=== PATIENT | female | born 1955 | race Caucasian/White ===

== ENCOUNTER 2019-08-20 15:39 | Inpatient (IN) | payer MEDICARE, MEDICAID ==
[~2019-08-20] VITALS: Ht 167.6 cm; Wt 74.8 kg
[2019-08-20 16:17] LABS: BASO % 1 % (0-3); EOS # 0.1 x10^3/uL (0.0-0.7); EOS % 3 % (0-3); HEMATOCRIT 36.6 % (36.0-47.0); HEMOGLOBIN 12.1 g/dL (12.0-15.5); LYMPH # 1.6 x10^3/uL (1.0-4.8); LYMPH % 37 % (24-48); MEAN CORPUSCULAR HEMOGLOBIN 30 pg (25-35); MEAN CORPUSCULAR HGB CONC 33 g/dL (31-37); MEAN CORPUSCULAR VOLUME 91 fL (79-100); MONO # 0.3 x10^3/uL (0.0-1.1); MONO % 7 % (0-9); NEUT # 2.3 x10^3uL (1.8-7.7); NEUT % 53 % (31-73); PLATELET COUNT 177 x10^3/uL (140-400); RED BLOOD COUNT 4.04 x10^6/uL (3.50-5.40); RED CELL DISTRIBUTION WIDTH 12.7 % (11.5-14.5); WHITE BLOOD COUNT 4.3 x10^3/uL (4.0-11.0)
[2019-08-20 16:30] LABS: CREATININE 0.9 mg/dL (0.6-1.0); GFR 63.4; POTASSIUM 3.8 mmol/L (3.5-5.1)
[2019-08-20 16:36] LABS: ALBUMIN 3.9 g/dL (3.4-5.0); ALBUMIN/GLOBULIN RATIO 1.4 (1.0-1.7); MAGNESIUM 1.6 mg/dL (1.8-2.4); TOTAL BILIRUBIN 0.2 mg/dL (0.2-1.0); TOTAL PROTEIN 6.7 g/dL (6.4-8.2)
[2019-08-20 16:56] LABS: BARBITURATES NEG (NEG); BENZODIAZEPINES NEG (NEG); CANNABINOIDS NEG (NEG); COCAINE NEG (NEG); METHADONE NEG (NEG); OPIATES NEG (NEG); PHENCYCLIDINE NEG (NEG)
[2019-08-20 16:58] LABS: AMPHETAMINE/METHAMPHETAMINE NEG (NEG)
[2019-08-20 17:03] LABS: BACTERIA,URINE 0 /HPF (0-FEW); BILIRUBIN,URINE NEG (NEG); CLARITY,URINE HAZY; COLOR,URINE STRAW; GLUCOSE,URINE NEG (NEG); NITRITE,URINE NEG (NEG); RBC,URINE RARE /HPF (0-2); SQUAMOUS EPITHELIAL CELL,UR OCC /LPF; UROBILINOGEN,URINE 0.2 mg/dL (0.2 mg/dL)
[2019-08-20] MEDS ORDERED: MAGNESIUM OXIDE 400 MG TABLET PO ONE (17:30)
--- NOTE | 2019-08-20 17:50 | PHYS DOC ---
Past History Past Medical History: Anxiety, Dementia, Depression, Schizophrenia Past Surgical History: No Surgical History Alcohol Use: None Drug Use: None Adult General Chief Complaint Chief Complaint: MEDICAL CLEARANCE [facility] HPI Patient is a [64-year-old female who is here for medical clearance for psychiatric care. History of hypertension COPD schizophrenia bipolar disorder who has had increasing agitation thinks it got made her etc. etc. some notes for details. No medical complaints at this time she does have chronic arthritis she was complaining about that to me. Review of Systems Review of Systems Constitutional: Denies fever or chills [] Eyes: Denies change in visual acuity, redness, or eye pain [] HENT: Denies nasal congestion or sore throat [] Respiratory: Denies cough or shortness of breath [] Cardiovascular: No additional information not addressed in HPI [] GI: Denies abdominal pain, nausea, vomiting, bloody stools or diarrhea [] : Denies dysuria or hematuria [] Musculoskeletal: Integument: Denies rash or skin lesions [] Neurologic: Denies headache, focal weakness or sensory changes [] Endocrine: Denies polyuria or polydipsia [] All other systems were reviewed and found to be within normal limits, except as documented in this note. Current Medications Current Medications Current Medications Medications (Trade) Dose Ordered Sig/Jade Start Time Stop Time Status Last Admin Dose Admin Magnesium Oxide (Magnesium Oxide) 400 mg 1X ONCE 08/20/19 17:30 08/20/19 17:31 DC 08/20/19 17:23 400 MG Allergies Allergies Allergies Coded Allergies Type Severity Reaction Last Updated Verified chocolate flavor Allergy Unknown 08/20/19 Yes codeine Allergy Unknown 08/20/19 Yes haloperidol Allergy Unknown 08/20/19 Yes Physical Exam Physical Exam Constitutional: Well developed, well nourished, no acute distress, non-toxic appearance. [] HENT: Normocephalic, atraumatic, bilateral external ears normal, oropharynx moist, no oral exudates, nose normal. [] Eyes: PERRLA, EOMI, conjunctiva normal, no discharge. [] Neck: Normal range of motion, no tenderness, supple, no stridor. [] Cardiovascular:Heart rate regular rhythm, no murmur [] Lungs & Thorax: Bilateral breath sounds clear to auscultation [] Abdomen: Bowel sounds normal, soft, no tenderness, no masses, no pulsatile masses. [] Skin: Warm, dry, no erythema, no rash. [] Back: No tenderness, no CVA tenderness. [] Extremities: No tenderness, no cyanosis, no clubbing, ROM intact, no edema. [] Neurologic: Alert , normal motor function, normal sensory function, no focal deficits noted. [] Psychologic: Patient is actually calm and cooperative in the emergency room does appear to be slightly paranoid[] Current Patient Data Vital Signs Vital Signs Date Time Temp Pulse Resp B/P (MAP) Pulse Ox O2 Delivery O2 Flow Rate FiO2 08/20/19 16:01 98.3 69 16 98 Room Air perature (Fahrenheit): * 98.3 degrees F (97.6-99.5) Patient Temperature * 98.3 degrees F (97.5-99.5) Temperature Source * Oral Blood Pressure Systolic * 160 mm Hg (100-140) H Blood Pressure Diastolic * 68 mm Hg (60-100) Blood Pressure Mean * 98 mm Hg Blood Pressure Location * Right Arm Blood Pressure Source * Automatic Cuff Pulse Rate * 69 beats per minute (60-90) Pulse Assessment Method * NIBP Respiratory Rate * 16 breaths per minute (12-24) Oxygen Delivery Method * Room Air Lab Results Laboratory Tests Test 08/20/19 15:54 08/20/19 16:30 White Blood Count 4.3 x10^3/uL (4.0-11.0) Red Blood Count 4.04 x10^6/uL (3.50-5.40) Hemoglobin 12.1 g/dL (12.0-15.5) Hematocrit 36.6 % (36.0-47.0) Mean Corpuscular Volume 91 fL (79-100) Mean Corpuscular Hemoglobin 30 pg (25-35) Mean Corpuscular Hemoglobin Concent 33 g/dL (31-37) Red Cell Distribution Width 12.7 % (11.5-14.5) Platelet Count 177 x10^3/uL (140-400) Neutrophils (%) (Auto) 53 % (31-73) Lymphocytes (%) (Auto) 37 % (24-48) Monocytes (%) (Auto) 7 % (0-9) Eosinophils (%) (Auto) 3 % (0-3) Basophils (%) (Auto) 1 % (0-3) Neutrophils # (Auto) 2.3 x10^3uL (1.8-7.7) Lymphocytes # (Auto) 1.6 x10^3/uL (1.0-4.8) Monocytes # (Auto) 0.3 x10^3/uL (0.0-1.1) Eosinophils # (Auto) 0.1 x10^3/uL (0.0-0.7) Basophils # (Auto) 0.0 x10^3/uL (0.0-0.2) Sodium Level 144 mmol/L (136-145) Potassium Level 3.8 mmol/L (3.5-5.1) Chloride Level 105 mmol/L (98-107) Carbon Dioxide Level 33 mmol/L (21-32) H Anion Gap 6 (6-14) Blood Urea Nitrogen 11 mg/dL (7-20) Creatinine 0.9 mg/dL (0.6-1.0) Estimated GFR (Cockcroft-Gault) 63.4 BUN/Creatinine Ratio 12 (6-20) Glucose Level 121 mg/dL (70-99) H Calcium Level 9.0 mg/dL (8.5-10.1) Magnesium Level 1.6 mg/dL (1.8-2.4) L Total Bilirubin 0.2 mg/dL (0.2-1.0) Aspartate Amino Transferase (AST) 15 U/L (15-37) Alanine Aminotransferase (ALT) 26 U/L (14-59) Alkaline Phosphatase 105 U/L (46-116) Total Protein 6.7 g/dL (6.4-8.2) Albumin 3.9 g/dL (3.4-5.0) Albumin/Globulin Ratio 1.4 (1.0-1.7) Ethyl Alcohol Level < 10 mg/dL (0-10) Urine Collection Type Unknown Urine Color Straw Urine Clarity Hazy Urine pH 6.0 Urine Specific [place] 1.010 Urine Protein Neg (NEG-TRACE) Urine Glucose (UA) Neg mg/dL (NEG) Urine Ketones (Stick) Neg mg/dL (NEG) Urine Blood Trace (NEG) Urine Nitrite Neg (NEG) Urine Bilirubin Neg (NEG) Urine Urobilinogen Dipstick 0.2 mg/dL (0.2 mg/dL) Urine Leukocyte Esterase Neg (NEG) Urine RBC Rare /HPF (0-2) Urine WBC 1-4 /HPF (0-4) Urine Squamous Epithelial Cells Occ /LPF Urine Bacteria 0 /HPF (0-FEW) Urine Opiates Screen Neg (NEG) Urine Methadone Screen Neg (NEG) Urine Barbiturates Neg (NEG) Urine Phencyclidine Screen Neg (NEG) Urine Amphetamine/Methamphetamine Neg (NEG) Urine Benzodiazepines Screen Neg (NEG) Urine Cocaine Screen Neg (NEG) Urine Cannabinoids Screen Neg (NEG) Urine Ethyl Alcohol Neg (NEG) EKG EKG []Normal sinus rhythm normal ST segments normal QT interval no STEMI Radiology/Procedures Radiology/Procedures [] Course & Med Decision Making Course & Med Decision Making Pertinent Labs and Imaging studies reviewed. (See chart for details) []64-year-old female presenting for medical clearance for psychiatric care. She is calm in the emergency room labs are looking pretty good I did give her a dose of oral magnesium in the emergency room and she is stable for admission to the psychiatric floor at this time. Dragon Disclaimer Dragon Disclaimer This electronic medical record was generated, in whole or in part, using a voice recognition dictation system. Departure Departure: Impression: Primary Impression: Schizophrenia Disposition: ADMITTED INPATIENT Admitting Physician: Other Condition: STABLE Referrals: ROBIN DE SANTIAGO DO (PCP) ANTONIO GAMBOA MD Aug 20, 2019 17:50
[2019-08-20] MEDS ORDERED: LORA10TA3 PO (18:08)
[2019-08-20] MEDS ORDERED: GUAI473L15 PO (18:08)
[2019-08-20] MEDS ORDERED: LISI40TA PO (18:08)
[2019-08-20] MEDS ORDERED: CYAN-25 PO (18:08)
[2019-08-20] MEDS ORDERED: SIMV20TA18 PO (18:08)
[2019-08-20] MEDS ORDERED: ROPI1TAB4 PO (18:08)
[2019-08-20] MEDS ORDERED: FERR325T14 PO (18:08)
[2019-08-20] MEDS ORDERED: PANT40TA5 PO (18:08)
[2019-08-20] MEDS ORDERED: NAPR500T8 PO (18:08)
[2019-08-20] MEDS ORDERED: LIDO1ADH44 TP (18:08)
[2019-08-20] MEDS ORDERED: FOLI0.8T2 PO (18:08)
[2019-08-20] MEDS ORDERED: BUPR150T11 PO (18:08)
[2019-08-20] MEDS ORDERED: POTA20TA4 PO (18:08)
[2019-08-20] MEDS ORDERED: DILT240T8 PO (18:08)
[2019-08-20] MEDS ORDERED: CHOL200027 PO (18:08)
--- NOTE | 2019-08-20 18:16 | EKG ---
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
[2019-08-20] MEDS ORDERED: MAG HYDROX/AL HYDROX/SIMETH 30 ML ORAL.SUSP PO PRN (18:30)
[2019-08-20 18:59] VITALS: BP 166/85
[2019-08-20] MEDS ORDERED: ARIP15TA36 PO (21:16)
[2019-08-20] MEDS ORDERED: GABA-586 PO (21:16)
[2019-08-20] MEDS ORDERED: BENZ1TAB5 PO (21:16)
[2019-08-20] MEDS ORDERED: GABA300C8 PO (21:16)
[2019-08-20] MEDS ORDERED: MAG-115 PO (21:16)
[2019-08-20] MEDS ORDERED: MENT1ADH39 TP (21:16)
[2019-08-20] MEDS ORDERED: NEOM1PAC TP (21:16)
[2019-08-20] MEDS ORDERED: GABA600T7 PO ×3 (21:16)
[2019-08-20] MEDS ORDERED: OLAN5TAB5 PO (21:16)
[2019-08-20] MEDS: PATCH REMOVAL. MC SCH (21:30)
[2019-08-20] MEDS ORDERED: guaiFENesin/CODEINE 100mg/10mg 5 ML LIQUID PO PRN (21:30)
[2019-08-20] MEDS ORDERED: ARIPiprazole 15 MG TABLET PO SCH (21:30)
--- NOTE | 2019-08-20 22:01 | PDOC ---
Exam Note: Keith Note: Please also refer to the separate dictated note~for this date of service dictated separately. Discussed the patient with Nursing staff reviewed the chart.~Reviewed interim history and current functioning. Reviewed vital signs,~Labs/ Radiology~and current medications noted below. Continue current treatment with the changes noted in the dictated addendum note Assessment: Vital Signs/I&O: Vital Signs Date Time Temp Pulse Resp B/P (MAP) Pulse Ox O2 Delivery O2 Flow Rate FiO2 08/20/19 18:59 97.1 94 18 166/85 (112) 96 08/20/19 16:01 Room Air Labs: Laboratory Tests Test 08/20/19 15:54 08/20/19 16:30 White Blood Count 4.3 x10^3/uL (4.0-11.0) Red Blood Count 4.04 x10^6/uL (3.50-5.40) Hemoglobin 12.1 g/dL (12.0-15.5) Hematocrit 36.6 % (36.0-47.0) Mean Corpuscular Volume 91 fL (79-100) Mean Corpuscular Hemoglobin 30 pg (25-35) Mean Corpuscular Hemoglobin Concent 33 g/dL (31-37) Red Cell Distribution Width 12.7 % (11.5-14.5) Platelet Count 177 x10^3/uL (140-400) Neutrophils (%) (Auto) 53 % (31-73) Lymphocytes (%) (Auto) 37 % (24-48) Monocytes (%) (Auto) 7 % (0-9) Eosinophils (%) (Auto) 3 % (0-3) Basophils (%) (Auto) 1 % (0-3) Neutrophils # (Auto) 2.3 x10^3uL (1.8-7.7) Lymphocytes # (Auto) 1.6 x10^3/uL (1.0-4.8) Monocytes # (Auto) 0.3 x10^3/uL (0.0-1.1) Eosinophils # (Auto) 0.1 x10^3/uL (0.0-0.7) Basophils # (Auto) 0.0 x10^3/uL (0.0-0.2) Sodium Level 144 mmol/L (136-145) Potassium Level 3.8 mmol/L (3.5-5.1) Chloride Level 105 mmol/L (98-107) Carbon Dioxide Level 33 mmol/L (21-32) H Anion Gap 6 (6-14) Blood Urea Nitrogen 11 mg/dL (7-20) Creatinine 0.9 mg/dL (0.6-1.0) Estimated GFR (Cockcroft-Gault) 63.4 BUN/Creatinine Ratio 12 (6-20) Glucose Level 121 mg/dL (70-99) H Calcium Level 9.0 mg/dL (8.5-10.1) Magnesium Level 1.6 mg/dL (1.8-2.4) L Total Bilirubin 0.2 mg/dL (0.2-1.0) Aspartate Amino Transferase (AST) 15 U/L (15-37) Alanine Aminotransferase (ALT) 26 U/L (14-59) Alkaline Phosphatase 105 U/L (46-116) Total Protein 6.7 g/dL (6.4-8.2) Albumin 3.9 g/dL (3.4-5.0) Albumin/Globulin Ratio 1.4 (1.0-1.7) Ethyl Alcohol Level < 10 mg/dL (0-10) Urine Collection Type Unknown Urine Color Straw Urine Clarity Hazy Urine pH 6.0 Urine Specific [place] 1.010 Urine Protein Neg (NEG-TRACE) Urine Glucose (UA) Neg mg/dL (NEG) Urine Ketones (Stick) Neg mg/dL (NEG) Urine Blood Trace (NEG) Urine Nitrite Neg (NEG) Urine Bilirubin Neg (NEG) Urine Urobilinogen Dipstick 0.2 mg/dL (0.2 mg/dL) Urine Leukocyte Esterase Neg (NEG) Urine RBC Rare /HPF (0-2) Urine WBC 1-4 /HPF (0-4) Urine Squamous Epithelial Cells Occ /LPF Urine Bacteria 0 /HPF (0-FEW) Urine Opiates Screen Neg (NEG) Urine Methadone Screen Neg (NEG) Urine Barbiturates Neg (NEG) Urine Phencyclidine Screen Neg (NEG) Urine Amphetamine/Methamphetamine Neg (NEG) Urine Benzodiazepines Screen Neg (NEG) Urine Cocaine Screen Neg (NEG) Urine Cannabinoids Screen Neg (NEG) Urine Ethyl Alcohol Neg (NEG) Current Medications: Meds: Current Medications Medications (Trade) Dose Ordered Sig/Jade Route PRN Reason Start Time Stop Time Status Last Admin Dose Admin Magnesium Oxide (Magnesium Oxide) 400 mg 1X ONCE PO 08/20/19 17:30 08/20/19 17:31 DC 08/20/19 17:23 I have reviewed the current psychotropics carefully including drug interactions. Risk benefit ratio favors no change other than as noted in my dictated progress note. Diagnosis: Problems: (1) Schizophrenia, schizo-affective type (2) Anxiety disorder (3) Bipolar affective disorder, mixed (4) Cannabis abuse (5) Bipolar affective, mixed, sev w/ psych (6) Impulse control disorder (7) Schizoaffective disorder, chronic condition with acute exacerbation JONA ANN MD Aug 20, 2019 22:01
[2019-08-20] MEDS: NAPROXEN 500 MG TABLET PO SCH (22:23)
[2019-08-20] MEDS: BENZTROPINE MESYLATE 1 MG TABLET PO SCH (22:23)
[2019-08-20] MEDS: GABAPENTIN 300 MG CAPSULE. PO SCH (22:24)
[2019-08-20] MEDS: rOPINIRole 1 MG TABLET. PO SCH (22:24)
[2019-08-20] MEDS: SIMVASTATIN 20 MG TABLET PO SCH (22:24)
[2019-08-21 06:23] VITALS: BP 147/89
[2019-08-21] MEDS: buPROPion SR 150 MG TABLET.SA PO SCH (10:54)
[2019-08-21] MEDS: GABAPENTIN 300 MG CAPSULE. PO SCH ×3 (10:54→19:58)
[2019-08-21] MEDS: FOLIC ACID 1 MG TABLET PO SCH (10:55)
[2019-08-21] MEDS: NAPROXEN 500 MG TABLET PO SCH ×2 (10:55→19:57)
[2019-08-21] MEDS: CETIRIZINE HCL 10 MG TABLET PO SCH (10:55)
[2019-08-21] MEDS: POTASSIUM CHLORIDE 20 MEQ TABLET.ER. PO SCH (10:56)
[2019-08-21] MEDS: BENZTROPINE MESYLATE 1 MG TABLET PO SCH ×3 (10:56→19:57)
[2019-08-21] MEDS: PANTOPRAZOLE 40 MG TABLET. PO SCH (10:56)
[2019-08-21] MEDS: CHOLECALCIFEROL (VITAMIN D3) 1,000 UNIT TABLET PO SCH (10:56)
[2019-08-21] MEDS: LISINOPRIL 20 MG TABLET PO SCH (10:56)
[2019-08-21] MEDS: NEOMY/BACITR/POLYMYXIN OINT PACKET. TP SCH (10:57)
[2019-08-21] MEDS: LIDOCAINE (700MG/PATCH) PATCH. TD SCH (10:57)
[2019-08-21 12:35] LABS: THYROID STIM HORMONE (TSH) 2.899 uIU/mL (0.358-3.740)
--- NOTE | 2019-08-21 13:17 | HP ---
ADMIT DATE: 08/20/2019 PSYCHIATRIC ADMISSION HISTORY/EVALUATION This late entry date of service 08/20/2019 covers elements not covered in my initial note. IDENTIFYING DATA: The patient is a 64-year-old female referred to us from [facility] in [place], [place] by her primary care physician, Dr. Hickman and psychiatrist, Dr. Mari on account of worsening agitation, being argumentative, delusional, believing God impregnated her. She was having suicidal ideation with a plan to put a belt around her neck and hang herself from the ceiling. She has a past history of cocaine, crack abuse, marijuana abuse, and a long history of schizoaffective disorder, bipolar type versus bipolar disorder, manic with psychotic features. She had failed outpatient psychiatric interventions were deemed potential danger to herself and admitted by her court-appointed guardian, Danica Keating after being evaluated in the ER. Multiple changes in her medications at the penitentiary had failed. CHIEF COMPLAINT: "Yes, I have been having worsening mood swings. Whatever medications they have tried have not helped." HISTORY OF PRESENT ILLNESS: The patient has a long history of schizoaffective disorder, bipolar type, with psychotic features. She had been stable for some time, but recently having increasing mood swings, agitation, periods of hypomania, and bruno alternating with being depressed. She has had sleep and appetite changes, marked paranoia and suicidal ideation as noted above, which she minimizes. Cognitively, she has been reasonably intact. PAST PSYCHIATRIC HISTORY: As above. MEDICAL HISTORY: Positive for hypertension, hyperlipidemia, asthma, COPD, urinary incontinence, restless leg syndrome, repeated falls, history of hypokalemia, acute kidney injury, history of thrombocytopenia, anemia, tremors, right shoulder and bilateral hand pain, carpal tunnel bilaterally, idiopathic progressive neuropathy. ACCU-CHEKS: None. DIET: Regular. Takes medications whole. Ambulates ad reg. UA on 08/20/2019 was unremarkable. CODE STATUS: Full code. ALLERGIES: CODEINE, HALDOL, PANADEINE, AND CHOCOLATE. FAMILY HISTORY: Noncontributory. CURRENT PSYCHOTROPICS: Wellbutrin XL 150 mg daily, Abilify 15 mg at bedtime with a plan to increase to 30 mg on 08/31/2019, Zyprexa p.r.n., Cogentin 1 mg t.i.d., Neurontin is being gradually increased. FAMILY HISTORY: Noncontributory. SOCIAL HISTORY: Positive for drug abuse, cocaine, crack and marijuana in the past, none recently. No physical, sexual or elder abuse history is noted. Not known to be a perpetrator. REACTION TO HOSPITALIZATION: The patient accepting of it. ASSETS: Supportive living at the above facility and court-appointed guardian. MENTAL STATUS EXAMINATION: The patient was seen individually in the evening of 08/20/2019. She is reasonably oriented. Speech coherent, somewhat rapid at times. Abstraction fair, computation impaired, language function intact, attention span short. Mood and affect remains labile, at times, depressed. No active suicidal or homicidal ideation. She does appear somewhat paranoid. LABORATORY DATA: Reviewed. IMPRESSION: Schizoaffective disorder, bipolar type, mixed with psychotic features; anxiety disorder, unspecified; bipolar disorder, mixed with psychotic features, past history of polysubstance abuse. Rest unchanged from above. PLAN: Admit to Geropsychiatry Unit at [facility]. I will see the patient daily individually from a psychiatric standpoint. Medical followup per Dr. Jones. We will continue the patient on her current psychotropics. Obtain past psychiatric records including her admission to the Psychiatry Unit at [facility] in 03/2019. Observe baseline, then make further changes in her psychotropics as clinically indicated. ESTIMATED LENGTH OF STAY: 10-12 days. DISPOSITION: Plan is back to penitentiary when stable. JONA ANN MD DR: GLENN/papo JOB#: [id number] / [id number]
[2019-08-21 16:03] VITALS: BP 153/85
[2019-08-21] MEDS: PATCH REMOVAL. MC SCH (19:56)
[2019-08-21] MEDS: SIMVASTATIN 20 MG TABLET PO SCH (19:57)
[2019-08-21] MEDS: risperiDONE 0.5 MG TABLET. PO SCH (19:57)
[2019-08-21] MEDS: rOPINIRole 1 MG TABLET. PO SCH (19:58)
[2019-08-21] MEDS: DIVALPROEX ER 500 MG TAB.ER.24H PO SCH (19:58)
--- NOTE | 2019-08-21 20:55 | PDOC ---
Exam Note: Keith Note: Please also refer to the separate dictated note~for this date of service dictated separately.~Patient seen individually. Discussed the patient with Nursing staff reviewed the chart.~Reviewed interim history and current functioning. Reviewed vital signs,~Labs/ Radiology~and current medications noted below. Continue current treatment with the changes noted in the dictated addendum note Assessment: Vital Signs/I&O: Vital Signs Date Time Temp Pulse Resp B/P (MAP) Pulse Ox O2 Delivery O2 Flow Rate FiO2 08/21/19 16:03 97.6 94 20 153/85 (107) 96 Room Air I & O 08/20/19 08/20/19 08/21/19 15:00 23:00 07:00 Intake Total 420 ml Balance 420 ml Current Medications: Meds: Current Medications Medications (Trade) Dose Ordered Sig/Jade Route PRN Reason Start Time Stop Time Status Last Admin Dose Admin Neomycin/ Polymyxin/ Bacitracin (Triple Antibiotic Ointment) 1 pkt DAILY TP 08/21/19 09:00 08/21/19 10:57 Pantoprazole Sodium (Protonix) 40 mg DAILY PO 08/21/19 09:00 08/21/19 10:56 Potassium Chloride (Klor-Con) 20 meq DAILY PO 08/21/19 09:00 08/21/19 10:56 Ropinirole HCl (Requip) 1 mg HS PO 08/20/19 21:00 08/21/19 19:58 Simvastatin (Zocor) 20 mg HS PO 08/20/19 21:00 08/21/19 19:57 Vitamin D (Vitamin D3) 2,000 unit DAILY PO 08/21/19 09:00 08/21/19 10:56 Diltiazem HCl (Cardizem 24hr Cd) 240 mg DAILY PO 08/21/19 09:00 08/21/19 10:55 Folic Acid (Folic Acid) 1 mg DAILY PO 08/21/19 09:00 08/21/19 10:55 Lidocaine (Lidoderm) 1 patch DAILY TD 08/21/19 09:00 08/21/19 10:57 Lisinopril (Prinivil) 40 mg DAILY PO 08/21/19 09:00 08/21/19 10:56 Cetirizine HCl (ZyrTEC) 10 mg DAILY PO 08/21/19 09:00 08/21/19 10:55 Naproxen (Naprosyn) 500 mg BID PO 08/20/19 21:30 08/21/19 19:57 Aripiprazole (Abilify) 15 mg HS PO 08/20/19 21:30 08/21/19 18:24 DC 08/20/19 22:23 Benztropine Mesylate (Cogentin) 1 mg TID PO 08/20/19 21:30 08/21/19 19:57 Bupropion HCl (Wellbutrin Sr) 150 mg DAILY PO 08/21/19 09:00 08/21/19 10:54 Gabapentin (Neurontin) 300 mg 0800,1300 PO 08/21/19 08:00 08/24/19 15:00 08/21/19 15:00 Gabapentin (Neurontin) 600 mg HS PO 08/20/19 21:30 08/24/19 21:01 08/21/19 19:58 Miscellaneous (Lidoderm Patch Removal) 1 ea QHS MC 08/20/19 21:30 08/21/19 19:56 Risperidone (RisperDAL) 0.5 mg HS PO 08/21/19 21:00 08/21/19 19:57 Divalproex Sodium (Depakote Er) 500 mg HS PO 08/21/19 21:00 08/21/19 19:58 I have reviewed the current psychotropics carefully including drug interactions. Risk benefit ratio favors no change other than as noted in my dictated progress note. Diagnosis: Problems: (1) Schizoaffective disorder, chronic condition with acute exacerbation (2) Impulse control disorder (3) Bipolar affective, mixed, sev w/ psych (4) Anxiety disorder JONA ANN MD Aug 21, 2019 20:55
[2019-08-21 23:07] LABS: HEMOGLOBIN A1C 5.1 % (4.8-5.6)
[2019-08-22 06:01] VITALS: BP 137/76
[2019-08-22] MEDS: buPROPion SR 150 MG TABLET.SA PO SCH (07:48)
[2019-08-22] MEDS: CHOLECALCIFEROL (VITAMIN D3) 1,000 UNIT TABLET PO SCH (07:48)
[2019-08-22] MEDS: FERROUS SULFATE 325 MG TABLET. PO SCH (07:48)
[2019-08-22] MEDS: PANTOPRAZOLE 40 MG TABLET. PO SCH (07:48)
[2019-08-22] MEDS: BENZTROPINE MESYLATE 1 MG TABLET PO SCH ×2 (07:48→13:24)
[2019-08-22] MEDS: POTASSIUM CHLORIDE 20 MEQ TABLET.ER. PO SCH (07:48)
[2019-08-22] MEDS: CETIRIZINE HCL 10 MG TABLET PO SCH (07:49)
[2019-08-22] MEDS: LISINOPRIL 20 MG TABLET PO SCH (07:49)
[2019-08-22] MEDS: NAPROXEN 500 MG TABLET PO SCH ×2 (07:49→19:37)
[2019-08-22] MEDS: GABAPENTIN 300 MG CAPSULE. PO SCH ×3 (07:49→19:38)
[2019-08-22] MEDS: CYANOCOBALAMIN (VITAMIN B-12) 1,000 MCG TABLET. PO SCH (07:50)
[2019-08-22] MEDS: LIDOCAINE (700MG/PATCH) PATCH. TD SCH (07:50)
[2019-08-22] MEDS: FOLIC ACID 1 MG TABLET PO SCH (07:50)
[2019-08-22] MEDS: NEOMY/BACITR/POLYMYXIN OINT PACKET. TP SCH (09:00)
--- NOTE | 2019-08-22 11:34 | TX PLAN ---
Interdisciplinary Tx Plan Admission Information Aug 20, 2019 at 18:05 Legal Status (on Admission): Voluntary, Court Appointed Guardian DPOA/Guardian Name: Danica Keating, Legal Guardian Contact or [phone] (After Hours) Other Contact Name: [facility] Other Contact Verified Code Status: Full Code Allergies: Coded Allergies: chocolate flavor (Verified Allergy, Unknown, 08/20/19) codeine (Verified Allergy, Unknown, 08/20/19) haloperidol (Verified Allergy, Unknown, 08/20/19) Estimated Length of Stay: 10 Diagnoses Primary Diagnosis: Schizoaffective Disorder Mixed Type with Psychotic Features, Depression Reasons for Admission: Delusions, Agitated, Suicidal ideation Problem in Patient's Words: Per pt., "My Guardian brittny I was manic." "I've been in the hospital before because I have had trouble with some people." Pt. reports, "It was easier to send me out." "We didn't get along." "I've been in the system for 30 years." "I know too much." Pt. reports she gets upset when people mess with her things. "I called the police because I couldn't find some of my clothes." Per and [place] [employer] Client Banking Services Clerk pt. told staff at an appointment "she was with Sebastian's baby." Pt. was "refusing her Invega injections." and [place] [employer] Services Clerk reports pt. needing her medications adjusted but there was "just too much going on with her" to begin changing without closly monitoring. She also stated pt. "focuses on what her medications are" and wants to direct her care, requesting she receive more "Wellbutrin". Problems Active Problems: Per pt. intake, pt. was agitated, argumentative, delusional believing God got her , SI with plan to put belt around her neck and hang from ceiling, and mood lability. Inactive Problems: Pt. is compliant with medications but hesitant on occasion. Pt Strengths/Limitations Ability for [place]: Poor Cognitive Functioning/Ability: Fair Communication Skills/Ability: Fair Financial Resources: Fair Insight/Judgement: Poor Intellectual Ability: Fair Physical Health: Fair Social Skills: Fair Stability in Family: Poor Verbal Skills: Fair Discharge Criteria Discharge Criteria: No need for close observ., Improved behavior, Improved mood/thought Preliminary Discharge Plan Preliminary DC Plan: Current Living Arrange. Special Precautions Special Precautions: Agitation/Assault, Suicide Risk Fall Risk: Low Initial D/C Plan Pt. will return to [facility] once stable. Identified Discharge Needs: Follow up with PCP and Psychiatrist Currently Utilized Resources Currently Utilized Resources/P: PCP Dr. Hickman Psychiatrist Dr. Mari Identified Problems/Hx/Goals Objectives/Short-Term Goals Short Term Goals: Dec. Hallucination/Delus, Medication Stabilization, Monitor Med Effects, No Suicidal/Geoff. ideation, Promote Coping Skill Short Term Goals in Patient's: Per pt. 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 Pt. stated, "I held a job for 2 1/2 years" and would "have a break down". Education: Pt. graduated from high school and "I tried college." "I failed it." "I was sick, mentally." Community Follow-up Follow up with PCP and Psychiatrist Community Provider/Family Inpu: Pt. 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 CM and [place] [employer] Services Clerk would like to be updated after treatment team. MINERVA CORREA Aug 22, 2019 11:34
[2019-08-22 16:17] VITALS: BP 143/89
[2019-08-22] MEDS ORDERED: traZODone 50 MG TABLET. PO PRN (16:45)
--- NOTE | 2019-08-22 17:39 | PN ---
DATE: 08/21/2019 PSYCHIATRIC PROGRESS NOTE This late entry 08/21/2019 covers elements not covered in my initial note. SUBJECTIVE: I met with the patient evening of 08/21/2019. Per CHELSEY Mo, the patient slept 6 hours previous night. She has been somewhat hyperverbal, hypomanic, grandiose, irritable, demanding and rude per nursing staff. She states she was fed rat poison and given an injection of rat poison and that is why she is having pain in her hands. She states she was given this at the long term where she came from. In the past, reportedly, she has taken an overdose of some detergents and had dialysis at one point. She remains alert, oriented x 4 other than being extremely psychotic. REVIEW OF SYSTEMS: Positive for vague somatic symptoms as above. No CV, , pulmonary, eye system symptoms on review. She is paranoid, psychotic. Reliability poor. MENTAL STATUS EXAM: Reasonably oriented. Speech is coherent, pressured. Abstraction fair, computation impaired, language function intact, attention span short. No active suicidal or homicidal ideation. LABORATORY DATA: Reviewed. IMPRESSION: Schizoaffective disorder, bipolar type, mixed with psychotic features; anxiety disorder, unspecified; impulse control disorder, unspecified. Rest unchanged. PLAN: Start Risperdal 0.5 mg p.o. at bedtime as an antipsychotic in place of the Abilify 15 mg a day. Maintain Wellbutrin-XL 150 mg a day. She is on Cogentin 1 mg t.i.d. I cannot quite explain the reason for this and we may gradually reduce this. Also start Depakote ER as a mood stabilizer 500 mg p.o. at bedtime. Check CBC, CMP, valproic acid level, ammonia level in 3 days. Adjust to reach therapeutic level. We are still awaiting past psychiatric records from her prior psychiatric hospitalizations. JONA ANN MD DR: GLENN/papo JOB#: [id number] / [id number]
[2019-08-22] MEDS: rOPINIRole 1 MG TABLET. PO SCH (19:37)
[2019-08-22] MEDS: traZODone 50 MG TABLET. PO SCH (19:38)
[2019-08-22] MEDS: SIMVASTATIN 20 MG TABLET PO SCH (19:38)
[2019-08-22] MEDS: risperiDONE 0.5 MG TABLET. PO SCH (19:38)
[2019-08-22] MEDS: PATCH REMOVAL. MC SCH (20:53)
[2019-08-22] MEDS: DIVALPROEX ER 500 MG TAB.ER.24H PO SCH (20:53)
--- NOTE | 2019-08-22 20:53 | PDOC ---
Exam Note: Keith Note: Please also refer to the separate dictated note~for this date of service dictated separately.~Patient seen individually. Discussed the patient with Nursing staff reviewed the chart.~Reviewed interim history and current functioning. Reviewed vital signs,~Labs/ Radiology~and current medications noted below. Continue current treatment with the changes noted in the dictated addendum note Assessment: Vital Signs/I&O: Vital Signs Date Time Temp Pulse Resp B/P (MAP) Pulse Ox O2 Delivery O2 Flow Rate FiO2 08/22/19 16:17 98.0 78 16 143/89 (107) 97 08/22/19 06:01 Room Air I & O 08/21/19 08/21/19 08/22/19 15:00 23:00 07:00 Intake Total 1440 ml 600 ml Output Total 1350 ml Balance 1440 ml 600 ml -1350 ml Current Medications: Meds: Current Medications Medications (Trade) Dose Ordered Sig/Jade Route PRN Reason Start Time Stop Time Status Last Admin Dose Admin Cyanocobalamin (Vitamin B-12) 1,000 mcg 3X/WEEK PO 08/22/19 09:00 08/22/19 07:50 Ferrous Sulfate (Feosol) 325 mg QODAY PO 08/22/19 09:00 08/22/19 07:48 Risperidone (RisperDAL) 0.5 mg HS PO 08/21/19 21:00 08/22/19 19:38 Divalproex Sodium (Depakote Er) 500 mg HS PO 08/21/19 21:00 08/21/19 19:58 Trazodone HCl (Desyrel) 50 mg QHS PO 08/22/19 21:00 08/22/19 19:38 I have reviewed the current psychotropics carefully including drug interactions. Risk benefit ratio favors no change other than as noted in my dictated progress note. Diagnosis: Problems: (1) Anxiety disorder (2) Bipolar affective disorder, mixed (3) Cannabis abuse (4) Bipolar affective, mixed, sev w/ psych (5) Impulse control disorder (6) Schizoaffective disorder, chronic condition with acute exacerbation JONA ANN MD Aug 22, 2019 20:53
--- NOTE | 2019-08-23 01:16 | CONS ---
DATE OF CONSULTATION: 08/22/2019 REASON FOR CONSULTATION: Medical management. HISTORY OF PRESENT ILLNESS: The patient is a 64-year-old female patient resident at [facility], who was admitted on account of being agitated, argumentative, delusional, believing God impregnated her, has suicidal ideation with a plan to put a belt around her neck and hang from the ceiling, all this in a background of schizoaffective disorder, mixed type with psychotic features and depression. The patient has multiple medical problems including bronchial asthma, COPD, hyperlipidemia, urinary incontinence, restless leg syndrome, acute kidney injury, thrombocytopenia, anemia, tremors, carpal tunnel, bilateral idiopathic progressive neuropathy. PAST SURGICAL HISTORY: Significant for depression, paranoid schizophrenia, bipolar as well as insomnia. ALLERGIES: She is ALLERGIC TO CODEINE, HALDOL, PANADEINE and CHOCOLATE. FAMILY HISTORY: Unremarkable. SOCIAL HISTORY: She is a resident at [facility]. She apparently has 2 grown children. She smokes up to 6 packs a day, according to her, mostly 2 packs a day and does not drink alcohol, has used crack before. PHYSICAL EXAMINATION: GENERAL: When I examined her this afternoon, she was sitting comfortably in the edge of the bed, in no apparent distress. No pallor, jaundice, cyanosis or thyromegaly. No jugular venous distention. No limb edema. VITAL SIGNS: Her heart rate was 78, blood pressure 143/89, temperature was 98, respiratory rate was 16, and oxygen saturation was 97%. HEAD, EYES, EARS, NOSE AND THROAT: Showed normocephalic, atraumatic. NECK: Supple. HEART: Showed normal first and second heart sounds. No gallop, rub or murmur. CHEST: Clear to auscultation. No crepitation or rhonchi. ABDOMEN: Distended, soft, nontender. NEUROLOGIC: She was awake, alert, responding appropriately. All cranial nerves intact. EXTREMITIES: She moves extremities without difficulty. She ambulates without assistance or assistive devices. MEDICATIONS: She is currently on following medications: She is on loratadine 10 mg once a day, ferrous sulfate 325 mg every other day, simvastatin 20 mg at bedtime. She is on diltiazem 240 mg extended release once a day, lisinopril 40 mg once a day, naproxen 500 mg twice a day. She is on gabapentin 600 mg 3 times a day, Wellbutrin 150 mg once a day, aripiprazole for Abilify 15 mg at bedtime, olanzapine 2.5 mg every 6 hours, benztropine mesylate 1 mg 3 times a day, Requip 1 mg at bedtime, potassium chloride 20 mEq once a day, guaifenesin and codeine 10 mL every 4 hours, Mylanta 30 mL p.o. daily p.r.n. for indigestion, Protonix 40 mg once a day, triple antibiotic ointment applied topically, Lidoderm patch for Aspercreme applied topically, menthol Icy Hot 3 times a day, cyanocobalamin 1000 mcg 3 times a week, folic acid 1 mg daily and cholecalciferol vitamin D3 2000 units p.o. daily. LABORATORY DATA: Showed white cell count 4300, hemoglobin 12, hematocrit 36, MCV 91, and platelet count 277,000 with normal manual differential. Her chemistry showed a serum sodium of 144, potassium 3.8, chloride 105, bicarbonate 33, anion gap of 6, BUN 11, creatinine 0.9, estimated GFR was 63 mL per minute. Her glucose was 121, calcium was 9, magnesium was 1.6. Total bilirubin, AST, ALT, alkaline phosphatase were normal. Total protein was 6.7, albumin was 3.9. Her hemoglobin A1c was 5.1%. Serum iron 130. TIBC was 364. Iron saturation was 36. Her serum triglycerides were 256, total cholesterol 106, LDL cholesterol 25, VLDL was 51, HDL was 30 and the ratio was 3. TSH was normal at 2.89 as well as total T4 and total T3. Her vitamin B12 was normal at 151 pg/mL; however, 25-hydroxy vitamin D was low at 23. Her urinalysis was essentially unremarkable. Toxic screen was essentially negative and treponema pallidum antibody is nonreactive. IMPRESSION: In summary, this is a 64-year-old female patient, a resident at [facility], who was admitted on account of being agitated, argumentative, delusional, believing God impregnated her, with suicidal ideation with a plan to put a belt around her neck and hang from the ceiling, all this in a background of schizoaffective disorder, mixed type, with psychotic features. Medically, she has multiple medical problems including hypertension, hyperlipidemia and severe peripheral neuropathy. She also has COPD, anemia and thrombocytopenia. All in all, the patient seems to be stable. Her lab work showed her 25-hydroxy vitamin D is low, so will start her on that. Otherwise, we will continue all other medications. Thank you, Dr. Paula, for allowing me to participate in the care of. Dictation Ends Here. NAZ LOPEZ MD DR: DANIELE/papo JOB#: [id number] / [id number]
[2019-08-23 06:01] VITALS: BP 148/77
[2019-08-23] MEDS: LIDOCAINE (700MG/PATCH) PATCH. TD SCH (08:28)
[2019-08-23] MEDS: CHOLECALCIFEROL (VITAMIN D3) 1,000 UNIT TABLET PO SCH (08:29)
[2019-08-23] MEDS: PANTOPRAZOLE 40 MG TABLET. PO SCH (08:29)
[2019-08-23] MEDS: buPROPion SR 150 MG TABLET.SA PO SCH (08:29)
[2019-08-23] MEDS: NAPROXEN 500 MG TABLET PO SCH ×2 (08:29→20:27)
[2019-08-23] MEDS: LISINOPRIL 20 MG TABLET PO SCH (08:33)
[2019-08-23] MEDS: POTASSIUM CHLORIDE 20 MEQ TABLET.ER. PO SCH (08:33)
[2019-08-23] MEDS: FOLIC ACID 1 MG TABLET PO SCH (08:33)
[2019-08-23] MEDS: CETIRIZINE HCL 10 MG TABLET PO SCH (08:33)
[2019-08-23] MEDS: GABAPENTIN 300 MG CAPSULE. PO SCH ×3 (08:34→20:26)
[2019-08-23] MEDS: NEOMY/BACITR/POLYMYXIN OINT PACKET. TP SCH (08:34)
[2019-08-23] MEDS: BENZTROPINE MESYLATE 1 MG TABLET PO SCH ×3 (08:34→20:26)
[2019-08-23] MEDS: CHOLECALCIFEROL (VITAMIN D3) 50,000 UNIT CAPSULE PO SCH (08:36)
[2019-08-23] MEDS: ACETAMINOPHEN 325 MG TABLET PO PRN (08:52)
[2019-08-23 10:50] VITALS: BP 127/84
[2019-08-23 15:23] VITALS: BP 136/81
[2019-08-23] MEDS: SIMVASTATIN 20 MG TABLET PO SCH (20:26)
[2019-08-23] MEDS: risperiDONE 0.5 MG TABLET. PO SCH (20:27)
[2019-08-23] MEDS: DIVALPROEX ER 500 MG TAB.ER.24H PO SCH (20:27)
[2019-08-23] MEDS: rOPINIRole 1 MG TABLET. PO SCH (20:27)
[2019-08-23] MEDS: traZODone 50 MG TABLET. PO SCH (20:27)
--- NOTE | 2019-08-23 20:50 | PDOC ---
Exam Note: Keith Note: Please also refer to the separate dictated note~for this date of service dictated separately.~Patient seen individually. Discussed the patient with Nursing staff reviewed the chart.~Reviewed interim history and current functioning. Reviewed vital signs,~Labs/ Radiology~and current medications noted below. Continue current treatment with the changes noted in the dictated addendum note Assessment: Vital Signs/I&O: Vital Signs Date Time Temp Pulse Resp B/P (MAP) Pulse Ox O2 Delivery O2 Flow Rate FiO2 08/23/19 15:23 98.1 76 16 136/81 (99) 97 08/23/19 06:01 Room Air I & O 08/22/19 08/22/19 08/23/19 15:00 23:00 07:00 Intake Total 960 ml 840 ml Balance 960 ml 840 ml Current Medications: Meds: Current Medications Medications (Trade) Dose Ordered Sig/Jade Route PRN Reason Start Time Stop Time Status Last Admin Dose Admin Trazodone HCl (Desyrel) 50 mg QHS PO 08/22/19 21:00 08/23/19 20:27 Benztropine Mesylate (Cogentin) 1 mg BID PO 08/23/19 08:00 08/24/19 22:00 08/23/19 20:26 Vitamin D (Vitamin D3) 50,000 unit WEEKLY PO 08/23/19 09:00 08/23/19 08:36 I have reviewed the current psychotropics carefully including drug interactions. Risk benefit ratio favors no change other than as noted in my dictated progress note. Diagnosis: Problems: (1) Schizophrenia, schizo-affective type (2) Anxiety disorder (3) Bipolar affective disorder, mixed (4) Cannabis abuse (5) Bipolar affective, mixed, sev w/ psych (6) Impulse control disorder (7) Schizoaffective disorder, chronic condition with acute exacerbation JONA ANN MD Aug 23, 2019 20:50
[2019-08-23] MEDS: PATCH REMOVAL. MC SCH (21:00)
[2019-08-24 05:42] VITALS: BP 119/70
[2019-08-24 08:14] VITALS: BP 131/84
[2019-08-24] MEDS: LIDOCAINE (700MG/PATCH) PATCH. TD SCH (08:15)
[2019-08-24] MEDS: CHOLECALCIFEROL (VITAMIN D3) 1,000 UNIT TABLET PO SCH (08:15)
[2019-08-24] MEDS: buPROPion SR 150 MG TABLET.SA PO SCH (08:16)
[2019-08-24] MEDS: NAPROXEN 500 MG TABLET PO SCH ×2 (08:16→19:54)
[2019-08-24] MEDS: LISINOPRIL 20 MG TABLET PO SCH (08:16)
[2019-08-24] MEDS: FERROUS SULFATE 325 MG TABLET. PO SCH (08:17)
[2019-08-24] MEDS: NEOMY/BACITR/POLYMYXIN OINT PACKET. TP SCH (08:17)
[2019-08-24] MEDS: POTASSIUM CHLORIDE 20 MEQ TABLET.ER. PO SCH (08:17)
[2019-08-24] MEDS: GABAPENTIN 300 MG CAPSULE. PO SCH ×3 (08:17→19:54)
[2019-08-24] MEDS: BENZTROPINE MESYLATE 1 MG TABLET PO SCH ×2 (08:17→19:54)
[2019-08-24] MEDS: CETIRIZINE HCL 10 MG TABLET PO SCH (08:17)
[2019-08-24] MEDS: PANTOPRAZOLE 40 MG TABLET. PO SCH (08:17)
[2019-08-24] MEDS: FOLIC ACID 1 MG TABLET PO SCH (08:17)
[2019-08-24 10:19] LABS: BASO % 1 % (0-3); EOS # 0.1 x10^3/uL (0.0-0.7); EOS % 2 % (0-3); HEMATOCRIT 38.2 % (36.0-47.0); HEMOGLOBIN 12.9 g/dL (12.0-15.5); LYMPH % 27 % (24-48); MEAN CORPUSCULAR HEMOGLOBIN 30 pg (25-35); MEAN CORPUSCULAR HGB CONC 34 g/dL (31-37); MEAN CORPUSCULAR VOLUME 90 fL (79-100); MONO # 0.3 x10^3/uL (0.0-1.1); MONO % 8 % (0-9); NEUT # 2.4 x10^3uL (1.8-7.7); NEUT % 63 % (31-73); PLATELET COUNT 198 x10^3/uL (140-400); RED BLOOD COUNT 4.23 x10^6/uL (3.50-5.40); RED CELL DISTRIBUTION WIDTH 12.4 % (11.5-14.5); WHITE BLOOD COUNT 3.8 x10^3/uL (4.0-11.0)
[2019-08-24 10:29] LABS: ALBUMIN 3.9 g/dL (3.4-5.0); ALBUMIN/GLOBULIN RATIO 1.2 (1.0-1.7); ALK PHOS 102 U/L (46-116); ALT (SGPT) 23 U/L (14-59); ANION GAP 6 (6-14); AST (SGOT) 14 U/L (15-37); BLOOD UREA NITROGEN 14 mg/dL (7-20); BUN/CREATININE RATIO 16 (6-20); CALCIUM 8.8 mg/dL (8.5-10.1); CARBON DIOXIDE 31 mmol/L (21-32); CHLORIDE 104 mmol/L (98-107); CREATININE 0.9 mg/dL (0.6-1.0); GFR 63.4; GLUCOSE 122 mg/dL (70-99); POTASSIUM 4.5 mmol/L (3.5-5.1); SODIUM 141 mmol/L (136-145); TOTAL BILIRUBIN 0.3 mg/dL (0.2-1.0); TOTAL PROTEIN 7.1 g/dL (6.4-8.2); VAL ACID 18 mcg/mL (50-100)
[2019-08-24 15:26] VITALS: BP 151/85
[2019-08-24] MEDS: rOPINIRole 1 MG TABLET. PO SCH (19:54)
[2019-08-24] MEDS: DIVALPROEX ER 500 MG TAB.ER.24H PO SCH (19:54)
[2019-08-24] MEDS: traZODone 50 MG TABLET. PO SCH (19:54)
[2019-08-24] MEDS: risperiDONE 0.5 MG TABLET. PO SCH (19:55)
[2019-08-24] MEDS: SIMVASTATIN 20 MG TABLET PO SCH (19:55)
--- NOTE | 2019-08-24 20:52 | PDOC ---
Exam Note: Keith Note: Please also refer to the separate dictated note~for this date of service dictated separately.~Patient seen individually. Discussed the patient with Nursing staff reviewed the chart.~Reviewed interim history and current functioning. Reviewed vital signs,~Labs/ Radiology~and current medications noted below. Continue current treatment with the changes noted in the dictated addendum note Assessment: Vital Signs/I&O: Vital Signs Date Time Temp Pulse Resp B/P (MAP) Pulse Ox O2 Delivery O2 Flow Rate FiO2 08/24/19 15:26 98.2 96 20 151/85 (107) 96 08/23/19 06:01 Room Air I & O 08/23/19 08/23/19 08/24/19 15:00 23:00 07:00 Intake Total 600 ml 360 ml Balance 600 ml 360 ml Labs: Laboratory Tests Test 08/24/19 10:07 White Blood Count 3.8 x10^3/uL (4.0-11.0) L Red Blood Count 4.23 x10^6/uL (3.50-5.40) Hemoglobin 12.9 g/dL (12.0-15.5) Hematocrit 38.2 % (36.0-47.0) Mean Corpuscular Volume 90 fL (79-100) Mean Corpuscular Hemoglobin 30 pg (25-35) Mean Corpuscular Hemoglobin Concent 34 g/dL (31-37) Red Cell Distribution Width 12.4 % (11.5-14.5) Platelet Count 198 x10^3/uL (140-400) Neutrophils (%) (Auto) 63 % (31-73) Lymphocytes (%) (Auto) 27 % (24-48) Monocytes (%) (Auto) 8 % (0-9) Eosinophils (%) (Auto) 2 % (0-3) Basophils (%) (Auto) 1 % (0-3) Neutrophils # (Auto) 2.4 x10^3uL (1.8-7.7) Lymphocytes # (Auto) 1.0 x10^3/uL (1.0-4.8) Monocytes # (Auto) 0.3 x10^3/uL (0.0-1.1) Eosinophils # (Auto) 0.1 x10^3/uL (0.0-0.7) Basophils # (Auto) 0.0 x10^3/uL (0.0-0.2) Sodium Level 141 mmol/L (136-145) Potassium Level 4.5 mmol/L (3.5-5.1) Chloride Level 104 mmol/L (98-107) Carbon Dioxide Level 31 mmol/L (21-32) Anion Gap 6 (6-14) Blood Urea Nitrogen 14 mg/dL (7-20) Creatinine 0.9 mg/dL (0.6-1.0) Estimated GFR (Cockcroft-Gault) 63.4 BUN/Creatinine Ratio 16 (6-20) Glucose Level 122 mg/dL (70-99) H Calcium Level 8.8 mg/dL (8.5-10.1) Total Bilirubin 0.3 mg/dL (0.2-1.0) Aspartate Amino Transferase (AST) 14 U/L (15-37) L Alanine Aminotransferase (ALT) 23 U/L (14-59) Alkaline Phosphatase 102 U/L (46-116) Ammonia 18 mcmol/L (11-34) Total Protein 7.1 g/dL (6.4-8.2) Albumin 3.9 g/dL (3.4-5.0) Albumin/Globulin Ratio 1.2 (1.0-1.7) Valproic Acid Level 18 mcg/mL (50-100) L Valproic Acid Last Dose Date 08/23/2019 Valproic Acid Last Dose Time 2100 Current Medications: I have reviewed the current psychotropics carefully including drug interactions. Risk benefit ratio favors no change other than as noted in my dictated progress note. Diagnosis: Problems: (1) Schizophrenia, schizo-affective type (2) Anxiety disorder (3) Bipolar affective disorder, mixed (4) Bipolar affective, mixed, sev w/ psych (5) Impulse control disorder (6) Schizoaffective disorder, chronic condition with acute exacerbation JONA ANN MD Aug 24, 2019 20:52
[2019-08-24] MEDS: PATCH REMOVAL. MC SCH (21:00)
--- NOTE | 2019-08-24 23:21 | PN ---
DATE: 08/22/2019 PSYCHIATRIC PROGRESS NOTE This late entry, 08/22/2019, covers elements not covered in my initial note. SUBJECTIVE: I met with the patient evening of 08/22/2019. Per CHELSEY Carter, the patient slept 5-1/4 hours previous night. She was quite labile in her mood in the morning, paranoid regarding medications, did better in the evening. REVIEW OF SYSTEMS: Ambulates ad reg. No CV, , pulmonary, eye system symptoms on review. She has vague somatic symptoms. MENTAL STATUS EXAM: Reasonably oriented. Speech coherent, rapid at times. Abstraction fair, computation impaired, language function intact, attention span short. Mood and affect remains somewhat grandiose, labile, paranoid. LABORATORY DATA: Reviewed. IMPRESSION: Schizoaffective disorder, bipolar type, mixed with psychotic features. Rest unchanged. PLAN: The patient is on Cogentin 1 mg 3 times a day. There are no symptoms of extrapyramidal side effects and we will reduce it to 1 mg b.i.d. for 2 days, then 1 mg once a day for 2 days and stop it. Maintain Risperdal 0.5 mg at bedtime, Depakote ER 500 mg at bedtime. Follow labs level. She refused Depakote previous night. I had a lengthy discussion with her in the evening of 08/22/2019 and she agreed to take it, but we will see how she does with this. MAN Shine ANN MD DR: GLENN/papo JOB#: [id number] / [id number]
--- NOTE | 2019-08-24 23:22 | PN ---
DATE: 08/23/2019 PSYCHIATRIC PROGRESS NOTE This late entry 08/23/2019 covers elements not covered in my initial note. SUBJECTIVE: I met with the patient evening of 08/23/2019. The patient slept 6-1/2 hours previous night. She remains somewhat hypomanic, paranoid, believes someone is trying to poison her. REVIEW OF SYSTEMS: No CV, , pulmonary, eye system symptoms on review. MENTAL STATUS EXAM: Reasonably oriented. Speech coherent, somewhat pressured. Abstraction fair, computation impaired, language function intact, attention span short. Mood and affect labile. LABORATORY DATA: Reviewed. IMPRESSION: Bipolar disorder, mixed with psychotic features versus schizoaffective disorder, bipolar type, mixed with psychotic features. Rest unchanged. PLAN: Continue current psychotropics. Encourage compliance. Rest unchanged. MAN Shine ANN MD DR: GLENN/papo JOB#: [id number] / [id number]
[2019-08-25 05:58] VITALS: BP 137/62
[2019-08-25] MEDS: LIDOCAINE (700MG/PATCH) PATCH. TD SCH (08:35)
[2019-08-25] MEDS: buPROPion SR 150 MG TABLET.SA PO SCH (08:35)
[2019-08-25] MEDS: NEOMY/BACITR/POLYMYXIN OINT PACKET. TP SCH (08:35)
[2019-08-25] MEDS: NAPROXEN 500 MG TABLET PO SCH ×2 (08:35→20:13)
[2019-08-25] MEDS: BENZTROPINE MESYLATE 1 MG TABLET PO SCH ×2 (08:36→09:00)
[2019-08-25] MEDS: LISINOPRIL 20 MG TABLET PO SCH (08:36)
[2019-08-25] MEDS: PANTOPRAZOLE 40 MG TABLET. PO SCH (08:37)
[2019-08-25] MEDS: CHOLECALCIFEROL (VITAMIN D3) 1,000 UNIT TABLET PO SCH (08:37)
[2019-08-25] MEDS: CYANOCOBALAMIN (VITAMIN B-12) 1,000 MCG TABLET. PO SCH (08:37)
[2019-08-25] MEDS: FOLIC ACID 1 MG TABLET PO SCH (08:37)
[2019-08-25] MEDS: POTASSIUM CHLORIDE 20 MEQ TABLET.ER. PO SCH (08:37)
[2019-08-25] MEDS: GABAPENTIN 300 MG CAPSULE. PO SCH ×3 (08:37→20:14)
[2019-08-25] MEDS: CETIRIZINE HCL 10 MG TABLET PO SCH (08:37)
[2019-08-25 15:55] VITALS: BP 123/83
[2019-08-25] MEDS: SIMVASTATIN 20 MG TABLET PO SCH (20:12)
[2019-08-25] MEDS: traZODone 50 MG TABLET. PO SCH (20:13)
[2019-08-25] MEDS: risperiDONE 0.5 MG TABLET. PO SCH (20:14)
[2019-08-25] MEDS: DIVALPROEX ER 250 MG TAB.ER.24H. PO SCH (20:14)
[2019-08-25] MEDS: rOPINIRole 1 MG TABLET. PO SCH (20:14)
[2019-08-25] MEDS: PATCH REMOVAL. MC SCH (20:15)
--- NOTE | 2019-08-25 20:51 | PDOC ---
Exam Note: Keith Note: Please also refer to the separate dictated note~for this date of service dictated separately.~Patient seen individually. Discussed the patient with Nursing staff reviewed the chart.~Reviewed interim history and current functioning. Reviewed vital signs,~Labs/ Radiology~and current medications noted below. Continue current treatment with the changes noted in the dictated addendum note Assessment: Vital Signs/I&O: Vital Signs Date Time Temp Pulse Resp B/P (MAP) Pulse Ox O2 Delivery O2 Flow Rate FiO2 08/25/19 15:55 98.9 98 20 123/83 (96) 95 08/23/19 06:01 Room Air I & O 08/24/19 08/24/19 08/25/19 14:59 22:59 06:59 Intake Total 1205 ml 480 ml 240 ml Balance 1205 ml 480 ml 240 ml Current Medications: Meds: Current Medications Medications (Trade) Dose Ordered Sig/Jade Route PRN Reason Start Time Stop Time Status Last Admin Dose Admin Gabapentin (Neurontin) 300 mg DAILY08 PO 08/25/19 08:00 09/01/19 08:01 08/25/19 08:37 Gabapentin (Neurontin) 600 mg BID@1300,2100 PO 08/25/19 13:00 09/01/19 22:00 08/25/19 20:14 Benztropine Mesylate (Cogentin) 1 mg DAILY PO 08/25/19 08:00 08/27/19 21:00 08/25/19 09:00 Divalproex Sodium (Depakote Er) 750 mg QHS PO 08/25/19 21:00 08/25/19 20:14 I have reviewed the current psychotropics carefully including drug interactions. Risk benefit ratio favors no change other than as noted in my dictated progress note. Diagnosis: Problems: (1) Schizophrenia, schizo-affective type (2) Anxiety disorder (3) Bipolar affective disorder, mixed (4) Bipolar affective, mixed, sev w/ psych (5) Impulse control disorder (6) Schizoaffective disorder, chronic condition with acute exacerbation JONA ANN MD Aug 25, 2019 20:50
--- NOTE | 2019-08-25 23:40 | PN ---
DATE: 08/24/2019 PSYCHIATRIC PROGRESS NOTE This late entry 08/24/2019 covers elements not covered in my initial note. SUBJECTIVE: I met with the patient evening of 08/24/2019. Per CHELSEY Ortiz, the patient slept 5-1/4 hours previous night. The patient remains hyperverbal, manic, quite paranoid at times, often refusing medications, later taking them. Valproic acid level subtherapeutic at 18 on 500 mg a day of Depakote. REVIEW OF SYSTEMS: No CV, , pulmonary, eye system symptoms on review. She has vague somatic symptoms. MENTAL STATUS EXAM: Reasonably oriented. Speech coherent, rapid at times. Abstraction fair, computation impaired, language function intact, attention span short. Mood and affect remain somewhat grandiose, labile. LABORATORY DATA: Reviewed. IMPRESSION: Bipolar disorder, mixed with psychotic features; schizoaffective disorder, bipolar type, mixed with psychotic features. Rest unchanged. PLAN: Increase Depakote ER from 500 at bedtime to 750 mg at bedtime. Check CBC, CMP, valproic acid level in 3 days. Rest unchanged for now including Wellbutrin, Neurontin, Risperdal 0.5 mg at bedtime, trazodone for insomnia. Cogentin is 1 mg b.i.d. JONA ANN MD DR: GLENN/papo JOB#: [id number] / [id number]
[2019-08-26 06:07] VITALS: BP 124/76
[2019-08-26] MEDS: ACETAMINOPHEN 325 MG TABLET PO PRN (07:04)
[2019-08-26] MEDS: NAPROXEN 500 MG TABLET PO SCH ×2 (08:51→19:34)
[2019-08-26] MEDS: FOLIC ACID 1 MG TABLET PO SCH (08:51)
[2019-08-26] MEDS: FERROUS SULFATE 325 MG TABLET. PO SCH (08:51)
[2019-08-26] MEDS: PANTOPRAZOLE 40 MG TABLET. PO SCH (08:51)
[2019-08-26] MEDS: GABAPENTIN 300 MG CAPSULE. PO SCH ×3 (08:51→19:34)
[2019-08-26] MEDS: POTASSIUM CHLORIDE 20 MEQ TABLET.ER. PO SCH (08:51)
[2019-08-26] MEDS: CHOLECALCIFEROL (VITAMIN D3) 1,000 UNIT TABLET PO SCH (08:52)
[2019-08-26] MEDS: LISINOPRIL 20 MG TABLET PO SCH (08:52)
[2019-08-26] MEDS: CETIRIZINE HCL 10 MG TABLET PO SCH (08:52)
[2019-08-26] MEDS: buPROPion SR 150 MG TABLET.SA PO SCH (08:52)
[2019-08-26] MEDS: LIDOCAINE (700MG/PATCH) PATCH. TD SCH (08:53)
[2019-08-26] MEDS: BENZTROPINE MESYLATE 1 MG TABLET PO SCH (08:53)
[2019-08-26] MEDS: NEOMY/BACITR/POLYMYXIN OINT PACKET. TP SCH (08:53)
[2019-08-26 16:14] VITALS: BP 119/75
--- NOTE | 2019-08-26 19:10 | PN ---
DATE: 08/25/2019 PSYCHIATRIC PROGRESS NOTE This late entry 08/25/2019 covers the elements not covered in my initial note. SUBJECTIVE: I met with the patient in the evening of 08/25/2019. Per CHELSEY Matute, the patient slept 7-1/2 hours previous night. She has been less labile, less grandiose, less psychotic, still anxious. REVIEW OF SYSTEMS: No CV, , pulmonary, eye, ENT system symptoms on review. She has vague somatic symptoms. MENTAL STATUS EXAM: Reasonably oriented. Speech is coherent, somewhat pressured, less than before. Abstraction fair, computation impaired, language function intact, attention span short. Mood and affect remains somewhat grandiose, labile at times, but improved, less psychotic. LABORATORY DATA: Reviewed. IMPRESSION: Schizoaffective disorder, bipolar type, mixed with psychotic features, in partial remission. PLAN: Continue Depakote ER 750 mg at bedtime. Check CBC, CMP, valproic acid level on 08/28/2019. Maintain Wellbutrin, Zyprexa p.r.n., Cogentin 1 mg b.i.d., Risperdal 0.5 mg at bedtime, trazodone 50 mg at bedtime, may repeat x 1. Rest unchanged for now. JONA ANN MD DR: GLENN/papo JOB#: [id number] / [id number]
[2019-08-26] MEDS: DIVALPROEX ER 250 MG TAB.ER.24H. PO SCH (19:33)
[2019-08-26] MEDS: SIMVASTATIN 20 MG TABLET PO SCH (19:33)
[2019-08-26] MEDS: traZODone 50 MG TABLET. PO SCH (19:33)
[2019-08-26] MEDS: risperiDONE 0.5 MG TABLET. PO SCH (19:33)
[2019-08-26] MEDS: rOPINIRole 1 MG TABLET. PO SCH (19:33)
[2019-08-26] MEDS: PATCH REMOVAL. MC SCH (19:34)
--- NOTE | 2019-08-26 20:57 | PDOC ---
Exam Note: Keith Note: Please also refer to the separate dictated note~for this date of service dictated separately.~Patient seen individually. Discussed the patient with Nursing staff reviewed the chart.~Reviewed interim history and current functioning. Reviewed vital signs,~Labs/ Radiology~and current medications noted below. Continue current treatment with the changes noted in the dictated addendum note Assessment: Vital Signs/I&O: Vital Signs Date Time Temp Pulse Resp B/P (MAP) Pulse Ox O2 Delivery O2 Flow Rate FiO2 08/26/19 16:14 97.8 83 16 119/75 (90) 94 Room Air I & O 08/25/19 08/25/19 08/26/19 15:00 23:00 07:00 Intake Total 1320 ml 840 ml Balance 1320 ml 840 ml Current Medications: Meds: Current Medications Medications (Trade) Dose Ordered Sig/Jade Route PRN Reason Start Time Stop Time Status Last Admin Dose Admin Divalproex Sodium (Depakote Er) 750 mg QHS PO 08/25/19 21:00 08/26/19 19:33 I have reviewed the current psychotropics carefully including drug interactions. Risk benefit ratio favors no change other than as noted in my dictated progress note. Diagnosis: Problems: (1) Schizophrenia, schizo-affective type (2) Anxiety disorder (3) Bipolar affective disorder, mixed (4) Cannabis abuse (5) Bipolar affective, mixed, sev w/ psych (6) Impulse control disorder (7) Schizoaffective disorder, chronic condition with acute exacerbation JONA ANN MD Aug 26, 2019 20:57
[2019-08-27 05:06] VITALS: BP 133/74
[2019-08-27] MEDS: FOLIC ACID 1 MG TABLET PO SCH (08:22)
[2019-08-27] MEDS: PANTOPRAZOLE 40 MG TABLET. PO SCH (08:22)
[2019-08-27] MEDS: POTASSIUM CHLORIDE 20 MEQ TABLET.ER. PO SCH (08:22)
[2019-08-27] MEDS: NEOMY/BACITR/POLYMYXIN OINT PACKET. TP SCH (08:22)
[2019-08-27] MEDS: LIDOCAINE (700MG/PATCH) PATCH. TD SCH (08:22)
[2019-08-27] MEDS: CHOLECALCIFEROL (VITAMIN D3) 1,000 UNIT TABLET PO SCH (08:23)
[2019-08-27] MEDS: LISINOPRIL 20 MG TABLET PO SCH (08:23)
[2019-08-27] MEDS: NAPROXEN 500 MG TABLET PO SCH ×2 (08:23→20:24)
[2019-08-27] MEDS: GABAPENTIN 300 MG CAPSULE. PO SCH ×3 (08:24→20:25)
[2019-08-27] MEDS: CETIRIZINE HCL 10 MG TABLET PO SCH (08:24)
[2019-08-27] MEDS: buPROPion SR 150 MG TABLET.SA PO SCH (08:24)
[2019-08-27] MEDS: CYANOCOBALAMIN (VITAMIN B-12) 1,000 MCG TABLET. PO SCH (08:24)
[2019-08-27] MEDS: BENZTROPINE MESYLATE 0.5 MG TABLET PO SCH (08:28)
[2019-08-27] MEDS: ACETAMINOPHEN 325 MG TABLET PO PRN (12:21)
[2019-08-27] MEDS: POLYVINYL ALCOHOL 1.4% OPHTH SOLUTION 15ML BOTTLE. OU PRN ×2 (15:28→20:39)
[2019-08-27 15:55] VITALS: BP 129/81
[2019-08-27] MEDS: traZODone 50 MG TABLET. PO SCH (20:24)
[2019-08-27] MEDS: rOPINIRole 1 MG TABLET. PO SCH (20:24)
[2019-08-27] MEDS: DIVALPROEX ER 250 MG TAB.ER.24H. PO SCH (20:25)
[2019-08-27] MEDS: PATCH REMOVAL. MC SCH (20:25)
[2019-08-27] MEDS: risperiDONE 0.5 MG TABLET. PO SCH (20:25)
[2019-08-27] MEDS: SIMVASTATIN 20 MG TABLET PO SCH (20:25)
[2019-08-27] MEDS: MAGNESIUM HYDROXIDE 2,400 MG/30 ML ORAL.SUSP. PO PRN (20:39)
--- NOTE | 2019-08-27 20:51 | PDOC ---
Exam Note: Keith Note: Please also refer to the separate dictated note~for this date of service dictated separately.~Patient seen individually. Discussed the patient with Nursing staff reviewed the chart.~Reviewed interim history and current functioning. Reviewed vital signs,~Labs/ Radiology~and current medications noted below. Continue current treatment with the changes noted in the dictated addendum note Assessment: Vital Signs/I&O: Vital Signs Date Time Temp Pulse Resp B/P (MAP) Pulse Ox O2 Delivery O2 Flow Rate FiO2 08/27/19 15:55 98.9 88 20 129/81 (97) 94 08/27/19 05:06 Room Air I & O 08/26/19 08/26/19 08/27/19 14:59 22:59 06:59 Intake Total 1080 ml 840 ml Balance 1080 ml 840 ml Current Medications: Meds: Current Medications Medications (Trade) Dose Ordered Sig/Jade Route PRN Reason Start Time Stop Time Status Last Admin Dose Admin Benztropine Mesylate (Cogentin) 0.5 mg DAILY PO 08/27/19 09:00 08/27/19 08:28 I have reviewed the current psychotropics carefully including drug interactions. Risk benefit ratio favors no change other than as noted in my dictated progress note. Diagnosis: Problems: (1) Schizophrenia, schizo-affective type (2) Anxiety disorder (3) Bipolar affective disorder, mixed (4) Cannabis abuse (5) Bipolar affective, mixed, sev w/ psych (6) Impulse control disorder (7) Schizoaffective disorder, chronic condition with acute exacerbation JONA ANN MD Aug 27, 2019 20:51
--- NOTE | 2019-08-27 23:10 | PN ---
DATE: 08/26/2019 PSYCHIATRIC PROGRESS NOTE This late entry 08/26/2019 covers elements not covered in my initial note. SUBJECTIVE: I met with the patient evening of 08/26/2019. Per CHELSEY Cárdenas, the patient slept 6-1/2 hours previous night. She has done better, still believes she was injected [facility] poison [facility] the [facility] living which caused neuropathy. She is currently on Cogentin 1 mg daily. We will reduce to 0.5 mg daily. She is very thankful that Serena, social service staff caught her denture blue. I met with her in her room at length in the evening. REVIEW OF SYSTEMS: Positive for her loose dentures. No CV, , pulmonary, eye, ENT system symptoms on review. MENTAL STATUS EXAM: Reasonably oriented. Speech coherent, rapid at times, still somewhat obsessive, grandiose at times, many questions about her medications, addressed at length. Abstraction fair, computation impaired, language function intact, attention span short. Mood and affect remains grandiose. LABORATORY DATA: Reviewed. IMPRESSION: Schizoaffective disorder, bipolar type, mixed with psychotic features. Rest unchanged. PLAN: Continue current psychotropics. Depakote has been increased. Check labs level on the . Maintain Risperdal at current dosage. Cogentin is being reduced and we will monitor the tremors. MAN Shine ANN MD DR: GLENN/papo JOB#: [id number] / [id number]
[2019-08-28 06:32] VITALS: BP 115/75
[2019-08-28 07:07] LABS: HEMATOCRIT 39.5 % (36.0-47.0); HEMOGLOBIN 12.9 g/dL (12.0-15.5); RED BLOOD COUNT 4.31 x10^6/uL (3.50-5.40); RED CELL DISTRIBUTION WIDTH 12.9 % (11.5-14.5); WHITE BLOOD COUNT 4.2 x10^3/uL (4.0-11.0)
[2019-08-28 07:14] LABS: ALBUMIN 3.8 g/dL (3.4-5.0); ALBUMIN/GLOBULIN RATIO 1.2 (1.0-1.7); ALK PHOS 93 U/L (46-116); ALT (SGPT) 29 U/L (14-59); ANION GAP 9 (6-14); AST (SGOT) 19 U/L (15-37); BLOOD UREA NITROGEN 16 mg/dL (7-20); BUN/CREATININE RATIO 20 (6-20); CARBON DIOXIDE 32 mmol/L (21-32); CHLORIDE 99 mmol/L (98-107); CREATININE 0.8 mg/dL (0.6-1.0); GFR 72.7; GLUCOSE 95 mg/dL (70-99); POTASSIUM 4.6 mmol/L (3.5-5.1); SODIUM 140 mmol/L (136-145); TOTAL BILIRUBIN 0.3 mg/dL (0.2-1.0)
[2019-08-28 07:15] LABS: VAL ACID 38 mcg/mL (50-100)
[2019-08-28 08:34] VITALS: BP 123/72
[2019-08-28] MEDS: NEOMY/BACITR/POLYMYXIN OINT PACKET. TP SCH (08:37)
[2019-08-28] MEDS: LIDOCAINE (700MG/PATCH) PATCH. TD SCH (08:38)
[2019-08-28] MEDS: FOLIC ACID 1 MG TABLET PO SCH (08:38)
[2019-08-28] MEDS: LISINOPRIL 20 MG TABLET PO SCH (08:38)
[2019-08-28] MEDS: buPROPion SR 150 MG TABLET.SA PO SCH (08:38)
[2019-08-28] MEDS: BENZTROPINE MESYLATE 0.5 MG TABLET PO SCH (08:38)
[2019-08-28] MEDS: FERROUS SULFATE 325 MG TABLET. PO SCH (08:38)
[2019-08-28] MEDS: POTASSIUM CHLORIDE 20 MEQ TABLET.ER. PO SCH (08:39)
[2019-08-28] MEDS: NAPROXEN 500 MG TABLET PO SCH ×2 (08:39→19:54)
[2019-08-28] MEDS: PANTOPRAZOLE 40 MG TABLET. PO SCH (08:39)
[2019-08-28] MEDS: CETIRIZINE HCL 10 MG TABLET PO SCH (08:39)
[2019-08-28] MEDS: GABAPENTIN 300 MG CAPSULE. PO SCH ×3 (08:39→19:53)
[2019-08-28] MEDS: CHOLECALCIFEROL (VITAMIN D3) 1,000 UNIT TABLET PO SCH (08:43)
[2019-08-28] MEDS: PHENYLEPH/MINERAL OIL/PETROLAT RECTAL OINTMENT TUBE. RC PRN (10:00)
[2019-08-28] MEDS: POLYVINYL ALCOHOL 1.4% OPHTH SOLUTION 15ML BOTTLE. OU PRN (15:12)
[2019-08-28 16:13] VITALS: BP 134/85
[2019-08-28] MEDS: POLYVINYL ALCOHOL 1.4% OPHTH SOLUTION 15ML BOTTLE. OU SCH (19:52)
[2019-08-28] MEDS: PATCH REMOVAL. MC SCH (19:53)
[2019-08-28] MEDS: DIVALPROEX ER 500 MG TAB.ER.24H PO SCH (19:53)
[2019-08-28] MEDS: rOPINIRole 1 MG TABLET. PO SCH (19:54)
[2019-08-28] MEDS: risperiDONE 0.5 MG TABLET. PO SCH (19:54)
[2019-08-28] MEDS: SIMVASTATIN 20 MG TABLET PO SCH (19:54)
[2019-08-28] MEDS: traZODone 50 MG TABLET. PO SCH (19:54)
--- NOTE | 2019-08-28 21:01 | PDOC ---
Exam Note: Keith Note: Please also refer to the separate dictated note~for this date of service dictated separately.~Patient seen individually. Discussed the patient with Nursing staff reviewed the chart.~Reviewed interim history and current functioning. Reviewed vital signs,~Labs/ Radiology~and current medications noted below. Continue current treatment with the changes noted in the dictated addendum note Assessment: Vital Signs/I&O: Vital Signs Date Time Temp Pulse Resp B/P (MAP) Pulse Ox O2 Delivery O2 Flow Rate FiO2 08/28/19 16:13 98.5 79 18 134/85 (101) 96 08/28/19 06:32 Room Air I & O 08/27/19 08/27/19 08/28/19 15:00 23:00 07:00 Intake Total 1140 ml 900 ml Balance 1140 ml 900 ml Labs: Laboratory Tests Test 08/28/19 06:19 White Blood Count 4.2 x10^3/uL (4.0-11.0) Red Blood Count 4.31 x10^6/uL (3.50-5.40) Hemoglobin 12.9 g/dL (12.0-15.5) Hematocrit 39.5 % (36.0-47.0) Mean Corpuscular Volume 92 fL (79-100) Mean Corpuscular Hemoglobin 30 pg (25-35) Mean Corpuscular Hemoglobin Concent 33 g/dL (31-37) Red Cell Distribution Width 12.9 % (11.5-14.5) Platelet Count 201 x10^3/uL (140-400) Sodium Level 140 mmol/L (136-145) Potassium Level 4.6 mmol/L (3.5-5.1) Chloride Level 99 mmol/L (98-107) Carbon Dioxide Level 32 mmol/L (21-32) Anion Gap 9 (6-14) Blood Urea Nitrogen 16 mg/dL (7-20) Creatinine 0.8 mg/dL (0.6-1.0) Estimated GFR (Cockcroft-Gault) 72.7 BUN/Creatinine Ratio 20 (6-20) Glucose Level 95 mg/dL (70-99) Calcium Level 9.0 mg/dL (8.5-10.1) Total Bilirubin 0.3 mg/dL (0.2-1.0) Aspartate Amino Transferase (AST) 19 U/L (15-37) Alanine Aminotransferase (ALT) 29 U/L (14-59) Alkaline Phosphatase 93 U/L (46-116) Total Protein 7.0 g/dL (6.4-8.2) Albumin 3.8 g/dL (3.4-5.0) Albumin/Globulin Ratio 1.2 (1.0-1.7) Valproic Acid Level 38 mcg/mL (50-100) L Valproic Acid Last Dose Date 08/27/19 Valproic Acid Last Dose Time 2100 Current Medications: Meds: Current Medications Medications (Trade) Dose Ordered Sig/Jade Route PRN Reason Start Time Stop Time Status Last Admin Dose Admin Divalproex Sodium (Depakote Er) 1,000 mg QHS PO 08/28/19 21:00 08/28/19 19:53 Artificial Tears (Artificial Tears) 4 drop Q4HRS OU 08/28/19 20:00 09/04/19 19:59 08/28/19 19:52 I have reviewed the current psychotropics carefully including drug interactions. Risk benefit ratio favors no change other than as noted in my dictated progress note. Diagnosis: Problems: (1) Schizophrenia, schizo-affective type (2) Anxiety disorder (3) Bipolar affective disorder, mixed (4) Cannabis abuse (5) Bipolar affective, mixed, sev w/ psych (6) Impulse control disorder (7) Schizoaffective disorder, chronic condition with acute exacerbation JONA ANN MD Aug 28, 2019 21:01
--- NOTE | 2019-08-28 22:25 | PN ---
DATE: 08/27/2019 PSYCHIATRIC PROGRESS NOTE This late entry 08/27/2019 covers elements not covered in my initial note. SUBJECTIVE: I met with the patient evening of 08/27/2019. The patient slept 7-1/4 hours previous night. Per nursing report, she has been calm, less manic, more cooperative, tearful at times and does get better. Labs are to be checked morning of 08/28/2019 and we will adjust the Depakote thereafter. REVIEW OF SYSTEMS: No CV, , pulmonary, eye system symptoms on review. MENTAL STATUS EXAM: Reasonably oriented. Speech coherent, little pressured, less so than before. Abstraction fair, computation impaired, language function intact, attention span short. Mood and affect less grandiose and labile. LABORATORY DATA: Reviewed. IMPRESSION: Schizoaffective disorder, bipolar type, mixed with psychotic features, in partial remission, versus bipolar disorder, mixed with psychotic features, in partial remission. Rest unchanged. PLAN: No change from initial note. Continue psychotropics. Adjust the Depakote to a therapeutic level. Maintain Neurontin, Wellbutrin, Cogentin, Risperdal and trazodone. MAN Shine ANN MD DR: GLENN/papo JOB#: [id number] / [id number]
[2019-08-29] MEDS: POLYVINYL ALCOHOL 1.4% OPHTH SOLUTION 15ML BOTTLE. OU SCH ×3 (02:06→08:00)
[2019-08-29 06:17] VITALS: BP 162/99
[2019-08-29] MEDS: NAPROXEN 500 MG TABLET PO SCH ×2 (08:20→19:44)
[2019-08-29] MEDS: POTASSIUM CHLORIDE 20 MEQ TABLET.ER. PO SCH (08:20)
[2019-08-29] MEDS: LIDOCAINE (700MG/PATCH) PATCH. TD SCH (08:20)
[2019-08-29] MEDS: CYANOCOBALAMIN (VITAMIN B-12) 1,000 MCG TABLET. PO SCH (08:22)
[2019-08-29] MEDS: PANTOPRAZOLE 40 MG TABLET. PO SCH (08:22)
[2019-08-29] MEDS: NEOMY/BACITR/POLYMYXIN OINT PACKET. TP SCH (08:22)
[2019-08-29] MEDS: buPROPion SR 150 MG TABLET.SA PO SCH (08:22)
[2019-08-29] MEDS: CHOLECALCIFEROL (VITAMIN D3) 1,000 UNIT TABLET PO SCH (08:22)
[2019-08-29] MEDS: FOLIC ACID 1 MG TABLET PO SCH (08:22)
[2019-08-29] MEDS: BENZTROPINE MESYLATE 0.5 MG TABLET PO SCH (08:22)
[2019-08-29] MEDS: GABAPENTIN 300 MG CAPSULE. PO SCH ×3 (08:22→19:44)
[2019-08-29] MEDS: CETIRIZINE HCL 10 MG TABLET PO SCH (08:22)
[2019-08-29] MEDS: LISINOPRIL 20 MG TABLET PO SCH (08:22)
[2019-08-29] MEDS ORDERED: NEOMY/BACITR/POLYMYXIN OINT PACKET. TP PRN (09:30)
[2019-08-29 15:56] VITALS: BP 140/84
[2019-08-29] MEDS: traZODone 50 MG TABLET. PO SCH (19:44)
[2019-08-29] MEDS: SIMVASTATIN 20 MG TABLET PO SCH (19:44)
[2019-08-29] MEDS: rOPINIRole 1 MG TABLET. PO SCH (19:44)
[2019-08-29] MEDS: risperiDONE 0.5 MG TABLET. PO SCH (19:44)
[2019-08-29] MEDS: PATCH REMOVAL. MC SCH (19:51)
[2019-08-29] MEDS: KETOTIFEN FUMARATE 0.025% OPHT SOLUTION BOTTLE. OU SCH (20:06)
[2019-08-29] MEDS: DIVALPROEX ER 500 MG TAB.ER.24H PO SCH (20:07)
--- NOTE | 2019-08-29 21:01 | PDOC ---
Exam Note: Keith Note: Please also refer to the separate dictated note~for this date of service dictated separately.~Patient seen individually. Discussed the patient with Nursing staff reviewed the chart.~Reviewed interim history and current functioning. Reviewed vital signs,~Labs/ Radiology~and current medications noted below. Continue current treatment with the changes noted in the dictated addendum note Assessment: Vital Signs/I&O: Vital Signs Date Time Temp Pulse Resp B/P (MAP) Pulse Ox O2 Delivery O2 Flow Rate FiO2 08/29/19 15:56 98.0 79 18 140/84 (102) 97 08/28/19 06:32 Room Air I & O 08/28/19 08/28/19 08/29/19 15:00 23:00 07:00 Intake Total 840 ml 600 ml 240 ml Balance 840 ml 600 ml 240 ml Current Medications: Meds: Current Medications Medications (Trade) Dose Ordered Sig/Jade Route PRN Reason Start Time Stop Time Status Last Admin Dose Admin Ketotifen Fumarate (Zaditor) 1 drop BID OU 08/29/19 21:00 09/08/19 20:59 08/29/19 20:06 I have reviewed the current psychotropics carefully including drug interactions. Risk benefit ratio favors no change other than as noted in my dictated progress note. Diagnosis: Problems: (1) Anxiety disorder (2) Bipolar affective disorder, mixed (3) Cannabis abuse (4) Bipolar affective, mixed, sev w/ psych (5) Impulse control disorder (6) Schizoaffective disorder, chronic condition with acute exacerbation JONA ANN MD Aug 29, 2019 21:01
[2019-08-29] MEDS: MAGNESIUM HYDROXIDE 2,400 MG/30 ML ORAL.SUSP. PO PRN (21:55)
[2019-08-30 05:38] VITALS: BP 138/76
[2019-08-30] MEDS: KETOTIFEN FUMARATE 0.025% OPHT SOLUTION BOTTLE. OU SCH ×2 (08:09→19:54)
[2019-08-30] MEDS: LIDOCAINE (700MG/PATCH) PATCH. TD SCH (08:09)
[2019-08-30] MEDS: BENZTROPINE MESYLATE 0.5 MG TABLET PO SCH (08:09)
[2019-08-30] MEDS: PANTOPRAZOLE 40 MG TABLET. PO SCH (08:10)
[2019-08-30] MEDS: FOLIC ACID 1 MG TABLET PO SCH (08:10)
[2019-08-30] MEDS: CETIRIZINE HCL 10 MG TABLET PO SCH (08:10)
[2019-08-30] MEDS: CHOLECALCIFEROL (VITAMIN D3) 1,000 UNIT TABLET PO SCH (08:10)
[2019-08-30] MEDS: POTASSIUM CHLORIDE 20 MEQ TABLET.ER. PO SCH (08:10)
[2019-08-30] MEDS: NAPROXEN 500 MG TABLET PO SCH ×2 (08:10→19:51)
[2019-08-30] MEDS: buPROPion SR 150 MG TABLET.SA PO SCH (08:10)
[2019-08-30] MEDS: GABAPENTIN 300 MG CAPSULE. PO SCH ×3 (08:10→19:50)
[2019-08-30] MEDS: LISINOPRIL 20 MG TABLET PO SCH (08:11)
[2019-08-30] MEDS: FERROUS SULFATE 325 MG TABLET. PO SCH (08:11)
[2019-08-30] MEDS: CHOLECALCIFEROL (VITAMIN D3) 50,000 UNIT CAPSULE PO SCH (08:11)
[2019-08-30 16:01] VITALS: BP 156/83
[2019-08-30] MEDS: rOPINIRole 1 MG TABLET. PO SCH (19:50)
[2019-08-30] MEDS: SIMVASTATIN 20 MG TABLET PO SCH (19:50)
[2019-08-30] MEDS: traZODone 50 MG TABLET. PO SCH (19:50)
[2019-08-30] MEDS: DIVALPROEX ER 500 MG TAB.ER.24H PO SCH (19:51)
[2019-08-30] MEDS: risperiDONE 0.5 MG TABLET. PO SCH (19:51)
[2019-08-30] MEDS: PATCH REMOVAL. MC SCH (19:53)
--- NOTE | 2019-08-30 22:32 | PDOC ---
Exam Note: Keith Note: Please also refer to the separate dictated note~for this date of service dictated separately.~Patient seen individually. Discussed the patient with Nursing staff reviewed the chart.~Reviewed interim history and current functioning. Reviewed vital signs,~Labs/ Radiology~and current medications noted below. Continue current treatment with the changes noted in the dictated addendum note Assessment: Vital Signs/I&O: Vital Signs Date Time Temp Pulse Resp B/P (MAP) Pulse Ox O2 Delivery O2 Flow Rate FiO2 08/30/19 16:01 97.9 89 18 156/83 (107) 97 08/28/19 06:32 Room Air I & O 08/29/19 08/29/19 08/30/19 15:00 23:00 07:00 Intake Total 1320 ml 960 ml Balance 1320 ml 960 ml Current Medications: I have reviewed the current psychotropics carefully including drug interactions. Risk benefit ratio favors no change other than as noted in my dictated progress note. Diagnosis: Problems: (1) Schizophrenia, schizo-affective type (2) Schizophrenia (3) Anxiety disorder (4) Bipolar affective disorder, mixed (5) Cannabis abuse (6) Bipolar affective, mixed, sev w/ psych (7) Impulse control disorder (8) Schizoaffective disorder, chronic condition with acute exacerbation JONA ANN MD Aug 30, 2019 22:32
[2019-08-31 05:51] VITALS: BP 145/73
[2019-08-31] MEDS: buPROPion SR 150 MG TABLET.SA PO SCH (08:13)
[2019-08-31] MEDS: KETOTIFEN FUMARATE 0.025% OPHT SOLUTION BOTTLE. OU SCH ×2 (08:13→19:44)
[2019-08-31] MEDS: LIDOCAINE (700MG/PATCH) PATCH. TD SCH (08:13)
[2019-08-31] MEDS: GABAPENTIN 300 MG CAPSULE. PO SCH ×3 (08:13→19:44)
[2019-08-31] MEDS: CHOLECALCIFEROL (VITAMIN D3) 1,000 UNIT TABLET PO SCH (08:14)
[2019-08-31] MEDS: POTASSIUM CHLORIDE 20 MEQ TABLET.ER. PO SCH (08:14)
[2019-08-31] MEDS: CETIRIZINE HCL 10 MG TABLET PO SCH (08:15)
[2019-08-31] MEDS: FOLIC ACID 1 MG TABLET PO SCH (08:15)
[2019-08-31] MEDS: NAPROXEN 500 MG TABLET PO SCH ×2 (08:15→19:43)
[2019-08-31] MEDS: PANTOPRAZOLE 40 MG TABLET. PO SCH (08:15)
[2019-08-31] MEDS: LISINOPRIL 20 MG TABLET PO SCH (08:15)
[2019-08-31] MEDS: BENZTROPINE MESYLATE 0.5 MG TABLET PO SCH (08:15)
--- NOTE | 2019-08-31 12:38 | PN ---
DATE: 08/28/2019 PSYCHIATRIC PROGRESS NOTE This late entry 08/28/2019 covers the elements not covered in my initial note. SUBJECTIVE: I met with the patient evening of 08/28/2019 and staffed at a treatment team meeting with the entire team in the morning and the patient's guardian Lizette attended the conference. We had a discussion about her diagnosis, progress, current psychotropics, intermittent resistance to medications. She also seems to have boundary issues. Appetite 75%. Sleeping average 5-1/2 hours. REVIEW OF SYSTEMS: No CV, , pulmonary, eye, ENT system symptoms on review. MENTAL STATUS EXAMINATION: The patient is reasonably oriented. Speech coherent, a little pressured at times. Abstraction fair, computation impaired, language function intact. She remains somewhat hyperverbal, but no clear psychotic symptoms, suicidal or homicidal ideation. LABORATORY DATA: Reviewed. Valproic acid level 38, subtherapeutic on Depakote ER 750 mg p.o. at bedtime. IMPRESSION: Schizoaffective disorder, bipolar type, mixed with psychotic features; bipolar disorder, mixed with psychotic features; anxiety disorder, unspecified. PLAN: Increase Depakote ER to 1000 mg p.o. at bedtime. Check CBC, CMP, valproic acid level in 3 days. She does complain of dry eyes and we will increase her artificial tears to schedule 4 times a day for the next 7 days and then back to p.r.n. Rest unchanged for now. JONA ANN MD DR: GLENN/papo JOB#: [id number] / [id number]
[2019-08-31 16:09] VITALS: BP 157/89
[2019-08-31] MEDS: rOPINIRole 1 MG TABLET. PO SCH (19:42)
[2019-08-31] MEDS: risperiDONE 0.5 MG TABLET. PO SCH (19:43)
[2019-08-31] MEDS: traZODone 50 MG TABLET. PO SCH (19:43)
[2019-08-31] MEDS: SIMVASTATIN 20 MG TABLET PO SCH (19:43)
[2019-08-31] MEDS: DIVALPROEX ER 500 MG TAB.ER.24H PO SCH (19:44)
[2019-08-31] MEDS: PATCH REMOVAL. MC SCH (19:46)
--- NOTE | 2019-08-31 20:50 | PDOC ---
Exam Note: Keith Note: Please also refer to the separate dictated note~for this date of service dictated separately.~Patient seen individually. Discussed the patient with Nursing staff reviewed the chart.~Reviewed interim history and current functioning. Reviewed vital signs,~Labs/ Radiology~and current medications noted below. Continue current treatment with the changes noted in the dictated addendum note Assessment: Vital Signs/I&O: Vital Signs Date Time Temp Pulse Resp B/P (MAP) Pulse Ox O2 Delivery O2 Flow Rate FiO2 08/31/19 16:09 98.0 77 18 157/89 (111) 98 08/28/19 06:32 Room Air I & O 08/30/19 08/30/19 08/31/19 15:00 23:00 07:00 Intake Total 1140 ml 720 ml Balance 1140 ml 720 ml Current Medications: I have reviewed the current psychotropics carefully including drug interactions. Risk benefit ratio favors no change other than as noted in my dictated progress note. Diagnosis: Problems: (1) Anxiety disorder (2) Bipolar affective disorder, mixed (3) Bipolar affective, mixed, sev w/ psych (4) Impulse control disorder (5) Schizoaffective disorder, chronic condition with acute exacerbation JONA ANN MD Aug 31, 2019 20:50
--- NOTE | 2019-09-01 00:12 | PN ---
DATE: 08/29/2019 PSYCHIATRIC PROGRESS NOTE This late entry 08/29/2019 covers elements not covered in my initial note. SUBJECTIVE: I met with the patient evening of 08/29/2019. Per CHELSEY Galaviz, the patient slept 7-1/4 hours previous night. She has been less hyperverbal and manic, still has some pressure of speech as I met with her. She complains of dry eyes. REVIEW OF SYSTEMS: No CV, , pulmonary, ENT system symptoms on review. MENTAL STATUS EXAM: Reasonably oriented. Speech coherent, rapid at times. I spent an extensive amount of time answering her various somatic complaints and discharge plans, explaining about her medications, diagnosis, all of which she minimizes. Abstraction fair, computation impaired, language function intact, attention span short. Mood and affect improved, but still labile at times, grandiose, but better than before. No suicidal or homicidal ideation. LABORATORY DATA: Reviewed. IMPRESSION: Bipolar disorder, mixed with psychotic features; schizoaffective disorder, bipolar type, mixed with psychotic features. Rest unchanged. PLAN: Continue psychotropics from initial note. Depakote is being adjusted to reach therapeutic level. MAN Shine ANN MD DR: GLENN/papo JOB#: [id number] / [id number]
[2019-09-01 06:03] VITALS: BP 124/70
[2019-09-01 07:00] LABS: BASO % 1 % (0-3); EOS # 0.1 x10^3/uL (0.0-0.7); EOS % 3 % (0-3); HEMOGLOBIN 12.7 g/dL (12.0-15.5); LYMPH # 1.1 x10^3/uL (1.0-4.8); LYMPH % 33 % (24-48); MEAN CORPUSCULAR HEMOGLOBIN 30 pg (25-35); MEAN CORPUSCULAR HGB CONC 33 g/dL (31-37); MEAN CORPUSCULAR VOLUME 92 fL (79-100); MONO # 0.4 x10^3/uL (0.0-1.1); MONO % 11 % (0-9); NEUT # 1.7 x10^3uL (1.8-7.7); NEUT % 53 % (31-73); PLATELET COUNT 202 x10^3/uL (140-400); RED BLOOD COUNT 4.25 x10^6/uL (3.50-5.40); RED CELL DISTRIBUTION WIDTH 12.5 % (11.5-14.5); WHITE BLOOD COUNT 3.2 x10^3/uL (4.0-11.0)
[2019-09-01 07:15] LABS: ALBUMIN 3.8 g/dL (3.4-5.0); ALBUMIN/GLOBULIN RATIO 1.3 (1.0-1.7); ALK PHOS 88 U/L (46-116); ALT (SGPT) 28 U/L (14-59); ANION GAP 4 (6-14); AST (SGOT) 14 U/L (15-37); BLOOD UREA NITROGEN 12 mg/dL (7-20); BUN/CREATININE RATIO 17 (6-20); CALCIUM 8.7 mg/dL (8.5-10.1); CARBON DIOXIDE 34 mmol/L (21-32); CHLORIDE 103 mmol/L (98-107); CREATININE 0.7 mg/dL (0.6-1.0); GFR 84.8; GLUCOSE 88 mg/dL (70-99); POTASSIUM 4.4 mmol/L (3.5-5.1); SODIUM 141 mmol/L (136-145); TOTAL BILIRUBIN 0.3 mg/dL (0.2-1.0); TOTAL PROTEIN 6.8 g/dL (6.4-8.2)
[2019-09-01 07:19] LABS: VAL ACID 21 mcg/mL (50-100)
[2019-09-01] MEDS: buPROPion SR 150 MG TABLET.SA PO SCH (08:36)
[2019-09-01] MEDS: CHOLECALCIFEROL (VITAMIN D3) 1,000 UNIT TABLET PO SCH (08:36)
[2019-09-01] MEDS: PANTOPRAZOLE 40 MG TABLET. PO SCH (08:36)
[2019-09-01] MEDS: FOLIC ACID 1 MG TABLET PO SCH (08:36)
[2019-09-01] MEDS: KETOTIFEN FUMARATE 0.025% OPHT SOLUTION BOTTLE. OU SCH ×2 (08:36→20:42)
[2019-09-01] MEDS: BENZTROPINE MESYLATE 0.5 MG TABLET PO SCH (08:36)
[2019-09-01] MEDS: FERROUS SULFATE 325 MG TABLET. PO SCH (08:36)
[2019-09-01] MEDS: POTASSIUM CHLORIDE 20 MEQ TABLET.ER. PO SCH (08:37)
[2019-09-01] MEDS: NAPROXEN 500 MG TABLET PO SCH ×2 (08:37→20:42)
[2019-09-01] MEDS: CETIRIZINE HCL 10 MG TABLET PO SCH (08:37)
[2019-09-01] MEDS: LISINOPRIL 20 MG TABLET PO SCH (08:37)
[2019-09-01] MEDS: LIDOCAINE (700MG/PATCH) PATCH. TD SCH (08:38)
[2019-09-01] MEDS: CYANOCOBALAMIN (VITAMIN B-12) 1,000 MCG TABLET. PO SCH (08:38)
[2019-09-01] MEDS: GABAPENTIN 300 MG CAPSULE. PO SCH ×3 (09:58→20:43)
[2019-09-01 15:15] VITALS: BP 135/83
[2019-09-01] MEDS: PATCH REMOVAL. MC SCH (20:37)
[2019-09-01] MEDS: rOPINIRole 1 MG TABLET. PO SCH (20:42)
[2019-09-01] MEDS: SIMVASTATIN 20 MG TABLET PO SCH (20:42)
[2019-09-01] MEDS: traZODone 50 MG TABLET. PO SCH (20:42)
[2019-09-01] MEDS: VALPROATE ACID 250 MG/5 ML ORAL SOLUTION PO SCH (20:42)
[2019-09-01] MEDS: risperiDONE 0.5 MG TABLET. PO SCH (20:42)
--- NOTE | 2019-09-01 21:35 | PDOC ---
Exam Note: Keith Note: Please also refer to the separate dictated note~for this date of service dictated separately.~Patient seen individually. Discussed the patient with Nursing staff reviewed the chart.~Reviewed interim history and current functioning. Reviewed vital signs,~Labs/ Radiology~and current medications noted below. Continue current treatment with the changes noted in the dictated addendum note Assessment: Vital Signs/I&O: Vital Signs Date Time Temp Pulse Resp B/P (MAP) Pulse Ox O2 Delivery O2 Flow Rate FiO2 09/01/19 15:15 98.9 82 18 135/83 (100) 94 08/28/19 06:32 Room Air I & O 08/31/19 08/31/19 09/01/19 15:00 23:00 07:00 Intake Total 600 ml 1080 ml Balance 600 ml 1080 ml Labs: Laboratory Tests Test 09/01/19 06:34 White Blood Count 3.2 x10^3/uL (4.0-11.0) L Red Blood Count 4.25 x10^6/uL (3.50-5.40) Hemoglobin 12.7 g/dL (12.0-15.5) Hematocrit 39.0 % (36.0-47.0) Mean Corpuscular Volume 92 fL (79-100) Mean Corpuscular Hemoglobin 30 pg (25-35) Mean Corpuscular Hemoglobin Concent 33 g/dL (31-37) Red Cell Distribution Width 12.5 % (11.5-14.5) Platelet Count 202 x10^3/uL (140-400) Neutrophils (%) (Auto) 53 % (31-73) Lymphocytes (%) (Auto) 33 % (24-48) Monocytes (%) (Auto) 11 % (0-9) H Eosinophils (%) (Auto) 3 % (0-3) Basophils (%) (Auto) 1 % (0-3) Neutrophils # (Auto) 1.7 x10^3uL (1.8-7.7) L Lymphocytes # (Auto) 1.1 x10^3/uL (1.0-4.8) Monocytes # (Auto) 0.4 x10^3/uL (0.0-1.1) Eosinophils # (Auto) 0.1 x10^3/uL (0.0-0.7) Basophils # (Auto) 0.0 x10^3/uL (0.0-0.2) Sodium Level 141 mmol/L (136-145) Potassium Level 4.4 mmol/L (3.5-5.1) Chloride Level 103 mmol/L (98-107) Carbon Dioxide Level 34 mmol/L (21-32) H Anion Gap 4 (6-14) L Blood Urea Nitrogen 12 mg/dL (7-20) Creatinine 0.7 mg/dL (0.6-1.0) Estimated GFR (Cockcroft-Gault) 84.8 BUN/Creatinine Ratio 17 (6-20) Glucose Level 88 mg/dL (70-99) Calcium Level 8.7 mg/dL (8.5-10.1) Total Bilirubin 0.3 mg/dL (0.2-1.0) Aspartate Amino Transferase (AST) 14 U/L (15-37) L Alanine Aminotransferase (ALT) 28 U/L (14-59) Alkaline Phosphatase 88 U/L (46-116) Total Protein 6.8 g/dL (6.4-8.2) Albumin 3.8 g/dL (3.4-5.0) Albumin/Globulin Ratio 1.3 (1.0-1.7) Valproic Acid Level 21 mcg/mL (50-100) L Valproic Acid Last Dose Date 08/31/19 Valproic Acid Last Dose Time 2100 Current Medications: Meds: Current Medications Medications (Trade) Dose Ordered Sig/Jade Route PRN Reason Start Time Stop Time Status Last Admin Dose Admin Valproic Acid (Depakene) 500 mg BID PO 09/01/19 21:00 09/01/19 20:42 I have reviewed the current psychotropics carefully including drug interactions. Risk benefit ratio favors no change other than as noted in my dictated progress note. Diagnosis: Problems: (1) Schizophrenia, schizo-affective type (2) Schizophrenia (3) Anxiety disorder (4) Bipolar affective disorder, mixed (5) Cannabis abuse (6) Bipolar affective, mixed, sev w/ psych (7) Impulse control disorder (8) Schizoaffective disorder, chronic condition with acute exacerbation JONA ANN MD Sep 01, 2019 21:35
--- NOTE | 2019-09-02 01:38 | PN ---
DATE: 08/31/2019 PSYCHIATRIC PROGRESS NOTE This late entry 08/31/2019 covers elements not covered in my initial note. SUBJECTIVE: I met with the patient evening of 08/31/2019. Per CHELSEY Galeas, the patient slept 7-1/4 hours. She had a good day, somewhat attention seeking, fixated that she is gaining weight, where in fact her weight is unchanged from admission. She has a history of bowel resection, chronic constipation, received milk of mag and then had some diarrhea. She was wanting diet pills and I have discussed these are really avoided with her psychiatric diagnosis. REVIEW OF SYSTEMS: No CV, , pulmonary, eye system symptoms on review. MENTAL STATUS EXAM: Reasonably oriented. Speech is coherent, little pressured at times. Abstraction fair, computation impaired, language function intact, attention span short. Mood and affect less grandiose. LABORATORY DATA: Reviewed. IMPRESSION: Unchanged from initial note. PLAN: No change from initial note. JONA ANN MD DR: GLENN/papo JOB#: [id number] / [id number]
--- NOTE | 2019-09-02 01:41 | PN ---
DATE: 08/30/2019 This late entry, 08/30, covers elements not covered in my initial note. SUBJECTIVE: I met with the patient evening of 08/30. The patient slept 6 hours previous night. She has been compliant with her medications per nursing report, has some disagreements with her roommate and I addressed this with her. She remains a little hyperverbal, but less so than before. REVIEW OF SYSTEMS: No CV, , pulmonary, eye system symptoms on review. MENTAL STATUS EXAM: Oriented to herself and situation. Speech is coherent, little pressured at times. Abstraction fair, computation impaired, language function intact, attention span short. Mood and affect remain somewhat labile, less so than before. She met with me 3 different times and she followed me around the unit, fixated on her discharge plans. We discussed getting the valproic acid level therapeutic, adjusting her psychotropics and then planning discharge. LABORATORY DATA: Reviewed. IMPRESSION: Schizoaffective disorder, bipolar type, mixed with psychotic features, in partial remission. Rest unchanged. PLAN: No change from initial note. Check a valproic acid level in morning of 09/01, then adjust further as clinically indicated. MAN Shine ANN MD DR: GLENN/papo JOB#: [id number] / [id number]
[2019-09-02 05:35] VITALS: BP 132/71
[2019-09-02] MEDS: KETOTIFEN FUMARATE 0.025% OPHT SOLUTION BOTTLE. OU SCH ×2 (08:08→20:44)
[2019-09-02] MEDS: LISINOPRIL 20 MG TABLET PO SCH (08:09)
[2019-09-02] MEDS: BENZTROPINE MESYLATE 0.5 MG TABLET PO SCH (08:09)
[2019-09-02] MEDS: GABAPENTIN 300 MG CAPSULE. PO SCH ×3 (08:09→20:50)
[2019-09-02] MEDS: CHOLECALCIFEROL (VITAMIN D3) 1,000 UNIT TABLET PO SCH (08:09)
[2019-09-02] MEDS: CETIRIZINE HCL 10 MG TABLET PO SCH (08:09)
[2019-09-02] MEDS: POTASSIUM CHLORIDE 20 MEQ TABLET.ER. PO SCH (08:10)
[2019-09-02] MEDS: PANTOPRAZOLE 40 MG TABLET. PO SCH (08:10)
[2019-09-02] MEDS: NAPROXEN 500 MG TABLET PO SCH ×2 (08:10→20:45)
[2019-09-02] MEDS: buPROPion SR 150 MG TABLET.SA PO SCH (08:11)
[2019-09-02] MEDS: VALPROATE ACID 250 MG/5 ML ORAL SOLUTION PO SCH ×2 (08:11→20:45)
[2019-09-02] MEDS: FOLIC ACID 1 MG TABLET PO SCH (08:11)
[2019-09-02] MEDS: LIDOCAINE (700MG/PATCH) PATCH. TD SCH (08:13)
[2019-09-02 15:56] VITALS: BP 145/89
[2019-09-02] MEDS: traZODone 50 MG TABLET. PO SCH (20:45)
[2019-09-02] MEDS: rOPINIRole 1 MG TABLET. PO SCH (20:45)
[2019-09-02] MEDS: SIMVASTATIN 20 MG TABLET PO SCH (20:45)
[2019-09-02] MEDS: risperiDONE 0.5 MG TABLET. PO SCH (20:46)
[2019-09-02] MEDS: PATCH REMOVAL. MC SCH (21:00)
--- NOTE | 2019-09-02 21:50 | PDOC ---
Exam Note: Keith Note: Please also refer to the separate dictated note~for this date of service dictated separately.~Patient seen individually. Discussed the patient with Nursing staff reviewed the chart.~Reviewed interim history and current functioning. Reviewed vital signs,~Labs/ Radiology~and current medications noted below. Continue current treatment with the changes noted in the dictated addendum note Assessment: Vital Signs/I&O: Vital Signs Date Time Temp Pulse Resp B/P (MAP) Pulse Ox O2 Delivery O2 Flow Rate FiO2 09/02/19 15:56 98.2 81 18 145/89 (107) 97 08/28/19 06:32 Room Air I & O 09/01/19 09/01/19 09/02/19 15:00 23:00 07:00 Intake Total 600 ml 600 ml Balance 600 ml 600 ml Current Medications: Meds: Current Medications Medications (Trade) Dose Ordered Sig/Jade Route PRN Reason Start Time Stop Time Status Last Admin Dose Admin Gabapentin (Neurontin) 600 mg TID@0800,1300,2100 PO 09/02/19 08:00 09/02/19 20:50 I have reviewed the current psychotropics carefully including drug interactions. Risk benefit ratio favors no change other than as noted in my dictated progress note. Diagnosis: Problems: (1) Schizophrenia, schizo-affective type (2) Anxiety disorder (3) Bipolar affective disorder, mixed (4) Cannabis abuse (5) Bipolar affective, mixed, sev w/ psych (6) Impulse control disorder (7) Schizoaffective disorder, chronic condition with acute exacerbation JONA ANN MD Sep 02, 2019 21:50
--- NOTE | 2019-09-03 02:35 | PN ---
DATE: 09/01/2019 This late entry 09/01/2019 covers elements not covered in my initial note. SUBJECTIVE: I met with the patient evening of 09/01/2019. Per CHELSEY Palomo, the patient slept 6-1/2 hours previous night. Valproic acid level is 21, which is a drop from the previous level despite increase in the dosage of Depakote. We will make sure she is not cheeking her medications. She has also had weight loss surgery in the past and this could be impacting the absorption. We will have a pharmacy consult to clarify any ways around this. We will also repeat CBC, CMP, valproic acid level on Sunday09/03/2019. She has been less hyperverbal. REVIEW OF SYSTEMS: Positive for foul smelling feces, which she is quite embarrassed about, but attributes this to her weight loss surgery and dumping syndrome problems. No CV, , eye system symptoms on review. MENTAL STATUS EXAM: Reasonably oriented. Speech is coherent, little pressured, less so than before. Abstraction fair, computation impaired, language function intact, and attention span short. Mood and affect remain somewhat grandiose at times labile, but improved. LABORATORY DATA: Reviewed. IMPRESSION: Bipolar disorder, mixed with psychotic features, in partial remission; anxiety disorder, unspecified. PLAN: Continue psychotropics from initial note, Wellbutrin, and Neurontin. She remains on Cogentin, Risperdal, and Depakote ER 1000 mg at bedtime. Repeat labs and pharmacy consult as noted above. Adjust further as clinically indicated. JONA ANN MD DR: GLENN/papo JOB#: [id number] / [id number]
[2019-09-03 06:34] VITALS: BP 129/68
[2019-09-03 07:48] LABS: BASO % 1 % (0-3); EOS # 0.1 x10^3/uL (0.0-0.7); EOS % 3 % (0-3); HEMATOCRIT 38.3 % (36.0-47.0); HEMOGLOBIN 12.4 g/dL (12.0-15.5); LYMPH % 28 % (24-48); MEAN CORPUSCULAR HEMOGLOBIN 30 pg (25-35); MEAN CORPUSCULAR HGB CONC 32 g/dL (31-37); MEAN CORPUSCULAR VOLUME 91 fL (79-100); MONO # 0.4 x10^3/uL (0.0-1.1); MONO % 12 % (0-9); NEUT # 1.9 x10^3uL (1.8-7.7); NEUT % 56 % (31-73); PLATELET COUNT 194 x10^3/uL (140-400); RED CELL DISTRIBUTION WIDTH 12.3 % (11.5-14.5); WHITE BLOOD COUNT 3.4 x10^3/uL (4.0-11.0)
[2019-09-03 08:04] LABS: ALBUMIN 3.5 g/dL (3.4-5.0); ALBUMIN/GLOBULIN RATIO 1.2 (1.0-1.7); ALK PHOS 81 U/L (46-116); ALT (SGPT) 23 U/L (14-59); ANION GAP 6 (6-14); AST (SGOT) 14 U/L (15-37); BLOOD UREA NITROGEN 11 mg/dL (7-20); BUN/CREATININE RATIO 16 (6-20); CALCIUM 8.6 mg/dL (8.5-10.1); CARBON DIOXIDE 33 mmol/L (21-32); CHLORIDE 101 mmol/L (98-107); CREATININE 0.7 mg/dL (0.6-1.0); GFR 84.8; GLUCOSE 89 mg/dL (70-99); POTASSIUM 4.3 mmol/L (3.5-5.1); SODIUM 140 mmol/L (136-145); TOTAL BILIRUBIN 0.2 mg/dL (0.2-1.0); TOTAL PROTEIN 6.5 g/dL (6.4-8.2); VAL ACID 26 mcg/mL (50-100)
[2019-09-03] MEDS: POTASSIUM CHLORIDE 20 MEQ TABLET.ER. PO SCH (08:13)
[2019-09-03] MEDS: KETOTIFEN FUMARATE 0.025% OPHT SOLUTION BOTTLE. OU SCH ×2 (08:13→19:51)
[2019-09-03] MEDS: GABAPENTIN 300 MG CAPSULE. PO SCH ×3 (08:13→19:49)
[2019-09-03] MEDS: buPROPion SR 150 MG TABLET.SA PO SCH (08:14)
[2019-09-03] MEDS: CETIRIZINE HCL 10 MG TABLET PO SCH (08:14)
[2019-09-03] MEDS: CYANOCOBALAMIN (VITAMIN B-12) 1,000 MCG TABLET. PO SCH (08:14)
[2019-09-03] MEDS: VALPROATE ACID 250 MG/5 ML ORAL SOLUTION PO SCH ×2 (08:14→19:51)
[2019-09-03] MEDS: NAPROXEN 500 MG TABLET PO SCH ×2 (08:15→19:50)
[2019-09-03] MEDS: CHOLECALCIFEROL (VITAMIN D3) 1,000 UNIT TABLET PO SCH (08:15)
[2019-09-03] MEDS: LISINOPRIL 20 MG TABLET PO SCH (08:15)
[2019-09-03] MEDS: FOLIC ACID 1 MG TABLET PO SCH (08:16)
[2019-09-03] MEDS: PANTOPRAZOLE 40 MG TABLET. PO SCH (08:16)
[2019-09-03] MEDS: BENZTROPINE MESYLATE 0.5 MG TABLET PO SCH (08:16)
[2019-09-03] MEDS: FERROUS SULFATE 325 MG TABLET. PO SCH (08:16)
[2019-09-03] MEDS: LIDOCAINE (700MG/PATCH) PATCH. TD SCH (08:16)
[2019-09-03 15:33] VITALS: BP 105/67
[2019-09-03] MEDS: risperiDONE 0.5 MG TABLET. PO SCH (19:49)
[2019-09-03] MEDS: rOPINIRole 1 MG TABLET. PO SCH (19:50)
[2019-09-03] MEDS: SIMVASTATIN 20 MG TABLET PO SCH (19:51)
[2019-09-03] MEDS: traZODone 50 MG TABLET. PO SCH (19:51)
[2019-09-03] MEDS: PATCH REMOVAL. MC SCH (21:00)
--- NOTE | 2019-09-03 21:50 | PDOC ---
Exam Note: Keith Note: Please also refer to the separate dictated note~for this date of service dictated separately.~Patient seen individually. Discussed the patient with Nursing staff reviewed the chart.~Reviewed interim history and current functioning. Reviewed vital signs,~Labs/ Radiology~and current medications noted below. Continue current treatment with the changes noted in the dictated addendum note Assessment: Vital Signs/I&O: Vital Signs Date Time Temp Pulse Resp B/P (MAP) Pulse Ox O2 Delivery O2 Flow Rate FiO2 09/03/19 15:33 98.1 83 20 105/67 (80) 96 I & O 09/02/19 09/02/19 09/03/19 15:00 23:00 07:00 Intake Total 720 ml 600 ml Balance 720 ml 600 ml Labs: Laboratory Tests Test 09/03/19 07:27 White Blood Count 3.4 x10^3/uL (4.0-11.0) L Red Blood Count 4.20 x10^6/uL (3.50-5.40) Hemoglobin 12.4 g/dL (12.0-15.5) Hematocrit 38.3 % (36.0-47.0) Mean Corpuscular Volume 91 fL (79-100) Mean Corpuscular Hemoglobin 30 pg (25-35) Mean Corpuscular Hemoglobin Concent 32 g/dL (31-37) Red Cell Distribution Width 12.3 % (11.5-14.5) Platelet Count 194 x10^3/uL (140-400) Neutrophils (%) (Auto) 56 % (31-73) Lymphocytes (%) (Auto) 28 % (24-48) Monocytes (%) (Auto) 12 % (0-9) H Eosinophils (%) (Auto) 3 % (0-3) Basophils (%) (Auto) 1 % (0-3) Neutrophils # (Auto) 1.9 x10^3uL (1.8-7.7) Lymphocytes # (Auto) 1.0 x10^3/uL (1.0-4.8) Monocytes # (Auto) 0.4 x10^3/uL (0.0-1.1) Eosinophils # (Auto) 0.1 x10^3/uL (0.0-0.7) Basophils # (Auto) 0.0 x10^3/uL (0.0-0.2) Sodium Level 140 mmol/L (136-145) Potassium Level 4.3 mmol/L (3.5-5.1) Chloride Level 101 mmol/L (98-107) Carbon Dioxide Level 33 mmol/L (21-32) H Anion Gap 6 (6-14) Blood Urea Nitrogen 11 mg/dL (7-20) Creatinine 0.7 mg/dL (0.6-1.0) Estimated GFR (Cockcroft-Gault) 84.8 BUN/Creatinine Ratio 16 (6-20) Glucose Level 89 mg/dL (70-99) Calcium Level 8.6 mg/dL (8.5-10.1) Total Bilirubin 0.2 mg/dL (0.2-1.0) Aspartate Amino Transferase (AST) 14 U/L (15-37) L Alanine Aminotransferase (ALT) 23 U/L (14-59) Alkaline Phosphatase 81 U/L (46-116) Total Protein 6.5 g/dL (6.4-8.2) Albumin 3.5 g/dL (3.4-5.0) Albumin/Globulin Ratio 1.2 (1.0-1.7) Valproic Acid Level 26 mcg/mL (50-100) L Valproic Acid Last Dose Date 09/02/19 Valproic Acid Last Dose Time 2100 Current Medications: Meds: Current Medications Medications (Trade) Dose Ordered Sig/Jade Route PRN Reason Start Time Stop Time Status Last Admin Dose Admin Valproic Acid (Depakene) 750 mg QHS PO 09/03/19 21:00 09/03/19 19:51 I have reviewed the current psychotropics carefully including drug interactions. Risk benefit ratio favors no change other than as noted in my dictated progress note. Diagnosis: Problems: (1) Anxiety disorder (2) Bipolar affective disorder, mixed (3) Cannabis abuse (4) Bipolar affective, mixed, sev w/ psych (5) Impulse control disorder (6) Schizoaffective disorder, chronic condition with acute exacerbation JONA ANN MD Sep 03, 2019 21:50
--- NOTE | 2019-09-04 04:25 | PN ---
DATE: 09/02/2019 PSYCHIATRIC PROGRESS NOTE This late entry 09/02/2019 covers elements not covered in my initial note. SUBJECTIVE: I met with the patient in the evening. The patient slept 7-1/4 hours previous night per CHELSEY Buchanan. She has been doing better, still gets a little pressure of speech. Her Depakote was changed to liquid per pharmacy consult given her bariatric surgery in the past. She is obsessed about her right leg being red. We will defer to Dr. Jones. Labs to be checked morning of 09/03/2019. REVIEW OF SYSTEMS: Other than above, no CV, , pulmonary, eye system symptoms on review. MENTAL STATUS EXAM: Reasonably oriented. Speech coherent, a little pressured. Abstraction fair, computation impaired, language function intact, attention span short. Mood and affect still somewhat hypomanic. No suicidal ideation. LABORATORY DATA: Reviewed. IMPRESSION: Schizoaffective disorder, bipolar type, mixed with psychotic features; bipolar disorder, mixed with psychotic features, in partial remission. Rest unchanged. Past history of polysubstance abuse. PLAN: Continue psychotropics from initial note. Check valproic acid level, adjust liquid Depakene to therapeutic level. Rest unchanged, had a lengthy discussion with her about all of this. JONA ANN MD DR: GLENN/papo JOB#: [id number] / [id number]
[2019-09-04 05:52] VITALS: BP 118/67
[2019-09-04] MEDS: LIDOCAINE (700MG/PATCH) PATCH. TD SCH (08:03)
[2019-09-04] MEDS: GABAPENTIN 300 MG CAPSULE. PO SCH ×3 (08:04→20:47)
[2019-09-04] MEDS: buPROPion SR 150 MG TABLET.SA PO SCH (08:04)
[2019-09-04] MEDS: CHOLECALCIFEROL (VITAMIN D3) 1,000 UNIT TABLET PO SCH (08:04)
[2019-09-04] MEDS: NAPROXEN 500 MG TABLET PO SCH ×2 (08:04→20:47)
[2019-09-04] MEDS: BENZTROPINE MESYLATE 0.5 MG TABLET PO SCH (08:04)
[2019-09-04] MEDS: KETOTIFEN FUMARATE 0.025% OPHT SOLUTION BOTTLE. OU SCH ×2 (08:04→20:47)
[2019-09-04] MEDS: CETIRIZINE HCL 10 MG TABLET PO SCH (08:05)
[2019-09-04] MEDS: POTASSIUM CHLORIDE 20 MEQ TABLET.ER. PO SCH (08:05)
[2019-09-04] MEDS: FOLIC ACID 1 MG TABLET PO SCH (08:05)
[2019-09-04] MEDS: PANTOPRAZOLE 40 MG TABLET. PO SCH (08:05)
[2019-09-04] MEDS: VALPROATE ACID 250 MG/5 ML ORAL SOLUTION PO SCH ×2 (08:11→20:48)
[2019-09-04 15:51] VITALS: BP 137/87
[2019-09-04] MEDS: LISINOPRIL 20 MG TABLET PO SCH (17:11)
[2019-09-04] MEDS: CROMOLYN 4% OPHTH SOLUTION 10ML BOTTLE. OU SCH (20:46)
[2019-09-04] MEDS: SIMVASTATIN 20 MG TABLET PO SCH (20:46)
[2019-09-04] MEDS: traZODone 50 MG TABLET. PO SCH (20:48)
[2019-09-04] MEDS: risperiDONE 0.5 MG TABLET. PO SCH (20:48)
[2019-09-04] MEDS: rOPINIRole 1 MG TABLET. PO SCH (20:48)
[2019-09-04] MEDS: PATCH REMOVAL. MC SCH (20:49)
--- NOTE | 2019-09-04 21:21 | PDOC ---
Exam Note: Keith Note: Please also refer to the separate dictated note~for this date of service dictated separately.~Patient seen individually. Discussed the patient with Nursing staff reviewed the chart.~Reviewed interim history and current functioning. Reviewed vital signs,~Labs/ Radiology~and current medications noted below. Continue current treatment with the changes noted in the dictated addendum note Assessment: Vital Signs/I&O: Vital Signs Date Time Temp Pulse Resp B/P (MAP) Pulse Ox O2 Delivery O2 Flow Rate FiO2 09/04/19 17:11 89 137/87 09/04/19 15:51 97.3 20 96 Room Air I & O 09/03/19 09/03/19 09/04/19 15:00 23:00 07:00 Intake Total 1320 ml 480 ml Balance 1320 ml 480 ml Current Medications: Meds: Current Medications Medications (Trade) Dose Ordered Sig/Jade Route PRN Reason Start Time Stop Time Status Last Admin Dose Admin Valproic Acid (Depakene) 500 mg DAILY PO 09/04/19 09:00 09/04/19 08:11 Cromolyn Sodium (Opticrom) 1 drop QID OU 09/04/19 21:00 09/04/19 20:46 I have reviewed the current psychotropics carefully including drug interactions. Risk benefit ratio favors no change other than as noted in my dictated progress note. Diagnosis: Problems: (1) Schizophrenia, schizo-affective type (2) Anxiety disorder (3) Bipolar affective disorder, mixed (4) Cannabis abuse (5) Bipolar affective, mixed, sev w/ psych (6) Impulse control disorder (7) Schizoaffective disorder, chronic condition with acute exacerbation JONA ANN MD Sep 04, 2019 21:21
[2019-09-05 06:20] VITALS: BP 131/82
[2019-09-05] MEDS: GABAPENTIN 300 MG CAPSULE. PO SCH ×3 (08:00→20:01)
[2019-09-05] MEDS: KETOTIFEN FUMARATE 0.025% OPHT SOLUTION BOTTLE. OU SCH (08:19)
[2019-09-05] MEDS: CROMOLYN 4% OPHTH SOLUTION 10ML BOTTLE. OU SCH ×2 (08:19→12:51)
[2019-09-05] MEDS: LIDOCAINE (700MG/PATCH) PATCH. TD SCH (08:19)
[2019-09-05] MEDS: BENZTROPINE MESYLATE 0.5 MG TABLET PO SCH (08:20)
[2019-09-05] MEDS: buPROPion SR 150 MG TABLET.SA PO SCH (08:20)
[2019-09-05] MEDS: CETIRIZINE HCL 10 MG TABLET PO SCH (08:20)
[2019-09-05] MEDS: NAPROXEN 500 MG TABLET PO SCH ×2 (08:20→20:01)
[2019-09-05] MEDS: FOLIC ACID 1 MG TABLET PO SCH (08:20)
[2019-09-05] MEDS: LISINOPRIL 20 MG TABLET PO SCH (08:20)
[2019-09-05] MEDS: CYANOCOBALAMIN (VITAMIN B-12) 1,000 MCG TABLET. PO SCH (08:20)
[2019-09-05] MEDS: PANTOPRAZOLE 40 MG TABLET. PO SCH (08:21)
[2019-09-05] MEDS: FERROUS SULFATE 325 MG TABLET. PO SCH (08:21)
[2019-09-05] MEDS: CHOLECALCIFEROL (VITAMIN D3) 1,000 UNIT TABLET PO SCH (08:21)
[2019-09-05] MEDS: VALPROATE ACID 250 MG/5 ML ORAL SOLUTION PO SCH ×2 (08:22→19:59)
[2019-09-05] MEDS: POTASSIUM CHLORIDE 20 MEQ TABLET.ER. PO SCH (08:22)
[2019-09-05] MEDS ORDERED: CETIRIZINE HCL 10 MG TABLET PO SCH (09:00)
[2019-09-05] MEDS ORDERED: POLYVINYL ALCOHOL 1.4% OPHTH SOLUTION 15ML BOTTLE. OU PRN (09:00)
--- NOTE | 2019-09-05 10:14 | PN ---
DATE: 09/03/2019 PSYCHIATRIC PROGRESS NOTE This late entry 09/03/2019 covers elements not covered in my initial note. SUBJECTIVE: Per CHELSEY Pimentel, the patient slept 6-3/4 hours previous night. She has been pleasant, fixated on that she might gain weight on the Depakote. Valproic acid level is 26, on Depakene liquid 500 mg twice a day and we will increase to 500 a.m. and 750 at bedtime. Check CBC, CMP, valproic acid level in 3 days. REVIEW OF SYSTEMS: No CV, , pulmonary, eye, ENT system symptoms on review. MENTAL STATUS EXAM: Reasonably oriented. Speech is coherent, at times pressured. Abstraction fair, computation impaired, language function intact, attention span short. Mood and affect remain somewhat grandiose, labile, but improved. LABORATORY DATA: Reviewed. IMPRESSION: Unchanged from initial note. PLAN: No change from initial note other than what is noted above. JONA ANN MD DR: GLENN/papo JOB#: [id number] / [id number]
[2019-09-05 15:36] VITALS: BP 132/86
[2019-09-05] MEDS: POLYVINYL ALCOHOL 1.4% OPHTH SOLUTION 15ML BOTTLE. OU SCH ×3 (17:00→20:01)
[2019-09-05] MEDS ORDERED: traZODone 100 MG TABLET. PO PRN (17:30)
[2019-09-05] MEDS: rOPINIRole 1 MG TABLET. PO SCH (20:00)
[2019-09-05] MEDS: SIMVASTATIN 20 MG TABLET PO SCH (20:00)
[2019-09-05] MEDS: PATCH REMOVAL. MC SCH (20:01)
[2019-09-05] MEDS: risperiDONE 0.5 MG TABLET. PO SCH (20:01)
--- NOTE | 2019-09-05 21:26 | PDOC ---
Exam Note: Keith Note: Please also refer to the separate dictated note~for this date of service dictated separately.~Patient seen individually. Discussed the patient with Nursing staff reviewed the chart.~Reviewed interim history and current functioning. Reviewed vital signs,~Labs/ Radiology~and current medications noted below. Continue current treatment with the changes noted in the dictated addendum note Assessment: Vital Signs/I&O: Vital Signs Date Time Temp Pulse Resp B/P (MAP) Pulse Ox O2 Delivery O2 Flow Rate FiO2 09/05/19 15:36 97.9 84 18 132/86 (101) 97 09/04/19 15:51 Room Air I & O 09/04/19 09/04/19 09/05/19 15:00 23:00 07:00 Intake Total 1320 ml 240 ml Balance 1320 ml 240 ml Current Medications: Meds: Current Medications Medications (Trade) Dose Ordered Sig/Jade Route PRN Reason Start Time Stop Time Status Last Admin Dose Admin Cetirizine HCl (ZyrTEC) 10 mg DAILY PO 09/05/19 09:00 09/05/19 08:51 DC 09/05/19 08:23 Artificial Tears (Artificial Tears) 2 drop Q3HRS OU 09/05/19 17:00 09/05/19 20:01 I have reviewed the current psychotropics carefully including drug interactions. Risk benefit ratio favors no change other than as noted in my dictated progress note. Diagnosis: Problems: (1) Schizophrenia, schizo-affective type (2) Anxiety disorder (3) Bipolar affective disorder, mixed (4) Cannabis abuse (5) Bipolar affective, mixed, sev w/ psych (6) Impulse control disorder (7) Schizoaffective disorder, chronic condition with acute exacerbation JONA ANN MD Sep 05, 2019 21:26
[2019-09-05] MEDS: traZODone 100 MG TABLET. PO SCH (22:14)
[2019-09-05] MEDS: BACITRACIN/POLYMYXIN B OPHTH OINTMENT 3.5GM TUBE. OU SCH (22:14)
[2019-09-06] MEDS: POLYVINYL ALCOHOL 1.4% OPHTH SOLUTION 15ML BOTTLE. OU SCH ×8 (03:00→20:24)
--- NOTE | 2019-09-06 03:44 | PN ---
DATE: 09/04/2019 PSYCHIATRIC PROGRESS NOTE This late entry 09/04/2019 covers elements not covered in my initial note. SUBJECTIVE: I met with the patient in the evening and staffed at a treatment team meeting with the entire team in the morning. We tried to contact the deputy public clinical trials systems administrator, Jesi for this treatment team meeting, but she was unavailable. The patient is sleeping 7-1/4 hours average. Appetite 100%. Has been calm, cooperative, compliant with meds and assessment. Valproic acid level is still subtherapeutic and we are adjusting this with liquid Depakene. REVIEW OF SYSTEMS: No CV, , pulmonary, eye, ENT system symptoms on review. MENTAL STATUS EXAM: Oriented reasonably. Speech coherent, abstraction fair, computation impaired, language function intact, attention span short. Mood and affect, overall less grandiose and labile. LABORATORY DATA: Reviewed. IMPRESSION: Unchanged from initial note. PLAN: No change from initial note. Check a valproic acid level. Adjust further as clinically indicated. Rest unchanged. MAN Shine ANN MD DR: GLENN/papo JOB#: [id number] / [id number]
[2019-09-06 05:16] VITALS: BP 121/67
[2019-09-06] MEDS: GABAPENTIN 300 MG CAPSULE. PO SCH ×3 (08:41→20:22)
[2019-09-06] MEDS: PANTOPRAZOLE 40 MG TABLET. PO SCH (08:41)
[2019-09-06] MEDS: CHOLECALCIFEROL (VITAMIN D3) 1,000 UNIT TABLET PO SCH (08:41)
[2019-09-06] MEDS: BENZTROPINE MESYLATE 0.5 MG TABLET PO SCH (08:41)
[2019-09-06] MEDS: CHOLECALCIFEROL (VITAMIN D3) 50,000 UNIT CAPSULE PO SCH (08:42)
[2019-09-06] MEDS: FOLIC ACID 1 MG TABLET PO SCH (08:42)
[2019-09-06] MEDS: VALPROATE ACID 250 MG/5 ML ORAL SOLUTION PO SCH ×2 (08:42→20:23)
[2019-09-06] MEDS: CETIRIZINE HCL 10 MG TABLET PO SCH (08:42)
[2019-09-06] MEDS: buPROPion SR 150 MG TABLET.SA PO SCH (08:43)
[2019-09-06] MEDS: NAPROXEN 500 MG TABLET PO SCH ×2 (08:43→20:21)
[2019-09-06] MEDS: LISINOPRIL 20 MG TABLET PO SCH (08:43)
[2019-09-06] MEDS: POTASSIUM CHLORIDE 20 MEQ TABLET.ER. PO SCH (08:43)
[2019-09-06] MEDS: LIDOCAINE (700MG/PATCH) PATCH. TD SCH (08:44)
[2019-09-06 15:02] VITALS: BP 131/84
[2019-09-06] MEDS: ACETAMINOPHEN 325 MG TABLET PO PRN (16:41)
[2019-09-06] MEDS: rOPINIRole 1 MG TABLET. PO SCH (20:21)
[2019-09-06] MEDS: BACITRACIN/POLYMYXIN B OPHTH OINTMENT 3.5GM TUBE. OU SCH (20:21)
[2019-09-06] MEDS: SIMVASTATIN 20 MG TABLET PO SCH (20:22)
[2019-09-06] MEDS: risperiDONE 0.5 MG TABLET. PO SCH (20:22)
[2019-09-06] MEDS: traZODone 100 MG TABLET. PO SCH (20:22)
[2019-09-06] MEDS: PATCH REMOVAL. MC SCH (20:24)
--- NOTE | 2019-09-07 00:05 | PN ---
DATE: 09/06/2019 SUBJECTIVE: The patient was seen today, met with the staff, chart reviewed and also covering for Dr. Paula. The patient admits to feeling anxious and depressed, but not having any major mood swings. The patient states she was diagnosed with bipolar disorder about 30 years ago and apparently had multiple hospitalizations in the past and also different placements including assisted living. The patient has been compliant with the treatment, not presented with any major behavior problems. The patient currently denies of having any delusional thinking, also not expressing any suicidal thoughts. OBSERVATION: VITAL SIGNS: Temperature 97.6, blood pressure 121/62, pulse 82, respirations 20, the patient's O2 sat 95%, slept about 5 hours last night. GENERAL: The patient continues to exhibit increased psychomotor activity, increased anxiety and restlessness at times and also circumstantial thinking, but no flight of ideas. MEDICATIONS: Reviewed. Currently on trazodone 100 mg at night and also p.r.n. at night, valproic acid 500 mg daily and 750 mg at night, gabapentin 600 mg t.i.d., benztropine 0.5 mg daily, Risperdal 0.5 mg at night, bupropion 150 mg daily and olanzapine 2.5 mg q. 6 hours p.r.n. LABORATORY DATA: The patient's lab reviewed. ASSESSMENT: Schizoaffective disorder, bipolar type with psychotic features; generalized anxiety disorder and past history of substance abuse, mostly crack cocaine. PLAN: Continue with the current treatment plan. LENGTH OF STAY: 5-7 days. CODY SCRUGGS MD DR: MIKE/papo JOB#: [id number] / [id number]
[2019-09-07] MEDS: POLYVINYL ALCOHOL 1.4% OPHTH SOLUTION 15ML BOTTLE. OU SCH ×8 (03:00→19:50)
[2019-09-07 05:06] VITALS: BP 149/78
[2019-09-07] MEDS: GABAPENTIN 300 MG CAPSULE. PO SCH ×3 (08:17→19:52)
[2019-09-07] MEDS: BENZTROPINE MESYLATE 0.5 MG TABLET PO SCH (08:17)
[2019-09-07] MEDS: buPROPion SR 150 MG TABLET.SA PO SCH (08:17)
[2019-09-07] MEDS: FOLIC ACID 1 MG TABLET PO SCH (08:18)
[2019-09-07] MEDS: POTASSIUM CHLORIDE 20 MEQ TABLET.ER. PO SCH (08:18)
[2019-09-07] MEDS: VALPROATE ACID 250 MG/5 ML ORAL SOLUTION PO SCH ×2 (08:18→19:50)
[2019-09-07] MEDS: CHOLECALCIFEROL (VITAMIN D3) 1,000 UNIT TABLET PO SCH (08:19)
[2019-09-07] MEDS: PANTOPRAZOLE 40 MG TABLET. PO SCH (08:19)
[2019-09-07] MEDS: FERROUS SULFATE 325 MG TABLET. PO SCH (08:19)
[2019-09-07] MEDS: NAPROXEN 500 MG TABLET PO SCH ×2 (08:19→19:51)
[2019-09-07] MEDS: LISINOPRIL 20 MG TABLET PO SCH (08:20)
[2019-09-07] MEDS: CETIRIZINE HCL 10 MG TABLET PO SCH (08:20)
[2019-09-07] MEDS: LIDOCAINE (700MG/PATCH) PATCH. TD SCH (08:20)
[2019-09-07 09:54] LABS: BASO % 1 % (0-3); EOS # 0.1 x10^3/uL (0.0-0.7); EOS % 2 % (0-3); HEMATOCRIT 40.4 % (36.0-47.0); HEMOGLOBIN 13.1 g/dL (12.0-15.5); LYMPH % 27 % (24-48); MEAN CORPUSCULAR HEMOGLOBIN 30 pg (25-35); MEAN CORPUSCULAR HGB CONC 32 g/dL (31-37); MEAN CORPUSCULAR VOLUME 91 fL (79-100); MONO # 0.4 x10^3/uL (0.0-1.1); MONO % 10 % (0-9); NEUT # 2.3 x10^3uL (1.8-7.7); NEUT % 61 % (31-73); PLATELET COUNT 200 x10^3/uL (140-400); RED BLOOD COUNT 4.42 x10^6/uL (3.50-5.40); RED CELL DISTRIBUTION WIDTH 12.5 % (11.5-14.5); WHITE BLOOD COUNT 3.8 x10^3/uL (4.0-11.0)
[2019-09-07 10:11] LABS: ALBUMIN 3.9 g/dL (3.4-5.0); ALBUMIN/GLOBULIN RATIO 1.2 (1.0-1.7); ALK PHOS 89 U/L (46-116); ALT (SGPT) 23 U/L (14-59); ANION GAP 6 (6-14); AST (SGOT) 15 U/L (15-37); BLOOD UREA NITROGEN 13 mg/dL (7-20); BUN/CREATININE RATIO 16 (6-20); CALCIUM 9.2 mg/dL (8.5-10.1); CARBON DIOXIDE 35 mmol/L (21-32); CHLORIDE 100 mmol/L (98-107); CREATININE 0.8 mg/dL (0.6-1.0); GFR 72.7; GLUCOSE 109 mg/dL (70-99); POTASSIUM 3.9 mmol/L (3.5-5.1); SODIUM 141 mmol/L (136-145); TOTAL BILIRUBIN 0.3 mg/dL (0.2-1.0); TOTAL PROTEIN 7.2 g/dL (6.4-8.2)
[2019-09-07 10:12] LABS: VAL ACID 61 mcg/mL (50-100)
--- NOTE | 2019-09-07 12:49 | PN ---
DATE: 09/07/2019 SUBJECTIVE: The patient was seen today, met with the staff, chart reviewed. The patient currently staying in bed, complaining of feeling tired and feels stiff. The patient also concerned about her medications. The patient states she was given maximum dose of medications in the past including Abilify, Depakote, apparently did not respond well and started having side effects. OBSERVATION: VITAL SIGNS: Temperature 98.3, blood pressure 149/78, pulse 68, respirations 18, O2 sat 93%. Slept about 5 hours last night. MEDICATIONS: The patient's current medications include trazodone 100 mg at night and also p.r.n., valproic acid 500 mg daily and 750 mg at night, gabapentin 600 mg t.i.d. p.o., benztropine 0.5 mg daily, Risperdal 0.5 mg at night, bupropion 150 mg daily. The patient is also on olanzapine 2.5 mg q. 6 hours p.r.n. ASSESSMENT: 1. Schizoaffective disorder, bipolar type, with psychotic features. 2. Generalized anxiety disorder. 3. History of substance abuse in the past. PLAN: To continue with the treatment. LENGTH OF STAY: 5-7 days. CODY SCRUGGS MD DR: MIKE/papo JOB#: [id number] / [id number]
[2019-09-07 15:19] VITALS: BP 146/76
[2019-09-07] MEDS: PHENYLEPH/MINERAL OIL/PETROLAT RECTAL OINTMENT TUBE. RC PRN (16:05)
[2019-09-07] MEDS: BACITRACIN/POLYMYXIN B OPHTH OINTMENT 3.5GM TUBE. OU SCH (19:50)
[2019-09-07] MEDS: risperiDONE 0.5 MG TABLET. PO SCH (19:51)
[2019-09-07] MEDS: traZODone 100 MG TABLET. PO SCH (19:51)
[2019-09-07] MEDS: rOPINIRole 1 MG TABLET. PO SCH (19:51)
[2019-09-07] MEDS: SIMVASTATIN 20 MG TABLET PO SCH (19:51)
[2019-09-07] MEDS: PATCH REMOVAL. MC SCH (21:00)
[2019-09-08] MEDS: POLYVINYL ALCOHOL 1.4% OPHTH SOLUTION 15ML BOTTLE. OU SCH ×8 (03:00→20:29)
[2019-09-08 06:40] VITALS: BP 142/75
[2019-09-08] MEDS: GABAPENTIN 300 MG CAPSULE. PO SCH ×3 (09:13→20:28)
[2019-09-08] MEDS: BENZTROPINE MESYLATE 0.5 MG TABLET PO SCH (09:14)
[2019-09-08] MEDS: VALPROATE ACID 250 MG/5 ML ORAL SOLUTION PO SCH ×2 (09:14→20:27)
[2019-09-08] MEDS: POTASSIUM CHLORIDE 20 MEQ TABLET.ER. PO SCH (09:14)
[2019-09-08] MEDS: FOLIC ACID 1 MG TABLET PO SCH (09:14)
[2019-09-08] MEDS: PANTOPRAZOLE 40 MG TABLET. PO SCH (09:15)
[2019-09-08] MEDS: CETIRIZINE HCL 10 MG TABLET PO SCH (09:15)
[2019-09-08] MEDS: LISINOPRIL 20 MG TABLET PO SCH (09:15)
[2019-09-08] MEDS: buPROPion SR 150 MG TABLET.SA PO SCH (09:15)
[2019-09-08] MEDS: CHOLECALCIFEROL (VITAMIN D3) 1,000 UNIT TABLET PO SCH (09:15)
[2019-09-08] MEDS: NAPROXEN 500 MG TABLET PO SCH ×2 (09:15→20:27)
[2019-09-08] MEDS: LIDOCAINE (700MG/PATCH) PATCH. TD SCH (09:16)
[2019-09-08] MEDS: PHENYLEPH/MINERAL OIL/PETROLAT RECTAL OINTMENT TUBE. RC PRN (09:16)
[2019-09-08] MEDS: CYANOCOBALAMIN (VITAMIN B-12) 1,000 MCG TABLET. PO SCH (09:22)
--- NOTE | 2019-09-08 10:13 | CONS ---
DATE OF CONSULTATION: 09/08/2019 REQUESTING PHYSICIAN: Dr. Jones. TIME: 912 CHIEF COMPLAINTS: Red eyes. HISTORY OF PRESENT ILLNESS: This 64-year-old white female is admitted to [facility]. She states she has had bilateral red eyes for approximately 2 weeks. She denies pain, itching, burning, discharge, crusting, irritation or change in vision. She states the vision in her right eye has been less than her left eye for a significant period of time. It has been over 2 years since she had a last eye exam. She has no cold symptoms or other symptoms suggestive of a viral illness. She has not been around anybody that has had red eye. She states that she has had a number of medication changes, but she is unsure of what changes those have been. Past ocular history is significant for eye trauma to the right eye a number of years ago. PAST MEDICAL HISTORY: The patient has schizophrenia, schizoaffective type; anxiety disorder; bipolar affective disorder; asthma; restless leg syndrome; hypertension; hyperlipidemia; urinary incontinence; history of thrombocytopenia; anemia; tremors; idiopathic progressive neuropathy. ALLERGIES: Include CODEINE, HALDOL, PANADEINE and CHOCOLATE. FAMILY HISTORY: Noncontributory with no evidence of ocular family history. SOCIAL HISTORY: The patient does have a history of drug abuse and she has a court appointed guardian. REVIEW OF SYSTEMS: Noncontributory. MEDICATIONS: Include artificial tears every 3 hours and neomycin, polymyxin, bacitracin ointment at bedtime. The remainder of her medications as listed in the MRAD. PHYSICAL EXAMINATION: This is a well-developed, well-nourished female. She is in no acute distress. She is alert and is oriented x 3. The ocular exam is done at bedside. Visual acuity with reading glasses at near in the right eye is 20/50 and 20/30 in the left eye. Intraocular pressures are 14 in the right, 13 in the left. The eyes are straight. Motility is normal. Pupils are equal, round and reactive to light. There is no afferent pupillary defect. She has some lower lid dermatochalasis/festoons with mild erythema of the lower lids bilateral. There are no preauricular nodes. No ocular discharge is noted. Slit lamp examination reveals irregularity of the lid margins with inspissation. Normal tear film. 1-2+ conjunctival injection. No follicles or papillae are noted. The cornea is clear. There is no fluorescein staining. The iris is normal. Anterior chamber is deep and quiet. 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 Cannot completely exclude a mild viral conjunctivitis, although with the length of time before the symptoms, one would expect this not to be the case and there are no other findings consistent other than conjunctival erythema. RECOMMENDATIONS: To discontinue the nighttime neomycin, polymyxin, bacitracin ointment. Begin Pred Forte 1% drops 1 drop 4 times a day for the next 10 days, then discontinue. Decrease artificial tears to 3 times a day. Do not instill artificial tears and pred Forte at same time, separate by at least 2-3 minutes. Thank you very much for consulting me on this patient. Please let me know if I can be of further assistance. JULIAN GALVEZ DO DR: GRECIA/papo JOB#: [id number] / [id number]
[2019-09-08] MEDS: prednisoLONE ACETATE 1% OPHTH SUSPENSION 5ML BOTTLE. OU SCH ×3 (12:17→20:29)
[2019-09-08 15:24] VITALS: BP 135/79
[2019-09-08] MEDS: traZODone 100 MG TABLET. PO SCH (20:27)
[2019-09-08] MEDS: rOPINIRole 1 MG TABLET. PO SCH (20:28)
[2019-09-08] MEDS: risperiDONE 0.5 MG TABLET. PO SCH (20:28)
[2019-09-08] MEDS: SIMVASTATIN 20 MG TABLET PO SCH (20:28)
[2019-09-08] MEDS: PATCH REMOVAL. MC SCH (20:29)
--- NOTE | 2019-09-08 21:20 | PDOC ---
Exam Note: Keith Note: Please also refer to the separate dictated note~for this date of service dictated separately.~Patient seen individually. Discussed the patient with Nursing staff reviewed the chart.~Reviewed interim history and current functioning. Reviewed vital signs,~Labs/ Radiology~and current medications noted below. Continue current treatment with the changes noted in the dictated addendum note Assessment: Vital Signs/I&O: Vital Signs Date Time Temp Pulse Resp B/P (MAP) Pulse Ox O2 Delivery O2 Flow Rate FiO2 09/08/19 15:24 97.8 88 18 135/79 (97) 93 09/06/19 05:16 Room Air I & O 09/07/19 09/07/19 09/08/19 15:00 23:00 07:00 Intake Total 960 ml 720 ml Balance 960 ml 720 ml Current Medications: Meds: Current Medications Medications (Trade) Dose Ordered Sig/Jade Route PRN Reason Start Time Stop Time Status Last Admin Dose Admin Artificial Tears (Artificial Tears) 1 drop QID OU 09/08/19 09:30 09/08/19 20:29 Prednisolone Acetate (Pred Forte) 1 drop QID OU 09/08/19 13:00 09/18/19 12:59 09/08/19 20:29 I have reviewed the current psychotropics carefully including drug interactions. Risk benefit ratio favors no change other than as noted in my dictated progress note. Diagnosis: Problems: (1) Anxiety disorder (2) Bipolar affective disorder, mixed (3) Cannabis abuse (4) Bipolar affective, mixed, sev w/ psych (5) Impulse control disorder (6) Schizoaffective disorder, chronic condition with acute exacerbation JONA ANN MD Sep 08, 2019 21:20
[2019-09-09 04:57] VITALS: BP 125/63
[2019-09-09] MEDS: prednisoLONE ACETATE 1% OPHTH SUSPENSION 5ML BOTTLE. OU SCH ×4 (08:13→20:24)
[2019-09-09] MEDS: POLYVINYL ALCOHOL 1.4% OPHTH SOLUTION 15ML BOTTLE. OU SCH ×4 (08:13→20:27)
[2019-09-09] MEDS: NAPROXEN 500 MG TABLET PO SCH ×2 (08:14→20:25)
[2019-09-09] MEDS: PANTOPRAZOLE 40 MG TABLET. PO SCH (08:14)
[2019-09-09] MEDS: GABAPENTIN 300 MG CAPSULE. PO SCH ×3 (08:14→20:24)
[2019-09-09] MEDS: buPROPion SR 150 MG TABLET.SA PO SCH (08:14)
[2019-09-09] MEDS: CHOLECALCIFEROL (VITAMIN D3) 1,000 UNIT TABLET PO SCH (08:14)
[2019-09-09] MEDS: CETIRIZINE HCL 10 MG TABLET PO SCH (08:15)
[2019-09-09] MEDS: BENZTROPINE MESYLATE 0.5 MG TABLET PO SCH (08:15)
[2019-09-09] MEDS: FERROUS SULFATE 325 MG TABLET. PO SCH (08:15)
[2019-09-09] MEDS: FOLIC ACID 1 MG TABLET PO SCH (08:15)
[2019-09-09] MEDS: VALPROATE ACID 250 MG/5 ML ORAL SOLUTION PO SCH ×2 (08:16→20:25)
[2019-09-09] MEDS: LIDOCAINE (700MG/PATCH) PATCH. TD SCH (08:16)
[2019-09-09] MEDS: POTASSIUM CHLORIDE 20 MEQ TABLET.ER. PO SCH (08:16)
--- NOTE | 2019-09-09 08:20 | PN ---
DATE: 09/05/2019 PSYCHIATRIC PROGRESS NOTE This late entry 09/05/2019 covers elements not covered in my initial note. SUBJECTIVE: I met with the patient evening of 09/05/2019. Per CHELSEY Galaviz, the patient slept 3 hours previous night. She has been somewhat somatic. Gait is unsteady at times, fixated that she has red eyes. ____ Brooks has been requested for Ophthalmology consult and patient started on artificial tears and Bacitracin ointment. REVIEW OF SYSTEMS: Other than above, no CV, or pulmonary system symptoms on review. MENTAL STATUS EXAM: Reasonably oriented. Speech is coherent, at times a little pressured. Abstraction fair, computation impaired, language function intact, attention span short. Mood and affect remain somewhat anxious, labile, but showing improvement, less grandiose. LABORATORY DATA: Reviewed. IMPRESSION: Unchanged from initial note. PLAN: No change from initial note. Depakene liquid is being adjusted to reach therapeutic level. Rest unchanged for now. JONA ANN MD DR: GLENN/papo JOB#: [id number] / [id number]
[2019-09-09 15:40] VITALS: BP 160/92
[2019-09-09] MEDS: LISINOPRIL 20 MG TABLET PO SCH (16:16)
[2019-09-09] MEDS: traZODone 100 MG TABLET. PO SCH (20:24)
[2019-09-09] MEDS: rOPINIRole 1 MG TABLET. PO SCH (20:24)
[2019-09-09] MEDS: risperiDONE 0.5 MG TABLET. PO SCH (20:25)
[2019-09-09] MEDS: SIMVASTATIN 20 MG TABLET PO SCH (20:26)
[2019-09-09] MEDS: PATCH REMOVAL. MC SCH (20:27)
--- NOTE | 2019-09-09 21:58 | PDOC ---
Exam Note: Keith Note: Please also refer to the separate dictated note~for this date of service dictated separately.~Patient seen individually. Discussed the patient with Nursing staff reviewed the chart.~Reviewed interim history and current functioning. Reviewed vital signs,~Labs/ Radiology~and current medications noted below. Continue current treatment with the changes noted in the dictated addendum note Assessment: Vital Signs/I&O: Vital Signs Date Time Temp Pulse Resp B/P (MAP) Pulse Ox O2 Delivery O2 Flow Rate FiO2 09/09/19 16:16 87 160/92 09/09/19 15:40 98.0 20 96 09/06/19 05:16 Room Air I & O 09/08/19 09/08/19 09/09/19 15:00 23:00 07:00 Intake Total 960 ml 360 ml Balance 960 ml 360 ml Current Medications: I have reviewed the current psychotropics carefully including drug interactions. Risk benefit ratio favors no change other than as noted in my dictated progress note. Diagnosis: Problems: (1) Anxiety disorder (2) Bipolar affective disorder, mixed (3) Cannabis abuse (4) Bipolar affective, mixed, sev w/ psych (5) Impulse control disorder (6) Schizoaffective disorder, chronic condition with acute exacerbation JONA ANN MD Sep 09, 2019 21:58
--- NOTE | 2019-09-09 22:31 | PN ---
DATE: 09/08/2019 This late entry 09/08/2019 covers elements not covered in my initial note. SUBJECTIVE: I met with the patient in the evening. The patient slept 7 hours previous night. Per nursing report, she has complained of being tired. She is overmedicated and I addressed this with her at length. Valproic acid level therapeutic at 61. She complains of being tired. No CV, , pulmonary, eye system symptoms on review. Reviewed information with Dr. Resendiz, who covered for me for the past couple of days. MENTAL STATUS EXAM: Oriented reasonably. Speech is coherent, less pressured. Abstraction fair, computation impaired, language function intact, attention span short. Mood and affect remain somewhat anxious, labile, but improved. LABORATORY DATA: Reviewed. IMPRESSION: Schizoaffective disorder, bipolar type, mixed with psychotic features, in partial remission; anxiety disorder, unspecified. Rest unchanged. PLAN: Continue psychotropics from initial note, Wellbutrin 150 mg a day, gabapentin 600 mg t.i.d., Cogentin 0.5 mg daily, Risperdal 0.5 mg daily, Depakene 500 mg a.m. and 750 at bedtime of the liquid level therapeutic, trazodone 100 mg at bedtime, may repeat x 1 for insomnia. MAN Shine ANN MD DR: GLENN/papo JOB#: [id number] / [id number]
[2019-09-10 06:39] VITALS: BP 118/50
[2019-09-10] MEDS: LIDOCAINE (700MG/PATCH) PATCH. TD SCH (08:19)
[2019-09-10] MEDS: VALPROATE ACID 250 MG/5 ML ORAL SOLUTION PO SCH ×2 (08:20→20:41)
[2019-09-10] MEDS: CHOLECALCIFEROL (VITAMIN D3) 1,000 UNIT TABLET PO SCH (08:20)
[2019-09-10] MEDS: buPROPion SR 150 MG TABLET.SA PO SCH (08:20)
[2019-09-10] MEDS: LISINOPRIL 20 MG TABLET PO SCH (08:21)
[2019-09-10] MEDS: FOLIC ACID 1 MG TABLET PO SCH (08:21)
[2019-09-10] MEDS: CETIRIZINE HCL 10 MG TABLET PO SCH (08:21)
[2019-09-10] MEDS: PANTOPRAZOLE 40 MG TABLET. PO SCH (08:21)
[2019-09-10] MEDS: prednisoLONE ACETATE 1% OPHTH SUSPENSION 5ML BOTTLE. OU SCH ×4 (08:22→20:42)
[2019-09-10] MEDS: POTASSIUM CHLORIDE 20 MEQ TABLET.ER. PO SCH (08:22)
[2019-09-10] MEDS: POLYVINYL ALCOHOL 1.4% OPHTH SOLUTION 15ML BOTTLE. OU SCH ×4 (08:22→20:51)
[2019-09-10] MEDS: NAPROXEN 500 MG TABLET PO SCH ×2 (08:22→20:42)
[2019-09-10] MEDS: CYANOCOBALAMIN (VITAMIN B-12) 1,000 MCG TABLET. PO SCH (08:26)
[2019-09-10] MEDS: GABAPENTIN 300 MG CAPSULE. PO SCH ×3 (08:26→20:43)
[2019-09-10] MEDS: PHENYLEPH/MINERAL OIL/PETROLAT RECTAL OINTMENT TUBE. RC PRN ×2 (09:41→22:01)
[2019-09-10] MEDS: ACETAMINOPHEN 325 MG TABLET PO PRN (12:42)
[2019-09-10 15:30] VITALS: BP 132/85
[2019-09-10] MEDS: rOPINIRole 1 MG TABLET. PO SCH (20:42)
[2019-09-10] MEDS: SIMVASTATIN 20 MG TABLET PO SCH (20:42)
[2019-09-10] MEDS: traZODone 100 MG TABLET. PO SCH (20:42)
[2019-09-10] MEDS: risperiDONE 0.5 MG TABLET. PO SCH (20:42)
[2019-09-10] MEDS: PATCH REMOVAL. MC SCH (20:51)
--- NOTE | 2019-09-10 20:52 | PN ---
DATE: 09/09/2019 PSYCHIATRIC PROGRESS NOTE This late entry, 09/09, covers elements not covered in my initial note. SUBJECTIVE: I met with the patient evening of 09/09. Per CHELSEY Cárdenas, the patient slept 5-1/2 hours previous night. She was complaining that the medication changes are causing an unsteady gait and voicing fleeting suicidal ideation, no plans, intent or attempt. We postponed the discharge until she stabilizes. I had initially suggested stopping Cogentin and Wellbutrin to reduce the number of psychotropic she uses as she was complaining of this, but later when I met with her, she is insistent on continuing the Wellbutrin because it helps to abstain from nicotine. Valproic acid level therapeutic at 61. REVIEW OF SYSTEMS: Positive for some tiredness. No CV, , pulmonary, eye system symptoms on review. MENTAL STATUS EXAM: Reasonably oriented. Speech is coherent, abstraction fair, computation impaired, language function intact. Mood and affect somewhat withdrawn, but improved. LABORATORY DATA: Reviewed. IMPRESSION: Unchanged from initial note. Schizoaffective disorder, bipolar type, mixed with psychotic features, in partial remission. Rest unchanged. PLAN: No change from initial note other than the Cogentin is being stopped. Maintain Wellbutrin, gabapentin, Risperdal, which was adjusted including the Depakote and trazodone at night for sleep. MAN Shine ANN MD DR: GLENN/papo JOB#: [id number] / [id number]
--- NOTE | 2019-09-10 21:30 | PDOC ---
Exam Note: Keith Note: Please also refer to the separate dictated note~for this date of service dictated separately.~Patient seen individually. Discussed the patient with Nursing staff reviewed the chart.~Reviewed interim history and current functioning. Reviewed vital signs,~Labs/ Radiology~and current medications noted below. Continue current treatment with the changes noted in the dictated addendum note Assessment: Vital Signs/I&O: Vital Signs Date Time Temp Pulse Resp B/P (MAP) Pulse Ox O2 Delivery O2 Flow Rate FiO2 09/10/19 15:30 97.4 82 16 132/85 (101) 96 09/06/19 05:16 Room Air I & O 09/09/19 09/09/19 09/10/19 15:00 23:00 07:00 Intake Total 1080 ml 660 ml 480 ml Balance 1080 ml 660 ml 480 ml Current Medications: I have reviewed the current psychotropics carefully including drug interactions. Risk benefit ratio favors no change other than as noted in my dictated progress note. Diagnosis: Problems: (1) Anxiety disorder (2) Bipolar affective disorder, mixed (3) Cannabis abuse (4) Bipolar affective, mixed, sev w/ psych (5) Impulse control disorder (6) Schizoaffective disorder, chronic condition with acute exacerbation JONA ANN MD Sep 10, 2019 21:29
[2019-09-11] MEDS: ACETAMINOPHEN 325 MG TABLET PO PRN (02:59)
[2019-09-11 05:32] VITALS: BP 152/88
[2019-09-11] MEDS: LIDOCAINE (700MG/PATCH) PATCH. TD SCH (09:24)
[2019-09-11] MEDS: POLYVINYL ALCOHOL 1.4% OPHTH SOLUTION 15ML BOTTLE. OU SCH ×4 (09:25→20:14)
[2019-09-11] MEDS: prednisoLONE ACETATE 1% OPHTH SUSPENSION 5ML BOTTLE. OU SCH ×4 (09:25→20:14)
[2019-09-11] MEDS: buPROPion SR 150 MG TABLET.SA PO SCH (09:26)
[2019-09-11] MEDS: NAPROXEN 500 MG TABLET PO SCH ×2 (09:26→20:13)
[2019-09-11] MEDS: CHOLECALCIFEROL (VITAMIN D3) 1,000 UNIT TABLET PO SCH (09:27)
[2019-09-11] MEDS: BENZTROPINE MESYLATE 0.5 MG TABLET PO SCH (09:27)
[2019-09-11] MEDS: PANTOPRAZOLE 40 MG TABLET. PO SCH (09:27)
[2019-09-11] MEDS: CETIRIZINE HCL 10 MG TABLET PO SCH (09:27)
[2019-09-11] MEDS: GABAPENTIN 300 MG CAPSULE. PO SCH ×3 (09:27→20:12)
[2019-09-11] MEDS: LISINOPRIL 20 MG TABLET PO SCH (09:27)
[2019-09-11] MEDS: VALPROATE ACID 250 MG/5 ML ORAL SOLUTION PO SCH ×2 (09:28→20:12)
[2019-09-11] MEDS: FOLIC ACID 1 MG TABLET PO SCH (09:28)
[2019-09-11] MEDS: POTASSIUM CHLORIDE 20 MEQ TABLET.ER. PO SCH (09:28)
[2019-09-11] MEDS: FERROUS SULFATE 325 MG TABLET. PO SCH (09:30)
[2019-09-11 16:01] VITALS: BP 129/81
[2019-09-11] MEDS: risperiDONE 0.5 MG TABLET. PO SCH (20:12)
[2019-09-11] MEDS: SIMVASTATIN 20 MG TABLET PO SCH (20:12)
[2019-09-11] MEDS: rOPINIRole 1 MG TABLET. PO SCH (20:12)
[2019-09-11] MEDS: traZODone 100 MG TABLET. PO SCH (20:13)
[2019-09-11] MEDS: PATCH REMOVAL. MC SCH (21:00)
--- NOTE | 2019-09-11 21:24 | PDOC ---
Exam Note: Keith Note: Please also refer to the separate dictated note~for this date of service dictated separately.~Patient seen individually. Discussed the patient with Nursing staff reviewed the chart.~Reviewed interim history and current functioning. Reviewed vital signs,~Labs/ Radiology~and current medications noted below. Continue current treatment with the changes noted in the dictated addendum note Assessment: Vital Signs/I&O: Vital Signs Date Time Temp Pulse Resp B/P (MAP) Pulse Ox O2 Delivery O2 Flow Rate FiO2 09/11/19 16:01 97.8 84 18 129/81 (97) 96 09/11/19 05:32 Room Air I & O 09/10/19 09/10/19 09/11/19 15:00 23:00 07:00 Intake Total 1320 ml 720 ml Balance 1320 ml 720 ml Current Medications: Meds: Current Medications Medications (Trade) Dose Ordered Sig/Jade Route PRN Reason Start Time Stop Time Status Last Admin Dose Admin Benztropine Mesylate (Cogentin) 0.5 mg DAILY PO 09/11/19 09:00 09/11/19 09:27 I have reviewed the current psychotropics carefully including drug interactions. Risk benefit ratio favors no change other than as noted in my dictated progress note. Diagnosis: Problems: (1) Anxiety disorder (2) Bipolar affective disorder, mixed (3) Cannabis abuse (4) Bipolar affective, mixed, sev w/ psych (5) Impulse control disorder (6) Schizoaffective disorder, chronic condition with acute exacerbation JONA ANN MD Sep 11, 2019 21:24
[2019-09-12 05:18] VITALS: BP 138/83
[2019-09-12] MEDS: PANTOPRAZOLE 40 MG TABLET. PO SCH (08:13)
[2019-09-12] MEDS: VALPROATE ACID 250 MG/5 ML ORAL SOLUTION PO SCH ×2 (08:14→19:50)
[2019-09-12] MEDS: buPROPion SR 150 MG TABLET.SA PO SCH (08:15)
[2019-09-12] MEDS: NAPROXEN 500 MG TABLET PO SCH ×2 (08:15→19:51)
[2019-09-12] MEDS: CYANOCOBALAMIN (VITAMIN B-12) 1,000 MCG TABLET. PO SCH (08:15)
[2019-09-12] MEDS: FOLIC ACID 1 MG TABLET PO SCH (08:15)
[2019-09-12] MEDS: BENZTROPINE MESYLATE 0.5 MG TABLET PO SCH (08:15)
[2019-09-12] MEDS: CHOLECALCIFEROL (VITAMIN D3) 1,000 UNIT TABLET PO SCH (08:15)
[2019-09-12] MEDS: POTASSIUM CHLORIDE 20 MEQ TABLET.ER. PO SCH (08:16)
[2019-09-12] MEDS: LIDOCAINE (700MG/PATCH) PATCH. TD SCH (08:16)
[2019-09-12] MEDS: GABAPENTIN 300 MG CAPSULE. PO SCH ×3 (08:16→19:50)
[2019-09-12] MEDS: CETIRIZINE HCL 10 MG TABLET PO SCH (08:16)
[2019-09-12] MEDS: LISINOPRIL 20 MG TABLET PO SCH (08:16)
[2019-09-12] MEDS: POLYVINYL ALCOHOL 1.4% OPHTH SOLUTION 15ML BOTTLE. OU SCH ×4 (08:17→19:51)
[2019-09-12] MEDS: prednisoLONE ACETATE 1% OPHTH SUSPENSION 5ML BOTTLE. OU SCH ×4 (08:17→19:51)
--- NOTE | 2019-09-12 08:38 | PN ---
DATE: 09/10/2019 PSYCHIATRIC PROGRESS NOTE This late entry 09/10/2019 covers the elements not covered in my initial note. SUBJECTIVE: I met with the patient in the evening. Per CHELSEY Mo, the patient slept 6 hours previous night. She remains fixated on her Depakote and Risperdal, not wanting any mood stabilizers or antipsychotics. I had a lengthy discussion with her about this and she seemed to be a little more accepting at the end of it. She wants the Cogentin restarted and we will go ahead and do this 0.5 mg a day since she complains of emergent tremor since this was stopped. We have since restarted the Wellbutrin because of her request ___ with smoking cessation and cravings for her. REVIEW OF SYSTEMS: She has vague somatic symptoms including irritability in her eyes. No CV, , GI, or pulmonary system symptoms on review. MENTAL STATUS EXAM: Reasonably oriented. Speech is coherent, less pressured. Abstraction fair, computation impaired, language function intact, attention span short. Mood and affect remain somewhat labile, but improved. LABORATORY DATA: Reviewed. IMPRESSION: Schizoaffective disorder, bipolar type, mixed with psychotic features, in partial remission; anxiety disorder, unspecified. Rest unchanged. PLAN: Maintain Wellbutrin, restart Cogentin. Continue gabapentin, Risperdal 0.5 mg at bedtime, Depakene liquid 500 mg a.m., 750 at bedtime, level therapeutic at 61, trazodone 100 mg at bedtime, december repeat x 1. Rest unchanged for now. JONA ANN MD DR: GLENN/papo JOB#: [id number] / [id number]
--- NOTE | 2019-09-12 09:09 | PN ---
DATE: 09/11/2019 PSYCHIATRIC PROGRESS NOTE This late entry 09/11/2019 covers the elements not covered in my initial note. SUBJECTIVE: I met with the patient in the evening of 09/11/2019 and staffed at a treatment team meeting with the entire team in the morning and Jesi, the patient's guardian attended this conference. We had a lengthy discussion about the patient's diagnosis, stabilization on Risperdal and Depakote, which are the very medications she wants to be discontinued. I have had multiple lengthy discussions with her and staff will reiterate the importance of her psychotropics for psychiatric stabilization. Once she returns to the [facility], she should be maintained on her current dosage of psychotropics for at least 6 weeks. Hopefully, by then, she will see the benefit as mood stabilization takes hold and her psychotic symptoms seemed to stabilize and hopefully, she will maintain her psychotropics thereafter. If not, a gradual taper could be attempted at that stage by the primary care physician. Discussed all this with Jesi. Her appetite 100%, slept 7-1/4 hours. REVIEW OF SYSTEMS: No CV, , pulmonary, eye system symptoms on review as I met with her in the evening. MENTAL STATUS EXAM: Reasonably oriented. Speech is less pressured. Abstraction fair, computation impaired, language function intact, and attention span short. Mood and affect is improved. LABORATORY DATA: Reviewed. IMPRESSION: Schizoaffective disorder, bipolar type, mixed with psychotic features, in partial remission; anxiety disorder, unspecified. PLAN: Continue psychotropics from initial note, Wellbutrin together with Risperdal. Depakote level is therapeutic at 61. She remains on Cogentin, gabapentin, and trazodone for now. MAN Shine ANN MD DR: GLENN/papo JOB#: [id number] / [id number]
[2019-09-12 15:35] VITALS: BP 138/87
[2019-09-12] MEDS: PHENYLEPH/MINERAL OIL/PETROLAT RECTAL OINTMENT TUBE. RC PRN (18:29)
[2019-09-12] MEDS: SIMVASTATIN 20 MG TABLET PO SCH (19:51)
[2019-09-12] MEDS: rOPINIRole 1 MG TABLET. PO SCH (19:51)
[2019-09-12] MEDS: traZODone 100 MG TABLET. PO SCH (19:51)
[2019-09-12] MEDS: risperiDONE 0.5 MG TABLET. PO SCH (19:51)
[2019-09-12] MEDS: PATCH REMOVAL. MC SCH (21:00)
--- NOTE | 2019-09-12 21:27 | PDOC ---
Exam Note: Keith Note: Please also refer to the separate dictated note~for this date of service dictated separately.~Patient seen individually. Discussed the patient with Nursing staff reviewed the chart.~Reviewed interim history and current functioning. Reviewed vital signs,~Labs/ Radiology~and current medications noted below. Continue current treatment with the changes noted in the dictated addendum note Assessment: Vital Signs/I&O: Vital Signs Date Time Temp Pulse Resp B/P (MAP) Pulse Ox O2 Delivery O2 Flow Rate FiO2 09/12/19 15:35 97.2 94 16 138/87 (104) 94 09/11/19 05:32 Room Air I & O 09/11/19 09/11/19 09/12/19 15:00 23:00 07:00 Intake Total 600 ml 840 ml Balance 600 ml 840 ml Current Medications: I have reviewed the current psychotropics carefully including drug interactions. Risk benefit ratio favors no change other than as noted in my dictated progress note. Diagnosis: Problems: (1) Schizophrenia, schizo-affective type (2) Anxiety disorder (3) Bipolar affective disorder, mixed (4) Cannabis abuse (5) Bipolar affective, mixed, sev w/ psych (6) Impulse control disorder (7) Schizoaffective disorder, chronic condition with acute exacerbation JONA ANN MD Sep 12, 2019 21:27
[2019-09-13 05:34] VITALS: BP 141/70
[2019-09-13] MEDS: buPROPion SR 150 MG TABLET.SA PO SCH (08:25)
[2019-09-13] MEDS: GABAPENTIN 300 MG CAPSULE. PO SCH ×3 (08:25→20:41)
[2019-09-13] MEDS: POTASSIUM CHLORIDE 20 MEQ TABLET.ER. PO SCH (08:26)
[2019-09-13] MEDS: CHOLECALCIFEROL (VITAMIN D3) 50,000 UNIT CAPSULE PO SCH (08:26)
[2019-09-13] MEDS: CHOLECALCIFEROL (VITAMIN D3) 1,000 UNIT TABLET PO SCH (08:26)
[2019-09-13] MEDS: PANTOPRAZOLE 40 MG TABLET. PO SCH (08:26)
[2019-09-13] MEDS: FERROUS SULFATE 325 MG TABLET. PO SCH (08:26)
[2019-09-13] MEDS: BENZTROPINE MESYLATE 0.5 MG TABLET PO SCH (08:27)
[2019-09-13] MEDS: LISINOPRIL 20 MG TABLET PO SCH (08:27)
[2019-09-13] MEDS: NAPROXEN 500 MG TABLET PO SCH ×2 (08:27→20:41)
[2019-09-13] MEDS: CETIRIZINE HCL 10 MG TABLET PO SCH (08:27)
[2019-09-13] MEDS: FOLIC ACID 1 MG TABLET PO SCH (08:27)
[2019-09-13] MEDS: LIDOCAINE (700MG/PATCH) PATCH. TD SCH (08:28)
[2019-09-13] MEDS: prednisoLONE ACETATE 1% OPHTH SUSPENSION 5ML BOTTLE. OU SCH ×4 (08:28→20:42)
[2019-09-13] MEDS: VALPROATE ACID 250 MG/5 ML ORAL SOLUTION PO SCH ×2 (08:28→20:42)
[2019-09-13] MEDS: POLYVINYL ALCOHOL 1.4% OPHTH SOLUTION 15ML BOTTLE. OU SCH ×4 (08:28→20:42)
[2019-09-13 11:45] LABS: BASO % 1 % (0-3); EOS % 1 % (0-3); HEMATOCRIT 39.7 % (36.0-47.0); HEMOGLOBIN 12.8 g/dL (12.0-15.5); LYMPH # 1.1 x10^3/uL (1.0-4.8); LYMPH % 23 % (24-48); MEAN CORPUSCULAR HEMOGLOBIN 30 pg (25-35); MEAN CORPUSCULAR HGB CONC 32 g/dL (31-37); MEAN CORPUSCULAR VOLUME 91 fL (79-100); MONO # 0.5 x10^3/uL (0.0-1.1); MONO % 11 % (0-9); NEUT # 3.1 x10^3uL (1.8-7.7); NEUT % 65 % (31-73); PLATELET COUNT 176 x10^3/uL (140-400); RED BLOOD COUNT 4.35 x10^6/uL (3.50-5.40); RED CELL DISTRIBUTION WIDTH 12.8 % (11.5-14.5); WHITE BLOOD COUNT 4.7 x10^3/uL (4.0-11.0)
[2019-09-13 12:04] LABS: ALBUMIN 3.8 g/dL (3.4-5.0); ALBUMIN/GLOBULIN RATIO 1.4 (1.0-1.7); CALCIUM 8.8 mg/dL (8.5-10.1); CREATININE 0.8 mg/dL (0.6-1.0); GFR 72.7; POTASSIUM 4.6 mmol/L (3.5-5.1); TOTAL BILIRUBIN 0.3 mg/dL (0.2-1.0); TOTAL PROTEIN 6.6 g/dL (6.4-8.2)
[2019-09-13] MEDS: ACETAMINOPHEN 325 MG TABLET PO PRN (12:41)
[2019-09-13 15:41] VITALS: BP 132/82
[2019-09-13] MEDS: risperiDONE 0.5 MG TABLET. PO SCH (20:41)
[2019-09-13] MEDS: traZODone 100 MG TABLET. PO SCH (20:41)
[2019-09-13] MEDS: rOPINIRole 1 MG TABLET. PO SCH (20:41)
[2019-09-13] MEDS: SIMVASTATIN 20 MG TABLET PO SCH (20:41)
[2019-09-13] MEDS: PATCH REMOVAL. MC SCH (21:00)
[2019-09-14 06:00] VITALS: BP 142/79
[2019-09-14] MEDS: CETIRIZINE HCL 10 MG TABLET PO SCH (08:33)
[2019-09-14] MEDS: POTASSIUM CHLORIDE 20 MEQ TABLET.ER. PO SCH (08:33)
[2019-09-14] MEDS: GABAPENTIN 300 MG CAPSULE. PO SCH ×3 (08:34→20:29)
[2019-09-14] MEDS: VALPROATE ACID 250 MG/5 ML ORAL SOLUTION PO SCH ×2 (08:34→20:27)
[2019-09-14] MEDS: LISINOPRIL 20 MG TABLET PO SCH (08:34)
[2019-09-14] MEDS: CHOLECALCIFEROL (VITAMIN D3) 1,000 UNIT TABLET PO SCH (08:35)
[2019-09-14] MEDS: BENZTROPINE MESYLATE 0.5 MG TABLET PO SCH (08:35)
[2019-09-14] MEDS: buPROPion SR 150 MG TABLET.SA PO SCH (08:35)
[2019-09-14] MEDS: PANTOPRAZOLE 40 MG TABLET. PO SCH (08:35)
[2019-09-14] MEDS: FOLIC ACID 1 MG TABLET PO SCH (08:35)
[2019-09-14] MEDS: NAPROXEN 500 MG TABLET PO SCH ×2 (08:35→20:29)
[2019-09-14] MEDS: prednisoLONE ACETATE 1% OPHTH SUSPENSION 5ML BOTTLE. OU SCH ×4 (08:35→20:28)
[2019-09-14] MEDS: POLYVINYL ALCOHOL 1.4% OPHTH SOLUTION 15ML BOTTLE. OU SCH ×4 (08:35→20:27)
[2019-09-14] MEDS: LIDOCAINE (700MG/PATCH) PATCH. TD SCH (08:36)
[2019-09-14 16:02] VITALS: BP 131/81
[2019-09-14] MEDS: traZODone 100 MG TABLET. PO SCH (20:28)
[2019-09-14] MEDS: rOPINIRole 1 MG TABLET. PO SCH (20:28)
[2019-09-14] MEDS: risperiDONE 0.5 MG TABLET. PO SCH (20:29)
[2019-09-14] MEDS: SIMVASTATIN 20 MG TABLET PO SCH (20:29)
[2019-09-14] MEDS: PATCH REMOVAL. MC SCH (21:00)
--- NOTE | 2019-09-14 21:40 | PDOC ---
Exam Note: Keith Note: This is a late entry for DOS 09/13/2019. VS - Last 72 Hours, by Label Date Time Temp Pulse Resp B/P (MAP) Pulse Ox O2 Delivery O2 Flow Rate FiO2 09/14/19 16:02 97.9 80 16 131/81 (98) 97 09/14/19 08:34 67 142/79 09/14/19 08:34 67 142/79 09/14/19 06:00 97.6 67 20 142/79 (100) 94 Room Air 09/13/19 15:41 98.4 88 18 132/82 (99) 97 09/13/19 08:27 71 141/70 09/13/19 08:27 71 141/70 09/13/19 05:34 97.2 71 18 141/70 (93) 96 09/12/19 15:35 97.2 94 16 138/87 (104) 94 09/12/19 08:16 74 138/83 09/12/19 08:14 74 138/83 09/12/19 05:18 97.0 74 16 138/83 (101) 97 Please also refer to the separate dictated note~for this date of service dictated separately.~Patient seen individually. Discussed the patient with Nursing staff reviewed the chart.~Reviewed interim history and current functioning. Reviewed vital signs,~Labs/ Radiology~and current medications noted below. Continue current treatment with the changes noted in the dictated addendum note Assessment: Vital Signs/I&O: Vital Signs Date Time Temp Pulse Resp B/P (MAP) Pulse Ox O2 Delivery O2 Flow Rate FiO2 09/14/19 16:02 97.9 80 16 131/81 (98) 97 09/14/19 06:00 Room Air I & O 09/13/19 09/13/19 09/14/19 15:00 23:00 07:00 Intake Total 1200 ml 720 ml Balance 1200 ml 720 ml Current Medications: I have reviewed the current psychotropics carefully including drug interactions. Risk benefit ratio favors no change other than as noted in my dictated progress note. Diagnosis: Problems: (1) Anxiety disorder (2) Bipolar affective disorder, mixed (3) Cannabis abuse (4) Bipolar affective, mixed, sev w/ psych (5) Impulse control disorder (6) Schizoaffective disorder, chronic condition with acute exacerbation JONA ANN MD Sep 14, 2019 21:40
--- NOTE | 2019-09-14 21:55 | PDOC ---
Exam Note: Keith Note: Please also refer to the separate dictated note~for this date of service dictated separately.~Patient seen individually. Discussed the patient with Nursing staff reviewed the chart.~Reviewed interim history and current functioning. Reviewed vital signs,~Labs/ Radiology~and current medications noted below. Continue current treatment with the changes noted in the dictated addendum note Assessment: Vital Signs/I&O: Vital Signs Date Time Temp Pulse Resp B/P (MAP) Pulse Ox O2 Delivery O2 Flow Rate FiO2 09/14/19 16:02 97.9 80 16 131/81 (98) 97 09/14/19 06:00 Room Air I & O 09/13/19 09/13/19 09/14/19 15:00 23:00 07:00 Intake Total 1200 ml 720 ml Balance 1200 ml 720 ml Current Medications: I have reviewed the current psychotropics carefully including drug interactions. Risk benefit ratio favors no change other than as noted in my dictated progress note. Diagnosis: Problems: (1) Anxiety disorder (2) Bipolar affective disorder, mixed (3) Cannabis abuse (4) Bipolar affective, mixed, sev w/ psych (5) Impulse control disorder (6) Schizoaffective disorder, chronic condition with acute exacerbation JONA ANN MD Sep 14, 2019 21:55
--- NOTE | 2019-09-14 23:30 | PN ---
DATE: 09/14/2019 PSYCHIATRIC PROGRESS NOTE This late entry 09/12/2019 covers elements not covered in my initial note. SUBJECTIVE: I met with the patient evening of 09/12/2019. Per CHELSEY Carter, the patient slept 6 hours previous night. She has been much more compliant, appropriate, accepting of her psychotropics and does not complain of sedation on the Risperdal and Depakote. REVIEW OF SYSTEMS: No CV, , pulmonary, eye, ENT system symptoms on review. Reliability fair. I met with her in her room. MENTAL STATUS EXAM: Reasonably oriented. Speech is coherent, less pressured. Abstraction fair, computation impaired, language function intact, attention span short. Mood and affect less grandiose. LABORATORY DATA: Reviewed. IMPRESSION: Unchanged from initial note. PLAN: No change from initial note. MAN Shine ANN MD DR: GLENN/papo JOB#: [id number] / [id number]
--- NOTE | 2019-09-14 23:41 | PN ---
DATE: 09/13/2019 PSYCHIATRIC PROGRESS NOTE This late entry 09/13/2019 covers elements not covered in my initial note. SUBJECTIVE: I met with the patient in the evening in her room. The patient slept 7-1/4 hours previous night. Valproic acid level therapeutic at 61. Overall, the patient is doing much better, less mood lability, accepting of her psychotropics. Denies sedation. REVIEW OF SYSTEMS: No CV, , pulmonary, eye, ENT system symptoms on review. MENTAL STATUS EXAM: Reasonably oriented. Speech is coherent, less pressured. Abstraction fair, computation impaired, language function intact, attention span short. Mood and affect less labile, less grandiose, less paranoid. LABORATORY DATA: Reviewed. IMPRESSION: Unchanged from initial note. PLAN: No change from initial note. MAN Shine ANN MD DR: GLENN/papo JOB#: [id number] / [id number]
[2019-09-15] MEDS ORDERED: ACET325T21 PO (05:18)
[2019-09-15] MEDS ORDERED: CHOL500021 PO (05:19)
[2019-09-15] MEDS ORDERED: MAGN24003 PO (05:22)
[2019-09-15] MEDS ORDERED: PHEN28OI RC (05:24)
[2019-09-15] MEDS ORDERED: POLY15DR27 EACHEYE (05:28)
[2019-09-15] MEDS ORDERED: PRED5DRO20 OU (05:31)
[2019-09-15] MEDS ORDERED: RISP0.5T3 PO (05:32)
[2019-09-15] MEDS ORDERED: TRAZ-125 PO (05:33)
[2019-09-15] MEDS ORDERED: TRAZ-120 PO (05:34)
[2019-09-15] MEDS ORDERED: VALP500S PO ×2 (05:35→05:36)
[2019-09-15] MEDS ORDERED: BENZ0.5T32 PO (05:39)
[2019-09-15 06:32] VITALS: BP 159/85
[2019-09-15] MEDS: GABAPENTIN 300 MG CAPSULE. PO SCH ×2 (08:09→13:12)
[2019-09-15] MEDS: POLYVINYL ALCOHOL 1.4% OPHTH SOLUTION 15ML BOTTLE. OU SCH ×3 (08:09→16:29)
[2019-09-15] MEDS: prednisoLONE ACETATE 1% OPHTH SUSPENSION 5ML BOTTLE. OU SCH ×3 (08:10→16:29)
[2019-09-15] MEDS: BENZTROPINE MESYLATE 0.5 MG TABLET PO SCH (08:10)
[2019-09-15] MEDS: VALPROATE ACID 250 MG/5 ML ORAL SOLUTION PO SCH (08:10)
[2019-09-15] MEDS: FERROUS SULFATE 325 MG TABLET. PO SCH (08:11)
[2019-09-15] MEDS: FOLIC ACID 1 MG TABLET PO SCH (08:11)
[2019-09-15] MEDS: POTASSIUM CHLORIDE 20 MEQ TABLET.ER. PO SCH (08:11)
[2019-09-15] MEDS: NAPROXEN 500 MG TABLET PO SCH (08:11)
[2019-09-15] MEDS: LISINOPRIL 20 MG TABLET PO SCH (08:11)
[2019-09-15] MEDS: PANTOPRAZOLE 40 MG TABLET. PO SCH (08:12)
[2019-09-15] MEDS: CHOLECALCIFEROL (VITAMIN D3) 1,000 UNIT TABLET PO SCH (08:12)
[2019-09-15] MEDS: CETIRIZINE HCL 10 MG TABLET PO SCH (08:12)
[2019-09-15] MEDS: LIDOCAINE (700MG/PATCH) PATCH. TD SCH (08:12)
[2019-09-15] MEDS: buPROPion SR 150 MG TABLET.SA PO SCH (08:12)
[2019-09-15] MEDS: CYANOCOBALAMIN (VITAMIN B-12) 1,000 MCG TABLET. PO SCH (08:14)
[2019-09-15] MEDS ORDERED: NICO1PAT27 TD (13:34)
[2019-09-15 16:07] VITALS: BP 149/91
--- NOTE | 2019-09-15 20:16 | DS ---
DATE OF DISCHARGE: 09/15/2019 PSYCHIATRIC PROGRESS NOTE. This note covers the elements not covered in my initial note of 09/15/2019. REASON FOR ADMISSION: Please refer to the admission history for details. Briefly, the patient is a 64-year-old female referred to us from [facility] by her primary care physician on account of an acute exacerbation of her schizoaffective disorder, bipolar type, mixed with psychotic features. She was increasingly agitated, argumentative, delusional, believes that God had impregnated her. She had suicidal ideation with a plan to put a belt around her neck and hang from the ceiling. She had failed outpatient psychiatric interventions resulting in this referral. SIGNIFICANT FINDINGS AND CLINICAL COURSE: Following admission, the patient was seen daily individually by myself from a psychiatric standpoint, medical followup with Dr. Jones. The patient was extremely labile in her mood, hyperverbal, distracted, paranoid, suspicious on admission. Adjustments were made in her psychotropics and she seemed to respond to a combination of Wellbutrin 150 mg daily; Zyprexa p.r.n.; gabapentin 600 mg t.i.d.; Risperdal 0.5 mg at bedtime; Depakene 500 mg a.m., 750 mg at bedtime with a Valproic acid level therapeutic at 61; trazodone 100 mg at bedtime, may repeat x 1; Cogentin 0.5 mg daily for tremors. We had lengthy discussions with the patient's guardian. The patient is very stable on her current psychotropics and for a minimum, she should be maintained on these for the next 2 months and then if she insists on tapering her medications, this could be attempted very gradually, but I would strongly recommend not doing anything different for about 60 days while monitoring her labs and levels on her current psychotropics. REVIEW OF SYSTEMS: Prior to discharge on 09/15/2019, no CV, , pulmonary, eye, ENT system symptoms on review. MENTAL STATUS EXAM: Oriented reasonably. Speech coherent, less pressured. Abstraction fair, computation impaired, language function intact. Mood and affect showing improvement. No suicidal ideation at discharge. CONDITION AT DISCHARGE: Improved. FINAL DIAGNOSES: Schizoaffective disorder, bipolar type, mixed with psychotic features, in partial remission; anxiety disorder, unspecified; impulse control disorder, unspecified. Rest unchanged from admission. DISCHARGE MEDICATIONS: Please refer to the [facility]AD. DISCHARGE INSTRUCTIONS: Outpatient psychiatric and medical followup at the [facility]. Time for discharge day management greater than 30 minutes. JONA ANN MD DR: GLENN/papo JOB#: [id number] / [id number]
--- NOTE | 2019-09-15 21:19 | PDOC ---
Exam Note: Keith Note: Please also refer to the separate dictated note~for this date of service dictated separately.~Patient seen individually. Discussed the patient with Nursing staff reviewed the chart.~Reviewed interim history and current functioning. Reviewed vital signs,~Labs/ Radiology~and current medications noted below. Continue current treatment with the changes noted in the dictated addendum note Assessment: Vital Signs/I&O: Vital Signs Date Time Temp Pulse Resp B/P (MAP) Pulse Ox O2 Delivery O2 Flow Rate FiO2 09/15/19 16:07 97.8 82 18 149/91 (110) 98 09/14/19 06:00 Room Air I & O 09/14/19 09/14/19 09/15/19 15:00 23:00 07:00 Intake Total 840 ml 720 ml Balance 840 ml 720 ml Current Medications: I have reviewed the current psychotropics carefully including drug interactions. Risk benefit ratio favors no change other than as noted in my dictated progress note. Diagnosis: Problems: (1) Schizophrenia, schizo-affective type (2) Anxiety disorder (3) Bipolar affective disorder, mixed (4) Cannabis abuse (5) Bipolar affective, mixed, sev w/ psych (6) Impulse control disorder (7) Schizoaffective disorder, chronic condition with acute exacerbation JONA ANN MD Sep 15, 2019 21:19
--- NOTE | 2019-09-16 00:35 | PN ---
DATE: 09/14/2019 PSYCHIATRIC PROGRESS NOTE This late entry 09/14/2019 covers elements not covered in my initial note. SUBJECTIVE: I met with the patient evening of 09/14/2019. Per CHELSEY Matute, the patient slept 7-3/4 hours previous night. She is less manic and less hyperverbal, less paranoid, more accepting of her medications, which is an improvement. REVIEW OF SYSTEMS: No CV, , pulmonary, eye system symptoms on review. MENTAL STATUS EXAM: Oriented to herself. Insight showing improvement. Abstraction fair, computation impaired, language function intact. Mood and affect is improved, less paranoid. No suicidal ideation. LABORATORY DATA: Reviewed. IMPRESSION: Unchanged from initial note. PLAN: No change from initial note with transition to residential 09/15/2019. MAN Shine ANN MD DR: GLENN/papo JOB#: [id number] / [id number]
--- NOTE | 2019-09-17 22:25 | DS ---
DATE OF DISCHARGE: 09/15/2019 ADDENDUM This is a late entry for date of service of her discharge. The patient was discharged on two routine atypical antipsychotics, Risperdal and aripiprazole. She was stabilized on this combination since on the aripiprazole by itself, she continued to be psychotic and responded positively to the change of adding the Risperdal. I would recommend that this combination be continued for approximately 60 days when she is at the nursing facility. Thereafter, if she has been stable, a gradual dose reduction of the Risperdal could be attempted by 0.25 mg a day every 10 days till it is discontinued. The final decision for this would have to be made by her treating physician at that time. JONA ANN MD DR: GLENN/papo JOB#: [id number] / [id number]
== END 2019-09-15 16:59 | DRG 885 ==
LOC: ER 15:39 → GEROPSY 18:05
PROVIDERS: ADMIT Psychiatry & Neurology Psychiatry; ATTEND Psychiatry & Neurology Psychiatry
DX: F25.0 Schizoaffective disorder, bipolar type (principal); F41.1 Generalized anxiety disorder; F03.90 Unspecified dementia, unspecified severity, without behavioral disturbance, psychotic disturbance, mood disturbance, and anxiety; I10 Essential (primary) hypertension; J44.9 Chronic obstructive pulmonary disease, unspecified; E78.5 Hyperlipidemia, unspecified; G25.81 Restless legs syndrome; F12.10 Cannabis abuse, uncomplicated; F17.200 Nicotine dependence, unspecified, uncomplicated; G60.3 Idiopathic progressive neuropathy; D69.6 Thrombocytopenia, unspecified; F63.9 Impulse disorder, unspecified; Z88.5 Allergy status to narcotic agent; Z88.8 Allergy status to other drugs, medicaments and biological substances; Z91.018 Allergy to other foods; Z02.9 Encounter for administrative examinations, unspecified; Z79.899 Other long term (current) drug therapy; Z90.49 Acquired absence of other specified parts of digestive tract
CPT/HCPCS: 36415; 80053; 80061; 80164; 80307; 81001; 82140; 82306; 82607; 83036; 83540; 83550; 83735; 84436; 84443; 84480; 85025; 85027; 86592; 93005; 99406; G0480; 99285-25

== ENCOUNTER 2020-05-24 14:03 | Inpatient (IN) | payer MEDICARE, MEDICAID ==
[~2020-05-24] VITALS: Ht 162.6 cm; Wt 78.0 kg
[~2020-05-24 14:03] MED LIST: ACET325T21 PO; ARIP15TA36 PO; BENZ0.5T32 PO; BENZ1TAB5 PO; BUPR150T11 PO; CHOL200027 PO; CHOL500021 PO; CYAN-25 PO; DILT240T8 PO; FERR325T14 PO; FOLI0.8T2 PO; GABA-586 PO; GABA300C8 PO; GABA600T7 PO; GUAI473L15 PO; LIDO1ADH44 TP; LISI40TA PO; LORA10TA3 PO; MAG-115 PO; MAGN24003 PO; MENT1ADH39 TP; NAPR500T8 PO; NEOM1PAC TP; NICO1PAT27 TD; OLAN5TAB99 PO; PANT40TA6 PO; PHEN28OI8 RC; POLY15DR27 EACHEYE; POTA20TA4 PO; PRED5DRO20 OU; RISP0.5T3 PO; ROPI1TAB4 PO; SIMV20TA18 PO; TRAZ-120 PO; TRAZ-125 PO; VALP500S PO
[2020-05-24 16:25] VITALS: BP 147/83
[2020-05-24] MEDS ORDERED: RULOX PO (17:18)
[2020-05-24] MEDS ORDERED: VALP250S3 PO (17:18)
[2020-05-24] MEDS ORDERED: PHEN26CR2 RC (17:18)
[2020-05-24] MEDS ORDERED: GUAI-295 PO (17:18)
[2020-05-24] MEDS ORDERED: OLAN10TA3 IM (17:18)
[2020-05-24] MEDS ORDERED: POLY2500 PO (17:18)
[2020-05-24] MEDS ORDERED: ACET-2066 PO (17:18)
[2020-05-24] MEDS ORDERED: [UNRECOGNIZED DRUG - OTHER] TOP (17:18)
[2020-05-24] MEDS ORDERED: BIOT25006 PO (17:18)
[2020-05-24] MEDS ORDERED: LOPE2CAP PO (17:18)
[2020-05-24] MEDS ORDERED: OLAN5TAB9 PO (17:18)
[2020-05-24] MEDS ORDERED: DIVA500T2 PO (17:20)
[2020-05-24] MEDS ORDERED: OLANZapine 5 MG TABLET PO PRN (17:45)
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
--- NOTE | 2020-05-24 17:55 | NUR ---
NURSING NOTE CONSULT CONSULT DR ANN FAXED. CHELSEY ROB.
--- NOTE | 2020-05-24 18:09 | HP ---
ADMIT DATE: 05/24/2020 ATTENDING PHYSICIAN: Dr. Morales. HISTORY OF PRESENT ILLNESS: This is a 65-year-old female scheduled to go to the [facility]. She is admitted to the medical floor for COVID-19 screening. The patient is fairly alert, but has underlying schizoaffective disorder. Much of the history is obtained from the chart. She has longstanding cannabis abuse, anxiety disorder, smoking history, bipolar affective disorder, impulse control and paranoia. CURRENT MEDICINES: As follows: She was taking Abilify, Cogentin, Biotin, bupropion, cholecalciferol, codeine cough syrup, cyanocobalamin, diltiazem 240 ER daily, Depakote, ferrous sulfate, folic acid, Neurontin, loperamide, loratadine, magnesium, naproxen, olanzapine, Protonix., Preparation-H, MiraLax, polyvinyl potassium, prednisolone eyedrops, risperidone, Requip, Zocor, trazodone, valproic acid, ____. ALLERGIES: SHE HAS ALLERGIES TO CHOCOLATE, CODEINE, AND HALDOL. THE EXACT REACTION IS UNCLEAR. SOCIAL HISTORY: She is a smoker for the last 25 years. She denies any significant alcohol use. There is a history of cannabis use. FAMILY HISTORY: Unobtainable. The patient does not know. 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 She has restless leg syndrome. She has had smoking-related COPD. All other systems reviewed and determined to be negative. PHYSICAL EXAMINATION: GENERAL: When I saw her, this is a pleasant, middle-aged female. INITIAL VITAL SIGNS: Showed that she was afebrile. Her blood pressure is on the database. HEENT: Head is without trauma. Pupils are reactive. Sclerae are nonicteric. Oropharynx is clear. NECK: Supple, no bruits identified. LUNGS: Otherwise clear. CARDIOVASCULAR: Showed regular heart tones. No gallops. ABDOMEN: Obese, protuberant. No organomegaly. Bowel sounds are hypoactive. EXTREMITIES: Showed no cyanosis or edema. NEUROLOGIC: Focally intact. Speech is fluent. LABORATORY STUDIES: CBC, chemistry panel, and a COVID-19 swab has been ordered and is pending at this time. ASSESSMENT: 1. A 65-year-old female with schizoaffective disorder. 2. Behavior issues at the local alf. 3. Progressive idiopathic neuropathy. 4. Labile hypertension. 5. Associated paranoia. 6. Bipolar disorder. PLAN: 1. Home meds reviewed and some continued. 2. Await results of lab tests. 3. COVID-19 coronavirus swabs. When that is reported negative, she can go upstairs to the behavioral unit. DOROTHY MORALES MD DR: MIGUELINA/papo JOB#: [id number] / [id number] ecc Chart, The
[2020-05-24] MEDS ORDERED: OMEG1CAP50 PO (18:29)
[2020-05-24 19:30] VITALS: BP 141/77
[2020-05-24 19:47] LABS: BASO % 1 % (0-3); EOS # 0.1 x10^3/uL (0.0-0.7); EOS % 2 % (0-3); HEMATOCRIT 37.7 % (36.0-47.0); HEMOGLOBIN 12.4 g/dL (12.0-15.5); LYMPH % 27 % (24-48); MEAN CORPUSCULAR HEMOGLOBIN 32 pg (25-35); MEAN CORPUSCULAR HGB CONC 33 g/dL (31-37); MEAN CORPUSCULAR VOLUME 95 fL (79-100); MONO # 0.3 x10^3/uL (0.0-1.1); MONO % 7 % (0-9); NEUT # 2.4 x10^3uL (1.8-7.7); NEUT % 63 % (31-73); PLATELET COUNT 143 x10^3/uL (140-400); RED BLOOD COUNT 3.95 x10^6/uL (3.50-5.40); RED CELL DISTRIBUTION WIDTH 12.4 % (11.5-14.5); WHITE BLOOD COUNT 3.8 x10^3/uL (4.0-11.0)
[2020-05-24 20:00] LABS: ALBUMIN 3.5 g/dL (3.4-5.0); ALBUMIN/GLOBULIN RATIO 1.3 (1.0-1.7); ALK PHOS 77 U/L (46-116); ALT (SGPT) 25 U/L (14-59); ANION GAP 6 (6-14); AST (SGOT) 16 U/L (15-37); BLOOD UREA NITROGEN 19 mg/dL (7-20); BUN/CREATININE RATIO 16 (6-20); CALCIUM 9.3 mg/dL (8.5-10.1); CARBON DIOXIDE 33 mmol/L (21-32); CHLORIDE 102 mmol/L (98-107); CREATININE 1.2 mg/dL (0.6-1.0); GFR 45.4; GLUCOSE 139 mg/dL (70-99); MAGNESIUM 1.8 mg/dL (1.8-2.4); POTASSIUM 3.6 mmol/L (3.5-5.1); SODIUM 141 mmol/L (136-145); TOTAL BILIRUBIN 0.3 mg/dL (0.2-1.0); TOTAL PROTEIN 6.1 g/dL (6.4-8.2); VAL ACID 50 mcg/mL (50-100)
[2020-05-24] MEDS: ARIPiprazole 10 MG TABLET PO SCH (21:00)
[2020-05-24] MEDS ORDERED: VALPROIC ACID 250 MG CAPSULE. PO SCH (21:00)
[2020-05-24] MEDS: VALPROATE ACID 250 MG/5 ML ORAL SOLUTION PO SCH (21:00)
[2020-05-24] MEDS: risperiDONE 1 MG TABLET. PO SCH (21:00)
[2020-05-24] MEDS ORDERED: DIVALPROEX SODIUM 250 MG TABLET.DR. PO SCH (21:00)
--- NOTE | 2020-05-24 22:13 | PDOC ---
Exam Note: Keith Note: Please also refer to the separate dictated note~for this date of service dictated separately.~Patient seen individually. Discussed the patient with Nursing staff reviewed the chart.~Reviewed interim history and current functioning. Reviewed vital signs,~Labs/ Radiology~and current medications noted below. Continue current treatment with the changes noted in the dictated addendum note Assessment: Vital Signs/I&O: Vital Signs Date Time Temp Pulse Resp B/P (MAP) Pulse Ox O2 Delivery O2 Flow Rate FiO2 05/24/20 20:45 Room Air 05/24/20 19:30 98.6 81 20 141/77 (98) 93 Labs: Laboratory Tests Test 05/24/20 19:08 White Blood Count 3.8 x10^3/uL (4.0-11.0) L Red Blood Count 3.95 x10^6/uL (3.50-5.40) Hemoglobin 12.4 g/dL (12.0-15.5) Hematocrit 37.7 % (36.0-47.0) Mean Corpuscular Volume 95 fL (79-100) Mean Corpuscular Hemoglobin 32 pg (25-35) Mean Corpuscular Hemoglobin Concent 33 g/dL (31-37) Red Cell Distribution Width 12.4 % (11.5-14.5) Platelet Count 143 x10^3/uL (140-400) Neutrophils (%) (Auto) 63 % (31-73) Lymphocytes (%) (Auto) 27 % (24-48) Monocytes (%) (Auto) 7 % (0-9) Eosinophils (%) (Auto) 2 % (0-3) Basophils (%) (Auto) 1 % (0-3) Neutrophils # (Auto) 2.4 x10^3uL (1.8-7.7) Lymphocytes # (Auto) 1.0 x10^3/uL (1.0-4.8) Monocytes # (Auto) 0.3 x10^3/uL (0.0-1.1) Eosinophils # (Auto) 0.1 x10^3/uL (0.0-0.7) Basophils # (Auto) 0.0 x10^3/uL (0.0-0.2) Sodium Level 141 mmol/L (136-145) Potassium Level 3.6 mmol/L (3.5-5.1) Chloride Level 102 mmol/L (98-107) Carbon Dioxide Level 33 mmol/L (21-32) H Anion Gap 6 (6-14) Blood Urea Nitrogen 19 mg/dL (7-20) Creatinine 1.2 mg/dL (0.6-1.0) H Estimated GFR (Cockcroft-Gault) 45.4 BUN/Creatinine Ratio 16 (6-20) Glucose Level 139 mg/dL (70-99) H Calcium Level 9.3 mg/dL (8.5-10.1) Magnesium Level 1.8 mg/dL (1.8-2.4) Total Bilirubin 0.3 mg/dL (0.2-1.0) Aspartate Amino Transferase (AST) 16 U/L (15-37) Alanine Aminotransferase (ALT) 25 U/L (14-59) Alkaline Phosphatase 77 U/L (46-116) Total Protein 6.1 g/dL (6.4-8.2) L Albumin 3.5 g/dL (3.4-5.0) Albumin/Globulin Ratio 1.3 (1.0-1.7) Valproic Acid Level 50 mcg/mL (50-100) Valproic Acid Last Dose Date 05-24-20 Valproic Acid Last Dose Time 0800 Current Medications: I have reviewed the current psychotropics carefully including drug interactions. Risk benefit ratio favors no change other than as noted in my dictated progress note. Diagnosis: Problems: (1) Schizoaffective disorder, chronic condition with acute exacerbation (2) Impulse control disorder (3) Anxiety disorder (4) Bipolar affective, mixed, sev w/ psych JONA ANN MD May 24, 2020 22:13
--- NOTE | 2020-05-24 22:49 | NUR ---
At [facility] pass, PT refused medications. PT screaming that she was not going to take the medications. PT stated that she was here because the last facility, "gave me 2 shots and made me sleep". Medications refusal noted. PT currently pacing in room.
[2020-05-25 07:39] VITALS: BP 160/80
[2020-05-25] MEDS: risperiDONE 1 MG TABLET. PO SCH ×2 (08:44→19:58)
[2020-05-25] MEDS: PANTOPRAZOLE 40 MG TABLET. PO SCH (08:44)
[2020-05-25] MEDS: LISINOPRIL 20 MG TABLET PO SCH (08:44)
[2020-05-25] MEDS: VALPROATE ACID 250 MG/5 ML ORAL SOLUTION PO SCH ×2 (08:45→19:58)
[2020-05-25] MEDS: POLYETHYLENE GLYCOL 3350 17 GM PACKET. PO SCH (08:55)
[2020-05-25 13:36] LABS: THYROID STIM HORMONE (TSH) 1.187 uIU/mL (0.358-3.740)
[2020-05-25] MEDS: GABAPENTIN 300 MG CAPSULE. PO SCH ×2 (13:37→19:58)
[2020-05-25] MEDS ORDERED: NAPROXEN 500 MG TABLET PO ONE (13:45)
--- NOTE | 2020-05-25 18:38 | NUR ---
NURSING NOTE: TAKING OVER CARE. PT REQUESTED TO SPEAK WITH HER DAUGHTER LEANDRO AT [phone]. THIS RN SPOKE WITH KACEY RIGGS THE LEGAL GAURDIAN WHO GAVE PERMISSION FOR HER TO SPEAK WITH THE DAUGHTER IF THE GIVEN PHONE NUMBER WAS CORRECT. THIS RN CALLED THE NUMBER PROVIDED AND GAVE AN UPDATE TO THE DAUGHTER. CHELSEY SANDOVAL
--- NOTE | 2020-05-25 19:21 | PN ---
DATE: 05/25/2020 ATTENDING PHYSICIAN: Dr. Morales. SUBJECTIVE: The patient is tearful and she wants to go home. OBJECTIVE FINDINGS: VITAL SIGNS: Blood pressure is 160/80. She was afebrile, oxygen saturation 96% on room air. CBC showed a hemoglobin of 12.4 grams, white count 3800. Electrolytes are within normal range. Creatinine 1.2 mg/dL, nonfasting blood sugar of 139. GENERAL: On exam, she is tearful. LUNGS: Clear. Her heart rate is regular. ABDOMEN: Soft. EXTREMITIES: Show trace edema. NEUROLOGIC FINDINGS: Focally intact. No focal deficits. ASSESSMENT: 1. A 65-year-old female with schizoaffective disorder. 2. Behavior issues with paranoia. 3. Progressive idiopathic neuropathy. 4. Labile hypertension. 5. Bipolar disorder. PLAN: 1. Medications reviewed. 2. Await results of COVID-19 swab. 3. Home meds continued. 4. Discharged to the Behavioral Unit when COVID swab is negative. DOROTHY MORALES MD DR: MIGUELINA/papo JOB#: [id number] / [id number]
[2020-05-25] MEDS ORDERED: diphenhydrAMINE HCL 25 MG CAPSULE PO PRN (19:30)
[2020-05-25] MEDS ORDERED: diphenhydrAMINE HCL 25 MG CAPSULE PO ONE (19:30)
[2020-05-25] MEDS: prednisoLONE ACETATE 1% OPHTH SUSPENSION 5ML BOTTLE. OU PRN (19:57)
[2020-05-25] MEDS: ARIPiprazole 10 MG TABLET PO SCH (19:58)
[2020-05-25 19:59] VITALS: BP 164/92
--- NOTE | 2020-05-25 21:54 | PDOC ---
Exam Note: Keith Note: Please also refer to the separate dictated note~for this date of service dictated separately.~Patient seen individually. Discussed the patient with Nursing staff reviewed the chart.~Reviewed interim history and current functioning. Reviewed vital signs,~Labs/ Radiology~and current medications noted below. Continue current treatment with the changes noted in the dictated addendum note Assessment: Vital Signs/I&O: Vital Signs Date Time Temp Pulse Resp B/P (MAP) Pulse Ox O2 Delivery O2 Flow Rate FiO2 05/25/20 20:06 Room Air 05/25/20 19:59 98.4 74 20 164/92 (116) 93 I & O 05/24/20 05/24/20 05/25/20 15:00 23:00 07:00 Intake Total 810 ml 750 ml Balance 810 ml 750 ml Current Medications: Meds: Current Medications Medications (Trade) Dose Ordered Sig/Jade Route PRN Reason Start Time Stop Time Status Last Admin Dose Admin Pantoprazole Sodium (Protonix) 40 mg DAILY PO 05/25/20 09:00 05/25/20 08:44 Diltiazem HCl (Cardizem 24hr Cd) 240 mg DAILY PO 05/25/20 09:00 05/25/20 08:44 Lisinopril (Prinivil) 40 mg DAILY PO 05/25/20 09:00 05/25/20 08:44 Gabapentin (Neurontin) 600 mg BID PO 05/25/20 13:45 05/25/20 19:58 Naproxen (Naprosyn) 500 mg 1X ONCE PO 05/25/20 13:45 05/25/20 13:46 DC 05/25/20 13:37 I have reviewed the current psychotropics carefully including drug interactions. Risk benefit ratio favors no change other than as noted in my dictated progress note. Diagnosis: Problems: (1) Bipolar affective, mixed, sev w/ psych (2) Impulse control disorder (3) Schizoaffective disorder, chronic condition with acute exacerbation (4) Anxiety disorder JONA ANN MD May 25, 2020 21:54
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
[2020-05-26 05:03] VITALS: BP 148/78
[2020-05-26] MEDS: GABAPENTIN 300 MG CAPSULE. PO SCH (08:06)
[2020-05-26] MEDS: PANTOPRAZOLE 40 MG TABLET. PO SCH (08:06)
[2020-05-26] MEDS: LISINOPRIL 20 MG TABLET PO SCH (08:07)
[2020-05-26] MEDS: prednisoLONE ACETATE 1% OPHTH SUSPENSION 5ML BOTTLE. OU PRN (08:07)
[2020-05-26] MEDS: POLYETHYLENE GLYCOL 3350 17 GM PACKET. PO SCH (08:07)
[2020-05-26] MEDS: risperiDONE 1 MG TABLET. PO SCH (08:07)
[2020-05-26] MEDS: VALPROATE ACID 250 MG/5 ML ORAL SOLUTION PO SCH (08:14)
[2020-05-26 09:55] VITALS: BP 141/84
[2020-05-26] MEDS ORDERED: ACETAMINOPHEN 325 MG TABLET PO PRN (14:30)
--- NOTE | 2020-05-26 16:29 | NUR ---
NURSING NOTE DISCHARGE PT DISCHARGED TO [facility], REPORT CALLED TO EDIS. PT GIVEN WRITTEN AND VERBAL DISCHARGE INSTRUCTIONS. NO COMPLICATIONS. CHELSEY ROB.
[2020-05-26] MEDS ORDERED: PRED5DRO20 OU (18:40)
[2020-05-26] MEDS ORDERED: DIPH25CA58 PO (18:40)
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
[2020-05-27 03:10] LABS: THYROXINE 6.3 ug/dL (4.5-12.0)
[2020-05-27 04:11] LABS: HEMOGLOBIN A1C 5.2 % (4.8-5.6)
--- NOTE | 2020-05-27 08:15 | PDOC ---
Exam Note: Keith Note: This note is a late entry for 05/25/2020 covers elements not covered in my initial note. Subjective: The patient was seen face to face in the evening of 05/25/2020 with nursing staff. Discussed with nursing staff, reviewed the chart. The patient remains anxious, restless, quite labile. Review of Systems: Ambulation impaired with walker. No CV, , pulmonary, eye system symptoms on review. Mental Status Exam: Reasonably oriented. Speech is coherent, rapid. She is very hyperverbal, delusional, paranoid, talked at great length to me about circumstances prompting her admission, oblivious of her psychotic symptoms and I addressed this at length with her. Abstraction is fair. Computation is impaired. Language function intact. Attention span is short. Mood and affect remains labile. Laboratory Data: Reviewed. Impression: Anxiety disorder unspecified. Plan: No change from initial note. We will transition her to [facility] once she is COVID negative. In the meantime continue current psychotropics. She is on 3 atypical antipsychotics Abilify, Risperdal, Zyprexa and we will simplify the regimen to avoid using 2 atypicals in combination. Rest will be determined once she transitions to [facility]. Assessment: Vital Signs/I&O: Vital Signs Date Time Temp Pulse Resp B/P (MAP) Pulse Ox O2 Delivery O2 Flow Rate FiO2 05/26/20 09:55 98.2 85 141/84 (103) 93 Room Air 05/26/20 05:03 20 I & O 05/26/20 05/26/20 05/27/20 15:00 23:00 07:00 Intake Total 840 ml Balance 840 ml Current Medications: Meds: Current Medications Medications (Trade) Dose Ordered Sig/Jade Route PRN Reason Start Time Stop Time Status Last Admin Dose Admin Acetaminophen (Tylenol) 650 mg PRN Q6HRS PRN PO MILD PAIN, FEVER, TIM 05/26/20 14:30 05/26/20 16:30 DC 05/26/20 14:27 I have reviewed the current psychotropics carefully including drug interactions. Risk benefit ratio favors no change other than as noted in my dictated progress note. Diagnosis: Problems: (1) Schizophrenia, schizo-affective type (2) Anxiety disorder (3) Bipolar affective, mixed, sev w/ psych (4) Impulse control disorder JONA ANN MD May 27, 2020 08:15
== END 2020-05-26 16:30 | DRG 74 ==
LOC: 1 SOUTH 16:42
PROVIDERS: ADMIT Hospitalist; ATTEND Internal Medicine
DX: G60.3 Idiopathic progressive neuropathy (principal); F31.60 Bipolar disorder, current episode mixed, unspecified; E78.5 Hyperlipidemia, unspecified; F17.200 Nicotine dependence, unspecified, uncomplicated; F25.0 Schizoaffective disorder, bipolar type; F41.9 Anxiety disorder, unspecified; I12.9 Hypertensive chronic kidney disease with stage 1 through stage 4 chronic kidney disease, or unspecified chronic kidney disease; J44.9 Chronic obstructive pulmonary disease, unspecified; N18.9 Chronic kidney disease, unspecified; Z20.828 Contact with and (suspected) exposure to other viral communicable diseases; Z88.5 Allergy status to narcotic agent; Z88.8 Allergy status to other drugs, medicaments and biological substances; F63.9 Impulse disorder, unspecified
CPT/HCPCS: 36415; 80053; 80061; 80164; 82306; 82607; 83036; 83540; 83550; 83735; 84436; 84443; 84480; 85025; 86592; U0003

== ENCOUNTER 2020-05-26 15:45 | Inpatient (IN) | payer MEDICARE, MEDICAID ==
[~2020-05-26] VITALS: Ht 162.6 cm; Wt 78.0 kg
[~2020-05-26 15:45] MED LIST changes: +ACET-2066 PO; +BIOT25006 PO; +DIVA500T2 PO; +GUAI-295 PO; +LOPE2CAP PO; +OLAN10TA3 IM; +OLAN5TAB9 PO; +OMEG1CAP50 PO; +PHEN26CR2 RC; +POLY2500 PO; -RISP0.5T3 PO; +RISP0.5T62 PO; +RULOX PO; +VALP250S3 PO; +[UNRECOGNIZED DRUG - OTHER] TOP
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
[2020-05-26 17:06] VITALS: BP 170/113
[2020-05-26] MEDS ORDERED: MAGNESIUM HYDROXIDE 2,400 MG/30 ML ORAL.SUSP. PO PRN (18:00)
[2020-05-26] MEDS ORDERED: MAG HYDROX/AL HYDROX/SIMETH 30 ML ORAL.SUSP PO PRN (18:00)
[2020-05-26] MEDS ORDERED: ACETAMINOPHEN 325 MG TABLET PO PRN (18:30)
[2020-05-26] MEDS ORDERED: NICOTINE POLACRILEX GUM 2 MG GUM. BC PRN (18:30)
[2020-05-26] MEDS ORDERED: DIPH25CA58 PO (18:40)
[2020-05-26] MEDS ORDERED: PRED5DRO20 OU (18:40)
[2020-05-26] MEDS ORDERED: diphenhydrAMINE HCL 25 MG CAPSULE PO PRN (18:45)
[2020-05-26] MEDS ORDERED: prednisoLONE ACETATE 1% OPHTH SUSPENSION 5ML BOTTLE. OU PRN ×2 (19:00→19:45)
[2020-05-26 20:24] LABS: BILIRUBIN,URINE NEG (NEG); CLARITY,URINE CLEAR; COLOR,URINE COLORLESS; GLUCOSE,URINE NEG (NEG)
[2020-05-26 20:25] LABS: BACTERIA,URINE FEW /HPF (0-FEW); NITRITE,URINE NEG (NEG); RBC,URINE RARE /HPF (0-2); SQUAMOUS EPITHELIAL CELL,UR MOD /LPF; UROBILINOGEN,URINE 0.2 mg/dL (0.2 mg/dL)
[2020-05-26] MEDS: ARIPiprazole 10 MG TABLET PO SCH (20:52)
[2020-05-26] MEDS: GABAPENTIN 300 MG CAPSULE. PO SCH (20:52)
[2020-05-26] MEDS: risperiDONE 0.5 MG TABLET. PO SCH (20:52)
[2020-05-26] MEDS: traZODone 100 MG TABLET. PO PRN (20:52)
[2020-05-26] MEDS: VALPROATE ACID 250 MG/5 ML ORAL SOLUTION PO SCH (20:53)
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
--- NOTE | 2020-05-26 22:09 | PDOC ---
Exam Note: Keith Note: Please also refer to the separate dictated note~for this date of service dictated separately.~Patient seen individually. Discussed the patient with Nursing staff reviewed the chart.~Reviewed interim history and current functioning. Reviewed vital signs,~Labs/ Radiology~and current medications noted below. Continue current treatment with the changes noted in the dictated addendum note Assessment: Vital Signs/I&O: Vital Signs Date Time Temp Pulse Resp B/P (MAP) Pulse Ox O2 Delivery O2 Flow Rate FiO2 05/26/20 17:06 98.1 93 18 170/113 (132) 95 Room Air Labs: Laboratory Tests Test 05/26/20 19:45 Urine Collection Type Unknown Urine Color Colorless Urine Clarity Clear Urine pH 8.5 Urine Specific [place] 1.020 Urine Protein Neg (NEG-TRACE) Urine Glucose (UA) Neg mg/dL (NEG) Urine Ketones (Stick) Neg mg/dL (NEG) Urine Blood Trace (NEG) Urine Nitrite Neg (NEG) Urine Bilirubin Neg (NEG) Urine Urobilinogen Dipstick 0.2 mg/dL (0.2 mg/dL) Urine Leukocyte Esterase Small (NEG) Urine RBC Rare /HPF (0-2) Urine WBC 1-4 /HPF (0-4) Urine Squamous Epithelial Cells Mod /LPF Urine Bacteria Few /HPF (0-FEW) Current Medications: Meds: Current Medications Medications (Trade) Dose Ordered Sig/Jade Route PRN Reason Start Time Stop Time Status Last Admin Dose Admin Aripiprazole (Abilify) 20 mg QHS PO 05/26/20 21:00 05/26/20 20:52 Risperidone (RisperDAL) 1 mg BID PO 05/26/20 21:00 05/26/20 20:52 Valproic Acid (Depakene) 1,000 mg BID PO 05/26/20 21:00 05/26/20 20:53 Gabapentin (Neurontin) 600 mg BID PO 05/26/20 21:00 05/26/20 20:52 Trazodone HCl (Desyrel) 100 mg PRN QHS PRN PO INSOMNIA, MAY REPEAT X1 05/26/20 20:30 05/26/20 20:52 I have reviewed the current psychotropics carefully including drug interactions. Risk benefit ratio favors no change other than as noted in my dictated progress note. Diagnosis: Problems: (1) Bipolar affective, mixed, sev w/ psych (2) Impulse control disorder (3) Anxiety disorder (4) Schizophrenia, schizo-affective type JONA ANN MD May 26, 2020 22:09
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
[2020-05-27] MEDS: ACETAMINOPHEN 325 MG TABLET PO PRN ×2 (04:54→19:58)
--- NOTE | 2020-05-27 05:01 | NUR ---
Patient has been provided with Practical Counseling for tobacco cessation. It included a face to face interaction and the following was discussed: Recognizing danger situations, Developing coping skills,Basic cessation information. Will follow for discharge needs and discharge planning.
[2020-05-27 05:26] VITALS: BP 156/92
--- NOTE | 2020-05-27 07:51 | PDOC ---
Exam Note: Keith Note: This note is a late entry for 05/25/2020 covers elements not covered in my initial note. Subjective: The patient was seen face to face in the evening of 05/25/2020 with nursing staff. Discussed with nursing staff, reviewed the chart. The patient remains anxious, restless, quite labile. Review of Systems: Ambulation impaired with walker. No CV, , pulmonary, eye system symptoms on review. Mental Status Exam: Reasonably oriented. Speech is coherent, rapid. She is very hyperverbal, delusional, paranoid, talked at great length to me about circumstances prompting her admission, oblivious of her psychotic symptoms and I addressed this at length with her. Abstraction is fair. Computation is impaired. Language function intact. Attention span is short. Mood and affect remains labile. Laboratory Data: Reviewed. Impression: Anxiety disorder unspecified. Plan: No change from initial note. We will transition her to [facility] once she is COVID negative. In the meantime continue current psychotropics. She is on 3 atypical antipsychotics Abilify, Risperdal, Zyprexa and we will simplify the regimen to avoid using 2 atypicals in combination. Rest will be determined once she transitions to [facility]. Assessment: Vital Signs/I&O: Vital Signs Date Time Temp Pulse Resp B/P (MAP) Pulse Ox O2 Delivery O2 Flow Rate FiO2 05/27/20 05:26 97.8 88 18 156/92 (113) 95 Room Air I & O 05/26/20 05/26/20 05/27/20 14:59 22:59 06:59 Intake Total 325 ml 240 ml Balance 325 ml 240 ml Labs: Laboratory Tests Test 05/26/20 19:45 Urine Collection Type Unknown Urine Color Colorless Urine Clarity Clear Urine pH 8.5 Urine Specific [place] 1.020 Urine Protein Neg (NEG-TRACE) Urine Glucose (UA) Neg mg/dL (NEG) Urine Ketones (Stick) Neg mg/dL (NEG) Urine Blood Trace (NEG) Urine Nitrite Neg (NEG) Urine Bilirubin Neg (NEG) Urine Urobilinogen Dipstick 0.2 mg/dL (0.2 mg/dL) Urine Leukocyte Esterase Small (NEG) Urine RBC Rare /HPF (0-2) Urine WBC 1-4 /HPF (0-4) Urine Squamous Epithelial Cells Mod /LPF Urine Bacteria Few /HPF (0-FEW) Current Medications: Meds: Current Medications Medications (Trade) Dose Ordered Sig/Jade Route PRN Reason Start Time Stop Time Status Last Admin Dose Admin Acetaminophen (Tylenol) 650 mg PRN Q6HRS PRN PO MILD PAIN / TEMP > 100.3'F 05/26/20 18:00 05/27/20 04:54 Aripiprazole (Abilify) 20 mg QHS PO 05/26/20 21:00 05/26/20 20:52 Risperidone (RisperDAL) 1 mg BID PO 05/26/20 21:00 05/26/20 20:52 Valproic Acid (Depakene) 1,000 mg BID PO 05/26/20 21:00 05/26/20 20:53 Gabapentin (Neurontin) 600 mg BID PO 05/26/20 21:00 05/26/20 20:52 Trazodone HCl (Desyrel) 100 mg PRN QHS PRN PO INSOMNIA, MAY REPEAT X1 05/26/20 20:30 05/26/20 20:52 I have reviewed the current psychotropics carefully including drug interactions. Risk benefit ratio favors no change other than as noted in my dictated progress note. Diagnosis: Problems: (1) Anxiety disorder (2) Bipolar affective disorder, mixed (3) Bipolar affective, mixed, sev w/ psych (4) Impulse control disorder (5) Schizophrenia, schizo-affective type JONA ANN MD May 27, 2020 07:51
--- NOTE | 2020-05-27 08:13 | PDOC ---
Exam Note: Keith Note: Kindly ignore the note of 05/25/2020 as it is consultation and wrongly entered. Please also refer to the separate dictated note~for this date of service dictated separately.~Patient seen individually. Discussed the patient with Nursing staff reviewed the chart.~Reviewed interim history and current functioning. Reviewed vital signs,~Labs/ Radiology~and current medications noted below. Continue current treatment with the changes noted in the dictated addendum note Assessment: Vital Signs/I&O: Vital Signs Date Time Temp Pulse Resp B/P (MAP) Pulse Ox O2 Delivery O2 Flow Rate FiO2 05/27/20 05:26 97.8 88 18 156/92 (113) 95 Room Air I & O 05/26/20 05/26/20 05/27/20 15:00 23:00 07:00 Intake Total 325 ml 240 ml Balance 325 ml 240 ml Labs: Laboratory Tests Test 05/26/20 19:45 Urine Collection Type Unknown Urine Color Colorless Urine Clarity Clear Urine pH 8.5 Urine Specific [place] 1.020 Urine Protein Neg (NEG-TRACE) Urine Glucose (UA) Neg mg/dL (NEG) Urine Ketones (Stick) Neg mg/dL (NEG) Urine Blood Trace (NEG) Urine Nitrite Neg (NEG) Urine Bilirubin Neg (NEG) Urine Urobilinogen Dipstick 0.2 mg/dL (0.2 mg/dL) Urine Leukocyte Esterase Small (NEG) Urine RBC Rare /HPF (0-2) Urine WBC 1-4 /HPF (0-4) Urine Squamous Epithelial Cells Mod /LPF Urine Bacteria Few /HPF (0-FEW) Current Medications: Meds: Current Medications Medications (Trade) Dose Ordered Sig/Jade Route PRN Reason Start Time Stop Time Status Last Admin Dose Admin Acetaminophen (Tylenol) 650 mg PRN Q6HRS PRN PO MILD PAIN / TEMP > 100.3'F 05/26/20 18:00 05/27/20 04:54 Aripiprazole (Abilify) 20 mg QHS PO 05/26/20 21:00 05/26/20 20:52 Risperidone (RisperDAL) 1 mg BID PO 05/26/20 21:00 05/26/20 20:52 Valproic Acid (Depakene) 1,000 mg BID PO 05/26/20 21:00 05/26/20 20:53 Gabapentin (Neurontin) 600 mg BID PO 05/26/20 21:00 05/26/20 20:52 Trazodone HCl (Desyrel) 100 mg PRN QHS PRN PO INSOMNIA, MAY REPEAT X1 05/26/20 20:30 05/26/20 20:52 I have reviewed the current psychotropics carefully including drug interactions. Risk benefit ratio favors no change other than as noted in my dictated progress note. Diagnosis: Problems: (1) Schizophrenia, schizo-affective type (2) Bipolar affective disorder, mixed (3) Impulse control disorder (4) Schizoaffective disorder, chronic condition with acute exacerbation (5) Anxiety disorder JONA ANN MD May 27, 2020 08:13
[2020-05-27] MEDS: GABAPENTIN 300 MG CAPSULE. PO SCH ×2 (08:35→19:57)
[2020-05-27] MEDS: PANTOPRAZOLE 40 MG TABLET. PO SCH (08:35)
[2020-05-27] MEDS: VALPROATE ACID 250 MG/5 ML ORAL SOLUTION PO SCH ×2 (08:36→19:57)
[2020-05-27] MEDS: LISINOPRIL 20 MG TABLET PO SCH (08:36)
[2020-05-27] MEDS: risperiDONE 0.5 MG TABLET. PO SCH ×2 (08:36→19:57)
[2020-05-27] MEDS: POLYETHYLENE GLYCOL 3350 17 GM PACKET. PO SCH (08:36)
--- NOTE | 2020-05-27 08:40 | NUR ---
Patient was admitted to Dr Paula 05/26/20 at 1630 TO [facility], admitting DX schizoaffective d/o, bipolar type mixed with psychotic features; anxiety d/o, unspecified; impulse control d/o, unspecified. Admit order was entered on arrival to unit but is not visible under orders tab. Registration at [facility] was not able to remedy the problem. Help desk called regarding entering a new admit order for the date of 05/26/20 as it would only let this nurse enter an admit order with todays date. ticket #[id number]. Pending call back with resolution. Chely Castillo RN Addendum: 05/27/20 at 0922 by CHELY CASTILLO RN Received return call from "Debra" at the help desk. She advised nurse to enter the admit order with todays date and then annotate in the notes section that patient had actually admitted on 05/26 at 1630. Admit order entered per her instructions.
--- NOTE | 2020-05-27 08:56 | NUR ---
Patient is in her room crying hysterically. She stated that she feels like something bad has happened to her son and is having visual hallucinations. Patient has just taken her AM medications which included risperdal. Addendum: 05/27/20 at 0919 by EDIS CASTILLO RN Nurse talked with patient in patient room, provided 1:1 attention and feedback as well as validation of her feelings. Patient stated that her son is 40, lives in the [place], [place] area and that they have been estranged for 5 years. She stated he was "angry with her because she would not stop smoking cigarettes and he stopped speaking to her". Patient stated that her son was a very colicky baby and so she had to hold him a lot and that he lived with his father and step-mother at some point after that. She stated she also has a daughter that doesn't speak to her very often. Her daughters phone number is in her medical chart, [facility] attempted to call her for the patient yesterday but daughter did not wish to talk to her mother at that time. Patient expressed concern that something bad could happen to her son and she might not be told of it. Patient has a legal guardian and limited contact with family.
--- NOTE | 2020-05-27 11:44 | NUR ---
Patient eating breakfast in chair. Alert with no complaints at this time. She is still concerned about her son and if he is okay. We talked about how he was okay and she stated her DTR will not tell her anything regarding him and she is worried. Patient has no complaints of pain and no further concerns at this time. She was fine upon me leaving the room but was found crying about 10 minutes later about her son and was consoled and calmed down and then taken to shower.
--- NOTE | 2020-05-27 13:23 | NUR ---
WEEKLY ACTIVITY THERAPY NOTE Date of Admission: 05/26 Date of AT Assessment: TBD Precipitating behaviors that initiated intake and admission: It was reported that patient was having visual hallucinations in which she was seeing her son on railroad tracks and then under a thompson that was burning. She was having "manic" behaviors, threatening to elope and throwing her belongings over a fence for God to pick up worker. She also had verbal aggression towards the staff of HC facility. She has also been pacing and tried to use a cane to break a window to get out of the building. Goal aimed: TBD Initial Goal: TBD Weekly progress towards goal: NA Group participation level: NA Weekly highlights: arrived on unit Behaviors observed: new admit Plan: meet/ assess Pt. Beneficial adaptations:
--- NOTE | 2020-05-27 13:51 | NUR ---
RADHA attempted to contact Danica from the [employer] [facility] [employer] office. Danica was out so RADHA spoke to the [facility] [place] Mari re: pt care. Mari reports that pt should be returning back to [place] once stable. RADHA gave Mari an update on how pt is doing today and will continue to update them a couple times a week. RADHA clarified the phone numbers for the office as the primary number is ; the after hour number for the office that can be used for emergencies . RADHA will clarify that on pt charge for nursing staff.
[2020-05-27 16:01] VITALS: BP 149/92
--- NOTE | 2020-05-27 18:54 | NUR ---
Patient tells ashley Garcia that her elbow hurt and when she showed her the elbow it was noticed that there was a large bruised area and some swelling. Picture was taken to document. When patient was asked if she fell she didn't remember. She states that "she does not remember coming to the hospital so maybe something happened at her facility prior to coming here." We will continue to monitor the area and pain she states she is having in the mean time she will avoid putting pressure on the area and let us know if there are any changes.
[2020-05-27] MEDS: ARIPiprazole 10 MG TABLET PO SCH (19:58)
[2020-05-27] MEDS: traZODone 100 MG TABLET. PO PRN (19:58)
--- NOTE | 2020-05-27 22:00 | PDOC ---
Exam Note: Keith Note: Please also refer to the separate dictated note~for this date of service dictated separately.~Patient seen individually. Discussed the patient with Nursing staff reviewed the chart.~Reviewed interim history and current functioning. Reviewed vital signs,~Labs/ Radiology~and current medications noted below. Continue current treatment with the changes noted in the dictated addendum note Assessment: Vital Signs/I&O: Vital Signs Date Time Temp Pulse Resp B/P (MAP) Pulse Ox O2 Delivery O2 Flow Rate FiO2 05/27/20 16:01 97.5 100 18 149/92 (111) 94 Room Air I & O 05/26/20 05/26/20 05/27/20 15:00 23:00 07:00 Intake Total 325 ml 240 ml Balance 325 ml 240 ml Current Medications: Meds: Current Medications Medications (Trade) Dose Ordered Sig/Jade Route PRN Reason Start Time Stop Time Status Last Admin Dose Admin Pantoprazole Sodium (Protonix) 40 mg DAILYAC PO 05/27/20 07:30 05/27/20 08:35 Diltiazem HCl (Cardizem 24hr Cd) 240 mg DAILY PO 05/27/20 09:00 05/27/20 08:35 Lisinopril (Prinivil) 40 mg DAILY PO 05/27/20 09:00 05/27/20 08:36 Polyethylene Glycol (miraLAX) 17 gm DAILY PO 05/27/20 09:00 05/27/20 08:36 I have reviewed the current psychotropics carefully including drug interactions. Risk benefit ratio favors no change other than as noted in my dictated progress note. Diagnosis: Problems: (1) Schizophrenia, schizo-affective type (2) Bipolar affective, mixed, sev w/ psych (3) Impulse control disorder (4) Anxiety disorder JONA ANN MD May 27, 2020 22:00
--- NOTE | 2020-05-28 02:06 | NUR ---
Last evening at [facility] pt was standing in her doorway and told this nurse that she had some concerns about some of her meds causing her problems. Meds by name and use discussed with pt and she took them all. After wards she thought some of her med dose schedules were changed from her facility she came from, will check with doctor in am. She also said at her facility she had been trying to break out a window "not to escape but to help someone outside". PRN tylenol was given for L arm and hand pain. Since going to bed she has been sleeping
--- NOTE | 2020-05-28 02:30 | CONS ---
DATE OF CONSULTATION: 05/27/2020 REASON FOR CONSULTATION: Medical management. HISTORY OF PRESENT ILLNESS: The patient is a 65-year-old female patient, she apparently referred from [facility] on account of acute exacerbation of her schizoaffective disorder, bipolar type, mixed with psychotic features. She has been extremely paranoid, psychotic, delusional, agitated, banging her cane on the windows at the nursing facility, dangerous and disruptive behaviors resulting in this referral. Medically, the patient is known to have hypertension, bronchial asthma, COPD, hyperlipidemia and diabetic neuropathy and recurrent falls. PAST MEDICAL HISTORY: Significant for multiple psychiatric hospitalizations and outpatient psychiatric treatment for schizoaffective disorder, bipolar type. ALLERGIES: She is allergic to CLONIDINE, CHOCOLATE FLAVOR, CODEINE AND HALOPERIDOL. MEDICATIONS: She is currently on olanzapine 2.5 mg every 2 hours, polyethylene glycol 17 grams daily, lisinopril 40 mg once a day, diltiazem 240 mg daily, Protonix 40 mg daily, gabapentin 600 mg twice a day, valproic acid 1000 mg twice a day, risperidone 1 mg twice a day, aripiprazole 20 mg at bedtime, trazodone 100 mg at bedtime, prednisolone acetate 1 drop to both eyes 4 times a day, diphenhydramine 25 mg every 4 hours as needed, Nicotine polacrilex, Nicorette gum 2 mg every hour. She is on milk of magnesia 30 mL p.o. daily p.r.n. for constipation, Mylanta 15 mL after meals and as needed and acetaminophen 650 mg every 6 hours. FAMILY HISTORY: Noncontributory. SOCIAL HISTORY: She is a resident at [facility]. She apparently does not smoke, drink alcohol or use any recreational drugs. PHYSICAL EXAMINATION: GENERAL: On examining her, she looked well and was clearly in no apparent respiratory distress. No pallor, jaundice, cyanosis or thyromegaly. No jugular venous distention. No limb edema. VITAL SIGNS: Her heart rate was 100, blood pressure was 149/92, temperature 97.5, respiratory rate was 18 and oxygen saturation was 94%. HEAD, EYES, EARS, NOSE AND THROAT: Normocephalic, atraumatic. NECK: Supple. CARDIAC: Normal first and second heart sounds. No gallop or murmur. CHEST: Clear to auscultation. No crepitation or rhonchi. ABDOMEN: Slightly distended, soft, nontender. NEUROLOGIC: She is awake, alert, extremely paranoid, however, all her cranial nerves are intact. EXTREMITIES: She moves extremities without difficulty. She ambulates without assistance or assistive devices. LABORATORY DATA: Her lab work showed her white cell count was 3800, hemoglobin 12, hematocrit 37, MCV 95, and platelet count of 143,000 with normal manual differential. Her chemistry showed a serum sodium 141, potassium 3.6, chloride 102, bicarbonate 33, anion gap of 6, BUN 19, creatinine 1.2, estimated GFR was 45 mL per minute. Her glucose 139, calcium was 9.3, magnesium was 1.8. Total bilirubin, AST, ALT, alkaline phosphatase were normal. Her total protein 6.1, albumin was 3.5. Her toxicology screen showed valproic acid was 50 mcg per mL, which is well within therapeutic range. Her Treponema pallidum antibodies were negative and COVID-19 by PCR was negative. IMPRESSION: In summary, this is a 65-year-old female patient who was [facility] on account of exacerbation of her schizophrenic disorder, bipolar type, mixed with psychotic features. She apparently has been extremely paranoid, psychotic, delusional, agitated, banging her cane on the windows of the nursing facility, dangerous and disruptive behavior, resulting in the admission to [facility]. Medically, she seems to be overall stable. Her vital signs are within acceptable range and although she has episodes of mild hypertension. Her lab work are all within acceptable range. Her chemistry also was generally unremarkable. Her vitamin B12, 25-hyroxy vitamin D, TSH and total T4 and free T4 as well as hemoglobin A1c are all normal. His serum iron, TIBC and iron saturation are all within normal range. PLAN: My plan is to basically continue with all her current medication. I will obviously follow closely all her other lab works which are still pending and make any necessary recommendation. Thank you, Dr. Paula, for allowing me to participate in the care of this patient. NAZ LOPEZ MD DR: DANIELE/papo JOB#: [id number] / [id number]
[2020-05-28] MEDS: ACETAMINOPHEN 325 MG TABLET PO PRN (06:11)
[2020-05-28 06:30] VITALS: BP 162/94
[2020-05-28] MEDS: PANTOPRAZOLE 40 MG TABLET. PO SCH (08:42)
[2020-05-28] MEDS: GABAPENTIN 300 MG CAPSULE. PO SCH ×2 (08:42→21:05)
[2020-05-28] MEDS: risperiDONE 0.5 MG TABLET. PO SCH ×2 (08:42→21:05)
[2020-05-28] MEDS: LISINOPRIL 20 MG TABLET PO SCH (08:42)
[2020-05-28] MEDS: POLYETHYLENE GLYCOL 3350 17 GM PACKET. PO SCH (08:43)
[2020-05-28] MEDS: VALPROATE ACID 250 MG/5 ML ORAL SOLUTION PO SCH ×2 (08:43→21:04)
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
--- NOTE | 2020-05-28 10:00 | NUR ---
Patient is calm and complaint. Patient states that she understands that she was seeing things such as her son or a mouse, that are not actually there. Patient has no further needs at this time.
[2020-05-28 15:42] VITALS: BP 130/94
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
[2020-05-28] MEDS ORDERED: NAPROXEN 500 MG TABLET PO ONE (21:00)
[2020-05-28] MEDS: traZODone 100 MG TABLET. PO PRN (21:05)
[2020-05-28] MEDS: ARIPiprazole 10 MG TABLET PO SCH (21:06)
--- NOTE | 2020-05-28 22:09 | PDOC ---
Exam Note: Keith Note: Please also refer to the separate dictated note~for this date of service dictated separately.~Patient seen individually. Discussed the patient with Nursing staff reviewed the chart.~Reviewed interim history and current functioning. Reviewed vital signs,~Labs/ Radiology~and current medications noted below. Continue current treatment with the changes noted in the dictated addendum note Assessment: Vital Signs/I&O: Vital Signs Date Time Temp Pulse Resp B/P (MAP) Pulse Ox O2 Delivery O2 Flow Rate FiO2 05/28/20 15:42 98.3 95 18 130/94 (106) 95 Room Air I & O 05/27/20 05/27/20 05/28/20 14:59 22:59 06:59 Intake Total 480 ml 480 ml Balance 480 ml 480 ml Current Medications: Meds: Current Medications Medications (Trade) Dose Ordered Sig/Jade Route PRN Reason Start Time Stop Time Status Last Admin Dose Admin Aripiprazole (Abilify) 10 mg QHS PO 05/28/20 21:00 05/31/20 22:00 05/28/20 21:06 Naproxen (Naprosyn) 500 mg BID ONCE PO 05/28/20 21:00 05/28/20 21:01 DC 05/28/20 21:05 Gabapentin (Neurontin) 600 mg TID PO 05/28/20 21:00 05/28/20 21:05 I have reviewed the current psychotropics carefully including drug interactions. Risk benefit ratio favors no change other than as noted in my dictated progress note. Diagnosis: Problems: (1) Paranoia (psychosis) (2) Anxiety disorder (3) Cannabis abuse (4) Bipolar affective, mixed, sev w/ psych (5) Impulse control disorder (6) Schizoaffective disorder, chronic condition with acute exacerbation JONA ANN MD May 28, 2020 22:08
--- NOTE | 2020-05-29 01:32 | NUR ---
Pt has denies hallucinations today. She took meds whole. No behaviors tonight.
[2020-05-29 06:00] VITALS: BP 144/74
--- NOTE | 2020-05-29 07:36 | PDOC ---
Exam Note: Keith Note: This note is a late entry for 05/27/2020 covers elements not covered in my initial note. Subjective: The patient was seen face to face in the morning of 05/27/2020 for treatment team meeting with Serena Brown and Glenna (professor of social work), Janny, Activity Therapy and Misael BARBOSA. Discussed with nursing staff, reviewed the chart. She slept 6-1/2 hours previous night. She does have a legal guardian. She has been anxious, tearful, crying at times, talking about her estranged son. Nursing report was with Chely BARBOSA. The patient is obsessed that her son is in ill health and nursing staff have reassured her that her daughter would have informed her if such was the case. The patient is reluctantly accepting of this. The patient is quite insistent. She is worse on Depakote. We may consider stopping this but we have increased her Neurontin back to 600 mg t.i.d. which is what she was taking prior to admission. She is on a combination of R isperdal and Abilify. We might stop the Abilify in due course. Review of Systems: No CV, , pulmonary, eye system symptoms on review. Mental Status Exam: Reasonably oriented. Speech is coherent. Abstraction is fair. Computation is impaired. Language function intact. Attention span is short. Mood and affect remains labile. Laboratory Data: Reviewed. Impression: Schizoaffective disorder bipolar type mixed with psychotic features. Anxiety disorder unspecified. Plan: No change from initial note. We might consider restarting Wellbutrin for her mood symptoms. Assessment: Vital Signs/I&O: Vital Signs Date Time Temp Pulse Resp B/P (MAP) Pulse Ox O2 Delivery O2 Flow Rate FiO2 05/29/20 06:00 98.3 66 16 144/74 (97) 93 Room Air I & O 05/28/20 05/28/20 05/29/20 15:00 23:00 07:00 Intake Total 950 ml 240 ml Output Total 1 ml Balance 949 ml 240 ml Current Medications: Meds: Current Medications Medications (Trade) Dose Ordered Sig/Jade Route PRN Reason Start Time Stop Time Status Last Admin Dose Admin Aripiprazole (Abilify) 10 mg QHS PO 05/28/20 21:00 05/31/20 22:00 05/28/20 21:06 Naproxen (Naprosyn) 500 mg BID ONCE PO 05/28/20 21:00 05/28/20 21:01 DC 05/28/20 21:05 Gabapentin (Neurontin) 600 mg TID PO 05/28/20 21:00 05/28/20 21:05 I have reviewed the current psychotropics carefully including drug interactions. Risk benefit ratio favors no change other than as noted in my dictated progress note. Diagnosis: Problems: (1) Anxiety disorder (2) Bipolar affective, mixed, sev w/ psych (3) Impulse control disorder (4) Schizoaffective disorder, chronic condition with acute exacerbation JONA ANN MD May 29, 2020 07:36
--- NOTE | 2020-05-29 07:48 | PDOC ---
Exam Note: Keith Note: This note is a late entry for 05/28/2020 covers elements not covered in my initial note. Subjective: The patient was seen face to face in the evening of 05/28/2020 with Pearl BARBOSA. Discussed with nursing staff, reviewed the chart. The patient slept 7-3/4 hours previous night. Overall the patient had a better mood. She is complaining of worsening neuropathy since Neurontin was reduced from 600 mg t.i.d. down to b.i.d. and we will increase it back to t.i.d. and restart Wellbutrin XL 150 mg a day due to her mood symptoms. She feels that she has done worse on Depakote and we may consider stopping this and she feels in the past she did well on Prolixin for about 20 years and we may consider restarting this. For now we are going to go ahead and reduce the Abilify down from 20 mg h.s. down to 10 mg a day for 3 days and stop it. This is being done to avoid using two atypical antipsychotics in combination since she is already on Risperdal 1 mg b.i.d. Review of Systems: Ambulation impaired with walker. No CV, , pulmonary, eye system symptoms on review. Mental Status Exam: Reasonably oriented. The patient is quite hyperverbal. Speech is coherent, rapid at times. Abstraction is fair. Computation is impaired. Language function intact. Attention span is short. Mood and affect still somewhat grandiose, labile. No suicidal or homicidal ideation. Laboratory Data: Reviewed. Impression: Anxiety disorder unspecified. Plan: No change from initial note. Start Wellbutrin XL 150 mg a day, taper and stop the Abilify. Consider stopping the Depakote and consider changing Risperdal to Prolixin. We will adjust further as clinically indicated. Assessment: Vital Signs/I&O: Vital Signs Date Time Temp Pulse Resp B/P (MAP) Pulse Ox O2 Delivery O2 Flow Rate FiO2 05/29/20 06:00 98.3 66 16 144/74 (97) 93 Room Air I & O 05/28/20 05/28/20 05/29/20 15:00 23:00 07:00 Intake Total 950 ml 240 ml Output Total 1 ml Balance 949 ml 240 ml Current Medications: Meds: Current Medications Medications (Trade) Dose Ordered Sig/Jade Route PRN Reason Start Time Stop Time Status Last Admin Dose Admin Aripiprazole (Abilify) 10 mg QHS PO 05/28/20 21:00 05/31/20 22:00 05/28/20 21:06 Naproxen (Naprosyn) 500 mg BID ONCE PO 05/28/20 21:00 05/28/20 21:01 DC 05/28/20 21:05 Gabapentin (Neurontin) 600 mg TID PO 05/28/20 21:00 05/28/20 21:05 I have reviewed the current psychotropics carefully including drug interactions. Risk benefit ratio favors no change other than as noted in my dictated progress note. Diagnosis: Problems: (1) Schizophrenia, schizo-affective type (2) Anxiety disorder (3) Bipolar affective disorder, mixed (4) Bipolar affective, mixed, sev w/ psych (5) Impulse control disorder (6) Schizoaffective disorder, chronic condition with acute exacerbation JONA ANN MD May 29, 2020 07:48
[2020-05-29] MEDS: risperiDONE 0.5 MG TABLET. PO SCH ×2 (08:38→21:32)
[2020-05-29] MEDS: GABAPENTIN 300 MG CAPSULE. PO SCH ×3 (08:38→21:32)
[2020-05-29] MEDS: LISINOPRIL 20 MG TABLET PO SCH (08:38)
[2020-05-29] MEDS: NAPROXEN 500 MG TABLET PO SCH ×2 (08:38→17:26)
[2020-05-29] MEDS: PANTOPRAZOLE 40 MG TABLET. PO SCH (08:38)
[2020-05-29] MEDS: buPROPion XL 150 MG TAB.ER.24H PO SCH (08:38)
[2020-05-29] MEDS: POLYETHYLENE GLYCOL 3350 17 GM PACKET. PO SCH (08:39)
[2020-05-29] MEDS: VALPROATE ACID 250 MG/5 ML ORAL SOLUTION PO SCH ×2 (08:39→21:32)
--- NOTE | 2020-05-29 08:59 | NUR ---
Patient is calm and complaint with medications and assessment. Patient denies hallucinations today.
[2020-05-29 15:54] VITALS: BP 151/83
[2020-05-29] MEDS: ARIPiprazole 10 MG TABLET PO SCH (21:32)
[2020-05-29] MEDS: CEFDINIR 300 MG CAPSULE PO SCH (21:34)
[2020-05-29] MEDS: rOPINIRole 1 MG TABLET. PO SCH (21:34)
[2020-05-29] MEDS: LACTOBACILLUS RHAMNOSUS GG 1 CAPSULE. PO SCH (21:35)
--- NOTE | 2020-05-29 21:47 | PDOC ---
Exam Note: Keith Note: Please also refer to the separate dictated note~for this date of service dictated separately.~Patient seen individually. Discussed the patient with Nursing staff reviewed the chart.~Reviewed interim history and current functioning. Reviewed vital signs,~Labs/ Radiology~and current medications noted below. Continue current treatment with the changes noted in the dictated addendum note Assessment: Vital Signs/I&O: Vital Signs Date Time Temp Pulse Resp B/P (MAP) Pulse Ox O2 Delivery O2 Flow Rate FiO2 05/29/20 15:54 98.0 83 151/83 (105) 98 Room Air 05/29/20 06:00 16 I & O 05/28/20 05/28/20 05/29/20 15:00 23:00 07:00 Intake Total 950 ml 240 ml Output Total 1 ml Balance 949 ml 240 ml Current Medications: Meds: Current Medications Medications (Trade) Dose Ordered Sig/Jade Route PRN Reason Start Time Stop Time Status Last Admin Dose Admin Bupropion HCl (Wellbutrin Xl) 150 mg DAILY PO 05/29/20 09:00 05/29/20 08:38 Naproxen (Naprosyn) 500 mg BIDWMEALS PO 05/29/20 08:00 05/29/20 17:26 Ropinirole HCl (Requip) 1 mg QHS PO 05/29/20 21:00 05/29/20 21:34 Cefdinir (Omnicef) 300 mg BID PO 05/29/20 21:00 06/05/20 21:00 05/29/20 21:34 Lactobacillus Rhamnosus (Culturelle) 1 cap BID PO 05/29/20 21:00 05/29/20 21:35 I have reviewed the current psychotropics carefully including drug interactions. Risk benefit ratio favors no change other than as noted in my dictated progress note. Diagnosis: Problems: (1) Impulse control disorder (2) Schizoaffective disorder, chronic condition with acute exacerbation (3) Bipolar affective, mixed, sev w/ psych (4) Anxiety disorder JONA ANN MD May 29, 2020 21:47
--- NOTE | 2020-05-30 01:51 | NUR ---
Nursing Note The patient was located in her room sitting at her bedside when approached for her medication and assessment. The patient requested education about her medications which this nurse provided. The patient was pleasant and interactive with this nurse and had a conversation about how technology is becoming a larger and larger part of daily life. The patient is currently sleeping in her room.
[2020-05-30 06:21] VITALS: BP 151/78
[2020-05-30] MEDS: buPROPion XL 150 MG TAB.ER.24H PO SCH (08:56)
[2020-05-30] MEDS: risperiDONE 0.5 MG TABLET. PO SCH ×2 (08:56→21:06)
[2020-05-30] MEDS: GABAPENTIN 300 MG CAPSULE. PO SCH ×3 (08:56→21:04)
[2020-05-30] MEDS: LACTOBACILLUS RHAMNOSUS GG 1 CAPSULE. PO SCH ×2 (08:56→21:05)
[2020-05-30] MEDS: CEFDINIR 300 MG CAPSULE PO SCH ×2 (08:56→21:05)
[2020-05-30] MEDS: POLYETHYLENE GLYCOL 3350 17 GM PACKET. PO SCH (08:57)
[2020-05-30] MEDS: PANTOPRAZOLE 40 MG TABLET. PO SCH (08:57)
[2020-05-30] MEDS: NAPROXEN 500 MG TABLET PO SCH ×2 (08:57→17:54)
[2020-05-30] MEDS: LISINOPRIL 20 MG TABLET PO SCH (08:57)
[2020-05-30] MEDS: VALPROATE ACID 250 MG/5 ML ORAL SOLUTION PO SCH ×2 (08:58→21:06)
--- NOTE | 2020-05-30 09:55 | NUR ---
Patient is calm and complaint with medications and assessment.
[2020-05-30 15:59] VITALS: BP 158/99
[2020-05-30] MEDS: ARIPiprazole 10 MG TABLET PO SCH (21:05)
[2020-05-30] MEDS: rOPINIRole 1 MG TABLET. PO SCH (21:06)
--- NOTE | 2020-05-30 22:12 | PDOC ---
Exam Note: Keith Note: Please also refer to the separate dictated note~for this date of service dictated separately.~Patient seen individually. Discussed the patient with Nursing staff reviewed the chart.~Reviewed interim history and current functioning. Reviewed vital signs,~Labs/ Radiology~and current medications noted below. Continue current treatment with the changes noted in the dictated addendum note Assessment: Vital Signs/I&O: Vital Signs Date Time Temp Pulse Resp B/P (MAP) Pulse Ox O2 Delivery O2 Flow Rate FiO2 05/30/20 15:59 97.6 92 18 158/99 (118) 93 05/29/20 15:54 Room Air I & O 05/29/20 05/29/20 05/30/20 15:00 23:00 07:00 Intake Total 720 ml 1460 ml Balance 720 ml 1460 ml Current Medications: I have reviewed the current psychotropics carefully including drug interactions. Risk benefit ratio favors no change other than as noted in my dictated progress note. Diagnosis: Problems: (1) Bipolar affective disorder, mixed (2) Bipolar affective, mixed, sev w/ psych (3) Impulse control disorder (4) Anxiety disorder (5) Schizoaffective disorder, chronic condition with acute exacerbation JONA ANN MD May 30, 2020 22:12
--- NOTE | 2020-05-30 23:59 | NUR ---
Patient is in the day room on assumption of care, watching a movie with her peers at an appropriate distance. She is in pleasant spirits for the most part. Attention seeking and anxious. Came to the both nurses stations numerous times with concerns that she wanted to talk about, then talked in circles and was difficult to redirect. No agitation. She has not voiced any delusions or hallucinations so far this shift. Denies any pain or discomfort. She appears to be sleeping comfortably at present time. Will continue to monitor.
[2020-05-31 06:00] VITALS: BP 165/80
--- NOTE | 2020-05-31 06:47 | PDOC ---
Exam Note: Keith Note: This note is a late entry for 05/29/2020 covers elements not covered in my initial note. Subjective: The patient was seen face to face in the evening of 05/29/2020 with Anoop BARBOSA. Discussed with nursing staff, reviewed the chart. The patient slept 7 hours previous night. Overall the patient remains somewhat anxious, restless. He is very fixated on wanting to get off the Depakote since she feels it causes hair loss. I addressed this with her. Review of Systems: Ambulation impaired with walker. No CV, , pulmonary, eye system symptoms on review. Mental Status Exam: Reasonably oriented. Speech is somewhat hyperverbal. Abstraction is fair. Computation is impaired. Language function intact. Attention span is short. Mood and affect remains somewhat grandiose, labile. No suicidal or homicidal ideation. Laboratory Data: Reviewed. Impression: Schizoaffective disorder bipolar type, mixed with psychotic features with acute exacerbation. Anxiety disorder unspecified. Plan: No change from initial note. I had a very lengthy discussion with the patient about her psychotropics and the changes we are making. We will taper and stop the Abilify. Once this is done we will reduce the Depakote 1000 mg b.i.d. down to 500 mg b.i.d. for 3 days and then stop it. We make consider changing Risperdal to Prolixin that she has done well on in the past. Maintain rest of the psychotropics including Wellbutrin XL 150 mg a day, Zyprexa p.r.n., Risperdal 1 mg b.i.d., and trazodone 100 mg h.s. p.r.n. May repeat x1. Assessment: Vital Signs/I&O: Vital Signs Date Time Temp Pulse Resp B/P (MAP) Pulse Ox O2 Delivery O2 Flow Rate FiO2 05/31/20 06:00 98.1 77 20 165/80 (108) 95 Room Air I & O 05/30/20 05/30/20 05/31/20 14:59 22:59 06:59 Intake Total 840 ml 440 ml Balance 840 ml 440 ml Current Medications: I have reviewed the current psychotropics carefully including drug interactions. Risk benefit ratio favors no change other than as noted in my dictated progress note. Diagnosis: Problems: (1) Schizophrenia, schizo-affective type (2) Anxiety disorder (3) Bipolar affective disorder, mixed (4) Bipolar affective, mixed, sev w/ psych (5) Impulse control disorder (6) Schizoaffective disorder, chronic condition with acute exacerbation JONA ANN MD May 31, 2020 06:47
[2020-05-31] MEDS: POLYETHYLENE GLYCOL 3350 17 GM PACKET. PO SCH (08:15)
[2020-05-31] MEDS: PANTOPRAZOLE 40 MG TABLET. PO SCH (08:16)
[2020-05-31] MEDS: CEFDINIR 300 MG CAPSULE PO SCH ×2 (08:16→20:31)
[2020-05-31] MEDS: risperiDONE 0.5 MG TABLET. PO SCH ×2 (08:16→20:32)
[2020-05-31] MEDS: buPROPion XL 150 MG TAB.ER.24H PO SCH (08:16)
[2020-05-31] MEDS: LACTOBACILLUS RHAMNOSUS GG 1 CAPSULE. PO SCH ×2 (08:16→20:32)
[2020-05-31] MEDS: NAPROXEN 500 MG TABLET PO SCH ×2 (08:16→16:33)
[2020-05-31] MEDS: GABAPENTIN 300 MG CAPSULE. PO SCH ×3 (08:17→20:28)
[2020-05-31] MEDS: LISINOPRIL 20 MG TABLET PO SCH (08:17)
[2020-05-31] MEDS: VALPROATE ACID 250 MG/5 ML ORAL SOLUTION PO SCH ×2 (09:00→20:31)
[2020-05-31 10:21] LABS: BASO % 1 % (0-3); EOS # 0.1 x10^3/uL (0.0-0.7); EOS % 2 % (0-3); HEMATOCRIT 39.6 % (36.0-47.0); HEMOGLOBIN 13.2 g/dL (12.0-15.5); LYMPH # 1.1 x10^3/uL (1.0-4.8); LYMPH % 39 % (24-48); MEAN CORPUSCULAR HEMOGLOBIN 32 pg (25-35); MEAN CORPUSCULAR HGB CONC 33 g/dL (31-37); MEAN CORPUSCULAR VOLUME 94 fL (79-100); MONO # 0.3 x10^3/uL (0.0-1.1); MONO % 11 % (0-9); NEUT # 1.3 x10^3uL (1.8-7.7); NEUT % 47 % (31-73); PLATELET COUNT 151 x10^3/uL (140-400); WHITE BLOOD COUNT 2.9 x10^3/uL (4.0-11.0)
[2020-05-31 10:37] LABS: ALBUMIN 3.8 g/dL (3.4-5.0); ALBUMIN/GLOBULIN RATIO 1.4 (1.0-1.7); CALCIUM 9.5 mg/dL (8.5-10.1); CREATININE 0.9 mg/dL (0.6-1.0); GFR 63.2; POTASSIUM 3.7 mmol/L (3.5-5.1); TOTAL BILIRUBIN 0.3 mg/dL (0.2-1.0); TOTAL PROTEIN 6.6 g/dL (6.4-8.2)
--- NOTE | 2020-05-31 13:12 | NUR ---
PATIENT IS CALM AND COOPERATIVE UPON ASSESSMENT AND MEDS ADMINISTRATION THIS AM. PATIENT HAS MULTIPLE C/O PAIN LOCATED IN HER SHOULDERS, ELBOWS, LEGS. PATIENT WAS EDUCATED ABOUT AM MEDICATIONS THAT INCLUDE PAIN MEDS . PATIENT HAVING NUMEROUS QUESTING ABOUT HER BM AND COLOR OF IT, ABOUT IRON SUPPLEMENTS AND VITAMINS. PATIENT STATED SHE HEAR VOICES TODAY TELLING HER THAT HER SON IS OVERDOSE AND SHE IS VERY CONCERN ABOUT IT. PATIENT VERBALIZED THAT SHE IS AWARE THAT THE VOICE IS NOT REAL BUT STILL WORRIES ABOUT HER SON. PATIENT WAS REORIENTED , ENCOURAGED TO PARTICIPATE IN A GROUP THERAPY. PATIENT REFUSED TO GO JOIN THE GROUP BECAUSE SHE NEED TO USE A BATHROOM.
--- NOTE | 2020-05-31 13:36 | NUR ---
RADHA attempted to contact pt leticia Haley or Diana from the [employer] office. The messaging system reports that they are working remotely from home and will check messages intermittently through the day. RADHA will also email pt guardian informing her that pt wanted to speak with her re: things that are very important. Once RADHA is able to get a returned call, RADHA can get pt on one of the patient lines and allow the phone call.
--- NOTE | 2020-05-31 15:30 | NUR ---
RADHA briefly met with pt who wanted to see about calling her facility. RADHA will plan to meet with pt tomorrow to do so. RADHA has attempted to contact Diana, the back up deputy for pt in the event the Public Utility [employer] is out. RADHA left a message and emailed her as no one is currently in the office, as they are working remotely.
[2020-05-31 16:09] VITALS: BP 164/89
[2020-05-31] MEDS: ARIPiprazole 10 MG TABLET PO SCH (20:28)
[2020-05-31] MEDS: rOPINIRole 1 MG TABLET. PO SCH (20:28)
[2020-05-31] MEDS: BENZTROPINE MESYLATE 0.5 MG TABLET PO SCH (21:14)
--- NOTE | 2020-05-31 22:13 | PDOC ---
Exam Note: Keith Note: Please also refer to the separate dictated note~for this date of service dictated separately.~Patient seen individually. Discussed the patient with Nursing staff reviewed the chart.~Reviewed interim history and current functioning. Reviewed vital signs,~Labs/ Radiology~and current medications noted below. Continue current treatment with the changes noted in the dictated addendum note Assessment: Vital Signs/I&O: Vital Signs Date Time Temp Pulse Resp B/P (MAP) Pulse Ox O2 Delivery O2 Flow Rate FiO2 05/31/20 16:09 98.1 87 18 164/89 (114) 96 05/31/20 06:00 Room Air I & O 05/30/20 05/30/20 05/31/20 15:00 23:00 07:00 Intake Total 840 ml 440 ml Balance 840 ml 440 ml Labs: Laboratory Tests Test 05/31/20 06:00 05/31/20 10:05 Coronavirus (PCR) Not detected (Not Detected) White Blood Count 2.9 x10^3/uL (4.0-11.0) L Red Blood Count 4.20 x10^6/uL (3.50-5.40) Hemoglobin 13.2 g/dL (12.0-15.5) Hematocrit 39.6 % (36.0-47.0) Mean Corpuscular Volume 94 fL (79-100) Mean Corpuscular Hemoglobin 32 pg (25-35) Mean Corpuscular Hemoglobin Concent 33 g/dL (31-37) Red Cell Distribution Width 12.0 % (11.5-14.5) Platelet Count 151 x10^3/uL (140-400) Neutrophils (%) (Auto) 47 % (31-73) Lymphocytes (%) (Auto) 39 % (24-48) Monocytes (%) (Auto) 11 % (0-9) H Eosinophils (%) (Auto) 2 % (0-3) Basophils (%) (Auto) 1 % (0-3) Neutrophils # (Auto) 1.3 x10^3uL (1.8-7.7) L Lymphocytes # (Auto) 1.1 x10^3/uL (1.0-4.8) Monocytes # (Auto) 0.3 x10^3/uL (0.0-1.1) Eosinophils # (Auto) 0.1 x10^3/uL (0.0-0.7) Basophils # (Auto) 0.0 x10^3/uL (0.0-0.2) Sodium Level 141 mmol/L (136-145) Potassium Level 3.7 mmol/L (3.5-5.1) Chloride Level 102 mmol/L (98-107) Carbon Dioxide Level 31 mmol/L (21-32) Anion Gap 8 (6-14) Blood Urea Nitrogen 11 mg/dL (7-20) Creatinine 0.9 mg/dL (0.6-1.0) Estimated GFR (Cockcroft-Gault) 63.2 BUN/Creatinine Ratio 12 (6-20) Glucose Level 103 mg/dL (70-99) H Calcium Level 9.5 mg/dL (8.5-10.1) Total Bilirubin 0.3 mg/dL (0.2-1.0) Aspartate Amino Transferase (AST) 19 U/L (15-37) Alanine Aminotransferase (ALT) 21 U/L (14-59) Alkaline Phosphatase 85 U/L (46-116) Total Protein 6.6 g/dL (6.4-8.2) Albumin 3.8 g/dL (3.4-5.0) Albumin/Globulin Ratio 1.4 (1.0-1.7) Current Medications: Meds: Current Medications Medications (Trade) Dose Ordered Sig/Jade Route PRN Reason Start Time Stop Time Status Last Admin Dose Admin Benztropine Mesylate (Cogentin) 0.5 mg HS PO 05/31/20 21:00 05/31/20 21:14 I have reviewed the current psychotropics carefully including drug interactions. Risk benefit ratio favors no change other than as noted in my dictated progress note. Diagnosis: Problems: (1) Paranoia (psychosis) (2) Anxiety disorder (3) Bipolar affective, mixed, sev w/ psych (4) Impulse control disorder (5) Schizoaffective disorder, chronic condition with acute exacerbation JONA ANN MD May 31, 2020 22:13
--- NOTE | 2020-05-31 23:08 | NUR ---
Nursing Note Pt complains of having multiple loose stools since getting antibiotics. Stool sample obtained and sent to the lab. Pt asking lots of questions regarding her medication. Talks at length about her meds being changed etc. Pt now back on her correct home meds from her report. Stated she is concerned about her smoking addiction and how wellbutrin has helped tremendously. She stated that she felt like her guardian is driving the dr to order meds to make her sleep, which she argues she doesn't need. I did some education with her about how its a fine line between manic and sedated, being a trial and error process in some cases. Pt happy with this explanation now ready for HS.
[2020-06-01] MEDS: ACETAMINOPHEN 325 MG TABLET PO PRN ×2 (06:03→19:34)
[2020-06-01 06:12] VITALS: BP 165/81
--- NOTE | 2020-06-01 06:55 | PDOC ---
Exam Note: Keith Note: This note is a late entry for 05/30/2020 covers elements not covered in my initial note. Subjective: The patient was seen face to face in the evening of 05/30/2020 with Anoop BARBOSA. Discussed with nursing staff, reviewed the chart. The patient slept 4-3/4 hours previous night. Per nursing report the patient has been extremely attention seeking, does complain of random somatic symptoms, redirects when she is kept busy. She complained about hair falling out, wanting to stop the Depakote immediately. We had repeated lengthy discussion about how we were tapering stopping the Abilify and then the Depakote will be tapered and stopped. Review of Systems: Ambulation impaired with walker. No CV, , pulmonary, eye system symptoms on review. Mental Status Exam: Reasonably oriented. The patient had repeated obsessive questions about her Depakote and other psychotropics which I have addressed with her several times. We will continue to educate her. Speech is somewhat hyperverbal. Abstraction is fair. Computation is impaired. Language function intact. Attention span is short. Mood and affect remains somewhat grandiose, labile. No suicidal or homicidal ideation. Laboratory Data: Reviewed. Impression: Schizoaffective disorder bipolar type, mixed with psychotic features with acute exacerbation. Anxiety disorder unspecified. Plan: No change from initial note. Assessment: Vital Signs/I&O: Vital Signs Date Time Temp Pulse Resp B/P (MAP) Pulse Ox O2 Delivery O2 Flow Rate FiO2 06/01/20 06:12 98.4 80 18 165/81 (109) 96 05/31/20 06:00 Room Air I & O 05/31/20 05/31/20 06/01/20 15:00 23:00 07:00 Intake Total 840 ml 240 ml 240 ml Balance 840 ml 240 ml 240 ml Labs: Laboratory Tests Test 05/31/20 10:05 White Blood Count 2.9 x10^3/uL (4.0-11.0) L Red Blood Count 4.20 x10^6/uL (3.50-5.40) Hemoglobin 13.2 g/dL (12.0-15.5) Hematocrit 39.6 % (36.0-47.0) Mean Corpuscular Volume 94 fL (79-100) Mean Corpuscular Hemoglobin 32 pg (25-35) Mean Corpuscular Hemoglobin Concent 33 g/dL (31-37) Red Cell Distribution Width 12.0 % (11.5-14.5) Platelet Count 151 x10^3/uL (140-400) Neutrophils (%) (Auto) 47 % (31-73) Lymphocytes (%) (Auto) 39 % (24-48) Monocytes (%) (Auto) 11 % (0-9) H Eosinophils (%) (Auto) 2 % (0-3) Basophils (%) (Auto) 1 % (0-3) Neutrophils # (Auto) 1.3 x10^3uL (1.8-7.7) L Lymphocytes # (Auto) 1.1 x10^3/uL (1.0-4.8) Monocytes # (Auto) 0.3 x10^3/uL (0.0-1.1) Eosinophils # (Auto) 0.1 x10^3/uL (0.0-0.7) Basophils # (Auto) 0.0 x10^3/uL (0.0-0.2) Sodium Level 141 mmol/L (136-145) Potassium Level 3.7 mmol/L (3.5-5.1) Chloride Level 102 mmol/L (98-107) Carbon Dioxide Level 31 mmol/L (21-32) Anion Gap 8 (6-14) Blood Urea Nitrogen 11 mg/dL (7-20) Creatinine 0.9 mg/dL (0.6-1.0) Estimated GFR (Cockcroft-Gault) 63.2 BUN/Creatinine Ratio 12 (6-20) Glucose Level 103 mg/dL (70-99) H Calcium Level 9.5 mg/dL (8.5-10.1) Total Bilirubin 0.3 mg/dL (0.2-1.0) Aspartate Amino Transferase (AST) 19 U/L (15-37) Alanine Aminotransferase (ALT) 21 U/L (14-59) Alkaline Phosphatase 85 U/L (46-116) Total Protein 6.6 g/dL (6.4-8.2) Albumin 3.8 g/dL (3.4-5.0) Albumin/Globulin Ratio 1.4 (1.0-1.7) Current Medications: Meds: Current Medications Medications (Trade) Dose Ordered Sig/Jade Route PRN Reason Start Time Stop Time Status Last Admin Dose Admin Benztropine Mesylate (Cogentin) 0.5 mg HS PO 05/31/20 21:00 05/31/20 21:14 I have reviewed the current psychotropics carefully including drug interactions. Risk benefit ratio favors no change other than as noted in my dictated progress note. Diagnosis: Problems: (1) Schizophrenia, schizo-affective type (2) Anxiety disorder (3) Impulse control disorder (4) Schizoaffective disorder, chronic condition with acute exacerbation (5) Bipolar affective, mixed, sev w/ psych JONA ANN MD Jun 01, 2020 06:55
--- NOTE | 2020-06-01 07:19 | PDOC ---
Exam Note: Keith Note: This note is a late entry for 05/31/2020 covers elements not covered in my initial note. Subjective: The patient was seen face to face in the evening of 05/31/2020 with Nadege BARBOSA. Discussed with nursing staff, reviewed the chart. The patient slept 4-1/2 hours previous night. The patient remains hyperverbal, somewhat attention seeking, described by nursing staff as a busy lady. She states she has been hearing voices that tell her there is something wrong with her son. He is in an accident. She remains somewhat delusional. She does complain of some stiffne ss, states she did well on Cogentin in the past. We will restart 0.5 mg p.o. h.s. Review of Systems: Ambulation impaired with walker. No CV, , pulmonary, eye system symptoms on review. Mental Status Exam: Reasonably oriented. Speech is coherent, rapid at times. Abstraction is fair. Computation is impaired. Language function intact. Attention span is short. Mood and affect remains somewhat grandiose, labile. No suicidal or homicidal ideation. Laboratory Data: Reviewed. Impression: Schizoaffective disorder bipolar type, mixed with psychotic features with acute exacerbation. Anxiety disorder unspecified. Plan: No change from initial note but we will start the Cogentin as noted. Assessment: Vital Signs/I&O: Vital Signs Date Time Temp Pulse Resp B/P (MAP) Pulse Ox O2 Delivery O2 Flow Rate FiO2 06/01/20 06:12 98.4 80 18 165/81 (109) 96 05/31/20 06:00 Room Air I & O 05/31/20 05/31/20 06/01/20 15:00 23:00 07:00 Intake Total 840 ml 240 ml 240 ml Balance 840 ml 240 ml 240 ml Labs: Laboratory Tests Test 05/31/20 10:05 White Blood Count 2.9 x10^3/uL (4.0-11.0) L Red Blood Count 4.20 x10^6/uL (3.50-5.40) Hemoglobin 13.2 g/dL (12.0-15.5) Hematocrit 39.6 % (36.0-47.0) Mean Corpuscular Volume 94 fL (79-100) Mean Corpuscular Hemoglobin 32 pg (25-35) Mean Corpuscular Hemoglobin Concent 33 g/dL (31-37) Red Cell Distribution Width 12.0 % (11.5-14.5) Platelet Count 151 x10^3/uL (140-400) Neutrophils (%) (Auto) 47 % (31-73) Lymphocytes (%) (Auto) 39 % (24-48) Monocytes (%) (Auto) 11 % (0-9) H Eosinophils (%) (Auto) 2 % (0-3) Basophils (%) (Auto) 1 % (0-3) Neutrophils # (Auto) 1.3 x10^3uL (1.8-7.7) L Lymphocytes # (Auto) 1.1 x10^3/uL (1.0-4.8) Monocytes # (Auto) 0.3 x10^3/uL (0.0-1.1) Eosinophils # (Auto) 0.1 x10^3/uL (0.0-0.7) Basophils # (Auto) 0.0 x10^3/uL (0.0-0.2) Sodium Level 141 mmol/L (136-145) Potassium Level 3.7 mmol/L (3.5-5.1) Chloride Level 102 mmol/L (98-107) Carbon Dioxide Level 31 mmol/L (21-32) Anion Gap 8 (6-14) Blood Urea Nitrogen 11 mg/dL (7-20) Creatinine 0.9 mg/dL (0.6-1.0) Estimated GFR (Cockcroft-Gault) 63.2 BUN/Creatinine Ratio 12 (6-20) Glucose Level 103 mg/dL (70-99) H Calcium Level 9.5 mg/dL (8.5-10.1) Total Bilirubin 0.3 mg/dL (0.2-1.0) Aspartate Amino Transferase (AST) 19 U/L (15-37) Alanine Aminotransferase (ALT) 21 U/L (14-59) Alkaline Phosphatase 85 U/L (46-116) Total Protein 6.6 g/dL (6.4-8.2) Albumin 3.8 g/dL (3.4-5.0) Albumin/Globulin Ratio 1.4 (1.0-1.7) Current Medications: Meds: Current Medications Medications (Trade) Dose Ordered Sig/Jade Route PRN Reason Start Time Stop Time Status Last Admin Dose Admin Benztropine Mesylate (Cogentin) 0.5 mg HS PO 05/31/20 21:00 05/31/20 21:14 I have reviewed the current psychotropics carefully including drug interactions. Risk benefit ratio favors no change other than as noted in my dictated progress note. Diagnosis: Problems: (1) Anxiety disorder (2) Bipolar affective disorder, mixed (3) Bipolar affective, mixed, sev w/ psych (4) Impulse control disorder (5) Schizoaffective disorder, chronic condition with acute exacerbation JONA ANN MD Jun 01, 2020 07:19
[2020-06-01] MEDS: GABAPENTIN 300 MG CAPSULE. PO SCH ×3 (08:19→19:33)
[2020-06-01] MEDS: buPROPion XL 150 MG TAB.ER.24H PO SCH (08:20)
[2020-06-01] MEDS: VALPROATE ACID 250 MG/5 ML ORAL SOLUTION PO SCH ×2 (08:20→19:32)
[2020-06-01] MEDS: CEFDINIR 300 MG CAPSULE PO SCH ×2 (08:20→19:33)
[2020-06-01] MEDS: risperiDONE 0.5 MG TABLET. PO SCH ×2 (08:21→19:33)
[2020-06-01] MEDS: LACTOBACILLUS RHAMNOSUS GG 1 CAPSULE. PO SCH ×2 (08:21→19:33)
[2020-06-01] MEDS: NAPROXEN 500 MG TABLET PO SCH ×2 (08:22→16:39)
[2020-06-01] MEDS: LISINOPRIL 20 MG TABLET PO SCH (08:22)
[2020-06-01] MEDS: PANTOPRAZOLE 40 MG TABLET. PO SCH (08:23)
[2020-06-01] MEDS: POLYETHYLENE GLYCOL 3350 17 GM PACKET. PO SCH (09:00)
--- NOTE | 2020-06-01 11:38 | NUR ---
Patient alert and oriented sitting eating breakfast upon entering room. Patient with no complaints or concerns at this time. Patient cooperative and calm. Takes meds fine. No further problems or concerns at this time.
--- NOTE | 2020-06-01 13:53 | NUR ---
Spoke to Stormy at [facility] with update on patient. She called for status. Let her know that we were tapering Depakane to 500mg TID for 3 days then d/c and that Abilify was stopped and Wellbutrin restarted. Also notified her that she had E Coli in urine culture and she is ABX now X 3 days. The ABX has caused some diarrhea watery and discolored with odor so it was sent out for C-Diff testing. Patient plan to be discharged once stable which would be at least 4-5 ore days because her Depakane won't be stopped for 3. She had no further questions and will call with any additional concerns.
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
[2020-06-01 16:15] VITALS: BP 138/85
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
[2020-06-01] MEDS: BENZTROPINE MESYLATE 0.5 MG TABLET PO SCH (19:33)
[2020-06-01] MEDS: rOPINIRole 1 MG TABLET. PO SCH (19:33)
--- NOTE | 2020-06-01 22:02 | PDOC ---
Exam Note: Keith Note: Please also refer to the separate dictated note~for this date of service dictated separately.~Patient seen individually. Discussed the patient with Nursing staff reviewed the chart.~Reviewed interim history and current functioning. Reviewed vital signs,~Labs/ Radiology~and current medications noted below. Continue current treatment with the changes noted in the dictated addendum note Assessment: Vital Signs/I&O: Vital Signs Date Time Temp Pulse Resp B/P (MAP) Pulse Ox O2 Delivery O2 Flow Rate FiO2 06/01/20 16:15 98.2 85 16 138/85 (102) 97 Room Air I & O 05/31/20 05/31/20 06/01/20 15:00 23:00 07:00 Intake Total 840 ml 240 ml 240 ml Balance 840 ml 240 ml 240 ml Current Medications: Meds: Current Medications Medications (Trade) Dose Ordered Sig/Jade Route PRN Reason Start Time Stop Time Status Last Admin Dose Admin Valproic Acid (Depakene) 500 mg BID PO 06/01/20 09:00 06/03/20 08:59 06/01/20 19:32 I have reviewed the current psychotropics carefully including drug interactions. Risk benefit ratio favors no change other than as noted in my dictated progress note. Diagnosis: Problems: (1) Anxiety disorder (2) Bipolar affective disorder, mixed (3) Bipolar affective, mixed, sev w/ psych (4) Impulse control disorder (5) Schizoaffective disorder, chronic condition with acute exacerbation JONA ANN MD Jun 01, 2020 22:02
--- NOTE | 2020-06-02 02:41 | NUR ---
Last evening pt walked or sat in the jimenez. PRN tylenol give HS for complaint of headache. Meds were taken whole after some discussion and identification. No hallucinations reported and no behaviors tonight.
[2020-06-02 05:36] VITALS: BP 161/77
[2020-06-02] MEDS: POLYETHYLENE GLYCOL 3350 17 GM PACKET. PO SCH (07:46)
--- NOTE | 2020-06-02 07:52 | NUR ---
Patient reports headache in the front of her head. She has consistently had headaches most mornings that she is rating 8/10 for pain. Patient takes scheduled Naproxen BID and has also been taking PRN tylenol and is getting no relief. Dr Paula paged and order received for Head CT without contrast.
[2020-06-02] MEDS: VALPROATE ACID 250 MG/5 ML ORAL SOLUTION PO SCH ×2 (07:53→19:45)
[2020-06-02] MEDS: PANTOPRAZOLE 40 MG TABLET. PO SCH (07:54)
[2020-06-02] MEDS: NAPROXEN 500 MG TABLET PO SCH ×2 (07:54→17:23)
[2020-06-02] MEDS: LISINOPRIL 20 MG TABLET PO SCH (07:55)
[2020-06-02] MEDS: CEFDINIR 300 MG CAPSULE PO SCH ×2 (07:55→19:45)
[2020-06-02] MEDS: risperiDONE 0.5 MG TABLET. PO SCH ×2 (07:55→19:45)
[2020-06-02] MEDS: buPROPion XL 150 MG TAB.ER.24H PO SCH (07:55)
[2020-06-02] MEDS: GABAPENTIN 300 MG CAPSULE. PO SCH ×3 (07:55→19:45)
[2020-06-02] MEDS: LACTOBACILLUS RHAMNOSUS GG 1 CAPSULE. PO SCH ×2 (09:00→19:45)
--- NOTE | 2020-06-02 09:07 | NUR ---
Patient alert and oriented with complaints of headache today. She will have a CT scan to r/o any abnormalities since this has been occurring daily and doesn't seem to get any better with any measures we take. Patient was in bathroom when I arrived to room. Patient talked about medications today and what they were being given for. No further concerns at this time.
--- NOTE | 2020-06-02 09:11 | RAD ---
Examination: CT HEAD WO CONTRAST History: Reason: frequent daily headaches / Comparison/Correlation: None Findings: Axial images of the head were obtained without contrast. Atrophy is present. Mild chronic ischemic changes are noted. No midline shift or mass effect. Ventricles are normal size. 0.5 cm diameter right frontal deep white matter low-attenuation lesion which may represent old lacunar infarct is present. Basilar artery is hyperdense. Impression: Low-attenuation lesion involving the right deep white matter which probably represents old lacunar infarct is noted. Hyperdensity of the basilar artery is noted. Consider further imaging with CTA of the head and neck or MRI brain without and with contrast especially if there are concerns for infarct or TIA. PQRS Compliance Statement: One or more of the following individualized dose reduction techniques were utilized for this examination: 1. Automated exposure control 2. Adjustment of the mA and/or kV according to patient size 3. Use of iterative reconstruction technique Electronically signed by: Nba Renee MD (06/02/2020 9:08 AM) [id number]
[2020-06-02] MEDS ORDERED: MICONAZOLE NITRATE 2% TOPICAL CREAM 28GM TUBE. TP PRN (11:45)
--- NOTE | 2020-06-02 15:01 | NUR ---
Spoke with Dr Paula regarding Head CT results. Dr Paula would like Dr Ferreira consulted regarding Head CT results. Order placed and Dr Ferreira paged.
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
[2020-06-02 16:28] VITALS: BP 150/92
[2020-06-02] MEDS ORDERED: IOHEXOL 350 MG/ML 100 ML VIAL. IV ONE (18:30)
[2020-06-02] MEDS: BENZTROPINE MESYLATE 0.5 MG TABLET PO SCH (19:45)
[2020-06-02] MEDS: rOPINIRole 1 MG TABLET. PO SCH (19:45)
[2020-06-02] MEDS: traZODone 100 MG TABLET. PO PRN (20:59)
[2020-06-02] MEDS: ACETAMINOPHEN 325 MG TABLET PO PRN (20:59)
--- NOTE | 2020-06-02 21:30 | NUR ---
Nursing Note: Pt walking in hallway at shift change. Pt alert and interactive but anxious about CTA results. I offered pt reassurance and informed her that once we have the results, she will be updated. Pt continues to have c/o TIM, PRN Tylenol administered at HS along with PRN Trazodone. Pt cooperative with assessment and medications administered whole. Pt reports that she has had several loose stools today but these have not been witnessed.
--- NOTE | 2020-06-02 22:14 | PDOC ---
Exam Note: Keith Note: Please also refer to the separate dictated note~for this date of service dictated separately.~Patient seen individually. Discussed the patient with Nursing staff reviewed the chart.~Reviewed interim history and current functioning. Reviewed vital signs,~Labs/ Radiology~and current medications noted below. Continue current treatment with the changes noted in the dictated addendum note Assessment: Vital Signs/I&O: Vital Signs Date Time Temp Pulse Resp B/P (MAP) Pulse Ox O2 Delivery O2 Flow Rate FiO2 06/02/20 16:28 98.5 86 18 150/92 (111) 95 06/01/20 16:15 Room Air I & O 06/01/20 06/01/20 06/02/20 14:59 22:59 06:59 Intake Total 960 ml 480 ml 240 ml Balance 960 ml 480 ml 240 ml Current Medications: Meds: Current Medications Medications (Trade) Dose Ordered Sig/Jade Route PRN Reason Start Time Stop Time Status Last Admin Dose Admin Iohexol (Omnipaque 350 Mg/ml) 100 ml 1X ONCE IV 06/02/20 18:30 06/02/20 18:31 DC 06/02/20 18:49 I have reviewed the current psychotropics carefully including drug interactions. Risk benefit ratio favors no change other than as noted in my dictated progress note. Diagnosis: Problems: (1) Schizophrenia, schizo-affective type (2) Anxiety disorder (3) Bipolar affective, mixed, sev w/ psych (4) Impulse control disorder (5) Schizoaffective disorder, chronic condition with acute exacerbation JONA ANN MD Jun 02, 2020 22:14
--- NOTE | 2020-06-02 22:44 | RAD ---
STUDY: CT angiography of the head and neck INDICATION: Frequent daily headaches. COMPARISON: CT head without contrast 05/25/2020 TECHNIQUE: Axial CT imaging of the head and neck utilizing angiography protocol and performed after the intravenous administration of 99 cc Omnipaque 350 contrast. Multiplanar reformats and 3D MIP acquisitions were obtained. Encountered areas of stenosis are measured per NASCET criteria. One or more of the following individualized dose reduction techniques were utilized for this examination: 1. Automated exposure control 2. Adjustment of the mA and/or kV according to patient size 3. Use of iterative reconstruction technique. FINDINGS: CTA NECK: Arch/Proximal Great Vessels: Scattered calcified and noncalcified atheromatous plaque. No aneurysmal dilatation or dissection of the visualized aorta. Variant great vessel anatomy with an aberrant right subclavian artery coursing posterior to the esophagus. Common origin of the carotid arteries. The great vessel origins are patent. No stenosis or dissection of the subclavian or common carotid arteries. Carotid Bifurcation/Cervical ICA: No stenosis or dissection. Vertebral Arteries: The right vertebral artery arises from the right common carotid artery. No evidence for stenosis at its origin noting streak artifact from the contrast bolus. The left vertebral artery origin is patent. The left vertebral artery is dominant. No stenosis or dissection seen throughout the neck. CTA HEAD: Posterior Circulation: The intracranial vertebral arteries are patent with left-sided dominance. Patent basilar artery. No flow-limiting stenosis or branch vessel occlusion of the posterior cerebral arteries. Anterior Circulation: Motion through the carotid siphons. No stenosis is identified. No branch vessel occlusion or flow-limiting stenosis of the middle cerebral arteries. Smaller caliber of the right A1 anterior cerebral artery relative to the left with a patent anterior communicating artery. No stenosis or occlusion distal to A1. Veins: Patent. MISCELLANEOUS: Mild emphysema. Right upper lobe granuloma. The central pulmonary arteries are somewhat prominent in transverse dimension. Pretracheal focus on image 12 series 3 measures soft tissue density suspicious for an enlarged lymph node measuring up to 2.2 cm short axis. Several thyroid nodules but measuring a centimeter or less and not meeting size criteria for dedicated follow-up. Advanced multifactorial cervical spine degenerative changes with at least moderate osseous neural foraminal encroachment at several levels and potentially moderate central canal stenosis though not well evaluated by technique. Heterogeneous osseous attenuation but no destructive lesion is identified. IMPRESSION: CT Angio Neck: 1. No flow-limiting stenosis or dissection throughout the extracranial carotid or vertebral arteries. 2. Variant anatomy to include an aberrant subclavian artery as discussed in the body the report. 3. Enlarged pretracheal lymph node measuring up to 2.2 cm short axis. No comparison studies are available to determine stability. Eventual dedicated CT of the chest is needed to evaluate for any additional prominent lymph nodes and further assess the lungs. 4. Additional chronic observations detailed in the body the report. CT Angio Head: 1. No branch vessel occlusion, flow-limiting stenosis or aneurysm throughout the anterior or posterior cerebral circulations. The reported dense basilar artery on the same day unenhanced CT was artifactual. If there is ongoing concern for an ischemic event consider MRI. Electronically signed by: BRET BURKETT MD (06/02/2020 10:41 PM) [id number]
[2020-06-03 05:37] VITALS: BP 138/71
--- NOTE | 2020-06-03 06:28 | PDOC ---
Exam Note: Keith Note: This note is a late entry for 06/01/2020 covers elements not covered in my initial note. Subjective: The patient was seen face to face in the evening of 06/01/2020 with Chely BARBOSA. Discussed with nursing staff, reviewed the chart. The patient slept 5 hours previous night. Her C. difficile is negative. Frequent bowel movements are better and she remains on Cefdinir for UTI. COVID repeat is negative, somewhat anxious, restless, convinced she needs to get off Depakote because of hair loss. I had a lengthy discussion educating her on all of this. We are tapering her Depakote but we may have to use an alternate mood stabilizer depending on how she does. Review of Systems: Ambulation impaired with walker. No CV, , pulmonary, eye system symptoms on review. Mental Status Exam: Reasonably oriented. She remains somewhat hyperverbal, anxious, repetitive, followed me around the unit. I met with her on 3 different occasions on rounds. Speech is coherent, rapid at times. Abstraction is fair. Computation is impaired. Language function intact. Attention span is short. Mood and affect remains somewhat grandiose, labile. No suicidal or homicidal ideation. Laboratory Data: Reviewed. Impression: Schizoaffective disorder bipolar type, mixed with psychotic features with acute exacerbation. Anxiety disorder unspecified. Plan: Depakote is being tapered to be stopped. Rest unchanged for now. Assessment: Vital Signs/I&O: Vital Signs Date Time Temp Pulse Resp B/P (MAP) Pulse Ox O2 Delivery O2 Flow Rate FiO2 06/03/20 05:37 97.6 67 20 138/71 (93) 94 Room Air I & O 06/02/20 06/02/20 06/03/20 15:00 23:00 07:00 Intake Total 800 ml 600 ml Balance 800 ml 600 ml Current Medications: Meds: Current Medications Medications (Trade) Dose Ordered Sig/Jade Route PRN Reason Start Time Stop Time Status Last Admin Dose Admin Iohexol (Omnipaque 350 Mg/ml) 100 ml 1X ONCE IV 06/02/20 18:30 06/02/20 18:31 DC 06/02/20 18:49 I have reviewed the current psychotropics carefully including drug interactions. Risk benefit ratio favors no change other than as noted in my dictated progress note. Diagnosis: Problems: (1) Bipolar affective disorder, mixed (2) Anxiety disorder (3) Bipolar affective, mixed, sev w/ psych (4) Impulse control disorder (5) Schizoaffective disorder, chronic condition with acute exacerbation JONA ANN MD Jun 03, 2020 06:28
--- NOTE | 2020-06-03 06:56 | PDOC ---
Exam Note: Keith Note: This note is a late entry for 06/02/2020 covers elements not covered in my initial note. Subjective: The patient was seen face to face in the evening of 06/02/2020 with Claribel BARBOSA. Discussed with nursing staff, reviewed the chart. The patient slept 4-1/2 hours previous night. The patient remains hyperverbal, anxious, obsessive today, somewhat manic per nursing report. At times she has had mood lability with crying spells, paranoid. CT head showed very small right-frontal lacunar infarct and thickening of the basilar artery. We will consult Dr. Ferreira on this. Review of Systems: Ambulation impaired with walker. No CV, , pulmonary, eye system symptoms on review. Mental Status Exam: Reasonably oriented. The patient has been extremely hyperverbal, anxious, repetitive as I met with her at length in the evening. Speech is coherent, rapid at times. Abstraction is fair. Computation is impaired. Language function intact. Attention span is short. Mood and affect remains somewhat grandiose, labile. No suicidal or homicidal ideation. Laboratory Data: Reviewed. Impression: Schizoaffective disorder bipolar type, mixed with psychotic features with acute exacerbation. Anxiety disorder unspecified. Plan: The patient does seem to need a mood stabilizer. Her creatinine is 1.2, lithium is probably not the optimal choice and she refuses Depakote. She is also not wanting frequent lab draws. We will avoid Tegretol and start her on Trileptal 300 mg a day for 3 days and 300 mg twice a day. Continue rest unchanged. Assessment: Vital Signs/I&O: Vital Signs Date Time Temp Pulse Resp B/P (MAP) Pulse Ox O2 Delivery O2 Flow Rate FiO2 06/03/20 05:37 97.6 67 20 138/71 (93) 94 Room Air I & O 06/02/20 06/02/20 06/03/20 15:00 23:00 07:00 Intake Total 800 ml 600 ml Balance 800 ml 600 ml Current Medications: Meds: Current Medications Medications (Trade) Dose Ordered Sig/Jade Route PRN Reason Start Time Stop Time Status Last Admin Dose Admin Iohexol (Omnipaque 350 Mg/ml) 100 ml 1X ONCE IV 06/02/20 18:30 06/02/20 18:31 DC 06/02/20 18:49 I have reviewed the current psychotropics carefully including drug interactions. Risk benefit ratio favors no change other than as noted in my dictated progress note. Diagnosis: Problems: (1) Anxiety disorder (2) Cannabis abuse (3) Bipolar affective, mixed, sev w/ psych (4) Impulse control disorder (5) Schizoaffective disorder, chronic condition with acute exacerbation JONA ANN MD Jun 03, 2020 06:56
--- NOTE | 2020-06-03 09:09 | CONS ---
DATE OF CONSULTATION: 06/02/2020 NEUROLOGY CONSULTATION REFERRING PHYSICIAN: Dr. Paula. REASON FOR CONSULTATION: Abnormal head CT scan. HISTORY OF PRESENT ILLNESS: This is a 65-year-old right-handed female, who was admitted to [facility] on 05/26/2020 on account of exacerbation of her schizoaffective and bipolar symptoms. Neuro consult was requested because of abnormal head CT scan. The patient complains of numbness and paresthesia of the upper and lower extremities, neck pain and low back pain, frequent falls, but she denies headaches, chest pain, shortness of breath or palpitation, dysarthria, dysphagia, or dizziness. PAST MEDICAL HISTORY: Significant for schizoaffective disorders, bipolar disorders, symptoms consistent with peripheral neuropathy in the lower extremities, frequent falls, hypertension, COPD and renal failure. SOCIAL HISTORY: The patient is a resident of [facility]. She denies smoking, alcohol drinking, or illicit drug use. CURRENT MEDICATIONS: Trileptal 300 mg b.i.d. and ____, valproic acid 500 mg b.i.d., Cogentin 0.5 mg at bedtime, Omnicef 300 mg b.i.d., ropinirole 1 mg at bedtime for possible restless leg syndrome, Wellbutrin-XL 150 mg daily, naproxen 500 mg b.i.d., gabapentin 600 mg t.i.d., olanzapine 2.5 mg every 2 hours p.r.n. for anxiety and psychosis, lisinopril 40 mg p.o. daily, diltiazem 240 mg p.o. daily, risperidone 1 mg b.i.d., trazodone 100 mg at bedtime p.r.n. for insomnia, nicotine gum 2 mg p.r.n., and Tylenol p.r.n. ALLERGIES: CHOCOLATE FLAVOR, CODEINE, and HALOPERIDOL, ____. REVIEW OF SYSTEMS: A 12-point review of system was performed as mentioned above in history of present illness. PHYSICAL EXAMINATION: GENERAL: Well-developed, well-nourished female, not in acute distress. She weighs 78.4 kilos. VITAL SIGNS: Blood pressure 150/92, respiratory rate 18, pulse is 86 and regular, temperature 98.5, oxygen saturation 95% on room air. HEENT: Normocephalic, atraumatic, otherwise unremarkable. NECK: Supple. Negative for carotid bruit, lymphadenopathy or thyromegaly. LUNGS: Clear to A and P. CARDIOVASCULAR: Regular rate and rhythm, normal S1, S2. There is no S3, S4 or murmurs. ABDOMEN: Soft. Bowel sounds positive. EXTREMITIES: Negative for cyanosis, clubbing or pitting edema. NEUROLOGICAL EXAM: Mental Status: The patient is alert and oriented x 3. The speech is fluent. There is no language dysfunction. Memory, judgment, and abstracting thinking are fair. The patient denies hallucination or delusion. CRANIAL NERVES: Visual valente are full. The pupils are reactive to light and accommodation. The extraocular movements are intact. There is no nystagmus. There are no facial motor or sensory deficits. Hearing is intact bilaterally. The palate is elevated symmetrically. Sternocleidomastoid muscles are powerful bilaterally. The patient shrugs her shoulders symmetrically, protrudes her tongue in the midline without fasciculation or atrophy. MOTOR: No focal muscle bulk was seen. The tone is normal. The strength is 4/5 throughout. SENSORY EXAMINATION: Revealed diminished pinprick and light touch senses in patchy distributions in distal lower extremities. Deep tendon reflexes were asymmetric and active with hyporeflexia at the Achilles responses. Gait and coordination are normal. LABORATORY DATA: From 05/31/2020 revealed white blood cells of 2.9 thousand, hemoglobin 13.2, hematocrit 39.6, platelet count 151,000. Chemistry revealed sodium of 141, potassium 3.7, chloride 102, CO2 of 31, BUN 11, creatinine 0.9, glucose 103, calcium 9.5. Liver enzymes are normal. Urinalysis negative for urinary tract infections. Coronavirus PCR is not detected. DIAGNOSTIC DATA: The head CT scan performed on 06/02/2020 revealed an old lacunar infarct confined to the ____ frontal deep white matter and hyperdensity of the basilar artery. IMPRESSION: 1. Abnormal head CT scan consistent with ____ frontal deep white matter lacunar infarct without significant neurological residual and hyperdensity of the basilar artery. 2. Multiple medical problems include hypertension, chronic obstructive pulmonary disease, asthma, history of renal failure, hyperlipidemia and peripheral neuropathy in the lower extremities. 3. Multiple mental problems include schizoaffective disorders with intermittent psychotic features, bipolar disorders, and anxiety disorders. RECOMMENDATIONS: 1. We will obtain a CT angio of the neck and head. 2. Continue with current medical and psychiatric care. M Zaheer FISHER MD DR: PANCHO/papo JOB#: [id number] / [id number]
[2020-06-03] MEDS: POLYETHYLENE GLYCOL 3350 17 GM PACKET. PO SCH (09:40)
[2020-06-03] MEDS: CEFDINIR 300 MG CAPSULE PO SCH ×2 (09:50→20:49)
[2020-06-03] MEDS: PANTOPRAZOLE 40 MG TABLET. PO SCH (09:50)
[2020-06-03] MEDS: GABAPENTIN 300 MG CAPSULE. PO SCH ×3 (09:50→20:49)
[2020-06-03] MEDS: LACTOBACILLUS RHAMNOSUS GG 1 CAPSULE. PO SCH ×2 (09:51→20:49)
[2020-06-03] MEDS: buPROPion XL 150 MG TAB.ER.24H PO SCH (09:51)
[2020-06-03] MEDS: NAPROXEN 500 MG TABLET PO SCH ×2 (09:51→17:54)
[2020-06-03] MEDS: risperiDONE 0.5 MG TABLET. PO SCH ×2 (09:52→20:49)
[2020-06-03] MEDS: LISINOPRIL 20 MG TABLET PO SCH (09:52)
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
[2020-06-03] MEDS: ACETAMINOPHEN 325 MG TABLET PO PRN ×2 (12:32→20:50)
--- NOTE | 2020-06-03 13:11 | NUR ---
WEEKLY ACTIVITY THERAPY NOTE Date of Admission: 05/26 Date of AT Assessment: 05/28 Precipitating behaviors that initiated intake and admission: It was reported that patient was having visual hallucinations in which she was seeing her son on railroad tracks and then under a thompson that was burning. She was having "manic" behaviors, threatening to elope and throwing her belongings over a fence for God to pickling operator. She also had verbal aggression towards the staff of HC facility. She has also been pacing and tried to use a cane to break a window to get out of the building. Goal aimed: to increase leisure engagement Initial Goal: Pt. will participate in at least three Activity Therapy groups, fully, per week. Weekly progress towards goal: achieved Group participation level: 3 full, 2 mod, 1 min Weekly highlights: 2 full groups on Sunday- painting crafts/ windows in the morning Behaviors observed: in and out of group mainly, politely declines when invited due to stomach/bowel concerns, usually pleasant with staff and peers in group Plan: meet/ assess Pt. Beneficial adaptations:
--- NOTE | 2020-06-03 14:16 | NUR ---
Patient continues to report that she has diarrhea and cannot make it to the bathroom all of the time. Sample checked for C.Diff 05/31 and was found to be negative. She stated that she "cannot wake up to make it to the toilet during the night if she takes trazodone". Dr Paula has been made aware of this, as Trazodone is ordered PRN, no change to that order. New order received for PRN Melatonin from Dr Paula. Scheduled miralax has been held for the last three days and patient continues to report diarrhea. Received new order for PRN Imodium for diarrhea/loose stools from Dr Blank. Will continue to monitor.
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
[2020-06-03 15:59] VITALS: BP 117/79
[2020-06-03] MEDS: LOPERAMIDE 2 MG CAPSULE PO PRN ×2 (17:54→23:17)
--- NOTE | 2020-06-03 18:01 | NUR ---
Patient reports that she has had several bouts of diarrhea and/or loose stool after eating each meal. PRN Imodium provided for diarrhea per order. Will continue to monitor.
[2020-06-03] MEDS: BENZTROPINE MESYLATE 0.5 MG TABLET PO SCH (20:49)
[2020-06-03] MEDS: MELATONIN 3 MG TABLET PO PRN (20:49)
[2020-06-03] MEDS: rOPINIRole 1 MG TABLET. PO SCH (20:49)
--- NOTE | 2020-06-03 22:00 | PDOC ---
Exam Note: Keith Note: Please also refer to the separate dictated note~for this date of service dictated separately.~Patient seen individually. Discussed the patient with Nursing staff reviewed the chart.~Reviewed interim history and current functioning. Reviewed vital signs,~Labs/ Radiology~and current medications noted below. Continue current treatment with the changes noted in the dictated addendum note Assessment: Vital Signs/I&O: Vital Signs Date Time Temp Pulse Resp B/P (MAP) Pulse Ox O2 Delivery O2 Flow Rate FiO2 06/03/20 15:59 98.1 87 20 117/79 (92) 92 06/03/20 05:37 Room Air I & O 06/02/20 06/02/20 06/03/20 15:00 23:00 07:00 Intake Total 800 ml 600 ml Balance 800 ml 600 ml Current Medications: Meds: Current Medications Medications (Trade) Dose Ordered Sig/Jade Route PRN Reason Start Time Stop Time Status Last Admin Dose Admin Oxcarbazepine (Trileptal) 300 mg DAILY PO 06/03/20 09:00 06/05/20 09:01 06/03/20 09:50 Melatonin (Melatonin) 3 mg PRN QHS PRN PO INSOMNIA 06/03/20 14:45 06/03/20 20:49 Loperamide HCl (Imodium) 2 mg PRN Q6HRS PRN PO DIARRHEA 06/03/20 14:45 06/03/20 17:54 I have reviewed the current psychotropics carefully including drug interactions. Risk benefit ratio favors no change other than as noted in my dictated progress note. Diagnosis: Problems: (1) Schizoaffective disorder, chronic condition with acute exacerbation (2) Impulse control disorder (3) Bipolar affective, mixed, sev w/ psych (4) Bipolar affective disorder, mixed (5) Anxiety disorder JONA ANN MD Jun 03, 2020 22:00
--- NOTE | 2020-06-03 22:04 | NUR ---
Nursing Note: Pt sitting in hallway visiting with staff and a peer at shift change. Pt calm, social, and interactive, less anxious than previous night. Pt cooperative with assessment and compliant with medications administered whole. PRN Melatonin for sleep and PRN Tylenol administered for c/o TIM and bilateral axilla pain. Pt denies hallucinations or delusions this evening when asked.
[2020-06-04 06:44] VITALS: BP 160/71
[2020-06-04] MEDS: NAPROXEN 500 MG TABLET PO SCH ×2 (08:28→17:00)
[2020-06-04] MEDS: buPROPion XL 150 MG TAB.ER.24H PO SCH (08:29)
[2020-06-04] MEDS: LISINOPRIL 20 MG TABLET PO SCH (08:29)
[2020-06-04] MEDS: risperiDONE 0.5 MG TABLET. PO SCH ×2 (08:29→20:47)
[2020-06-04] MEDS: CEFDINIR 300 MG CAPSULE PO SCH ×2 (08:29→20:47)
[2020-06-04] MEDS: LACTOBACILLUS RHAMNOSUS GG 1 CAPSULE. PO SCH ×2 (08:29→20:47)
[2020-06-04] MEDS: LOPERAMIDE 2 MG CAPSULE PO PRN ×2 (08:29→13:20)
[2020-06-04] MEDS: GABAPENTIN 300 MG CAPSULE. PO SCH ×3 (08:30→20:47)
[2020-06-04] MEDS: PANTOPRAZOLE 40 MG TABLET. PO SCH (08:30)
[2020-06-04] MEDS: POLYETHYLENE GLYCOL 3350 17 GM PACKET. PO SCH (08:33)
[2020-06-04] MEDS: ACETAMINOPHEN 325 MG TABLET PO PRN (13:20)
[2020-06-04 15:21] VITALS: BP 158/90
--- NOTE | 2020-06-04 17:31 | NUR ---
Patient was sitting in chair eating breakfast at time of assessment. Patient is calm and cooperative. She was given Immodium twice during shift and has had no complaints of diarrhea. No further concerns or complaints at this time. Was still attention seeking today.
[2020-06-04] MEDS: rOPINIRole 1 MG TABLET. PO SCH (20:47)
[2020-06-04] MEDS: BENZTROPINE MESYLATE 0.5 MG TABLET PO SCH (20:47)
[2020-06-04] MEDS: MELATONIN 3 MG TABLET PO PRN (20:47)
--- NOTE | 2020-06-04 22:05 | PDOC ---
Exam Note: Keith Note: Please also refer to the separate dictated note~for this date of service dictated separately.~Patient seen individually. Discussed the patient with Nursing staff reviewed the chart.~Reviewed interim history and current functioning. Reviewed vital signs,~Labs/ Radiology~and current medications noted below. Continue current treatment with the changes noted in the dictated addendum note Assessment: Vital Signs/I&O: Vital Signs Date Time Temp Pulse Resp B/P (MAP) Pulse Ox O2 Delivery O2 Flow Rate FiO2 06/04/20 15:21 97.4 77 20 158/90 (112) 97 Room Air I & O 06/03/20 06/03/20 06/04/20 15:00 23:00 07:00 Intake Total 565 ml 985 ml Balance 565 ml 985 ml Current Medications: I have reviewed the current psychotropics carefully including drug interactions. Risk benefit ratio favors no change other than as noted in my dictated progress note. Diagnosis: Problems: (1) Anxiety disorder (2) Bipolar affective disorder, mixed (3) Bipolar affective, mixed, sev w/ psych (4) Impulse control disorder (5) Schizoaffective disorder, chronic condition with acute exacerbation JONA ANN MD Jun 04, 2020 22:05
--- NOTE | 2020-06-04 22:09 | NUR ---
Nursing Note: Pt sitting in her room at shift change. Pt calm and interactive when approached. Pt denies pain or TIM when asked this evening. Pt cooperative with assessment and compliant with medications administered whole. Pt asked for Imodium at HS in order to ensure that she does not have to get up to have a BM during the night. Pt denies loose stools at this time. Pt was then informed that Imodium was not to be used in this manner but only after loose stools.
[2020-06-05] MEDS: LOPERAMIDE 2 MG CAPSULE PO PRN (00:52)
[2020-06-05 06:36] VITALS: BP 162/80
[2020-06-05] MEDS: POLYETHYLENE GLYCOL 3350 17 GM PACKET. PO SCH (07:53)
[2020-06-05] MEDS: CEFDINIR 300 MG CAPSULE PO SCH ×2 (09:05→20:30)
[2020-06-05] MEDS: LISINOPRIL 20 MG TABLET PO SCH (09:05)
[2020-06-05] MEDS: NAPROXEN 500 MG TABLET PO SCH ×2 (09:05→15:38)
[2020-06-05] MEDS: buPROPion XL 150 MG TAB.ER.24H PO SCH (09:05)
[2020-06-05] MEDS: risperiDONE 0.5 MG TABLET. PO SCH ×2 (09:05→20:29)
[2020-06-05] MEDS: LACTOBACILLUS RHAMNOSUS GG 1 CAPSULE. PO SCH ×2 (09:06→20:30)
[2020-06-05] MEDS: PANTOPRAZOLE 40 MG TABLET. PO SCH (09:06)
[2020-06-05] MEDS: GABAPENTIN 300 MG CAPSULE. PO SCH ×3 (09:06→20:28)
--- NOTE | 2020-06-05 10:31 | NUR ---
Patient is calm and complaint. Patient requesting copy of medication list. Will proved with doctors approval.
[2020-06-05 16:14] VITALS: BP 127/74
[2020-06-05] MEDS: ACETAMINOPHEN 325 MG TABLET PO PRN (18:26)
[2020-06-05] MEDS: rOPINIRole 1 MG TABLET. PO SCH (20:29)
[2020-06-05] MEDS: BENZTROPINE MESYLATE 0.5 MG TABLET PO SCH (20:30)
--- NOTE | 2020-06-05 21:56 | PDOC ---
Exam Note: Keith Note: Please also refer to the separate dictated note~for this date of service dictated separately.~Patient seen individually. Discussed the patient with Nursing staff reviewed the chart.~Reviewed interim history and current functioning. Reviewed vital signs,~Labs/ Radiology~and current medications noted below. Continue current treatment with the changes noted in the dictated addendum note Assessment: Vital Signs/I&O: Vital Signs Date Time Temp Pulse Resp B/P (MAP) Pulse Ox O2 Delivery O2 Flow Rate FiO2 06/05/20 16:14 97.2 62 18 127/74 (91) 92 Room Air I & O 06/04/20 06/04/20 06/05/20 15:00 23:00 07:00 Intake Total 875 ml 445 ml Balance 875 ml 445 ml Current Medications: I have reviewed the current psychotropics carefully including drug interactions. Risk benefit ratio favors no change other than as noted in my dictated progress note. Diagnosis: Problems: (1) Bipolar affective disorder, mixed (2) Bipolar affective, mixed, sev w/ psych (3) Impulse control disorder (4) Schizoaffective disorder, chronic condition with acute exacerbation (5) Anxiety disorder JONA ANN MD Jun 05, 2020 21:55
--- NOTE | 2020-06-05 23:59 | NUR ---
Patient is in her room on assumption of care. She is in pleasant spirits. Polite, interactive. Less needy and attention seeking than she was on previous shifts. Compliant with assessments and medications taken whole. No agitation. Denies any pain or discomfort. Patient appears to be sleeping comfortably at present time. Will continue to monitor.
[2020-06-06] MEDS: ACETAMINOPHEN 325 MG TABLET PO PRN ×2 (03:40→14:08)
[2020-06-06 06:05] VITALS: BP 169/89
--- NOTE | 2020-06-06 07:29 | PDOC ---
Exam Note: Keith Note: This note is a late entry for 06/03/2020 covers elements not covered in my initial note. Subjective: The patient was seen face to face in the morning of 06/03/2020 for treatment team meeting with Serena Brown and Glenna (social work case manager), Janny, activity therapy, Chely BARBOSA. The patient was also seen face to face in the evening of 06/03. Discussed with nursing staff, reviewed the chart. The patient slept 4 hours previous night. The patient complained of some headaches. CT angiogram was completed. She does have a small lacunar infarct right frontal lobe and thickening of the basilar artery. Review of Systems: Ambulation impaired with walker. No CV, , pulmonary, eye system symptoms on review. Mental Status Exam: Reasonably oriented. She was less hyperverbal, anxious, less labile Speech is coherent, rapid at times. Abstraction is fair. Computation is impaired. Language function intact. Attention span is short. Mood and affect remains anxious, less labile. No suicidal or homicidal ideation. Laboratory Data: Reviewed. Impression: Schizoaffective disorder bipolar type, mixed with psychotic features with acute exacerbation. Anxiety disorder unspecified. Plan: Start melatonin 3 mg h.s. to help with insomnia. Continue rest psychotropics. Depakote is being changed to Trileptal increasing to 300 mg twice a day. We will adjust further as clinically indicated. Assessment: Vital Signs/I&O: Vital Signs Date Time Temp Pulse Resp B/P (MAP) Pulse Ox O2 Delivery O2 Flow Rate FiO2 06/06/20 06:05 97.4 72 18 169/89 (115) 93 06/05/20 16:14 Room Air I & O 06/05/20 06/05/20 06/06/20 14:59 22:59 06:59 Intake Total 955 ml 480 ml 360 ml Balance 955 ml 480 ml 360 ml Current Medications: I have reviewed the current psychotropics carefully including drug interactions. Risk benefit ratio favors no change other than as noted in my dictated progress note. Diagnosis: Problems: (1) Schizophrenia, schizo-affective type (2) Bipolar affective, mixed, sev w/ psych (3) Impulse control disorder (4) Schizoaffective disorder, chronic condition with acute exacerbation (5) Anxiety disorder JONA ANN MD Jun 06, 2020 07:29
[2020-06-06] MEDS: POLYETHYLENE GLYCOL 3350 17 GM PACKET. PO SCH (07:39)
--- NOTE | 2020-06-06 07:49 | PDOC ---
Exam Note: Keith Note: This note is a late entry for 06/04/2020 covers elements not covered in my initial note. Subjective: The patient was seen face to face in the evening of 06/04/2020 with Claribel BARBOSA. Discussed with nursing staff, reviewed the chart. The patient slept 7-1/2 hours previous night. She is doing better. She had Imodium x2 and diarrhea as improved. Overall she is less psychotic, less paranoid. She talked at length about being sad because she does not have much contact with her daughter or her son. Review of Systems: Ambulation impaired with walker. No CV, , pulmonary, eye system symptoms on review. Mental Status Exam: Reasonably oriented. Speech is coherent, rapid at times. Abstraction is fair. Computation is impaired. Language function intact. Attention span is short. Mood and affect remains anxious, less labile. No suicidal or homicidal ideation. Laboratory Data: Reviewed. Impression: Schizoaffective disorder bipolar type, mixed with psychotic features with acute exacerbation. Anxiety disorder unspecified. Plan: Continue rest unchanged. Assessment: Vital Signs/I&O: Vital Signs Date Time Temp Pulse Resp B/P (MAP) Pulse Ox O2 Delivery O2 Flow Rate FiO2 06/06/20 06:05 97.4 72 18 169/89 (115) 93 06/05/20 16:14 Room Air I & O 06/05/20 06/05/20 06/06/20 15:00 23:00 07:00 Intake Total 955 ml 480 ml 360 ml Balance 955 ml 480 ml 360 ml Current Medications: I have reviewed the current psychotropics carefully including drug interactions. Risk benefit ratio favors no change other than as noted in my dictated progress note. Diagnosis: Problems: (1) Schizophrenia, schizo-affective type (2) Anxiety disorder (3) Bipolar affective, mixed, sev w/ psych (4) Impulse control disorder (5) Schizoaffective disorder, chronic condition with acute exacerbation JONA ANN MD Jun 06, 2020 07:49
--- NOTE | 2020-06-06 08:08 | PDOC ---
Exam Note: Keith Note: This note is a late entry for 06/05/2020 covers elements not covered in my initial note. Subjective: The patient was seen face to face in the evening of 06/05/2020 with Anoop BARBOSA. Discussed with nursing staff, reviewed the chart. The patient slept 5-3/4 hours previous night. She is somewhat obsessed about her bowel. Received Imodium. She attended groups and watched movies. Review of Systems: Ambulation impaired with walker. No CV, , pulmonary, eye system symptoms on review. Mental Status Exam: Reasonably oriented. She was again more cooperative, verb al, interactive, states her mood is better, wanting to return to facility. Speech is coherent. Abstraction is fair. Computation is impaired. Language function intact. Attention span is short. Mood and affect remains anxious, less labile. No suicidal or homicidal ideation. Laboratory Data: Reviewed. Impression: Schizoaffective disorder bipolar type, mixed with psychotic f eatures with acute exacerbation. Anxiety disorder unspecified. Plan: Continue rest unchanged. Assessment: Vital Signs/I&O: Vital Signs Date Time Temp Pulse Resp B/P (MAP) Pulse Ox O2 Delivery O2 Flow Rate FiO2 06/06/20 06:05 97.4 72 18 169/89 (115) 93 06/05/20 16:14 Room Air I & O 06/05/20 06/05/20 06/06/20 15:00 23:00 07:00 Intake Total 955 ml 480 ml 360 ml Balance 955 ml 480 ml 360 ml Current Medications: I have reviewed the current psychotropics carefully including drug interactions. Risk benefit ratio favors no change other than as noted in my dictated progress note. Diagnosis: Problems: (1) Bipolar affective disorder, mixed (2) Bipolar affective, mixed, sev w/ psych (3) Anxiety disorder (4) Schizoaffective disorder, chronic condition with acute exacerbation (5) Impulse control disorder JONA ANN MD Jun 06, 2020 08:08
[2020-06-06] MEDS: buPROPion XL 150 MG TAB.ER.24H PO SCH (08:49)
[2020-06-06] MEDS: NAPROXEN 500 MG TABLET PO SCH ×2 (08:49→16:41)
[2020-06-06] MEDS: LACTOBACILLUS RHAMNOSUS GG 1 CAPSULE. PO SCH ×2 (08:49→20:33)
[2020-06-06] MEDS: PANTOPRAZOLE 40 MG TABLET. PO SCH (08:50)
[2020-06-06] MEDS: GABAPENTIN 300 MG CAPSULE. PO SCH ×3 (08:50→20:34)
[2020-06-06] MEDS: risperiDONE 0.5 MG TABLET. PO SCH ×2 (08:50→20:34)
[2020-06-06] MEDS: LISINOPRIL 20 MG TABLET PO SCH (08:50)
--- NOTE | 2020-06-06 09:35 | NUR ---
Patient is calm and complaint.
[2020-06-06 16:10] VITALS: BP 147/88
[2020-06-06] MEDS: rOPINIRole 1 MG TABLET. PO SCH (20:33)
[2020-06-06] MEDS: BENZTROPINE MESYLATE 0.5 MG TABLET PO SCH (20:33)
--- NOTE | 2020-06-06 20:57 | PDOC ---
Exam Note: Keith Note: Please also refer to the separate dictated note~for this date of service dictated separately.~Patient seen individually. Discussed the patient with Nursing staff reviewed the chart.~Reviewed interim history and current functioning. Reviewed vital signs,~Labs/ Radiology~and current medications noted below. Continue current treatment with the changes noted in the dictated addendum note Assessment: Vital Signs/I&O: Vital Signs Date Time Temp Pulse Resp B/P (MAP) Pulse Ox O2 Delivery O2 Flow Rate FiO2 06/06/20 16:10 98.8 84 20 147/88 (107) 93 Room Air I & O 06/05/20 06/05/20 06/06/20 15:00 23:00 07:00 Intake Total 955 ml 480 ml 360 ml Balance 955 ml 480 ml 360 ml Current Medications: Meds: Current Medications Medications (Trade) Dose Ordered Sig/Jade Route PRN Reason Start Time Stop Time Status Last Admin Dose Admin Oxcarbazepine (Trileptal) 300 mg BID PO 06/06/20 09:00 06/06/20 20:32 I have reviewed the current psychotropics carefully including drug interactions. Risk benefit ratio favors no change other than as noted in my dictated progress note. Diagnosis: Problems: (1) Schizophrenia, schizo-affective type (2) Anxiety disorder (3) Bipolar affective, mixed, sev w/ psych (4) Impulse control disorder (5) Schizoaffective disorder, chronic condition with acute exacerbation (6) Paranoia (psychosis) JONA ANN MD Jun 06, 2020 20:57
[2020-06-07 06:12] VITALS: BP 159/83
[2020-06-07 07:35] LABS: BASO % 1 % (0-3); EOS # 0.1 x10^3/uL (0.0-0.7); EOS % 2 % (0-3); HEMATOCRIT 37.9 % (36.0-47.0); HEMOGLOBIN 12.8 g/dL (12.0-15.5); LYMPH # 1.1 x10^3/uL (1.0-4.8); LYMPH % 32 % (24-48); MEAN CORPUSCULAR HEMOGLOBIN 32 pg (25-35); MEAN CORPUSCULAR HGB CONC 34 g/dL (31-37); MEAN CORPUSCULAR VOLUME 94 fL (79-100); MONO # 0.4 x10^3/uL (0.0-1.1); MONO % 11 % (0-9); NEUT # 1.9 x10^3uL (1.8-7.7); NEUT % 55 % (31-73); PLATELET COUNT 143 x10^3/uL (140-400); RED BLOOD COUNT 4.03 x10^6/uL (3.50-5.40); RED CELL DISTRIBUTION WIDTH 12.1 % (11.5-14.5); WHITE BLOOD COUNT 3.4 x10^3/uL (4.0-11.0)
[2020-06-07 07:59] LABS: ALBUMIN 3.3 g/dL (3.4-5.0); ALBUMIN/GLOBULIN RATIO 1.1 (1.0-1.7); CALCIUM 8.2 mg/dL (8.5-10.1); CREATININE 0.7 mg/dL (0.6-1.0); GFR 84.5; POTASSIUM 3.4 mmol/L (3.5-5.1); TOTAL BILIRUBIN 0.3 mg/dL (0.2-1.0); TOTAL PROTEIN 6.3 g/dL (6.4-8.2)
[2020-06-07] MEDS: PANTOPRAZOLE 40 MG TABLET. PO SCH (08:13)
[2020-06-07] MEDS: LISINOPRIL 20 MG TABLET PO SCH (08:14)
[2020-06-07] MEDS: NAPROXEN 500 MG TABLET PO SCH ×2 (08:14→16:21)
[2020-06-07] MEDS: GABAPENTIN 300 MG CAPSULE. PO SCH ×3 (08:14→20:12)
[2020-06-07] MEDS: risperiDONE 0.5 MG TABLET. PO SCH ×2 (08:14→20:12)
[2020-06-07] MEDS: LACTOBACILLUS RHAMNOSUS GG 1 CAPSULE. PO SCH ×2 (08:15→20:11)
[2020-06-07] MEDS: buPROPion XL 150 MG TAB.ER.24H PO SCH (08:15)
[2020-06-07] MEDS: POLYETHYLENE GLYCOL 3350 17 GM PACKET. PO SCH (08:19)
[2020-06-07] MEDS: ACETAMINOPHEN 325 MG TABLET PO PRN ×2 (12:54→20:12)
[2020-06-07 16:07] VITALS: BP 167/89
[2020-06-07] MEDS: rOPINIRole 1 MG TABLET. PO SCH (20:11)
[2020-06-07] MEDS: BENZTROPINE MESYLATE 0.5 MG TABLET PO SCH (20:11)
--- NOTE | 2020-06-07 21:18 | PDOC ---
Exam Note: Keith Note: Please also refer to the separate dictated note~for this date of service dictated separately.~Patient seen individually. Discussed the patient with Nursing staff reviewed the chart.~Reviewed interim history and current functioning. Reviewed vital signs,~Labs/ Radiology~and current medications noted below. Continue current treatment with the changes noted in the dictated addendum note Assessment: Vital Signs/I&O: Vital Signs Date Time Temp Pulse Resp B/P (MAP) Pulse Ox O2 Delivery O2 Flow Rate FiO2 06/07/20 16:07 97.2 76 20 167/89 (115) 95 06/06/20 16:10 Room Air I & O 06/06/20 06/06/20 06/07/20 15:00 23:00 07:00 Intake Total 600 ml 600 ml Balance 600 ml 600 ml Labs: Laboratory Tests Test 06/07/20 07:09 White Blood Count 3.4 x10^3/uL (4.0-11.0) L Red Blood Count 4.03 x10^6/uL (3.50-5.40) Hemoglobin 12.8 g/dL (12.0-15.5) Hematocrit 37.9 % (36.0-47.0) Mean Corpuscular Volume 94 fL (79-100) Mean Corpuscular Hemoglobin 32 pg (25-35) Mean Corpuscular Hemoglobin Concent 34 g/dL (31-37) Red Cell Distribution Width 12.1 % (11.5-14.5) Platelet Count 143 x10^3/uL (140-400) Neutrophils (%) (Auto) 55 % (31-73) Lymphocytes (%) (Auto) 32 % (24-48) Monocytes (%) (Auto) 11 % (0-9) H Eosinophils (%) (Auto) 2 % (0-3) Basophils (%) (Auto) 1 % (0-3) Neutrophils # (Auto) 1.9 x10^3uL (1.8-7.7) Lymphocytes # (Auto) 1.1 x10^3/uL (1.0-4.8) Monocytes # (Auto) 0.4 x10^3/uL (0.0-1.1) Eosinophils # (Auto) 0.1 x10^3/uL (0.0-0.7) Basophils # (Auto) 0.0 x10^3/uL (0.0-0.2) Sodium Level 137 mmol/L (136-145) Potassium Level 3.4 mmol/L (3.5-5.1) L Chloride Level 101 mmol/L (98-107) Carbon Dioxide Level 27 mmol/L (21-32) Anion Gap 9 (6-14) Blood Urea Nitrogen 12 mg/dL (7-20) Creatinine 0.7 mg/dL (0.6-1.0) Estimated GFR (Cockcroft-Gault) 84.5 BUN/Creatinine Ratio 17 (6-20) Glucose Level 89 mg/dL (70-99) Calcium Level 8.2 mg/dL (8.5-10.1) L Total Bilirubin 0.3 mg/dL (0.2-1.0) Aspartate Amino Transferase (AST) 63 U/L (15-37) H Alanine Aminotransferase (ALT) 91 U/L (14-59) H Alkaline Phosphatase 124 U/L (46-116) H Total Protein 6.3 g/dL (6.4-8.2) L Albumin 3.3 g/dL (3.4-5.0) L Albumin/Globulin Ratio 1.1 (1.0-1.7) Current Medications: I have reviewed the current psychotropics carefully including drug interactions. Risk benefit ratio favors no change other than as noted in my dictated progress note. Diagnosis: Problems: (1) Bipolar affective disorder, mixed (2) Bipolar affective, mixed, sev w/ psych (3) Impulse control disorder (4) Schizoaffective disorder, chronic condition with acute exacerbation (5) Anxiety disorder JONA ANN MD Jun 07, 2020 21:17
--- NOTE | 2020-06-08 04:50 | NUR ---
Last evening pt sat in the hallway with peers and was pleasant and social. She denies hallucinations and took meds whole. She has had no behaviors tonight. PRN Tylenol was given HS for report of back pain and she appears to be sleeping well.
[2020-06-08 05:58] VITALS: BP 155/90
--- NOTE | 2020-06-08 08:06 | PDOC ---
Exam Note: Keith Note: This note is a late entry for 06/06/2020 covers elements not covered in my initial note. Subjective: The patient was reviewed on telehealth rounds in the evening of 06/06/2020 with Anoop BARBOSA. Discussed with nursing staff, reviewed the chart. The patient slept 6-1/2 hours previous night. She remains hyperverbal, somatically preoccupied, complains of bruising, nothing observed otherwise and has random somatic symptoms per nursing report. Review of Systems: Ambulation impaired with walker. No CV, , pulmonary, eye system symptoms on review. Mental Status Exam: Reasonably oriented. I met with her at some length individually. Speech is coherent. Abstraction is fair. Computation is impaired. Language function intact. Attention span is short. Mood and affect remains anxious, less labile. No suicidal or homicidal ideation. Laboratory Data: Reviewed. Impression: Schizoaffective disorder bipolar type, mixed with psychotic featur es with acute exacerbation. Anxiety disorder unspecified. Plan: Continue current psychotropics. Valproic acid level is reasonable at this stage. We will make further adjustments as clinically indicated. Assessment: Vital Signs/I&O: Vital Signs Date Time Temp Pulse Resp B/P (MAP) Pulse Ox O2 Delivery O2 Flow Rate FiO2 06/08/20 05:58 97.7 62 18 155/90 (111) 94 06/06/20 16:10 Room Air I & O 06/07/20 06/07/20 06/08/20 15:00 23:00 07:00 Intake Total 360 ml 600 ml Balance 360 ml 600 ml Current Medications: I have reviewed the current psychotropics carefully including drug interactions. Risk benefit ratio favors no change other than as noted in my dictated progress note. Diagnosis: Problems: (1) Bipolar affective, mixed, sev w/ psych (2) Impulse control disorder (3) Schizoaffective disorder, chronic condition with acute exacerbation JONA ANN MD Jun 08, 2020 08:06
--- NOTE | 2020-06-08 08:22 | PDOC ---
Exam Note: Keith Note: This note is a late entry for 06/07/2020 covers elements not covered in my initial note. Subjective: The patient was seen face to face in the evening of 06/07/2020 with Claribel BARBOSA. Discussed with nursing staff, reviewed the chart. As I met with her in the evening she complained of frequent urination at night, having to wake up for this. We will go ahead and check her UA if one has not been done recently and discuss this with Giovani BARBOSA. Review of Systems: Ambulation impaired with walker. No CV, GI, pulmonary, eye system symptoms on review other than above. Mental Status Exam: The patient is awake, alert and oriented. She is somewhat hyperverbal, but less so than before. Abstraction is fair. Computation is impaired. Language function intact. Attention span is short. No suicidal or homicidal ideation. Laboratory Data: Reviewed. Impression: Schizoaffective disorder bipolar type, mixed with psychotic features with acute exacerbation. Anxiety disorder unspecified. Plan: No change from initial note but we will check UA for UTI. Adjust further as clinically indicated. Assessment: Vital Signs/I&O: Vital Signs Date Time Temp Pulse Resp B/P (MAP) Pulse Ox O2 Delivery O2 Flow Rate FiO2 06/08/20 05:58 97.7 62 18 155/90 (111) 94 06/06/20 16:10 Room Air I & O 06/07/20 06/07/20 06/08/20 15:00 23:00 07:00 Intake Total 360 ml 600 ml Balance 360 ml 600 ml Current Medications: I have reviewed the current psychotropics carefully including drug interactions. Risk benefit ratio favors no change other than as noted in my dictated progress note. Diagnosis: Problems: (1) Anxiety disorder (2) Bipolar affective disorder, mixed (3) Bipolar affective, mixed, sev w/ psych (4) Impulse control disorder (5) Schizoaffective disorder, chronic condition with acute exacerbation JONA ANN MD Jun 08, 2020 08:22
[2020-06-08] MEDS: PANTOPRAZOLE 40 MG TABLET. PO SCH (08:44)
[2020-06-08] MEDS: buPROPion XL 150 MG TAB.ER.24H PO SCH (08:44)
[2020-06-08] MEDS: risperiDONE 0.5 MG TABLET. PO SCH ×2 (08:44→20:01)
[2020-06-08] MEDS: GABAPENTIN 300 MG CAPSULE. PO SCH ×3 (08:44→20:01)
[2020-06-08] MEDS: LISINOPRIL 20 MG TABLET PO SCH (08:44)
[2020-06-08] MEDS: NAPROXEN 500 MG TABLET PO SCH ×2 (08:45→16:06)
[2020-06-08] MEDS: LACTOBACILLUS RHAMNOSUS GG 1 CAPSULE. PO SCH ×2 (08:45→20:00)
[2020-06-08] MEDS: POLYETHYLENE GLYCOL 3350 17 GM PACKET. PO SCH (08:45)
--- NOTE | 2020-06-08 09:35 | PN ---
DATE: SUBJECTIVE: The patient denies any new medical or neurological complaints; however, she continued to have pain around the lateral chest wall bilaterally, increased by lifting arms above the head. OBJECTIVE: GENERAL: Well-developed, well-nourished female in no acute distress. VITAL SIGNS: Blood pressure 170/79, respiratory rate 20, pulse is 87, temperature is 98.1, oxygen saturation 92% on room air. HEENT: Normocephalic, atraumatic, otherwise unremarkable. NECK: Supple. Negative for carotid bruit, lymphadenopathy or thyromegaly. LUNGS: Clear to A and P. CARDIOVASCULAR: Regular rate and rhythm, normal S1, S2. ABDOMEN: Soft. Bowel sounds positive. EXTREMITIES: Negative for cyanosis, clubbing or edema. NEUROLOGICAL EXAM: Mental Status: The patient is alert and oriented x 3. The speech is fluent. There is no language dysfunction, otherwise unremarkable. Cranial nerves are intact. No focal motor or sensory deficit. Deep tendon reflexes were asymmetric and active with absent Achilles responses. Gait and coordination were normal. DIAGNOSTIC DATA: CT angio of the head revealed no significant abnormalities throughout the anterior and posterior cerebral circulations. However, the dense basilar artery was artifact. CT angio of the neck revealed no significant abnormalities, but variant anatomy includes no significant stenosis. Also, a large lymph node measuring 2.2 cm and several thyroid nodules, small in size, were also detected. IMPRESSION: 1. Abnormal head CT scan with multiple abnormalities seen on CT angio of the neck suggestive of enlarged lymph node and several small nodules of the thyroid. 2. Multiple medical problems include hypertension, chronic obstructive pulmonary disease, renal failure, hyperlipidemia and peripheral neuropathy in the lower extremities. 3. Multiple medical problems include schizoaffective disorders, bipolar disorder, anxiety disorders. RECOMMENDATIONS: Continue with current medical and psychiatric care. M Zaheer FISHER MD DR: PANCHO/papo JOB#: [id number] / [id number]
[2020-06-08] MEDS: ACETAMINOPHEN 325 MG TABLET PO PRN ×2 (12:23→20:00)
--- NOTE | 2020-06-08 13:48 | NUR ---
Nursing note: Pt in her room for AM med pass and assessment. She was calm, med compliant, and cooperative. Pt c/o back pain 03/15. Scheduled naproxen given at that time. Pt later c/o headache and requested tylenol. PRN provided with good effect. Covid swab completed this morning and sent to the lab. Pt is currently participating in group. Will continue to monitor.
[2020-06-08 16:09] VITALS: BP 169/93
--- NOTE | 2020-06-08 16:40 | NUR ---
RADHA met with pt to go over her questions about her plan. RADHA informed pt that she would leave on ; however did not get a chance to call anyone today to finalize things but would tomorrow. Pt would like to participate in that call as she has questions on if she can quarantine in her own room [facility]. She would also like to know who is picking her up and make sure they understand she does not wish to have a specific nurse caring for her as she is too rough and "almost tore my arm out of socket last time". RADHA informed pt that she already addressed that on her last call. Pt stated "I know and I want to go over it again". RADHA will meet with pt tomorrow to finalize all discharge arrangements.
[2020-06-08] MEDS: rOPINIRole 1 MG TABLET. PO SCH (20:00)
[2020-06-08] MEDS: BENZTROPINE MESYLATE 0.5 MG TABLET PO SCH (20:01)
--- NOTE | 2020-06-08 20:46 | PDOC ---
Exam Note: Keith Note: Please also refer to the separate dictated note~for this date of service dictated separately.~Patient seen individually. Discussed the patient with Nursing staff reviewed the chart.~Reviewed interim history and current functioning. Reviewed vital signs,~Labs/ Radiology~and current medications noted below. Continue current treatment with the changes noted in the dictated addendum note Assessment: Vital Signs/I&O: Vital Signs Date Time Temp Pulse Resp B/P (MAP) Pulse Ox O2 Delivery O2 Flow Rate FiO2 06/08/20 16:09 97.4 73 20 169/93 (118) 95 06/06/20 16:10 Room Air I & O 06/07/20 06/07/20 06/08/20 15:00 23:00 07:00 Intake Total 360 ml 600 ml Balance 360 ml 600 ml Current Medications: I have reviewed the current psychotropics carefully including drug interactions. Risk benefit ratio favors no change other than as noted in my dictated progress note. Diagnosis: Problems: (1) Anxiety disorder (2) Bipolar affective, mixed, sev w/ psych (3) Impulse control disorder (4) Schizoaffective disorder, chronic condition with acute exacerbation JONA ANN MD Jun 08, 2020 20:46
--- NOTE | 2020-06-09 04:00 | NUR ---
PRN tylenol given HS for back pain along with other meds. She has been cooperative this shift and has been sleeping well.
[2020-06-09] MEDS: ACETAMINOPHEN 325 MG TABLET PO PRN ×3 (04:36→20:21)
[2020-06-09 05:45] VITALS: BP 155/84
[2020-06-09] MEDS: PANTOPRAZOLE 40 MG TABLET. PO SCH (07:47)
[2020-06-09] MEDS: NAPROXEN 500 MG TABLET PO SCH ×2 (07:48→17:07)
[2020-06-09] MEDS: risperiDONE 0.5 MG TABLET. PO SCH ×2 (07:48→20:20)
[2020-06-09] MEDS: LISINOPRIL 20 MG TABLET PO SCH (07:49)
[2020-06-09] MEDS: buPROPion XL 150 MG TAB.ER.24H PO SCH (07:49)
[2020-06-09] MEDS: LACTOBACILLUS RHAMNOSUS GG 1 CAPSULE. PO SCH ×2 (07:49→20:20)
[2020-06-09] MEDS: POLYETHYLENE GLYCOL 3350 17 GM PACKET. PO SCH (07:49)
[2020-06-09] MEDS: GABAPENTIN 300 MG CAPSULE. PO SCH ×3 (07:49→20:21)
--- NOTE | 2020-06-09 08:39 | NUR ---
Patient is alert and oriented with complaints of back and shoulder pain. Patient is attention seeking and medication seeking. She keeps asking if we are able to give her something more for the pain she is having. I rubbed her shoulders and middle back for a few minutes and reviewed some relaxation breathing techniques with her. I will see if we can get a muscle rub cream for her to help with her tension and pain in the neck and shoulders. She is cooperative with taking her medications. No further concerns or complaints at this time.
[2020-06-09] MEDS: METHYL SALICYLATE/MENTHOL TOPICAL OINTMENT 57GM TUBE. TP PRN ×3 (09:04→20:20)
--- NOTE | 2020-06-09 11:58 | NUR ---
RADHA attempted to contact either Robi or Jessica re: an update on pt transport time for tomorrow. 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 RADHA will try back at that time.
--- NOTE | 2020-06-09 12:00 | NUR ---
RADHA attempted to contact pt [employer] and spoke with Mair Chavez, re: pt leaving tomorrow back to [facility]; transport time is TBD. RADHA was asked to make sure that the [employer] office received a discharge summary when available.
--- NOTE | 2020-06-09 12:08 | NUR ---
[facility] Social Work Discharge Planning Form Patient Name JOHN MOBLEY Admit Date: 26 May 2020 DISCHARGE PLAN Discharge Destination: Pt to return to [facility] Assessment: N/A Level II Assessment: N/A Transportation: Facility to pick pt up; Time still TBD Special Instructions/Notes: Please fax discharge medications, discharge orders and discharge summary to the fax numbers listed below. DISCHARGE TO FACILITY Facility: [facility] Address: [address] [place] [address] Contact Name: Robi Frederick, SW: Contact Name: uV Melendez, Cooling Machine Operator: PCP: Gabriela Naranjo APRN [facility] Public Cooling Machine Operator's Office: Danica Keating Address: [address] [place] [address]; [place] [address]
--- NOTE | 2020-06-09 15:55 | NUR ---
RADHA received a call from Robi who reports that the transport person is out and they will have to check her schedule to see what time they'd be able to pick her up. Robi is to contact RADHA in the morning with a time.
[2020-06-09 16:36] VITALS: BP 172/90
[2020-06-09] MEDS: BENZTROPINE MESYLATE 0.5 MG TABLET PO SCH (20:20)
[2020-06-09] MEDS: rOPINIRole 1 MG TABLET. PO SCH (20:21)
--- NOTE | 2020-06-09 20:43 | PDOC ---
Exam Note: Keith Note: Please also refer to the separate dictated note~for this date of service dictated separately.~Patient seen individually. Discussed the patient with Nursing staff reviewed the chart.~Reviewed interim history and current functioning. Reviewed vital signs,~Labs/ Radiology~and current medications noted below. Continue current treatment with the changes noted in the dictated addendum note Assessment: Vital Signs/I&O: Vital Signs Date Time Temp Pulse Resp B/P (MAP) Pulse Ox O2 Delivery O2 Flow Rate FiO2 06/09/20 16:36 97.1 74 17 172/90 (117) 94 06/06/20 16:10 Room Air I & O 06/08/20 06/08/20 06/09/20 15:00 23:00 07:00 Intake Total 840 ml 120 ml Balance 840 ml 120 ml Current Medications: I have reviewed the current psychotropics carefully including drug interactions. Risk benefit ratio favors no change other than as noted in my dictated progress note. Diagnosis: Problems: (1) Schizophrenia, schizo-affective type (2) Anxiety disorder (3) Bipolar affective, mixed, sev w/ psych (4) Impulse control disorder (5) Schizoaffective disorder, chronic condition with acute exacerbation JONA ANN MD Jun 09, 2020 20:42
--- NOTE | 2020-06-09 22:54 | NUR ---
Pt has complained of pain in back tonight and PRN tylenol and muscle rub was administered with some relief. She continues to have frequent need for staffs attention. She seems somewhat apprehensive about discharge planned for tomorrow.
[2020-06-10] MEDS ORDERED: BENZ0.5T32 PO (01:02)
[2020-06-10] MEDS ORDERED: LACT1CAP2 PO (01:03)
[2020-06-10] MEDS ORDERED: LOPE-101 PO (01:04)
[2020-06-10] MEDS ORDERED: MAG30ORA2 PO (01:06)
[2020-06-10] MEDS ORDERED: MAGN24003 PO (01:06)
[2020-06-10] MEDS ORDERED: MELA3TAB43 PO (01:07)
[2020-06-10] MEDS ORDERED: METH28OI2 TP (01:08)
[2020-06-10] MEDS ORDERED: MICO1KIT75 VG (01:15)
[2020-06-10] MEDS ORDERED: NAPR-514 PO (01:17)
[2020-06-10] MEDS ORDERED: NICO4GUM5 BC (01:19)
[2020-06-10] MEDS ORDERED: OXCA300T3 PO (01:53)
[2020-06-10] MEDS ORDERED: BUPR150T15 PO (01:55)
[2020-06-10] MEDS ORDERED: ROPI1TAB4 PO (01:57)
[2020-06-10] MEDS ORDERED: TRAZ-125 PO (01:58)
[2020-06-10 06:42] VITALS: BP 166/83
--- NOTE | 2020-06-10 07:01 | PDOC ---
Exam Note: Keith Note: This note is a late entry for 06/08/2020 covers elements not covered in my initial note. Subjective: The patient was seen face to face in the evening of 06/08/2020 with Talisha BARBOSA. Discussed with nursing staff, reviewed the chart. The patient slept 6-3/4 hours previous night. He is somewhat attention seeking, somatically preoccupied. Review of Systems: Ambulation impaired with walker. No CV, GI, pulmonary, eye system symptoms on review. Mental Status Exam: The patient is awake, alert and oriented. She had many questions about discharge plans and we addressed this. Abstraction is fair. Computation is impaired. Language function intact. Attention span is short. No suicidal or homicidal ideation. Laboratory Data: Reviewed. Impression: Schizoaffective disorder bipolar type, mixed with psychotic feat ures with acute exacerbation. Anxiety disorder unspecified. Plan: No change from initial note. Assessment: Vital Signs/I&O: Vital Signs Date Time Temp Pulse Resp B/P (MAP) Pulse Ox O2 Delivery O2 Flow Rate FiO2 06/10/20 06:42 97.2 63 14 166/83 (110) 94 06/06/20 16:10 Room Air I & O 06/09/20 06/09/20 06/10/20 14:59 22:59 06:59 Intake Total 960 ml 960 ml Balance 960 ml 960 ml Current Medications: I have reviewed the current psychotropics carefully including drug interactions. Risk benefit ratio favors no change other than as noted in my dictated progress note. Diagnosis: Problems: (1) Anxiety disorder (2) Bipolar affective, mixed, sev w/ psych (3) Impulse control disorder (4) Schizoaffective disorder, chronic condition with acute exacerbation JONA ANN MD Jun 10, 2020 07:01
--- NOTE | 2020-06-10 07:33 | PDOC ---
Exam Note: Keith Note: This note is a late entry for 06/09/2020 covers elements not covered in my initial note. Subjective: The patient was seen face to face in the evening of 06/09/2020 with Claribel BARBOSA. Discussed with nursing staff, reviewed the chart. He slept 6-1/2 hours previous night. The patient has been quite somatically preoccupied, anxious, obsessive, medication seeking per nursing report. She received Tylenol and Bengay and then complaining about back and shoulder pain. Review of Systems: Ambulation impaired with walker. No CV, , pulmonary, eye system symptoms on review other than above. Reliability fair. Mental Status Exam: The patient is reasonably oriented. Speech is coherent, little pressured at times. Abstraction is fair. Computation is impaired. Language function intact. Attention span is short. Mood and affect lability improved. No suicidal or homicidal ideation. Laboratory Data: Reviewed. Impression: Schizoaffective disorder bipolar type, mixed with psychotic features with acute exacerbation. Anxiety disorder unspecified. Plan: No change from initial note. Discharge to snf on 06/10. Assessment: Vital Signs/I&O: Vital Signs Date Time Temp Pulse Resp B/P (MAP) Pulse Ox O2 Delivery O2 Flow Rate FiO2 06/10/20 06:42 97.2 63 14 166/83 (110) 94 06/06/20 16:10 Room Air I & O 06/09/20 06/09/20 06/10/20 15:00 23:00 07:00 Intake Total 960 ml 960 ml Balance 960 ml 960 ml Current Medications: I have reviewed the current psychotropics carefully including drug interactions. Risk benefit ratio favors no change other than as noted in my dictated progress note. Diagnosis: Problems: (1) Schizophrenia, schizo-affective type (2) Anxiety disorder (3) Bipolar affective disorder, mixed (4) Bipolar affective, mixed, sev w/ psych (5) Impulse control disorder (6) Schizoaffective disorder, chronic condition with acute exacerbation JONA ANN MD Jun 10, 2020 07:33
[2020-06-10] MEDS: POLYETHYLENE GLYCOL 3350 17 GM PACKET. PO SCH (08:12)
[2020-06-10] MEDS: PANTOPRAZOLE 40 MG TABLET. PO SCH (08:12)
[2020-06-10] MEDS: NAPROXEN 500 MG TABLET PO SCH (08:12)
[2020-06-10 08:13] VITALS: BP 166/83
[2020-06-10] MEDS: LISINOPRIL 20 MG TABLET PO SCH (08:13)
[2020-06-10] MEDS: GABAPENTIN 300 MG CAPSULE. PO SCH ×2 (08:13→13:01)
[2020-06-10] MEDS: LACTOBACILLUS RHAMNOSUS GG 1 CAPSULE. PO SCH (08:13)
[2020-06-10] MEDS: risperiDONE 0.5 MG TABLET. PO SCH (08:14)
[2020-06-10] MEDS: buPROPion XL 150 MG TAB.ER.24H PO SCH (08:14)
--- NOTE | 2020-06-10 10:46 | NUR ---
Pt is calm, cooperative, compliant. No agitation, no aggression, no hallucinations, no delusions. She is compliant with her medication and assessment.
[2020-06-10] MEDS: ACETAMINOPHEN 325 MG TABLET PO PRN (13:01)
--- NOTE | 2020-06-10 14:33 | NUR ---
Tobacco Discharge Note [facility] Tobacco Hotline called with patient prior to discharge, YES Tobacco cessation medication listed with current medications for discharge. YES Transition Record was faxed to follow-up provider with the following elements: Reason for admission, procedures, tests, principal diagnosis, pending studies, patient instructions, 26/02 contact information for unit, phone number to obtain pending test results, plan for follow-up care, physician follow-up, advanced directive information, and medication list with dose, duration and instructions. This information was included in the following documents: History and physical, lab results, study results, progress notes, social work planning form, DC instruction form, patient visit summary, and medication reconciliation form. Date & time record faxed:[id number] 06/10/2020 Record faxed to: [facility] discussed with/ report given to: Jessica
--- NOTE | 2020-06-10 21:02 | PDOC ---
Exam Note: Keith Note: Please also refer to the separate dictated note~for this date of service dictated separately.~Patient seen individually. Discussed the patient with Nursing staff reviewed the chart.~Reviewed interim history and current functioning. Reviewed vital signs,~Labs/ Radiology~and current medications noted below. Continue current treatment with the changes noted in the dictated addendum note Assessment: Vital Signs/I&O: Vital Signs Date Time Temp Pulse Resp B/P (MAP) Pulse Ox O2 Delivery O2 Flow Rate FiO2 06/10/20 08:13 63 166/83 06/10/20 06:42 97.2 14 94 06/06/20 16:10 Room Air I & O 06/09/20 06/09/20 06/10/20 15:00 23:00 07:00 Intake Total 960 ml 960 ml Balance 960 ml 960 ml Current Medications: I have reviewed the current psychotropics carefully including drug interactions. Risk benefit ratio favors no change other than as noted in my dictated progress note. Diagnosis: Problems: (1) Anxiety disorder (2) Bipolar affective, mixed, sev w/ psych (3) Impulse control disorder (4) Schizoaffective disorder, chronic condition with acute exacerbation JONA ANN MD Jun 10, 2020 21:02
--- NOTE | 2020-06-11 23:25 | DS ---
DATE OF DISCHARGE: 06/10/2020 DISCHARGE SUMMARY/PSYCHIATRIC PROGRESS NOTE This late entry 06/10/2020 covers elements not covered in my initial note. REASON FOR ADMISSION: Please refer to the admission history for details. HISTORY OF PRESENT ILLNESS: Briefly, the patient is a 65-year-old female referred to us from [facility] on account of active visual hallucination that her son was in the middle of the railroad tracks or that he is in the bushes burning to . She was paranoid, suspicious, manic, threatening to elope, throwing her belongings over the fence and thinking that God will pick them up. She was verbally aggressive towards staff, pacing, had acute exacerbation of her schizoaffective disorder, bipolar type. She had failed outpatient psychiatric interventions resulting in this referral. SIGNIFICANT FINDINGS AND CLINICAL COURSE: Following admission, the patient was seen daily individually by myself from a psychiatric standpoint. Medical followup per Dr. Jones/Dr. Blank. The patient was quite manic, psychotic, paranoid, at admission. Adjustments were made in her psychotropics. She seemed to respond to a combination of Risperdal 1 mg b.i.d., trazodone 100 mg at bedtime p.r.n., may repeat x 1, Zyprexa p.r.n., Wellbutrin XL 150 mg a day, Cogentin 0.5 mg at bedtime, Trileptal 300 mg b.i.d. She refused to be on Depakote because she complained of hair loss and we had therefore change the Depakote to Trileptal. She is also on melatonin 3 mg at bedtime p.r.n. insomnia. REVIEW OF SYSTEMS: Prior to discharge on 06/10/2020, no CV, , pulmonary, eye, ENT system symptoms on review. MENTAL STATUS EXAM: The patient is reasonably oriented. Speech coherent, less pressured. Abstraction fair, computation impaired, language function intact, attention span fair. Mood and affect is improved. CONDITION AT DISCHARGE: Improved. FINAL DIAGNOSES: Schizoaffective disorder, bipolar type, mixed with psychotic features, in partial remission; anxiety disorder, unspecified; impulse control disorder, unspecified. Rest unchanged from admission. DISCHARGE MEDICATIONS: Please refer to the MRAD. DISCHARGE INSTRUCTIONS: Outpatient psychiatric and medical followup at the [facility]. Time for discharge day management greater than 30 minutes. MAN Shine ANN MD DR: Micah JOB#: [id number] / [id number]
== END 2020-06-10 14:35 | DRG 885 ==
LOC: GEROPSY 15:45
PROVIDERS: ADMIT Psychiatry & Neurology Psychiatry; ATTEND Psychiatry & Neurology Psychiatry
DX: F25.0 Schizoaffective disorder, bipolar type (principal); I10 Essential (primary) hypertension; J44.9 Chronic obstructive pulmonary disease, unspecified; E78.5 Hyperlipidemia, unspecified; E11.40 Type 2 diabetes mellitus with diabetic neuropathy, unspecified; F12.10 Cannabis abuse, uncomplicated; F41.9 Anxiety disorder, unspecified; F63.9 Impulse disorder, unspecified; R29.6 Repeated falls; Z79.899 Other long term (current) drug therapy; Z88.5 Allergy status to narcotic agent; Z88.8 Allergy status to other drugs, medicaments and biological substances; Z20.828 Contact with and (suspected) exposure to other viral communicable diseases
CPT/HCPCS: 36415; 70450; 70496; 70498; 80053; 81001; 85025; 87077; 87086; 87186; 87493; 99407; Q9967; U0003

== ENCOUNTER 2020-10-19 15:00 | Inpatient (IN) | payer MEDICARE, MEDICAID ==
[~2020-10-19] VITALS: Ht 162.6 cm; Wt 84.0 kg
[~2020-10-19 15:00] MED LIST changes: +BUPR150T15 PO; +DIPH25CA58 PO; -FOLI0.8T2 PO; +FOLI0.8T5 PO; +LACT1CAP2 PO; -LISI40TA PO; +LISI40TA6 PO; +LOPE-101 PO; +MAG30ORA2 PO; +MELA3TAB43 PO; +METH28OI2 TP; +MICO1KIT75 VG; +NAPR-514 PO; +NICO4GUM5 BC; +OXCA300T3 PO
--- NOTE | 2020-10-19 17:30 | NUR ---
Admission Note with Justification for [facility] for protective oversight for emergency stabilization of acute psychiatric crisis. Pt admitted from: SNF Mode of arrival: Secure Transport Accompanied By: Secure Transport Precipitating behaviors that initiated intake and admission: Admitted from [facility] for reportedly calling police to report things stolen, calling the state,being depressed, having visual and auditory hallucinations, conversations with Mykel, being told by God what is going on at facility, being agitated, believing shampoo is being tainted to make her hair fall out. Description of failure of out patient attempts at stabilization in previous setting list behavior and medication trials: Patient taken to ED Behaviors and assessment findings upon admission: Patient was manic, cooperative, and oriented. She was wearing a lathe puller dress and shoes. She did not have any skin issues. She stated that she was doing well after leaving here the last time until the facility changed her medication and then made another change to IM. Plan: Admit for protective oversight for adjustment and stabilization of medications, behaviors and mood. Intense treatment regimen including groups, medication adjustments, therapy, consistent regimen for ADL's, self care, and sleep hygiene. Daily monitoring by Inpatient staff, Psychiatry, and Medical Physician.
[2020-10-19] MEDS ORDERED: METHYL SALICYLATE/MENTHOL TOPICAL OINTMENT 57GM TUBE. TP PRN (18:45)
[2020-10-19] MEDS ORDERED: LOPERAMIDE 2 MG CAPSULE PO PRN (19:15)
[2020-10-19] MEDS ORDERED: ROPI2TAB10 PO (19:23)
[2020-10-19] MEDS ORDERED: ARIP10TA9 PO (19:49)
[2020-10-19 20:00] LABS: BASO % 1 % (0-3); EOS # 0.1 x10^3/uL (0.0-0.7); EOS % 2 % (0-3); HEMATOCRIT 40.1 % (36.0-47.0); HEMOGLOBIN 13.3 g/dL (12.0-15.5); LYMPH # 0.9 x10^3/uL (1.0-4.8); LYMPH % 24 % (24-48); MEAN CORPUSCULAR HEMOGLOBIN 30 pg (25-35); MEAN CORPUSCULAR HGB CONC 33 g/dL (31-37); MEAN CORPUSCULAR VOLUME 91 fL (79-100); MONO # 0.4 x10^3/uL (0.0-1.1); MONO % 11 % (0-9); NEUT # 2.4 x10^3uL (1.8-7.7); NEUT % 63 % (31-73); PLATELET COUNT 209 x10^3/uL (140-400); RED CELL DISTRIBUTION WIDTH 12.8 % (11.5-14.5); WHITE BLOOD COUNT 3.9 x10^3/uL (4.0-11.0)
[2020-10-19] MEDS ORDERED: prednisoLONE ACETATE 1% OPHTH SUSPENSION 5ML BOTTLE. OU PRN (20:00)
[2020-10-19 20:09] LABS: ALBUMIN 3.7 g/dL (3.4-5.0); ALBUMIN/GLOBULIN RATIO 1.2 (1.0-1.7); CALCIUM 9.1 mg/dL (8.5-10.1); CREATININE 0.8 mg/dL (0.6-1.0); GFR 72.4; MAGNESIUM 1.9 mg/dL (1.8-2.4); POTASSIUM 3.4 mmol/L (3.5-5.1); TOTAL BILIRUBIN 0.3 mg/dL (0.2-1.0); TOTAL PROTEIN 6.9 g/dL (6.4-8.2)
[2020-10-19 20:10] LABS: BACTERIA,URINE MOD /HPF (0-FEW); BILIRUBIN,URINE NEG (NEG); CLARITY,URINE CLEAR; COLOR,URINE YELLOW; GLUCOSE,URINE NEG (NEG); NITRITE,URINE NEG (NEG); RBC,URINE OCC /HPF (0-2); SQUAMOUS EPITHELIAL CELL,UR OCC /LPF; UROBILINOGEN,URINE 0.2 mg/dL (0.2 mg/dL); WBC,URINE OCC /HPF (0-4)
[2020-10-19] MEDS: rOPINIRole 2 MG TABLET. PO SCH (21:23)
[2020-10-19] MEDS: LACTOBACILLUS RHAMNOSUS GG 1 CAPSULE. PO SCH (21:23)
[2020-10-19] MEDS: NAPROXEN 500 MG TABLET PO SCH (21:23)
[2020-10-19] MEDS: BENZTROPINE MESYLATE 0.5 MG TABLET PO SCH (21:23)
[2020-10-19] MEDS: risperiDONE 1 MG TABLET. PO SCH (21:23)
[2020-10-19] MEDS: GABAPENTIN 300 MG CAPSULE. PO SCH (21:24)
--- NOTE | 2020-10-19 21:51 | PDOC ---
Exam Note: Keith Note: Please also refer to the separate dictated note~for this date of service dictated separately.~Patient seen individually. Discussed the patient with Nursing staff reviewed the chart.~Reviewed interim history and current functioning. Reviewed vital signs,~Labs/ Radiology~and current medications noted below. Continue current treatment with the changes noted in the dictated addendum note Assessment: Labs: Laboratory Tests Test 10/19/20 17:00 10/19/20 19:44 Urine Collection Type Unknown Urine Color Yellow Urine Clarity Clear Urine pH 7.0 Urine Specific [place] 1.020 Urine Protein Neg (NEG-TRACE) Urine Glucose (UA) Neg mg/dL (NEG) Urine Ketones (Stick) Neg mg/dL (NEG) Urine Blood Trace (NEG) Urine Nitrite Neg (NEG) Urine Bilirubin Neg (NEG) Urine Urobilinogen Dipstick 0.2 mg/dL (0.2 mg/dL) Urine Leukocyte Esterase Neg (NEG) Urine RBC Occ /HPF (0-2) Urine WBC Occ /HPF (0-4) Urine Squamous Epithelial Cells Occ /LPF Urine Bacteria Mod /HPF (0-FEW) White Blood Count 3.9 x10^3/uL (4.0-11.0) L Red Blood Count 4.40 x10^6/uL (3.50-5.40) Hemoglobin 13.3 g/dL (12.0-15.5) Hematocrit 40.1 % (36.0-47.0) Mean Corpuscular Volume 91 fL (79-100) Mean Corpuscular Hemoglobin 30 pg (25-35) Mean Corpuscular Hemoglobin Concent 33 g/dL (31-37) Red Cell Distribution Width 12.8 % (11.5-14.5) Platelet Count 209 x10^3/uL (140-400) Neutrophils (%) (Auto) 63 % (31-73) Lymphocytes (%) (Auto) 24 % (24-48) Monocytes (%) (Auto) 11 % (0-9) H Eosinophils (%) (Auto) 2 % (0-3) Basophils (%) (Auto) 1 % (0-3) Neutrophils # (Auto) 2.4 x10^3uL (1.8-7.7) Lymphocytes # (Auto) 0.9 x10^3/uL (1.0-4.8) L Monocytes # (Auto) 0.4 x10^3/uL (0.0-1.1) Eosinophils # (Auto) 0.1 x10^3/uL (0.0-0.7) Basophils # (Auto) 0.0 x10^3/uL (0.0-0.2) D-Dimer (Jenny) 0.53 mg/L (0.00-0.50) H Sodium Level 140 mmol/L (136-145) Potassium Level 3.4 mmol/L (3.5-5.1) L Chloride Level 99 mmol/L (98-107) Carbon Dioxide Level 35 mmol/L (21-32) H Anion Gap 6 (6-14) Blood Urea Nitrogen 10 mg/dL (7-20) Creatinine 0.8 mg/dL (0.6-1.0) Estimated GFR (Cockcroft-Gault) 72.4 BUN/Creatinine Ratio 13 (6-20) Glucose Level 128 mg/dL (70-99) H Calcium Level 9.1 mg/dL (8.5-10.1) Magnesium Level 1.9 mg/dL (1.8-2.4) Total Bilirubin 0.3 mg/dL (0.2-1.0) Aspartate Amino Transferase (AST) 15 U/L (15-37) Alanine Aminotransferase (ALT) 27 U/L (14-59) Alkaline Phosphatase 125 U/L (46-116) H Total Protein 6.9 g/dL (6.4-8.2) Albumin 3.7 g/dL (3.4-5.0) Albumin/Globulin Ratio 1.2 (1.0-1.7) Current Medications: Meds: Current Medications Medications (Trade) Dose Ordered Sig/Jade Route PRN Reason Start Time Stop Time Status Last Admin Dose Admin Naproxen (Naprosyn) 500 mg BID PO 10/19/20 21:00 10/19/20 21:23 Ropinirole HCl (Requip) 2 mg HS PO 10/19/20 21:00 10/19/20 21:23 Gabapentin (Neurontin) 600 mg TID PO 10/19/20 21:00 10/19/20 21:24 Lactobacillus Rhamnosus (Culturelle) 1 cap BID PO 10/19/20 21:00 10/19/20 21:23 Benztropine Mesylate (Cogentin) 0.5 mg HS PO 10/19/20 21:00 10/19/20 21:23 Oxcarbazepine (Trileptal) 300 mg BID PO 10/19/20 21:00 10/19/20 21:23 Risperidone (RisperDAL) 1 mg BID PO 10/19/20 21:00 10/19/20 21:23 I have reviewed the current psychotropics carefully including drug interactions. Risk benefit ratio favors no change other than as noted in my dictated progress note. Diagnosis: Problems: (1) Bipolar affective, mixed, sev w/ psych (2) Schizoaffective disorder, chronic condition with acute exacerbation (3) Impulse control disorder (4) Anxiety disorder JONA ANN MD Oct 19, 2020 21:51
[2020-10-19] MEDS: MAG HYDROX/AL HYDROX/SIMETH 30 ML ORAL.SUSP PO PRN (23:10)
--- NOTE | 2020-10-20 03:29 | NUR ---
Nursing Note The patient was labile but compliant this shift. The patient was very concerned about her Abilify prescription. This nurse discussed the current order with the patient and informed her that we would attempt to clarify the order in the morning. The patient discussed her experience at the longterm with this nurse. The patient was compliant with her medication and took them whole. The patient is currently sleeping in her room.
[2020-10-20 05:11] VITALS: BP 185/105
[2020-10-20 05:47] VITALS: BP 158/79
--- NOTE | 2020-10-20 06:31 | EKG ---
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
[2020-10-20] MEDS: LACTOBACILLUS RHAMNOSUS GG 1 CAPSULE. PO SCH ×2 (08:53→20:48)
[2020-10-20] MEDS: risperiDONE 1 MG TABLET. PO SCH ×2 (08:54→20:49)
[2020-10-20] MEDS: GABAPENTIN 300 MG CAPSULE. PO SCH ×3 (08:54→20:49)
[2020-10-20] MEDS: LISINOPRIL 20 MG TABLET PO SCH (08:54)
[2020-10-20] MEDS: buPROPion XL 150 MG TAB.ER.24H PO SCH (08:54)
[2020-10-20] MEDS: PANTOPRAZOLE 40 MG TABLET. PO SCH (08:55)
[2020-10-20] MEDS: POLYETHYLENE GLYCOL 3350 17 GM PACKET. PO SCH (08:55)
[2020-10-20] MEDS: NICOTINE 7MG PATCH. TD SCH (08:55)
[2020-10-20] MEDS: NAPROXEN 500 MG TABLET PO SCH ×2 (08:55→20:49)
[2020-10-20] MEDS ORDERED: ARIPiprazole 10 MG TABLET PO SCH (09:00)
[2020-10-20] MEDS: diphenhydrAMINE HCL 25 MG CAPSULE PO PRN ×2 (09:08→17:13)
[2020-10-20 10:09] LABS: THYROXINE 6.9 ug/dL (4.5-12.0)
--- NOTE | 2020-10-20 12:24 | CONS ---
DATE OF CONSULTATION: 10/20/2020 ATTENDING PHYSICIAN: Dr. Paula. We are asked to see this patient for medical consultation. The patient is a 65-year-old female with a longstanding history of schizoaffective disorder. She has had paranoia and psychosis, generalized anxiety along with COPD, impulse control disorder and these are chronic conditions. She was agitated, hearing voices, talking with the God and she was sent here for further evaluation. She has been here before, previously admitted about 2 months ago. Unfortunately, in the past, there is also history of substance abuse including cocaine and alcohol. ALLERGIES: She has several allergies including CHOCOLATE, CODEINE, AND HALDOL. CURRENT MEDICATIONS: As follows: She was scheduled to take Tylenol, Abilify, benztropine, bupropion, diltiazem, Neurontin, lisinopril, loperamide, magnesium hydroxide, melatonin, Naprosyn, Trileptal, Protonix, prednisolone acetate, risperidone, and trazodone. FAMILY HISTORY: Unobtainable. SOCIAL HISTORY: She is a smoker. She has substance abuse in the past. REVIEW OF SYSTEMS: Significant for she describes 25-pound weight gain due to her medication. No recent COVID exposure. All other systems reviewed and turned to be negative. PHYSICAL EXAMINATION: GENERAL: When I saw her, this is a pleasant, confused female. She responded most appropriately to some questions. VITAL SIGNS: Showed blood pressure 158/79, pulse was 85 and regular, temperature 97.6 degrees Fahrenheit, and her oxygen saturation 93% on room air. HEENT: Head is without trauma. Pupils are reactive. Sclerae nonicteric. Oropharynx clear. NECK: Supple, no bruits. No stridor. LUNGS: Minimal rhonchi at the left base. CARDIOVASCULAR: Showed regular heart tones. No gallops. ABDOMEN: Soft, obese, protuberant. No organomegaly. Bowel sounds are normoactive. EXTREMITIES: Show trace edema. NEUROLOGIC: Pleasantly confused. No focal deficit. SKIN: Otherwise warm and dry. Because of her schizoaffective disorder, we could not complete a full neurologic exam. PERTINENT LABORATORY STUDIES: On admission, her hemoglobin was 13.3 g/dL with white count of 3900. Sodium 140, potassium 3.4 mEq, nonfasting blood sugar 128. ASSESSMENT: 1. This 65-year-old female has a longstanding history of schizoaffective disorder with paranoia and psychosis. 2. Obesity due to weight gain due to her antipsychotics. 3. Chronic obstructive pulmonary disease. 4. Generalized debilitation with some form of arthritis. RECOMMENDATIONS: 1. I reviewed her medication. The most likely culprit of weight gain is trazodone. I will pass this on to Dr. Paula to determine whether he wants to continue or whether this could be substituted. 2. I have reviewed the rest of the medications and these should be continued. 3. She is medically stable at this point. Thank you so much for asking me to see this patient for medical consultation. We should gladly follow along during her inpatient stay. DOROTHY MORALES MD DR: MIGUELINA/papo JOB#: [id number] / [id number]
[2020-10-20 15:48] VITALS: BP 162/83
--- NOTE | 2020-10-20 15:59 | NUR ---
RADHA contacted the Public Construction Trades Teacher and spoke to Deputy Guerra, to discuss if pt would be allowed to call her dtr. In doing her checking, pt dtr is estranged from her. They do not have as much contact as pt perceives. It was recommended that pt have limited phone contact and be watched as she tends to make inappropriate phone calls and sometimes will call 911. RADHA to pass this on to nursing staff.
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
--- NOTE | 2020-10-20 18:30 | NUR ---
Patient calm, disorganized, compliant throughout this shift. She was withdrawn to her room betweens meals, social with roommate after dinner. Will continue to monitor and report to oncoming shift.
[2020-10-20] MEDS: BENZTROPINE MESYLATE 0.5 MG TABLET PO SCH (20:49)
[2020-10-20] MEDS: rOPINIRole 2 MG TABLET. PO SCH (20:49)
[2020-10-20 21:22] LABS: THYROID STIM HORMONE (TSH) 1.815 uIU/mL (0.358-3.740)
--- NOTE | 2020-10-20 22:04 | PDOC ---
Exam Note: Keith Note: Please also refer to the separate dictated note~for this date of service dictated separately.~Patient seen individually. Discussed the patient with Nursing staff reviewed the chart.~Reviewed interim history and current functioning. Reviewed vital signs,~Labs/ Radiology~and current medications noted below. Continue current treatment with the changes noted in the dictated addendum note Assessment: Vital Signs/I&O: Vital Signs Date Time Temp Pulse Resp B/P (MAP) Pulse Ox O2 Delivery O2 Flow Rate FiO2 10/20/20 15:48 98.8 97 20 162/83 (109) 93 Room Air I & O 10/19/20 10/19/20 10/20/20 15:00 23:00 07:00 Intake Total 360 ml Balance 360 ml Current Medications: Meds: Current Medications Medications (Trade) Dose Ordered Sig/Jade Route PRN Reason Start Time Stop Time Status Last Admin Dose Admin Nicotine (Nicoderm Cq 7mg Patch) 1 patch DAILY TD 10/20/20 09:00 10/20/20 08:55 Pantoprazole Sodium (Protonix) 40 mg DAILY PO 10/20/20 09:00 10/20/20 08:55 Diltiazem HCl (Cardizem 24hr Cd) 240 mg DAILY PO 10/20/20 09:00 10/20/20 08:55 Lisinopril (Prinivil) 40 mg DAILY PO 10/20/20 09:00 10/20/20 08:54 Polyethylene Glycol (miraLAX) 17 gm DAILY PO 10/20/20 09:00 10/20/20 08:55 Bupropion HCl (Wellbutrin Xl) 150 mg DAILY PO 10/20/20 09:00 10/20/20 08:54 I have reviewed the current psychotropics carefully including drug interactions. Risk benefit ratio favors no change other than as noted in my dictated progress note. Diagnosis: Problems: (1) Schizoaffective disorder, chronic condition with acute exacerbation (2) Bipolar affective, mixed, sev w/ psych (3) Impulse control disorder (4) Anxiety disorder JONA ANN MD Oct 20, 2020 22:04
[2020-10-20 22:07] LABS: HEMOGLOBIN A1C 5.4 % (4.8-5.6)
--- NOTE | 2020-10-21 00:05 | NUR ---
Nursing Note The patient was located in her room for her assessment and medication pass. The patient took her medication whole. The patient assessment was brief due to patient already having a conversation with peers. The patient was alert to name, date and location. The patient appears calm and less labile this shift.
[2020-10-21] MEDS: ACETAMINOPHEN 325 MG TABLET PO PRN (05:24)
--- NOTE | 2020-10-21 05:25 | NUR ---
PRN tylenol provided for headache per patients request.
[2020-10-21 05:30] VITALS: BP 174/86
[2020-10-21] MEDS: LACTOBACILLUS RHAMNOSUS GG 1 CAPSULE. PO SCH ×2 (08:14→20:10)
[2020-10-21] MEDS: LISINOPRIL 20 MG TABLET PO SCH (08:14)
[2020-10-21] MEDS: POLYETHYLENE GLYCOL 3350 17 GM PACKET. PO SCH (08:15)
[2020-10-21] MEDS: NAPROXEN 500 MG TABLET PO SCH ×2 (08:15→20:10)
[2020-10-21] MEDS: risperiDONE 1 MG TABLET. PO SCH ×2 (08:15→20:12)
[2020-10-21] MEDS: buPROPion XL 150 MG TAB.ER.24H PO SCH (08:15)
[2020-10-21] MEDS: PANTOPRAZOLE 40 MG TABLET. PO SCH (08:15)
[2020-10-21] MEDS: GABAPENTIN 300 MG CAPSULE. PO SCH ×3 (08:16→20:12)
--- NOTE | 2020-10-21 08:24 | PDOC ---
Exam Note: Keith Note: This note is a late entry for 10/20/2020 covers elements not covered in my initial note. Subjective: The patient was seen individually in the evening of 10/20/2020 with Misael BARBOSA, discussed and reviewed the chart. The patient slept 5 hours previous night. She is quite labile and needy previous evening. I met with her in her room and then she came out to the hallway and spent an extended amount of time explaining that she had gained 30 pounds in the past few months and she was unhappy with this that she was started on Abilify Sustenna every month and she would like to stop the Abilify 10 mg a day oral and we have already done that. Review of Systems: Positive for tiredness. No CV, , pulmonary, eye, ENT system symptoms on review. Mental Status Exam: The patient is reasonably oriented. Speech coherent, rapid at times. Abstraction is fair. Computation is impaired. Language function is intact. Attention span is short. Mood and affect remains somewhat labile. Laboratory Data: Reviewed. Impression: Schizoaffective disorder, bipolar type mixed with psychotic features. Anxiety disorder unspecified. Impulse control disorder unspecified. Plan: Continue Risperdal 1 mg b.i.d. She is on Benztropine 0.5 mg h.s., Wellbutrin XL 150 mg a day, Neurontin 600 mg t.i.d., Trileptal 300 mg b.i.d. as a mood stabilizer, melatonin, Zyprexa, and trazodone h.s. p.r.n. Adjust further as clinically indicated. Assessment: Vital Signs/I&O: Vital Signs Date Time Temp Pulse Resp B/P (MAP) Pulse Ox O2 Delivery O2 Flow Rate FiO2 10/21/20 08:15 80 174/86 10/21/20 05:30 98.1 20 92 10/20/20 15:48 Room Air I & O 10/20/20 10/20/20 10/21/20 15:00 23:00 07:00 Intake Total 360 ml 840 ml Balance 360 ml 840 ml Current Medications: Meds: Current Medications Medications (Trade) Dose Ordered Sig/Jaed Route PRN Reason Start Time Stop Time Status Last Admin Dose Admin Multi-Ingredient Ointment (Analgesic Petty) 1 taj PRN QID PRN TP MUSCLE PAIN 10/19/20 18:45 Nicotine (Nicoderm Cq 7mg Patch) 1 patch DAILY TD 10/20/20 09:00 10/20/20 08:55 Acetaminophen (Tylenol) 650 mg PRN Q6HRS PRN PO PAIN 10/19/20 19:15 10/21/20 05:24 Diphenhydramine HCl (Benadryl) 25 mg PRN Q6HRS PRN PO itching 10/19/20 19:15 10/20/20 17:13 Loperamide HCl (Imodium) 2 mg PRN Q6HRS PRN PO DIARRHEA 10/19/20 19:15 Al Hydroxide/Mg Hydroxide (Mylanta Plus Xs) 15 ml PRN DAILY PRN PO DYSPEPSIA 10/19/20 19:15 10/19/20 23:10 Naproxen (Naprosyn) 500 mg BID PO 10/19/20 21:00 10/21/20 08:15 Pantoprazole Sodium (Protonix) 40 mg DAILY PO 10/20/20 09:00 10/21/20 08:15 Ropinirole HCl (Requip) 2 mg HS PO 10/19/20 21:00 10/20/20 20:49 Diltiazem HCl (Cardizem 24hr Cd) 240 mg DAILY PO 10/20/20 09:00 10/21/20 08:15 Gabapentin (Neurontin) 600 mg TID PO 10/19/20 21:00 10/21/20 08:16 Lactobacillus Rhamnosus (Culturelle) 1 cap BID PO 10/19/20 21:00 10/21/20 08:14 Lisinopril (Prinivil) 40 mg DAILY PO 10/20/20 09:00 10/21/20 08:14 Magnesium Hydroxide (Milk Of Magnesia) 2,400 mg PRN DAILY PRN PO CONSTIPATION 10/19/20 20:00 Polyethylene Glycol (miraLAX) 17 gm DAILY PO 10/20/20 09:00 10/21/20 08:15 Prednisolone Acetate (Pred Forte) 1 drop PRN QID PRN OU eye irritation 10/19/20 20:00 10/20/20 09:08 Benztropine Mesylate (Cogentin) 0.5 mg HS PO 10/19/20 21:00 10/20/20 20:49 Bupropion HCl (Wellbutrin Xl) 150 mg DAILY PO 10/20/20 09:00 10/21/20 08:15 Olanzapine (ZyPREXA ZYDIS) 2.5 mg PRN Q2HRS PRN PO anxiety/psychosis 10/19/20 20:00 Oxcarbazepine (Trileptal) 300 mg BID PO 10/19/20 21:00 10/21/20 08:15 Risperidone (RisperDAL) 1 mg BID PO 10/19/20 21:00 10/21/20 08:15 Trazodone HCl (Desyrel) 100 mg PRN QHS PRN PO INSOMNIA 10/19/20 19:30 Melatonin (Melatonin) 3 mg PRN QHS PRN PO INSOMNIA 10/19/20 20:00 Aripiprazole (Abilify) 10 mg DAILY PO 10/20/20 09:00 10/20/20 19:13 DC Current Medications Medications (Trade) Dose Ordered Sig/Jade Route PRN Reason Start Time Stop Time Status Last Admin Dose Admin Nicotine (Nicoderm Cq 7mg Patch) 1 patch DAILY TD 10/20/20 09:00 10/20/20 08:55 Pantoprazole Sodium (Protonix) 40 mg DAILY PO 10/20/20 09:00 10/21/20 08:15 Diltiazem HCl (Cardizem 24hr Cd) 240 mg DAILY PO 10/20/20 09:00 10/21/20 08:15 Lisinopril (Prinivil) 40 mg DAILY PO 10/20/20 09:00 10/21/20 08:14 Polyethylene Glycol (miraLAX) 17 gm DAILY PO 10/20/20 09:00 10/21/20 08:15 Bupropion HCl (Wellbutrin Xl) 150 mg DAILY PO 10/20/20 09:00 10/21/20 08:15 I have reviewed the current psychotropics carefully including drug interactions. Risk benefit ratio favors no change other than as noted in my dictated progress note. Diagnosis: Problems: (1) Anxiety disorder (2) Bipolar affective disorder, mixed (3) Bipolar affective, mixed, sev w/ psych (4) Impulse control disorder (5) Schizoaffective disorder, chronic condition with acute exacerbation JONA ANN MD Oct 21, 2020 08:24
[2020-10-21] MEDS: NICOTINE 7MG PATCH. TD SCH (09:00)
[2020-10-21] MEDS: MAG HYDROX/AL HYDROX/SIMETH 30 ML ORAL.SUSP PO PRN (11:27)
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
--- NOTE | 2020-10-21 14:00 | NUR ---
patient has had intermittent complaints of RUQ abdominal pain. PRN medication provided per eMAR before lunch with some relief of symptoms. Abdomen is distended, firm, round, nontender. Will report to MD during rounds.
[2020-10-21 15:58] VITALS: BP 155/77
--- NOTE | 2020-10-21 16:00 | NUR ---
Contacted patient's facility per MD order; per nurse at [facility], patient received Abilify Maintaina 400mg IM on 10/17/20.
[2020-10-21] MEDS: BENZTROPINE MESYLATE 0.5 MG TABLET PO SCH (20:10)
[2020-10-21] MEDS: rOPINIRole 2 MG TABLET. PO SCH (20:10)
--- NOTE | 2020-10-21 21:22 | PDOC ---
Exam Note: Keith Note: Please also refer to the separate dictated note~for this date of service dictated separately.~Patient seen individually. Discussed the patient with Nursing staff reviewed the chart.~Reviewed interim history and current functioning. Reviewed vital signs,~Labs/ Radiology~and current medications noted below. Continue current treatment with the changes noted in the dictated addendum note Assessment: Vital Signs/I&O: Vital Signs Date Time Temp Pulse Resp B/P (MAP) Pulse Ox O2 Delivery O2 Flow Rate FiO2 10/21/20 15:58 99.0 82 18 155/77 (103) 92 Room Air I & O 10/20/20 10/20/20 10/21/20 15:00 23:00 07:00 Intake Total 360 ml 840 ml Balance 360 ml 840 ml Current Medications: Meds: Current Medications Medications (Trade) Dose Ordered Sig/Jade Route PRN Reason Start Time Stop Time Status Last Admin Dose Admin Oxcarbazepine (Trileptal) 600 mg QHS PO 10/21/20 21:00 10/21/20 20:12 I have reviewed the current psychotropics carefully including drug interactions. Risk benefit ratio favors no change other than as noted in my dictated progress note. Diagnosis: Problems: (1) Anxiety disorder (2) Bipolar affective, mixed, sev w/ psych (3) Impulse control disorder (4) Schizoaffective disorder, chronic condition with acute exacerbation JONA ANN MD Oct 21, 2020 21:22
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
--- NOTE | 2020-10-22 01:34 | NUR ---
Nursing Note The patient was calm and cooperative this shift. The patient was pleasant during interactions and took her medication whole. The patient asked about any medication changes and why she was taking several medications. The patient is currently sleeping in her room.
[2020-10-22] MEDS: ACETAMINOPHEN 325 MG TABLET PO PRN (02:57)
[2020-10-22 05:51] VITALS: BP 168/70
[2020-10-22] MEDS: POLYETHYLENE GLYCOL 3350 17 GM PACKET. PO SCH (08:21)
[2020-10-22] MEDS: buPROPion XL 150 MG TAB.ER.24H PO SCH (08:22)
[2020-10-22] MEDS: LACTOBACILLUS RHAMNOSUS GG 1 CAPSULE. PO SCH ×2 (08:22→20:01)
[2020-10-22] MEDS: PANTOPRAZOLE 40 MG TABLET. PO SCH (08:22)
[2020-10-22] MEDS: risperiDONE 1 MG TABLET. PO SCH ×2 (08:23→20:01)
[2020-10-22] MEDS: NAPROXEN 500 MG TABLET PO SCH ×2 (08:23→20:01)
[2020-10-22] MEDS: GABAPENTIN 300 MG CAPSULE. PO SCH ×3 (08:23→20:03)
[2020-10-22] MEDS: LISINOPRIL 20 MG TABLET PO SCH (08:24)
[2020-10-22] MEDS: NICOTINE 7MG PATCH. TD SCH (08:33)
--- NOTE | 2020-10-22 09:07 | PDOC ---
Exam Note: Keith Note: This note is a late entry for 10/21/2020 covers elements not covered in my initial note. Subjective: The patient was reviewed in the morning of 10/21/2020 for a treatment team meeting with Serena Chen, Stephanie Paredes and Glenna (social economist), Bing, activity therapy and Misael BARBOSA, discussed and reviewed the chart. The patient slept 6 hours previous night. Average sleep is 5-1/2 hours. Appetite is 75%. She has been withdrawn, very concerned about her 30 pounds weight gain in the past several weeks. She complains of feeling bloated. We will defer to Dr. Blank. She does have UTI that would account for part of her relapse of schizoaffective disorder. Also discussed with Misael BARBOSA in the evening. We have clarified with the retirement. She was given Abilify Maintena at the nursing facility. Review of Systems: Positive for some tiredness. No CV, , pulmonary, eye, ENT system symptoms on review. Mental Status Exam: The patient is oriented to herself and situation. Speech coherent, rapid at times. Abstraction is fair. Computation is impaired. Sandeep guage function is intact. Attention span is short. She is somewhat paranoid. No suicidal or homicidal ideation. Laboratory Data: Reviewed. Impression: Schizoaffective disorder, bipolar type mixed with psychotic features. Anxiety disorder unspecified. Impulse control disorder unspecified. Plan: Continue current psychotropics. We will increase the gabapentin from 300 mg b.i.d. to 300 mg a.m. and 600 mg h.s. Continue rest psychotropics unchanged. Assessment: Vital Signs/I&O: Vital Signs Date Time Temp Pulse Resp B/P (MAP) Pulse Ox O2 Delivery O2 Flow Rate FiO2 10/22/20 08:24 82 168/70 10/22/20 05:51 97.5 18 92 10/21/20 15:58 Room Air I & O 10/21/20 10/21/20 10/22/20 14:59 22:59 06:59 Intake Total 720 ml 480 ml Balance 720 ml 480 ml Current Medications: Meds: Current Medications Medications (Trade) Dose Ordered Sig/Jade Route PRN Reason Start Time Stop Time Status Last Admin Dose Admin Oxcarbazepine (Trileptal) 300 mg DAILY PO 10/22/20 09:00 10/22/20 08:38 Oxcarbazepine (Trileptal) 600 mg QHS PO 10/21/20 21:00 10/21/20 20:12 I have reviewed the current psychotropics carefully including drug interactions. Risk benefit ratio favors no change other than as noted in my dictated progress note. Diagnosis: Problems: (1) Anxiety disorder (2) Bipolar affective, mixed, sev w/ psych (3) Impulse control disorder (4) Schizoaffective disorder, chronic condition with acute exacerbation JONA ANN MD Oct 22, 2020 09:07
--- NOTE | 2020-10-22 11:24 | NUR ---
PATIENT IS AWAKE THIS AM IN A DINING ROOM UPON ASSESSMENT, CALM AND COOPERATIVE, COMPLIANT WITH MEDICATIONS. PT C/ O ABD PAIN, STATED, IT FEELS LIKE HEAVINESS AND DISCOMFORT OR PRESSURE. DR. MORALES WAS NOTIFIED, ORDER FOR ABD ULTRASOUND OBTAINED. PATIENT WAS ABLE TO TOLERATE HER MORNING MEALS WITHOUT DIFFICULTIES, PT WAS INSTRUCTED TO NOTIFY THIS RN ABOUT BM , PATIENT VERBALIZED UNDERSTANDING. PATIENT INFORMED TO NOT EAT OR DRINK AFTER MIDNIGHT, PT DEMONSTRATED UNDERSTANDING.
[2020-10-22 15:41] VITALS: BP 177/96
[2020-10-22] MEDS ORDERED: LIDO:MAALOX 1:1 20 ML SINGLE DOSE. PO ONE (20:00)
[2020-10-22] MEDS: rOPINIRole 2 MG TABLET. PO SCH (20:01)
[2020-10-22] MEDS: BENZTROPINE MESYLATE 0.5 MG TABLET PO SCH (20:01)
--- NOTE | 2020-10-22 22:01 | PDOC ---
Exam Note: Keith Note: Please also refer to the separate dictated note~for this date of service dictated separately.~Patient seen individually. Discussed the patient with Nursing staff reviewed the chart.~Reviewed interim history and current functioning. Reviewed vital signs,~Labs/ Radiology~and current medications noted below. Continue current treatment with the changes noted in the dictated addendum note Assessment: Vital Signs/I&O: Vital Signs Date Time Temp Pulse Resp B/P (MAP) Pulse Ox O2 Delivery O2 Flow Rate FiO2 10/22/20 15:41 97.8 86 18 177/96 (123) 92 Room Air I & O 10/21/20 10/21/20 10/22/20 15:00 23:00 07:00 Intake Total 720 ml 480 ml Balance 720 ml 480 ml Current Medications: Meds: Current Medications Medications (Trade) Dose Ordered Sig/Jade Route PRN Reason Start Time Stop Time Status Last Admin Dose Admin Oxcarbazepine (Trileptal) 300 mg DAILY PO 10/22/20 09:00 10/22/20 08:38 Multi-Ingredient Mouthwash/Gargle (Gi Cocktail) 20 ml 1X ONCE PO 10/22/20 20:00 10/22/20 20:08 DC 10/22/20 20:22 I have reviewed the current psychotropics carefully including drug interactions. Risk benefit ratio favors no change other than as noted in my dictated progress note. Diagnosis: Problems: (1) Anxiety disorder (2) Bipolar affective, mixed, sev w/ psych (3) Impulse control disorder (4) Schizoaffective disorder, chronic condition with acute exacerbation JONA ANN MD Oct 22, 2020 22:01
--- NOTE | 2020-10-22 22:37 | NUR ---
PT in bed at time of assessment. PT complaining of abdominal pain. On arrival to room, PT stated, "I feel pressure like I'm going to start my period". While assessing PT, she then stated, "I'm fully dilated and going to have a baby!!!" PT advised that she has a new medication to take tonight (GI cocktail) and would be having a study in the morning to see what is going on. PT compliant with assessment and medication administration.
[2020-10-23 06:03] VITALS: BP 169/73
[2020-10-23] MEDS: LACTOBACILLUS RHAMNOSUS GG 1 CAPSULE. PO SCH ×2 (08:07→20:21)
[2020-10-23] MEDS: LISINOPRIL 20 MG TABLET PO SCH (08:08)
[2020-10-23] MEDS: buPROPion XL 150 MG TAB.ER.24H PO SCH (08:09)
[2020-10-23] MEDS: risperiDONE 1 MG TABLET. PO SCH ×2 (08:09→20:21)
[2020-10-23] MEDS: PANTOPRAZOLE 40 MG TABLET. PO SCH (08:10)
[2020-10-23] MEDS: POLYETHYLENE GLYCOL 3350 17 GM PACKET. PO SCH (08:12)
[2020-10-23] MEDS: NAPROXEN 500 MG TABLET PO SCH ×2 (08:12→20:21)
[2020-10-23] MEDS: NICOTINE 7MG PATCH. TD SCH (08:12)
[2020-10-23] MEDS: GABAPENTIN 300 MG CAPSULE. PO SCH ×3 (08:22→20:22)
--- NOTE | 2020-10-23 09:01 | PDOC ---
Exam Note: Keith Note: This note is a late entry for 10/22/2020 covers elements not covered in my initial note. Subjective: The patient was seen individually in the evening of 10/22/2020 with Nadege BARBOSA, discussed and reviewed the chart. The patient slept 6 hours previous night. Overall, the patient has some complaints of abdominal pain and she is going to have an abdominal sonogram tomorrow per Dr. Blank. She has been anxious, restless with some increased mood lability and was tearful as I met with her in the room with the pain and she was convinced she was having a baby. Review of Systems: She does complain of the abdominal pain and swelling. No CV, , pulmonary, eye, ENT system symptoms on review. Mental Status Exam: The patient is reasonably oriented. Speech coherent, rapid. Abstraction is fair. Computation is impaired. Language function is intact. Mood and affect remains quite labile, tearful. No active suicidal ideation. Laboratory Data: Reviewed. Impression: Schizoaffective disorder, bipolar type mixed with psychotic features. Anxiety disorder unspecified. Impulse control disorder unspecified. Plan: Continue psychotropics from initial note. We may need to increase Wellbutrin in due course. Continue Risperdal and Trileptal as a mood stabilizer. Assessment: Vital Signs/I&O: Vital Signs Date Time Temp Pulse Resp B/P (MAP) Pulse Ox O2 Delivery O2 Flow Rate FiO2 10/23/20 08:12 79 169/73 10/23/20 06:03 98.5 18 93 10/22/20 15:41 Room Air I & O 10/22/20 10/22/20 10/23/20 15:00 23:00 07:00 Intake Total 1080 ml 600 ml Balance 1080 ml 600 ml Current Medications: Meds: Current Medications Medications (Trade) Dose Ordered Sig/Jade Route PRN Reason Start Time Stop Time Status Last Admin Dose Admin Multi-Ingredient Mouthwash/Gargle (Gi Cocktail) 20 ml 1X ONCE PO 10/22/20 20:00 10/22/20 20:08 DC 10/22/20 20:22 I have reviewed the current psychotropics carefully including drug interactions. Risk benefit ratio favors no change other than as noted in my dictated progress note. Diagnosis: Problems: (1) Schizophrenia, schizo-affective type (2) Anxiety disorder (3) Bipolar affective, mixed, sev w/ psych (4) Impulse control disorder (5) Schizoaffective disorder, chronic condition with acute exacerbation JONA ANN MD Oct 23, 2020 09:01
--- NOTE | 2020-10-23 10:27 | RAD ---
US ABDOMEN COMPLETE History: Reason: RUQ PAIN - / Spl. Instructions: / History: Comparison: None. Technique: Sonographic examination of the abdomen was performed and multiple grayscale and color Dopp ler static images were obtained. Findings: Liver demonstrates increased echogenicity. The liver measures 20.8 cm. Portal flow is patent. Sludge within the gallbladder. No cholelithiasis. No gallbladder wall thickening. No pericholecystic fluid. Common bile duct measures 2.5 mm in diameter. Visualized pancreas not well seen due to overlying bowel gas. The right kidney measures 12.4 x 3.9 x 4.9 cm. No hydronephrosis. Right inferior exophytic renal cyst measures 1.8 x 1.8 x 1.7 cm. Right mid renal cyst measures 1.6 x 1.6 x 1.67 m. The left kidney measures 11.2 x 4.4 x 5.9 cm. Degraded evaluation due to overlying structures. Left r enal cyst measures 1.5 x 2.5 x 1.6 cm and 1.3 x 1.3 x 1.4 cm. No hydronephrosis. The spleen measures 11 cm. Visualized portions of the abdominal aorta and IVC are normal. IMPRESSION: 1. Hepatomegaly with increased echotexture, may indicate steatosis. 2. Gallbladder sludge. 3. Bilateral renal cysts. No follow-up imaging is recommended per consensus recommendations based on imaging criteria. Electronically signed by: Kumar Johnson DO (10/23/2020 10:25 AM) [facility]
--- NOTE | 2020-10-23 12:00 | NUR ---
spoke with Dr. Blank regarding patient's complaints of abdominal pain. Pt is tearful. Dr. Blank ordered Magnesium Citrate. Pt has had 1 bowel movement and is still complaining of abdominal pain.
[2020-10-23] MEDS ORDERED: MAGNESIUM CITRATE 296 ML SOLUTION. PO ONE (12:30)
[2020-10-23 15:51] VITALS: BP 156/94
[2020-10-23] MEDS: levoFLOXacin 250 MG TABLET PO SCH (16:35)
--- NOTE | 2020-10-23 16:58 | NUR ---
Called Dr. Mar to report results of Ultrasound and that patient is still having pain. pt is tearful. Dr. mar stated that there was no surgical intervention at this time. Will update patient at this time.
--- NOTE | 2020-10-23 17:06 | NUR ---
NURSING UPDATE: Pt has been compliant throughout the day. Pt will take her meds whole. Pt has been tearful and complains of R abdominal pain. Pt has been active and staying in the day room. Pt diet will be changed to Clear Liquid diet, until symptoms have resolved. Pt states she did have a large BM today.
[2020-10-23] MEDS: rOPINIRole 2 MG TABLET. PO SCH (20:21)
[2020-10-23] MEDS: BENZTROPINE MESYLATE 0.5 MG TABLET PO SCH (20:21)
--- NOTE | 2020-10-23 21:22 | PDOC ---
Exam Note: Keith Note: Please also refer to the separate dictated note~for this date of service dictated separately.~Patient seen individually. Discussed the patient with Nursing staff reviewed the chart.~Reviewed interim history and current functioning. Reviewed vital signs,~Labs/ Radiology~and current medications noted below. Continue current treatment with the changes noted in the dictated addendum note Assessment: Vital Signs/I&O: Vital Signs Date Time Temp Pulse Resp B/P (MAP) Pulse Ox O2 Delivery O2 Flow Rate FiO2 10/23/20 15:51 97.4 92 20 156/94 (114) 97 Room Air I & O 10/22/20 10/22/20 10/23/20 15:00 23:00 07:00 Intake Total 1080 ml 600 ml Balance 1080 ml 600 ml Current Medications: Meds: Current Medications Medications (Trade) Dose Ordered Sig/Jade Route PRN Reason Start Time Stop Time Status Last Admin Dose Admin Magnesium Citrate (Citroma) 296 ml 1X ONCE PO 10/23/20 12:30 10/23/20 12:48 DC 10/23/20 16:35 Levofloxacin (Levaquin) 250 mg DAILY06 PO 10/23/20 13:45 10/28/20 13:44 10/23/20 16:35 I have reviewed the current psychotropics carefully including drug interactions. Risk benefit ratio favors no change other than as noted in my dictated progress note. Diagnosis: Problems: (1) Schizophrenia, schizo-affective type (2) Anxiety disorder (3) Bipolar affective, mixed, sev w/ psych (4) Impulse control disorder (5) Schizoaffective disorder, chronic condition with acute exacerbation JONA ANN MD Oct 23, 2020 21:22
--- NOTE | 2020-10-23 23:37 | NUR ---
Pt located in her room this evening. Compliant with whole medications. Pt continues to complain about stomach pain and pressure.
[2020-10-24] MEDS: levoFLOXacin 250 MG TABLET PO SCH (05:19)
[2020-10-24 06:17] VITALS: BP 135/72
[2020-10-24] MEDS: ACETAMINOPHEN 325 MG TABLET PO PRN (06:40)
--- NOTE | 2020-10-24 06:40 | NUR ---
Pt extremely tearful this morning complaining of lower pelvic pain /. PRN Tylenol administered.
[2020-10-24] MEDS: NAPROXEN 500 MG TABLET PO SCH ×2 (08:05→20:29)
[2020-10-24] MEDS: risperiDONE 1 MG TABLET. PO SCH ×2 (08:06→20:27)
[2020-10-24] MEDS: PANTOPRAZOLE 40 MG TABLET. PO SCH (08:06)
[2020-10-24] MEDS: LACTOBACILLUS RHAMNOSUS GG 1 CAPSULE. PO SCH ×2 (08:06→20:26)
[2020-10-24] MEDS: LISINOPRIL 20 MG TABLET PO SCH (08:06)
[2020-10-24] MEDS: buPROPion XL 150 MG TAB.ER.24H PO SCH (08:06)
[2020-10-24] MEDS: NICOTINE 7MG PATCH. TD SCH (08:07)
[2020-10-24] MEDS: POLYETHYLENE GLYCOL 3350 17 GM PACKET. PO SCH (08:07)
[2020-10-24] MEDS: GABAPENTIN 300 MG CAPSULE. PO SCH ×3 (08:07→20:27)
--- NOTE | 2020-10-24 12:09 | RAD ---
CT ABDOMEN+PELVIS WO INDICATION: Abdomen pain with bloating EXAM: Noncontrast CT of the abdomen and pelvis. Coronal and sagittal reformatted images were perform ed. PQRS compliance statement: One or more of the following individualized dose reduction techniques were utilized for this examinat ion: 1. Automated exposure control 2. Adjustment of the mA and/or kV according to patient size 3. Use of iterative reconstruction technique COMPARISON: None FINDINGS: No free air, free fluid, or fluid collection. Lower chest: The visualized lower lungs are aerated. No pleural or pericardial effusion. ABDOMEN: Liver: The noncontrast liver is homogeneous in attenuation. Gallbladder and biliary: Cholelithiasis Normal caliber bile ducts. Spleen: Normal spleen. Pancreas: The noncontrast pancreas is homogeneous in attenuation without peripancreatic inflammatory changes. Adrenal glands: Normal adrenal glands. Kidneys and ureters: No opaque urinary calculi. No hydronephrosis. Bilateral renal cysts, better eval uated on ultrasound 10/23/2020. GI tract: The stomach is decompressed and poorly evaluated. Normal caliber small bowel and colon. Nor mal appendix. Vascular structures: Normal caliber abdominal aorta. Lymph nodes: No lymphadenopathy in the abdomen or pelvis. PELVIS: Genitourinary system: Normal bladder. Hysterectomy. SKELETAL STRUCTURES AND SOFT TISSUES: Degenerative changes of the. Grade 1 anterolisthesis at L4-5 du e to facet arthropathy. Broad-based periumbilical ventral hernia IMPRESSION: 1. No acute findings. 2. Cholelithiasis. Electronically signed by: Jed Hernandez MD (10/24/2020 12:06 PM) [facility]
--- NOTE | 2020-10-24 14:42 | NUR ---
PT IS LOCATED IN DINING ROOM AT TIME OF ASSESSMENT AND MEDICATION ADMINISTRATION. PT IS COMPLAINING OF ABD PAIN THAT HAS BEEN ONGOING FOR THE PAST FEW DAYS. DR MORALES ORDERED VIA TELEPHONE CT ABDOMEN AND PELVIS. ORDER RELIEVED FOR TRAMADOL 100MG PRN Q8 FOR PAIN. WILL CONTINUE TO MONITOR.
[2020-10-24] MEDS: traMADol 50 MG TABLET PO PRN (15:27)
[2020-10-24 16:06] VITALS: BP 172/83
[2020-10-24] MEDS: SIMETHICONE 80 MG TAB.CHEW PO PRN (17:12)
[2020-10-24] MEDS: rOPINIRole 2 MG TABLET. PO SCH (20:26)
[2020-10-24] MEDS ORDERED: PHENYLEPH/MINERAL OIL/PETROLAT RECTAL OINTMENT TUBE. RC PRN (21:45)
--- NOTE | 2020-10-24 22:00 | PDOC ---
Exam Note: Keith Note: Please also refer to the separate dictated note~for this date of service dictated separately.~Patient seen individually. Discussed the patient with Nursing staff reviewed the chart.~Reviewed interim history and current functioning. Reviewed vital signs,~Labs/ Radiology~and current medications noted below. Continue current treatment with the changes noted in the dictated addendum note Assessment: Vital Signs/I&O: Vital Signs Date Time Temp Pulse Resp B/P (MAP) Pulse Ox O2 Delivery O2 Flow Rate FiO2 10/24/20 16:27 20 98 10/24/20 16:06 98.0 86 172/83 (112) 10/24/20 15:27 Room Air I & O 10/23/20 10/23/20 10/24/20 14:59 22:59 06:59 Intake Total 240 ml 720 ml Balance 240 ml 720 ml Current Medications: Meds: Current Medications Medications (Trade) Dose Ordered Sig/Jade Route PRN Reason Start Time Stop Time Status Last Admin Dose Admin Multi-Ingredient Ointment (Analgesic [place]) 1 taj PRN QID PRN TP MUSCLE PAIN 10/19/20 18:45 Nicotine (Nicoderm Cq 7mg Patch) 1 patch DAILY TD 10/20/20 09:00 10/24/20 08:07 Acetaminophen (Tylenol) 650 mg PRN Q6HRS PRN PO PAIN 10/19/20 19:15 10/24/20 06:40 Diphenhydramine HCl (Benadryl) 25 mg PRN Q6HRS PRN PO itching 10/19/20 19:15 10/20/20 17:13 Loperamide HCl (Imodium) 2 mg PRN Q6HRS PRN PO DIARRHEA 10/19/20 19:15 Al Hydroxide/Mg Hydroxide (Mylanta Plus Xs) 15 ml PRN DAILY PRN PO DYSPEPSIA 10/19/20 19:15 10/21/20 11:27 Naproxen (Naprosyn) 500 mg BID PO 10/19/20 21:00 10/24/20 20:29 Pantoprazole Sodium (Protonix) 40 mg DAILY PO 10/20/20 09:00 10/24/20 08:06 Ropinirole HCl (Requip) 2 mg HS PO 10/19/20 21:00 10/24/20 20:26 Diltiazem HCl (Cardizem 24hr Cd) 240 mg DAILY PO 10/20/20 09:00 10/24/20 08:06 Gabapentin (Neurontin) 600 mg TID PO 10/19/20 21:00 10/24/20 20:27 Lactobacillus Rhamnosus (Culturelle) 1 cap BID PO 10/19/20 21:00 10/24/20 20:26 Lisinopril (Prinivil) 40 mg DAILY PO 10/20/20 09:00 10/24/20 08:06 Magnesium Hydroxide (Milk Of Magnesia) 2,400 mg PRN DAILY PRN PO CONSTIPATION 10/19/20 20:00 Polyethylene Glycol (miraLAX) 17 gm DAILY PO 10/20/20 09:00 10/24/20 08:07 Prednisolone Acetate (Pred Forte) 1 drop PRN QID PRN OU eye irritation 10/19/20 20:00 10/20/20 09:08 Benztropine Mesylate (Cogentin) 0.5 mg HS PO 10/19/20 21:00 10/24/20 18:24 DC 10/23/20 20:21 Bupropion HCl (Wellbutrin Xl) 150 mg DAILY PO 10/20/20 09:00 10/24/20 08:06 Olanzapine (ZyPREXA ZYDIS) 2.5 mg PRN Q2HRS PRN PO anxiety/psychosis 10/19/20 20:00 Oxcarbazepine (Trileptal) 300 mg BID PO 10/19/20 21:00 10/21/20 19:19 DC 10/21/20 08:15 Risperidone (RisperDAL) 1 mg BID PO 10/19/20 21:00 10/24/20 20:27 Trazodone HCl (Desyrel) 100 mg PRN QHS PRN PO INSOMNIA 10/19/20 19:30 Melatonin (Melatonin) 3 mg PRN QHS PRN PO INSOMNIA 10/19/20 20:00 Aripiprazole (Abilify) 10 mg DAILY PO 10/20/20 09:00 10/20/20 19:13 DC Oxcarbazepine (Trileptal) 300 mg DAILY PO 10/22/20 09:00 10/24/20 08:06 Oxcarbazepine (Trileptal) 600 mg QHS PO 10/21/20 21:00 10/24/20 20:27 Multi-Ingredient Mouthwash/Gargle (Gi Cocktail) 20 ml 1X ONCE PO 10/22/20 20:00 10/22/20 20:08 DC 10/22/20 20:22 Magnesium Citrate (Citroma) 296 ml 1X ONCE PO 10/23/20 12:30 10/23/20 12:48 DC 10/23/20 16:35 Levofloxacin (Levaquin) 250 mg DAILY06 PO 10/23/20 13:45 10/28/20 13:44 10/24/20 05:19 Tramadol HCl (Ultram) 100 mg PRN Q8HRS PRN PO PAIN 10/24/20 14:00 10/24/20 15:27 Simethicone (Gas-X) 80 mg PRN TID PRN PO GAS / BLOATING 10/24/20 14:00 10/24/20 17:12 Phenyleph/Shark Oil/Min Oil/Petrol (Preparation H) 1 taj PRN QID PRN RC RECTAL PAIN 10/24/20 21:45 Current Medications Medications (Trade) Dose Ordered Sig/Jade Route PRN Reason Start Time Stop Time Status Last Admin Dose Admin Tramadol HCl (Ultram) 100 mg PRN Q8HRS PRN PO PAIN 10/24/20 14:00 10/24/20 15:27 Simethicone (Gas-X) 80 mg PRN TID PRN PO GAS / BLOATING 10/24/20 14:00 10/24/20 17:12 I have reviewed the current psychotropics carefully including drug interactions. Risk benefit ratio favors no change other than as noted in my dictated progress note. Diagnosis: Problems: (1) Anxiety disorder (2) Bipolar affective, mixed, sev w/ psych (3) Impulse control disorder (4) Schizoaffective disorder, chronic condition with acute exacerbation JONA ANN MD Oct 24, 2020 22:00
--- NOTE | 2020-10-24 23:05 | NUR ---
Pt located in her room this evening listening to the Pop. Pt continues to complain about abdominal pain. Compliant with whole medications.
[2020-10-25] MEDS: traMADol 50 MG TABLET PO PRN ×2 (03:34→13:58)
[2020-10-25] MEDS: levoFLOXacin 250 MG TABLET PO SCH (05:45)
[2020-10-25 06:21] LABS: BASO % 1 % (0-3); EOS # 0.1 x10^3/uL (0.0-0.7); EOS % 2 % (0-3); HEMATOCRIT 39.2 % (36.0-47.0); LYMPH % 33 % (24-48); MEAN CORPUSCULAR HEMOGLOBIN 30 pg (25-35); MEAN CORPUSCULAR HGB CONC 33 g/dL (31-37); MEAN CORPUSCULAR VOLUME 90 fL (79-100); MONO # 0.3 x10^3/uL (0.0-1.1); MONO % 11 % (0-9); NEUT # 1.6 x10^3uL (1.8-7.7); NEUT % 53 % (31-73); PLATELET COUNT 199 x10^3/uL (140-400); RED BLOOD COUNT 4.33 x10^6/uL (3.50-5.40); RED CELL DISTRIBUTION WIDTH 12.6 % (11.5-14.5)
[2020-10-25 06:32] VITALS: BP 157/82
[2020-10-25 06:34] LABS: ALBUMIN 3.7 g/dL (3.4-5.0); ALBUMIN/GLOBULIN RATIO 1.2 (1.0-1.7); CALCIUM 8.8 mg/dL (8.5-10.1); CREATININE 0.6 mg/dL (0.6-1.0); POTASSIUM 3.8 mmol/L (3.5-5.1); TOTAL BILIRUBIN 0.4 mg/dL (0.2-1.0); TOTAL PROTEIN 6.9 g/dL (6.4-8.2)
[2020-10-25] MEDS: buPROPion XL 150 MG TAB.ER.24H PO SCH (08:30)
[2020-10-25] MEDS: NICOTINE 7MG PATCH. TD SCH (08:30)
[2020-10-25] MEDS: GABAPENTIN 300 MG CAPSULE. PO SCH ×3 (08:30→20:15)
[2020-10-25] MEDS: NAPROXEN 500 MG TABLET PO SCH ×2 (08:30→20:15)
[2020-10-25] MEDS: LACTOBACILLUS RHAMNOSUS GG 1 CAPSULE. PO SCH ×2 (08:30→20:15)
[2020-10-25] MEDS: risperiDONE 1 MG TABLET. PO SCH ×2 (08:30→20:15)
[2020-10-25] MEDS: LISINOPRIL 20 MG TABLET PO SCH (08:31)
[2020-10-25] MEDS: POLYETHYLENE GLYCOL 3350 17 GM PACKET. PO SCH (08:31)
[2020-10-25] MEDS: PANTOPRAZOLE 40 MG TABLET. PO SCH (08:31)
[2020-10-25] MEDS: SIMETHICONE 80 MG TAB.CHEW PO PRN ×2 (09:26→13:57)
[2020-10-25] MEDS: MAG HYDROX/AL HYDROX/SIMETH 30 ML ORAL.SUSP PO PRN (09:26)
--- NOTE | 2020-10-25 09:30 | NUR ---
Patient complains of nausea and dizziness. Abdomen round, firm, distended, nontender, without guarding; abdominal sounds faint. PRN medication provided per eMAR, will continue to monitor.
--- NOTE | 2020-10-25 13:33 | NUR ---
RADHA left a message for Robi at [facility] to contact RADHA when possible to discuss pt care.
[2020-10-25] MEDS: diphenhydrAMINE HCL 25 MG CAPSULE PO PRN (13:57)
--- NOTE | 2020-10-25 14:00 | NUR ---
Patient is at the [facility] nurses's station stating "cut it out, it wants to come out" and pointing at her right upper quadrant. She insists that she has something in her abdomen that is trying to get out, and asked me to see if she was dilated. PRN and scheduled medications provided per eMAR, will continue to monitor.
--- NOTE | 2020-10-25 14:19 | NUR ---
RADHA received a call from RADHA Rosenbaum at [facility], to give her an update on pt. RADHA explained that pt continues to be needy and has a lot of complaints about stomach pain. SW does report that her stomach does look overly bloated but with the testing that has been completed, nothing has been found. Robi is not sure if pt had any appointments re: her stomach but could check and let RADHA know. RADHA will plan to fax over notes for them to review and mentioned discharge for the end of the next week/beginning of November.
[2020-10-25 15:42] VITALS: BP 187/95
--- NOTE | 2020-10-25 16:29 | TX PLAN ---
Interdisciplinary Tx Plan Admission Information Oct 19, 2020 at 15:00 Legal Status (on Admission): Voluntary DPOA/Guardian Name: Nerissa Correa (Public Material Planner) Contact Other Contact Name: [facility] Other Contact Verified Code Status: Full Code Allergies: Coded Allergies: chocolate flavor (Verified Allergy, Unknown, Swelling of eyes, Itching, and Diarrhea, 05/25/20) codeine (Verified Allergy, Unknown, 08/20/19) haloperidol (Verified Allergy, Unknown, 08/20/19) Uncoded Allergies: PENODENE (Allergy, Unknown, 05/24/20) Diagnoses Primary Diagnosis: Schizoaffective D/O, Bipolar type mixed with psychotic features Reasons for Admission: Delusions, Agitated, Hallucinations, Suspicious/paranoid, Poor impulse control, Other Problem in Patient's Words: N/A Additional Admission Comments: According to the intake, pt was calling the police to report things stolen, calling the state, depressed, having visual/auditory hallucinations, conversations with God, being told by God what is going on at the facility, agitated, believes shampoo is tainted to make her hair fall out. Problems Active Problems: attention seeking depressed somatic complaints Inactive Problems: medication compliance Pt Strengths/Limitations Ability for [place]: Poor Cognitive Functioning/Ability: Fair Communication Skills/Ability: Fair Financial Resources: Poor Insight/Judgement: Poor Intellectual Ability: Fair Physical Health: Poor Social Skills: Fair Stability in Family: Poor Stability in School/Work: Poor Verbal Skills: Fair Discharge Criteria Discharge Criteria: Adequate arrangements @DC, Improved behavior, Improved mood/thought Preliminary Discharge Plan Preliminary DC Plan: Current Living Arrange. Special Precautions Fall Risk: Low Initial D/C Plan Pt to discharge back to [facility] Identified Discharge Needs: Follow up with PCP and Psychiatrist Currently Utilized Resources Currently Utilized Resources/P: Primary Care Physician Psychiatrist Identified Problems/Hx/Goals Objectives/Short-Term Goals Short Term Goals: Dec. Hallucination/Delus, Dec. Outbursts, Prevent Deterioration, Promote Coping Skill Short Term Goals in Patient's: N/A Interventions/Frequency Staff Interventions/Frequency&: Psychiatrist to assess pt at least 3x per week for medication management. Social Work to assess pt at least 2x per week for identification of barriers to care and final discharge planning. Nursing to assess medication effects, behavior management and completion of 15 minute checks daily. Encourage participation in group activities (if applicable) or 1:1 engagement based off Activity Dept goals. 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 Couldn't hold a job for more than 2-2.5 years and would have a breakdown. Education: Pt graduated from high school and "tried college" but failed because she was "too mentally sick". Community Follow-up Primary Care Physician Psychiatry Treatment Plan Explained Patient/Lunchroom Mother had this treatment plan explained to him/her as indicated by the signature below and has been given the opportunity to ask questions and make suggestions: Date: Patient/Lunchroom Mother Signature: Patient/Lunchroom Mother Decline: No (Public Material Planner available as needed.) Additional Comments Pt first treatment team was 10/21/20 JAERD CAO Oct 25, 2020 16:29
[2020-10-25] MEDS: rOPINIRole 2 MG TABLET. PO SCH (20:15)
--- NOTE | 2020-10-25 21:46 | PDOC ---
Exam Note: Keith Note: Please also refer to the separate dictated note~for this date of service dictated separately.~Patient seen individually. Discussed the patient with Nursing staff reviewed the chart.~Reviewed interim history and current functioning. Reviewed vital signs,~Labs/ Radiology~and current medications noted below. Continue current treatment with the changes noted in the dictated addendum note Assessment: Vital Signs/I&O: Vital Signs Date Time Temp Pulse Resp B/P (MAP) Pulse Ox O2 Delivery O2 Flow Rate FiO2 10/25/20 19:14 94 10/25/20 15:42 97.9 74 19 187/95 (125) 10/25/20 13:58 Room Air I & O 10/24/20 10/24/20 10/25/20 14:59 22:59 06:59 Intake Total 480 ml 480 ml Balance 480 ml 480 ml Labs: Laboratory Tests Test 10/25/20 05:59 White Blood Count 3.0 x10^3/uL (4.0-11.0) L Red Blood Count 4.33 x10^6/uL (3.50-5.40) Hemoglobin 13.0 g/dL (12.0-15.5) Hematocrit 39.2 % (36.0-47.0) Mean Corpuscular Volume 90 fL (79-100) Mean Corpuscular Hemoglobin 30 pg (25-35) Mean Corpuscular Hemoglobin Concent 33 g/dL (31-37) Red Cell Distribution Width 12.6 % (11.5-14.5) Platelet Count 199 x10^3/uL (140-400) Neutrophils (%) (Auto) 53 % (31-73) Lymphocytes (%) (Auto) 33 % (24-48) Monocytes (%) (Auto) 11 % (0-9) H Eosinophils (%) (Auto) 2 % (0-3) Basophils (%) (Auto) 1 % (0-3) Neutrophils # (Auto) 1.6 x10^3uL (1.8-7.7) L Lymphocytes # (Auto) 1.0 x10^3/uL (1.0-4.8) Monocytes # (Auto) 0.3 x10^3/uL (0.0-1.1) Eosinophils # (Auto) 0.1 x10^3/uL (0.0-0.7) Basophils # (Auto) 0.0 x10^3/uL (0.0-0.2) Sodium Level 134 mmol/L (136-145) L Potassium Level 3.8 mmol/L (3.5-5.1) Chloride Level 96 mmol/L (98-107) L Carbon Dioxide Level 34 mmol/L (21-32) H Anion Gap 4 (6-14) L Blood Urea Nitrogen 9 mg/dL (7-20) Creatinine 0.6 mg/dL (0.6-1.0) Estimated GFR (Cockcroft-Gault) 101.0 BUN/Creatinine Ratio 15 (6-20) Glucose Level 98 mg/dL (70-99) Calcium Level 8.8 mg/dL (8.5-10.1) Total Bilirubin 0.4 mg/dL (0.2-1.0) Aspartate Amino Transferase (AST) 15 U/L (15-37) Alanine Aminotransferase (ALT) 27 U/L (14-59) Alkaline Phosphatase 122 U/L (46-116) H Total Protein 6.9 g/dL (6.4-8.2) Albumin 3.7 g/dL (3.4-5.0) Albumin/Globulin Ratio 1.2 (1.0-1.7) Current Medications: Meds: Current Medications Medications (Trade) Dose Ordered Sig/Jade Route PRN Reason Start Time Stop Time Status Last Admin Dose Admin Oxcarbazepine (Trileptal) 600 mg BID PO 10/25/20 21:00 10/25/20 20:15 I have reviewed the current psychotropics carefully including drug interactions. Risk benefit ratio favors no change other than as noted in my dictated progress note. Diagnosis: Problems: (1) Anxiety disorder (2) Bipolar affective, mixed, sev w/ psych (3) Impulse control disorder (4) Schizoaffective disorder, chronic condition with acute exacerbation JONA ANN MD Oct 25, 2020 21:46
[2020-10-25] MEDS: ONDANSETRON ODT 4 MG TAB.RAPDIS PO PRN (22:55)
--- NOTE | 2020-10-25 23:30 | NUR ---
Pt located in her room this evening. Pt tearful, complaining of abdominal pain. Compliant with whole medications. Later in the evening, pt vomited x1. PRN Zofran administered. Pt currently sleeping in bed.
[2020-10-26] MEDS: ONDANSETRON ODT 4 MG TAB.RAPDIS PO PRN ×3 (03:31→19:45)
[2020-10-26] MEDS: MAG HYDROX/AL HYDROX/SIMETH 30 ML ORAL.SUSP PO PRN ×2 (05:00→14:00)
[2020-10-26] MEDS: levoFLOXacin 250 MG TABLET PO SCH (05:05)
[2020-10-26 05:46] VITALS: BP 124/75
--- NOTE | 2020-10-26 08:21 | PDOC ---
Exam Note: Keith Note: This note is a late entry for 10/23/2020 covers elements not covered in my initial note. Subjective: The patient was seen individually in the morning of 10/23/2020 with Elly BARBOSA, discussed and reviewed the chart. The patient slept 5 hours previous night. I met with the patient in her room. She was still complaining of significant abdominal pain. Dr. Blank/Dr. Jones are assessing this and she is having an abdominal ultrasound and may be CT abdomen & pelvis. She has had GI cocktail. Review of Systems: Positive for severe abdominal pain. Impaired ambulation. No CV, , pulmonary, eye, ENT system symptoms on review. Mental Status Exam: The patient is reasonably oriented. She is tearful, anxious, labile and in pain. Speech coherent, rapid. Abstraction is fair. Computation is impaired. Language function is intact. Mood and affect anxious, labile. No suicidal or homicidal ideation. ideation. Laboratory Data: Reviewed. Impression: Schizoaffective disorder, bipolar type mixed with psychotic features. Anxiety disorder unspecified. Impulse control disorder unspecified. Plan: Continue psychotropics from initial note. Assessment: Vital Signs/I&O: Vital Signs Date Time Temp Pulse Resp B/P (MAP) Pulse Ox O2 Delivery O2 Flow Rate FiO2 10/26/20 05:46 96.4 74 20 124/75 (91) 92 10/25/20 13:58 Room Air I & O 10/25/20 10/25/20 10/26/20 14:59 22:59 06:59 Intake Total 960 ml 640 ml Balance 960 ml 640 ml Current Medications: Meds: Current Medications Medications (Trade) Dose Ordered Sig/Jade Route PRN Reason Start Time Stop Time Status Last Admin Dose Admin Oxcarbazepine (Trileptal) 600 mg BID PO 10/25/20 21:00 10/25/20 20:15 Ondansetron HCl (Zofran Odt) 4 mg PRN Q4HRS PRN PO NAUSEA/VOMITING 10/25/20 23:00 10/26/20 03:31 I have reviewed the current psychotropics carefully including drug interactions. Risk benefit ratio favors no change other than as noted in my dictated progress note. Diagnosis: Problems: (1) Anxiety disorder (2) Bipolar affective, mixed, sev w/ psych (3) Impulse control disorder (4) Schizoaffective disorder, chronic condition with acute exacerbation JONA ANN MD Oct 26, 2020 08:21
[2020-10-26] MEDS: GABAPENTIN 300 MG CAPSULE. PO SCH ×4 (08:24→20:47)
[2020-10-26] MEDS: NAPROXEN 500 MG TABLET PO SCH ×3 (08:24→20:46)
[2020-10-26] MEDS: POLYETHYLENE GLYCOL 3350 17 GM PACKET. PO SCH (08:24)
[2020-10-26] MEDS: risperiDONE 1 MG TABLET. PO SCH ×3 (08:24→20:47)
[2020-10-26] MEDS: LACTOBACILLUS RHAMNOSUS GG 1 CAPSULE. PO SCH ×3 (08:25→20:46)
[2020-10-26] MEDS: LISINOPRIL 20 MG TABLET PO SCH (08:25)
[2020-10-26] MEDS: PANTOPRAZOLE 40 MG TABLET. PO SCH (08:25)
[2020-10-26] MEDS: buPROPion XL 150 MG TAB.ER.24H PO SCH (08:26)
[2020-10-26] MEDS: SIMETHICONE 80 MG TAB.CHEW PO PRN ×2 (08:26→15:46)
--- NOTE | 2020-10-26 08:45 | PDOC ---
Exam Note: Keith Note: This note is a late entry for 10/24/2020 covers elements not covered in my initial note. Subjective: The patient was seen individually in the evening of 10/24/2020 with Pearl BARBOSA, discussed and reviewed the chart. The patient slept 7 hours previous night. She has been tearful. She still complains of abdominal pain, defer to Dr. Blank. Ultrasound and CT of abdomen and pelvis are being done. There is some sludge in the gallbladder. No acute changes. Review of Systems: She complains of the ongoing abdominal pain. No CV, , pulmonary, eye, ENT system symptoms on review. Mental Status Exam: The patient is reasonably oriented. I met with her at length in her room. She is very hyperverbal, anxious, somatically preoccupied. She remembered my name. Speech coherent, rapid. Abstraction is fair. Computation is impaired. Language function is intact. Attention span short. Mood and affect remains labile. Laboratory Data: Reviewed. Impression: Schizoaffective disorder, bipolar type mixed with psychotic features. Anxiety disorder unspecified. Impulse control disorder unspecified. Plan: Continue psychotropics from initial note. We will go ahead and stop the patients Cogentin as she was having extrapyramidal side effects and perhaps to avoid any anticholinergic side effects. Assessment: Vital Signs/I&O: Vital Signs Date Time Temp Pulse Resp B/P (MAP) Pulse Ox O2 Delivery O2 Flow Rate FiO2 10/26/20 08:25 74 124/75 10/26/20 05:46 96.4 20 92 10/25/20 13:58 Room Air I & O 10/25/20 10/25/20 10/26/20 15:00 23:00 07:00 Intake Total 960 ml 640 ml Balance 960 ml 640 ml Current Medications: Meds: Current Medications Medications (Trade) Dose Ordered Sig/Jade Route PRN Reason Start Time Stop Time Status Last Admin Dose Admin Multi-Ingredient Ointment (Analgesic [place]) 1 taj PRN QID PRN TP MUSCLE PAIN 10/19/20 18:45 Nicotine (Nicoderm Cq 7mg Patch) 1 patch DAILY TD 10/20/20 09:00 10/24/20 08:07 Acetaminophen (Tylenol) 650 mg PRN Q6HRS PRN PO PAIN 10/19/20 19:15 10/24/20 06:40 Diphenhydramine HCl (Benadryl) 25 mg PRN Q6HRS PRN PO itching 10/19/20 19:15 10/25/20 13:57 Loperamide HCl (Imodium) 2 mg PRN Q6HRS PRN PO DIARRHEA 10/19/20 19:15 Al Hydroxide/Mg Hydroxide (Mylanta Plus Xs) 15 ml PRN DAILY PRN PO DYSPEPSIA 10/19/20 19:15 10/26/20 05:00 Naproxen (Naprosyn) 500 mg BID PO 10/19/20 21:00 10/26/20 08:24 Pantoprazole Sodium (Protonix) 40 mg DAILY PO 10/20/20 09:00 10/26/20 08:25 Ropinirole HCl (Requip) 2 mg HS PO 10/19/20 21:00 10/25/20 20:15 Diltiazem HCl (Cardizem 24hr Cd) 240 mg DAILY PO 10/20/20 09:00 10/26/20 08:25 Gabapentin (Neurontin) 600 mg TID PO 10/19/20 21:00 10/26/20 08:24 Lactobacillus Rhamnosus (Culturelle) 1 cap BID PO 10/19/20 21:00 10/26/20 08:25 Lisinopril (Prinivil) 40 mg DAILY PO 10/20/20 09:00 10/26/20 08:25 Magnesium Hydroxide (Milk Of Magnesia) 2,400 mg PRN DAILY PRN PO CONSTIPATION 10/19/20 20:00 Polyethylene Glycol (miraLAX) 17 gm DAILY PO 10/20/20 09:00 10/26/20 08:24 Prednisolone Acetate (Pred Forte) 1 drop PRN QID PRN OU eye irritation 10/19/20 20:00 10/20/20 09:08 Benztropine Mesylate (Cogentin) 0.5 mg HS PO 10/19/20 21:00 10/24/20 18:24 DC 10/23/20 20:21 Bupropion HCl (Wellbutrin Xl) 150 mg DAILY PO 10/20/20 09:00 10/26/20 08:26 Olanzapine (ZyPREXA ZYDIS) 2.5 mg PRN Q2HRS PRN PO anxiety/psychosis 10/19/20 20:00 Oxcarbazepine (Trileptal) 300 mg BID PO 10/19/20 21:00 10/21/20 19:19 DC 10/21/20 08:15 Risperidone (RisperDAL) 1 mg BID PO 10/19/20 21:00 10/26/20 08:24 Trazodone HCl (Desyrel) 100 mg PRN QHS PRN PO INSOMNIA 10/19/20 19:30 Melatonin (Melatonin) 3 mg PRN QHS PRN PO INSOMNIA 10/19/20 20:00 Aripiprazole (Abilify) 10 mg DAILY PO 10/20/20 09:00 10/20/20 19:13 DC Oxcarbazepine (Trileptal) 300 mg DAILY PO 10/22/20 09:00 10/25/20 19:10 DC 10/25/20 08:29 Oxcarbazepine (Trileptal) 600 mg QHS PO 10/21/20 21:00 10/25/20 19:10 DC 10/24/20 20:27 Multi-Ingredient Mouthwash/Gargle (Gi Cocktail) 20 ml 1X ONCE PO 10/22/20 20:00 10/22/20 20:08 DC 10/22/20 20:22 Magnesium Citrate (Citroma) 296 ml 1X ONCE PO 10/23/20 12:30 10/23/20 12:48 DC 10/23/20 16:35 Levofloxacin (Levaquin) 250 mg DAILY06 PO 10/23/20 13:45 10/28/20 13:44 10/26/20 05:05 Tramadol HCl (Ultram) 100 mg PRN Q8HRS PRN PO PAIN 10/24/20 14:00 10/25/20 13:58 Simethicone (Gas-X) 80 mg PRN TID PRN PO GAS / BLOATING 10/24/20 14:00 10/26/20 08:26 Phenyleph/Shark Oil/Min Oil/Petrol (Preparation H) 1 taj PRN QID PRN RC RECTAL PAIN 10/24/20 21:45 Oxcarbazepine (Trileptal) 600 mg BID PO 10/25/20 21:00 10/26/20 08:24 Ondansetron HCl (Zofran Odt) 4 mg PRN Q4HRS PRN PO NAUSEA/VOMITING 10/25/20 23:00 10/26/20 03:31 Current Medications Medications (Trade) Dose Ordered Sig/Jade Route PRN Reason Start Time Stop Time Status Last Admin Dose Admin Oxcarbazepine (Trileptal) 600 mg BID PO 10/25/20 21:00 10/26/20 08:24 Ondansetron HCl (Zofran Odt) 4 mg PRN Q4HRS PRN PO NAUSEA/VOMITING 10/25/20 23:00 10/26/20 03:31 I have reviewed the current psychotropics carefully including drug interactions. Risk benefit ratio favors no change other than as noted in my dictated progress note. Diagnosis: Problems: (1) Anxiety disorder (2) Bipolar affective, mixed, sev w/ psych (3) Impulse control disorder (4) Schizoaffective disorder, chronic condition with acute exacerbation JONA ANN MD Oct 26, 2020 08:45
[2020-10-26] MEDS: NICOTINE 7MG PATCH. TD SCH (09:00)
--- NOTE | 2020-10-26 09:01 | PDOC ---
Exam Note: Keith Note: This note is a late entry for 10/25/2020 covers elements not covered in my initial note. Subjective: The patient was seen individually in the evening of 10/25/2020 with Misael BARBOSA, discussed and reviewed the chart. The patient slept 4-3/4 hours previous night. She remains anxious, somatically preoccupied. She does have UTI, started on Levaquin and we will defer to Dr. Jones/Dr. Blank for her ongoing abdominal pain and gallbladder sludge. I met with her at length in her room in the evening. Review of Systems: She still complains of abdominal pain. No CV, , pu lmonary, eye, ENT system symptoms on review. Mental Status Exam: The patient is reasonably oriented. Speech coherent, rapid. Abstraction is fair. Computation is impaired. Language function is intact. Mood and affect remains quite labile, tearful. No active suicidal ideation. Laboratory Data: Reviewed. Impression: Schizoaffective disorder, bipolar type mixed with psychotic features. Anxiety disorder unspecified. Impulse control disorder unspecified. Plan: Continue psychotropics from initial note. She is currently on Trileptal 300 mg a.m. and 600 mg h.s. We will increase to 600 mg b.i.d. as a mood stabilizer. Rest unchanged for now. Assessment: Vital Signs/I&O: Vital Signs Date Time Temp Pulse Resp B/P (MAP) Pulse Ox O2 Delivery O2 Flow Rate FiO2 10/26/20 08:25 74 124/75 10/26/20 05:46 96.4 20 92 10/25/20 13:58 Room Air I & O 10/25/20 10/25/20 10/26/20 15:00 23:00 07:00 Intake Total 960 ml 640 ml Balance 960 ml 640 ml Current Medications: Meds: Current Medications Medications (Trade) Dose Ordered Sig/Jade Route PRN Reason Start Time Stop Time Status Last Admin Dose Admin Multi-Ingredient Ointment (Analgesic [place]) 1 taj PRN QID PRN TP MUSCLE PAIN 10/19/20 18:45 Nicotine (Nicoderm Cq 7mg Patch) 1 patch DAILY TD 10/20/20 09:00 10/24/20 08:07 Acetaminophen (Tylenol) 650 mg PRN Q6HRS PRN PO PAIN 10/19/20 19:15 10/24/20 06:40 Diphenhydramine HCl (Benadryl) 25 mg PRN Q6HRS PRN PO itching 10/19/20 19:15 10/25/20 13:57 Loperamide HCl (Imodium) 2 mg PRN Q6HRS PRN PO DIARRHEA 10/19/20 19:15 Al Hydroxide/Mg Hydroxide (Mylanta Plus Xs) 15 ml PRN DAILY PRN PO DYSPEPSIA 10/19/20 19:15 10/26/20 05:00 Naproxen (Naprosyn) 500 mg BID PO 10/19/20 21:00 10/26/20 08:24 Pantoprazole Sodium (Protonix) 40 mg DAILY PO 10/20/20 09:00 10/26/20 08:25 Ropinirole HCl (Requip) 2 mg HS PO 10/19/20 21:00 10/25/20 20:15 Diltiazem HCl (Cardizem 24hr Cd) 240 mg DAILY PO 10/20/20 09:00 10/26/20 08:25 Gabapentin (Neurontin) 600 mg TID PO 10/19/20 21:00 10/26/20 08:24 Lactobacillus Rhamnosus (Culturelle) 1 cap BID PO 10/19/20 21:00 10/26/20 08:25 Lisinopril (Prinivil) 40 mg DAILY PO 10/20/20 09:00 10/26/20 08:25 Magnesium Hydroxide (Milk Of Magnesia) 2,400 mg PRN DAILY PRN PO CONSTIPATION 10/19/20 20:00 Polyethylene Glycol (miraLAX) 17 gm DAILY PO 10/20/20 09:00 10/26/20 08:24 Prednisolone Acetate (Pred Forte) 1 drop PRN QID PRN OU eye irritation 10/19/20 20:00 10/20/20 09:08 Benztropine Mesylate (Cogentin) 0.5 mg HS PO 10/19/20 21:00 10/24/20 18:24 DC 10/23/20 20:21 Bupropion HCl (Wellbutrin Xl) 150 mg DAILY PO 10/20/20 09:00 10/26/20 08:26 Olanzapine (ZyPREXA ZYDIS) 2.5 mg PRN Q2HRS PRN PO anxiety/psychosis 10/19/20 20:00 Oxcarbazepine (Trileptal) 300 mg BID PO 10/19/20 21:00 10/21/20 19:19 DC 10/21/20 08:15 Risperidone (RisperDAL) 1 mg BID PO 10/19/20 21:00 10/26/20 08:24 Trazodone HCl (Desyrel) 100 mg PRN QHS PRN PO INSOMNIA 10/19/20 19:30 Melatonin (Melatonin) 3 mg PRN QHS PRN PO INSOMNIA 10/19/20 20:00 Aripiprazole (Abilify) 10 mg DAILY PO 10/20/20 09:00 10/20/20 19:13 DC Oxcarbazepine (Trileptal) 300 mg DAILY PO 10/22/20 09:00 10/25/20 19:10 DC 10/25/20 08:29 Oxcarbazepine (Trileptal) 600 mg QHS PO 10/21/20 21:00 10/25/20 19:10 DC 10/24/20 20:27 Multi-Ingredient Mouthwash/Gargle (Gi Cocktail) 20 ml 1X ONCE PO 10/22/20 20:00 10/22/20 20:08 DC 10/22/20 20:22 Magnesium Citrate (Citroma) 296 ml 1X ONCE PO 10/23/20 12:30 10/23/20 12:48 DC 10/23/20 16:35 Levofloxacin (Levaquin) 250 mg DAILY06 PO 10/23/20 13:45 10/28/20 13:44 10/26/20 05:05 Tramadol HCl (Ultram) 100 mg PRN Q8HRS PRN PO PAIN 10/24/20 14:00 10/25/20 13:58 Simethicone (Gas-X) 80 mg PRN TID PRN PO GAS / BLOATING 10/24/20 14:00 10/26/20 08:26 Phenyleph/Shark Oil/Min Oil/Petrol (Preparation H) 1 taj PRN QID PRN RC RECTAL PAIN 10/24/20 21:45 Oxcarbazepine (Trileptal) 600 mg BID PO 10/25/20 21:00 10/26/20 08:24 Ondansetron HCl (Zofran Odt) 4 mg PRN Q4HRS PRN PO NAUSEA/VOMITING 10/25/20 23:00 10/26/20 03:31 Current Medications Medications (Trade) Dose Ordered Sig/Jade Route PRN Reason Start Time Stop Time Status Last Admin Dose Admin Oxcarbazepine (Trileptal) 600 mg BID PO 10/25/20 21:00 10/26/20 08:24 Ondansetron HCl (Zofran Odt) 4 mg PRN Q4HRS PRN PO NAUSEA/VOMITING 10/25/20 23:00 10/26/20 03:31 I have reviewed the current psychotropics carefully including drug interactions. Risk benefit ratio favors no change other than as noted in my dictated progress note. Diagnosis: Problems: (1) Anxiety disorder (2) Bipolar affective, mixed, sev w/ psych (3) Impulse control disorder (4) Schizoaffective disorder, chronic condition with acute exacerbation JONA ANN MD Oct 26, 2020 09:01
[2020-10-26] MEDS: traMADol 50 MG TABLET PO PRN (15:48)
[2020-10-26 16:20] VITALS: BP 121/71
--- NOTE | 2020-10-26 17:42 | NUR ---
Patient has been increasingly attention seeking and helpless through this shift. She has had multiple compliants of abdominal pain and generalized weakness. When providing patient medications in her room, she then asked for personal care items and when I brought her those, she then asked for a snack. This afternoon while seated in the day room, she was tearful, stating something was moving around in her stomach and she could feel it trying to leave her body. PRN medications provided per eMAR, will continue to monitor and report to oncoming shift.
[2020-10-26] MEDS: rOPINIRole 2 MG TABLET. PO SCH ×2 (19:42→20:47)
--- NOTE | 2020-10-26 21:56 | PDOC ---
Exam Note: Keith Note: Please also refer to the separate dictated note~for this date of service dictated separately.~Patient seen individually. Discussed the patient with Nursing staff reviewed the chart.~Reviewed interim history and current functioning. Reviewed vital signs,~Labs/ Radiology~and current medications noted below. Continue current treatment with the changes noted in the dictated addendum note Assessment: Vital Signs/I&O: Vital Signs Date Time Temp Pulse Resp B/P (MAP) Pulse Ox O2 Delivery O2 Flow Rate FiO2 10/26/20 17:10 18 94 Room Air 10/26/20 16:20 98.1 68 121/71 (88) I & O 10/25/20 10/25/20 10/26/20 15:00 23:00 07:00 Intake Total 960 ml 640 ml Balance 960 ml 640 ml Current Medications: Meds: Current Medications Medications (Trade) Dose Ordered Sig/Jade Route PRN Reason Start Time Stop Time Status Last Admin Dose Admin Ondansetron HCl (Zofran Odt) 4 mg PRN Q4HRS PRN PO NAUSEA/VOMITING 10/25/20 23:00 10/26/20 14:16 I have reviewed the current psychotropics carefully including drug interactions. Risk benefit ratio favors no change other than as noted in my dictated progress note. Diagnosis: Problems: (1) Anxiety disorder (2) Bipolar affective, mixed, sev w/ psych (3) Impulse control disorder (4) Schizoaffective disorder, chronic condition with acute exacerbation JONA ANN MD Oct 26, 2020 21:56
--- NOTE | 2020-10-27 00:14 | NUR ---
Nursing Note Pt seems to be overmedicated and tired this pm. Speech is slurred, responds slowly. When I handed her HS meds, she stares at them and says "I took my meds already." I informed he she had not taken them. She took the med cup from me, stared at them shaking her meds in her cup, then acts as though her hands werent working and drops her meds on the floor, not making sense. Later comes out to desk at 0015 asking for pain meds with her eyes closed, thick speech, told her that she cannot have anything she is falling asleep standing up. Pt returns to her room.
--- NOTE | 2020-10-27 03:19 | NUR ---
Nursing Note Dr. Abhay carrasquillo, pt O2 sats on room air 75%, drowsy, HS meds held, eyes puffy as well as face, no crackles or wheezes, speech slurred, O2 applied at 2 liters, O2 sat increased to 95%. Pt speaks in short sentences with slurred speech difficult to understand, thick speech.
[2020-10-27 03:37] LABS: BGAS PH 7.31 (7.35-7.45)
--- NOTE | 2020-10-27 03:42 | RAD ---
AP chest x-ray HISTORY: Hypoxia. FINDINGS: Heart size normal. Aortic arch calcified plaque. Bilateral calcified pulmonary granulomas. No pneumothorax, pulmonary opacities or pleural effusions. Mild prominent epicardial fat pads resulta nt indistinct density at the lung bases may decrease sensitivity to detect subtle lower lobe airspace disease. Bones are unremarkable. IMPRESSION: No acute process. Electronically signed by: Butch Fleming MD (10/27/2020 3:40 AM) [facility]
[2020-10-27] MEDS: levoFLOXacin 250 MG TABLET PO SCH (05:30)
[2020-10-27 06:07] VITALS: BP 154/86
[2020-10-27] MEDS ORDERED: NICOTINE 7MG PATCH. TD PRN (07:45)
--- NOTE | 2020-10-27 08:41 | PDOC ---
Exam Note: Keith Note: This note is a late entry for 10/26/2020 covers elements not covered in my initial note. Subjective: The patient was seen individually in the evening of 10/26/2020 with Misael BARBOSA, discussed and reviewed the chart. The patient slept 3-1/2 hours previous night. Per report from nursing staff, previous evening the patient was quite needy. She continues to have some abdominal pain, received Zofran twice last night. During the day today per nursing report she has been attention seeking, told the nursing aid that she was but when I questioned the patient she indicated that because of the intense pain she continues to have. I will defer medical management to Dr. Blank and Dr. Jones. She received Zyprexa at 3 p.m. She remains somewhat paranoid. Review of Systems: Positive for abdominal pain. She does have symptoms as well. No CV, pulmonary, eye, ENT system symptoms on review. Mental Status Exam: The patient is oriented to herself and situation. Speech coherent. Abstraction is fair. Computation is impaired. She still remains paranoid, somewhat psychotic. Language function is intact. Attention span is short. No suicidal or homicidal ideation. Laboratory Data: Reviewed. Impression: Schizoaffective disorder, bipolar type mixed with psychotic features. Anxiety disorder unspecified. Impulse control disorder unspecified. Plan: Increase Risperdal from 1 mg b.i.d. to 1 mg in the morning and 1.5 mg in the evening due to her ongoing psychotic symptoms. Rest unchanged for now. Assessment: Vital Signs/I&O: Vital Signs Date Time Temp Pulse Resp B/P (MAP) Pulse Ox O2 Delivery O2 Flow Rate FiO2 10/27/20 06:07 97.8 74 16 154/86 (108) 96 10/26/20 17:10 Room Air I & O 10/26/20 10/26/20 10/27/20 15:00 23:00 07:00 Intake Total 480 ml 120 ml Balance 480 ml 120 ml Labs: Laboratory Tests Test 10/27/20 03:24 Blood Gas pH 7.31 Blood Gas PCO2 69 mmHg Blood Gas PO2 63 mmHg Blood Gas HCO3 35 mmol/L Arterial Bld O2 Saturation (Calc) 89 % FiO2 26 % Current Medications Medications (Trade) Dose Ordered Sig/Jade Route PRN Reason Start Time Stop Time Status Last Admin Dose Admin Multi-Ingredient Ointment (Analgesic [place]) 1 taj PRN QID PRN TP MUSCLE PAIN 10/19/20 18:45 Nicotine (Nicoderm Cq 7mg Patch) 1 patch DAILY TD 10/20/20 09:00 10/27/20 07:42 DC 10/24/20 08:07 Acetaminophen (Tylenol) 650 mg PRN Q6HRS PRN PO PAIN 10/19/20 19:15 10/24/20 06:40 Diphenhydramine HCl (Benadryl) 25 mg PRN Q6HRS PRN PO itching 10/19/20 19:15 10/25/20 13:57 Loperamide HCl (Imodium) 2 mg PRN Q6HRS PRN PO DIARRHEA 10/19/20 19:15 Al Hydroxide/Mg Hydroxide (Mylanta Plus Xs) 15 ml PRN DAILY PRN PO DYSPEPSIA 10/19/20 19:15 10/26/20 14:00 Naproxen (Naprosyn) 500 mg BID PO 10/19/20 21:00 10/26/20 08:24 Pantoprazole Sodium (Protonix) 40 mg DAILY PO 10/20/20 09:00 10/26/20 08:25 Ropinirole HCl (Requip) 2 mg HS PO 10/19/20 21:00 10/25/20 20:15 Diltiazem HCl (Cardizem 24hr Cd) 240 mg DAILY PO 10/20/20 09:00 10/26/20 08:25 Gabapentin (Neurontin) 600 mg TID PO 10/19/20 21:00 10/26/20 14:00 Lactobacillus Rhamnosus (Culturelle) 1 cap BID PO 10/19/20 21:00 10/26/20 08:25 Lisinopril (Prinivil) 40 mg DAILY PO 10/20/20 09:00 10/26/20 08:25 Magnesium Hydroxide (Milk Of Magnesia) 2,400 mg PRN DAILY PRN PO CONSTIPATION 10/19/20 20:00 Polyethylene Glycol (miraLAX) 17 gm DAILY PO 10/20/20 09:00 10/26/20 08:24 Prednisolone Acetate (Pred Forte) 1 drop PRN QID PRN OU eye irritation 10/19/20 20:00 10/20/20 09:08 Benztropine Mesylate (Cogentin) 0.5 mg HS PO 10/19/20 21:00 10/24/20 18:24 DC 10/23/20 20:21 Bupropion HCl (Wellbutrin Xl) 150 mg DAILY PO 10/20/20 09:00 10/26/20 08:26 Olanzapine (ZyPREXA ZYDIS) 2.5 mg PRN Q2HRS PRN PO anxiety/psychosis 10/19/20 20:00 10/26/20 15:46 Oxcarbazepine (Trileptal) 300 mg BID PO 10/19/20 21:00 10/21/20 19:19 DC 10/21/20 08:15 Risperidone (RisperDAL) 1 mg BID PO 10/19/20 21:00 10/26/20 17:51 DC 10/26/20 08:24 Trazodone HCl (Desyrel) 100 mg PRN QHS PRN PO INSOMNIA 10/19/20 19:30 Melatonin (Melatonin) 3 mg PRN QHS PRN PO INSOMNIA 10/19/20 20:00 Aripiprazole (Abilify) 10 mg DAILY PO 10/20/20 09:00 10/20/20 19:13 DC Oxcarbazepine (Trileptal) 300 mg DAILY PO 10/22/20 09:00 10/25/20 19:10 DC 10/25/20 08:29 Oxcarbazepine (Trileptal) 600 mg QHS PO 10/21/20 21:00 10/25/20 19:10 DC 10/24/20 20:27 Multi-Ingredient Mouthwash/Gargle (Gi Cocktail) 20 ml 1X ONCE PO 10/22/20 20:00 10/22/20 20:08 DC 10/22/20 20:22 Magnesium Citrate (Citroma) 296 ml 1X ONCE PO 10/23/20 12:30 10/23/20 12:48 DC 10/23/20 16:35 Levofloxacin (Levaquin) 250 mg DAILY06 PO 10/23/20 13:45 10/28/20 13:44 10/27/20 05:30 Tramadol HCl (Ultram) 100 mg PRN Q8HRS PRN PO PAIN 10/24/20 14:00 10/26/20 15:48 Simethicone (Gas-X) 80 mg PRN TID PRN PO GAS / BLOATING 10/24/20 14:00 10/26/20 15:46 Phenyleph/Shark Oil/Min Oil/Petrol (Preparation H) 1 taj PRN QID PRN RC RECTAL PAIN 10/24/20 21:45 Oxcarbazepine (Trileptal) 600 mg BID PO 10/25/20 21:00 10/26/20 08:24 Ondansetron HCl (Zofran Odt) 4 mg PRN Q4HRS PRN PO NAUSEA/VOMITING 10/25/20 23:00 10/26/20 14:16 Risperidone (RisperDAL) 1 mg DAILY PO 10/27/20 09:00 Risperidone (RisperDAL) 1 mg DAILY PO 10/27/20 09:00 10/26/20 17:54 DC Risperidone (RisperDAL) 1.5 mg QHS PO 10/26/20 21:00 Nicotine (Nicoderm Cq 7mg Patch) 1 patch PRN DAILY PRN TD nicotine dependence 10/27/20 07:45 Laboratory Tests Test 10/27/20 03:24 Blood pH 7.31 (7.35-7.45) L Blood Gas PCO2 69 mmHg (35-45) *H Blood Gas PO2 63 mmHg (80-100) L Blood Gas HCO3 35 mmol/L (22-26) H Arterial Bld O2 Saturation (Calc) 89 % (92-99) L FiO2 26 % Current Medications: I have reviewed the current psychotropics carefully including drug interactions. Risk benefit ratio favors no change other than as noted in my dictated progress note. Diagnosis: Problems: (1) Anxiety disorder (2) Bipolar affective, mixed, sev w/ psych (3) Impulse control disorder (4) Schizoaffective disorder, chronic condition with acute exacerbation JONA ANN MD Oct 27, 2020 08:41
[2020-10-27] MEDS: ONDANSETRON ODT 4 MG TAB.RAPDIS PO PRN ×2 (08:53→14:22)
[2020-10-27] MEDS: LACTOBACILLUS RHAMNOSUS GG 1 CAPSULE. PO SCH ×3 (08:53→19:55)
[2020-10-27] MEDS: SIMETHICONE 80 MG TAB.CHEW PO PRN (08:53)
[2020-10-27] MEDS: PANTOPRAZOLE 40 MG TABLET. PO SCH ×2 (08:53→09:30)
[2020-10-27] MEDS: NAPROXEN 500 MG TABLET PO SCH ×4 (08:53→19:57)
[2020-10-27] MEDS: GABAPENTIN 300 MG CAPSULE. PO SCH ×5 (08:54→19:56)
[2020-10-27] MEDS: buPROPion XL 150 MG TAB.ER.24H PO SCH ×2 (08:55→09:30)
[2020-10-27] MEDS: POLYETHYLENE GLYCOL 3350 17 GM PACKET. PO SCH ×3 (08:55→10:38)
[2020-10-27] MEDS: risperiDONE 1 MG TABLET. PO SCH ×4 (08:55→19:56)
[2020-10-27] MEDS: LISINOPRIL 20 MG TABLET PO SCH ×3 (08:55→10:39)
[2020-10-27] MEDS ORDERED: risperiDONE 1 MG TABLET. PO SCH (09:00)
[2020-10-27] MEDS: MAGNESIUM HYDROXIDE 2,400 MG/30 ML ORAL.SUSP. PO PRN ×2 (09:06→10:38)
--- NOTE | 2020-10-27 09:22 | NUR ---
Patient complained of abdominal pain with constipation this morning. Attempted to provide prn medications with her morning scheduled medications, patient refused all medications stating that we were trying to kill her. Non-administered all medications, patient called guardian and demanded that she be moved to a different hospital or she would call the [employer]. Will report to MD and continue to monitor.
--- NOTE | 2020-10-27 10:05 | NUR ---
Patient informs activity therapist that she wants her medications. When I approached her, she states she won't take the ones that make her delusional and see puppies. Patient cannot state which medications she wants and is arguing over different medications. Will attempt to provide some medications as per eMAR.
--- NOTE | 2020-10-27 10:26 | NUR ---
RADHA attempted to contact the public education administrator office to see who pt spoke with this morning. RADHA left a message asking for a returned phone call to discuss pt behavior and to find out what was discussed.
--- NOTE | 2020-10-27 13:20 | NUR ---
RADHA spoke with Deputy Mari at the [place] office. Mari reports that she did not speak to pt this morning; rather pt left her a lengthy labile message. RADHA informed Mari that staff made the call for her, but based on what they heard they thought it was an actual conversation. Mari reports that pt will often leave lengthy messages like that. She just wants staff to be careful leaving the phone with her because she will call 911 or make police reports based off her perception verus what has really happened. RADHA informed Mari that pt has been refusing medication the last few days, which does not help with her bruno and mood lability. RADHA will continue to update Mari and [facility].
--- NOTE | 2020-10-27 14:20 | NUR ---
Patient stated she wanted to take 14:00 gabapentin and told another staff member that she was nauseated. Approached patient with gabapentin and Zofran, she refused both medications. Will continue to monitor.
[2020-10-27 16:04] VITALS: BP 185/96
--- NOTE | 2020-10-27 17:27 | NUR ---
Patient is manic, attention seeking, and hyperverbal. While I was in report with MD in nurses's station, she was demanding that I tell everyone that she will take her medications if we switch them to what she came in on. About 30minutes earlier, she was insisting that we let her a several peers leave because their family members were all downstairs in the lobby demanding everyone leave now. Will report to MD during rounds and continue to monitor.
[2020-10-27] MEDS: rOPINIRole 2 MG TABLET. PO SCH (19:55)
--- NOTE | 2020-10-27 21:51 | PDOC ---
Exam Note: Keith Note: Please also refer to the separate dictated note~for this date of service dictated separately.~Patient seen individually. Discussed the patient with Nursing staff reviewed the chart.~Reviewed interim history and current functioning. Reviewed vital signs,~Labs/ Radiology~and current medications noted below. Continue current treatment with the changes noted in the dictated addendum note Assessment: Vital Signs/I&O: Vital Signs Date Time Temp Pulse Resp B/P (MAP) Pulse Ox O2 Delivery O2 Flow Rate FiO2 10/27/20 16:04 98.8 94 20 185/96 (125) 95 10/26/20 17:10 Room Air I & O 10/26/20 10/26/20 10/27/20 15:00 23:00 07:00 Intake Total 480 ml 120 ml Balance 480 ml 120 ml Labs: Laboratory Tests Test 10/27/20 03:24 Blood pH 7.31 (7.35-7.45) L Blood Gas PCO2 69 mmHg (35-45) *H Blood Gas PO2 63 mmHg (80-100) L Blood Gas HCO3 35 mmol/L (22-26) H Arterial Bld O2 Saturation (Calc) 89 % (92-99) L FiO2 26 % Current Medications: Meds: Laboratory Tests Test 10/27/20 03:24 Blood Gas pH 7.31 Blood Gas PCO2 69 mmHg Blood Gas PO2 63 mmHg Blood Gas HCO3 35 mmol/L Arterial Bld O2 Saturation (Calc) 89 % FiO2 26 % Current Medications Medications (Trade) Dose Ordered Sig/Jade Route PRN Reason Start Time Stop Time Status Last Admin Dose Admin Multi-Ingredient Ointment (Analgesic [place]) 1 taj PRN QID PRN TP MUSCLE PAIN 10/19/20 18:45 Nicotine (Nicoderm Cq 7mg Patch) 1 patch DAILY TD 10/20/20 09:00 10/27/20 07:42 DC 10/24/20 08:07 Acetaminophen (Tylenol) 650 mg PRN Q6HRS PRN PO PAIN 10/19/20 19:15 10/24/20 06:40 Diphenhydramine HCl (Benadryl) 25 mg PRN Q6HRS PRN PO itching 10/19/20 19:15 10/25/20 13:57 Loperamide HCl (Imodium) 2 mg PRN Q6HRS PRN PO DIARRHEA 10/19/20 19:15 Al Hydroxide/Mg Hydroxide (Mylanta Plus Xs) 15 ml PRN DAILY PRN PO DYSPEPSIA 10/19/20 19:15 10/26/20 14:00 Naproxen (Naprosyn) 500 mg BID PO 10/19/20 21:00 10/27/20 19:57 Pantoprazole Sodium (Protonix) 40 mg DAILY PO 10/20/20 09:00 10/26/20 08:25 Ropinirole HCl (Requip) 2 mg HS PO 10/19/20 21:00 10/27/20 19:55 Diltiazem HCl (Cardizem 24hr Cd) 240 mg DAILY PO 10/20/20 09:00 10/27/20 10:39 Gabapentin (Neurontin) 600 mg TID PO 10/19/20 21:00 10/27/20 19:56 Lactobacillus Rhamnosus (Culturelle) 1 cap BID PO 10/19/20 21:00 10/27/20 19:55 Lisinopril (Prinivil) 40 mg DAILY PO 10/20/20 09:00 10/27/20 10:39 Magnesium Hydroxide (Milk Of Magnesia) 2,400 mg PRN DAILY PRN PO CONSTIPATION 10/19/20 20:00 10/27/20 10:38 Polyethylene Glycol (miraLAX) 17 gm DAILY PO 10/20/20 09:00 10/27/20 10:38 Prednisolone Acetate (Pred Forte) 1 drop PRN QID PRN OU eye irritation 10/19/20 20:00 10/20/20 09:08 Benztropine Mesylate (Cogentin) 0.5 mg HS PO 10/19/20 21:00 10/24/20 18:24 DC 10/23/20 20:21 Bupropion HCl (Wellbutrin Xl) 150 mg DAILY PO 10/20/20 09:00 10/26/20 08:26 Olanzapine (ZyPREXA ZYDIS) 2.5 mg PRN Q2HRS PRN PO anxiety/psychosis 10/19/20 20:00 10/27/20 10:39 Oxcarbazepine (Trileptal) 300 mg BID PO 10/19/20 21:00 10/21/20 19:19 DC 10/21/20 08:15 Risperidone (RisperDAL) 1 mg BID PO 10/19/20 21:00 10/26/20 17:51 DC 10/26/20 08:24 Trazodone HCl (Desyrel) 100 mg PRN QHS PRN PO INSOMNIA 10/19/20 19:30 Melatonin (Melatonin) 3 mg PRN QHS PRN PO INSOMNIA 10/19/20 20:00 Aripiprazole (Abilify) 10 mg DAILY PO 10/20/20 09:00 10/20/20 19:13 DC Oxcarbazepine (Trileptal) 300 mg DAILY PO 10/22/20 09:00 10/25/20 19:10 DC 10/25/20 08:29 Oxcarbazepine (Trileptal) 600 mg QHS PO 10/21/20 21:00 10/25/20 19:10 DC 10/24/20 20:27 Multi-Ingredient Mouthwash/Gargle (Gi Cocktail) 20 ml 1X ONCE PO 10/22/20 20:00 10/22/20 20:08 DC 10/22/20 20:22 Magnesium Citrate (Citroma) 296 ml 1X ONCE PO 10/23/20 12:30 10/23/20 12:48 DC 10/23/20 16:35 Levofloxacin (Levaquin) 250 mg DAILY06 PO 10/23/20 13:45 10/28/20 13:44 10/27/20 05:30 Tramadol HCl (Ultram) 100 mg PRN Q8HRS PRN PO PAIN 10/24/20 14:00 10/26/20 15:48 Simethicone (Gas-X) 80 mg PRN TID PRN PO GAS / BLOATING 10/24/20 14:00 10/26/20 15:46 Phenyleph/Shark Oil/Min Oil/Petrol (Preparation H) 1 taj PRN QID PRN RC RECTAL PAIN 10/24/20 21:45 Oxcarbazepine (Trileptal) 600 mg BID PO 10/25/20 21:00 10/27/20 19:55 Ondansetron HCl (Zofran Odt) 4 mg PRN Q4HRS PRN PO NAUSEA/VOMITING 10/25/20 23:00 10/26/20 14:16 Risperidone (RisperDAL) 1 mg DAILY PO 10/27/20 09:00 10/27/20 10:39 Risperidone (RisperDAL) 1 mg DAILY PO 10/27/20 09:00 10/26/20 17:54 DC Risperidone (RisperDAL) 1.5 mg QHS PO 10/26/20 21:00 10/27/20 19:56 Nicotine (Nicoderm Cq 7mg Patch) 1 patch PRN DAILY PRN TD nicotine dependence 10/27/20 07:45 Current Medications Medications (Trade) Dose Ordered Sig/Jade Route PRN Reason Start Time Stop Time Status Last Admin Dose Admin Risperidone (RisperDAL) 1 mg DAILY PO 10/27/20 09:00 10/27/20 10:39 I have reviewed the current psychotropics carefully including drug interactions. Risk benefit ratio favors no change other than as noted in my dictated progress note. Diagnosis: Problems: (1) Bipolar affective, mixed, sev w/ psych (2) Impulse control disorder (3) Schizoaffective disorder, chronic condition with acute exacerbation (4) Anxiety disorder JONA ANN MD Oct 27, 2020 21:51
--- NOTE | 2020-10-27 22:07 | NUR ---
Pt located in her room this evening. Pt states she is hallucinating and seeing animals moving on her wall. Pt states she will take her medications this evening. When given the medication cup, pt is extremely resistive asking if RN is "pulling a fast one" on her. Pt eventually compliant with whole medications after discussion with RN. Pt continues to be attention seeking, asking for multiple items from staff members this evening.
[2020-10-28] MEDS: levoFLOXacin 250 MG TABLET PO SCH (05:16)
[2020-10-28 05:37] VITALS: BP 154/82
[2020-10-28] MEDS: GABAPENTIN 300 MG CAPSULE. PO SCH ×3 (07:58→19:41)
[2020-10-28] MEDS: risperiDONE 1 MG TABLET. PO SCH ×2 (07:58→19:41)
[2020-10-28] MEDS: buPROPion XL 150 MG TAB.ER.24H PO SCH (07:58)
[2020-10-28] MEDS: LISINOPRIL 20 MG TABLET PO SCH (07:58)
[2020-10-28] MEDS: PANTOPRAZOLE 40 MG TABLET. PO SCH (07:58)
[2020-10-28] MEDS: POLYETHYLENE GLYCOL 3350 17 GM PACKET. PO SCH (07:59)
[2020-10-28] MEDS: NAPROXEN 500 MG TABLET PO SCH ×2 (07:59→19:42)
[2020-10-28] MEDS: LACTOBACILLUS RHAMNOSUS GG 1 CAPSULE. PO SCH ×2 (07:59→19:41)
--- NOTE | 2020-10-28 10:21 | NUR ---
Pt has been attention seeking and distrustful of nursing staff concerning her medications. When scheduled medications were administered she picked out half of the pills and refused the rest, stating she will only take medications she had prescribed prior to admission. Of note, the half she refused were medications that were prescribed prior to admission. When each individual pill was identified to her she agreed to take them. She believes her difficulties in the previous night (10/27/20) and VH were d/t her medications being increased and she is adamant to not take the medications in their increased dosage d/t this belief. MAR was reviewed and it was noted that her Risperidone was increased from 1 mg BID to 1.5 mg HS and 1 mg daily (increase of 0.5 mg total for the day) and her Oxcarbazepine was increased from 300 mg BID to 600 mg BID (double the dose). No other increases to her medications have been observed. Further, per MAR, pt has refused medications from 10/26/20 to 10/27/20 and nursing staff is concerned that her difficulties the evening of 10/27/20 was due to 2 consecutive days of medication refusal. Pt has been appropriate in her interactions with staff and patients alike. She has no concerns at this time aside from her medications and her beliefs regarding them. She c/o 3/10 pain in her abd, scheduled Naproxen administered with reported effectiveness by pt. Plan of care continues, will pass on to next shift.
--- NOTE | 2020-10-28 10:37 | NUR ---
WEEKLY ACTIVITY THERAPY NOTE Date of Admission: 10/19/2020 Date of AT Assessment: 10/21 Precipitating behaviors that initiated intake and admission: Admitted from [facility] for reportedly calling police to report things stolen, calling the state,being depressed, having visual and auditory hallucinations, conversations with Mykel, being told by God what is going on at facility, being agitated, believing shampoo is being tainted to make her hair fall out. Goal aimed: increase motivation and leisure engagement Initial Goal: Pt will participate in at least three Activity Therapy individual or group sessions per week. Weekly progress towards goal: did not achieve, 2/3 Group participation level: 1 mod, 1 full Weekly highlights: boggle game on Sunday, bucket list and Never Have I Ever activity Sunday Behaviors observed: Sunday requesting medications besides the one that makes her see "puppies", tearful Sunday Plan: no change to goal Beneficial adaptations: cognitive stimulation
--- NOTE | 2020-10-28 10:42 | TX PLAN ---
Interdisciplinary Tx Plan Admission Information Oct 19, 2020 at 15:00 Legal Status (on Admission): Voluntary DPOA/Guardian Name: Nerissa Correa (Public Barrel Roller Operator) Contact Other Contact Name: [facility] Other Contact Verified Code Status: Full Code Allergies: Coded Allergies: chocolate flavor (Verified Allergy, Unknown, Swelling of eyes, Itching, and Diarrhea, 05/25/20) codeine (Verified Allergy, Unknown, 08/20/19) haloperidol (Verified Allergy, Unknown, 08/20/19) Uncoded Allergies: PENODENE (Allergy, Unknown, 05/24/20) Diagnoses Primary Diagnosis: Schizoaffective D/O, Bipolar type mixed with psychotic features Reasons for Admission: Delusions, Agitated, Hallucinations, Suspicious/paranoid, Poor impulse control, Other Problem in Patient's Words: N/A Additional Admission Comments: According to the intake, pt was calling the police to report things stolen, calling the state, depressed, having visual/auditory hallucinations, conversations with God, being told by God what is going on at the facility, agitated, believes shampoo is tainted to make her hair fall out. Problems Active Problems: attention seeking depressed somatic complaints Inactive Problems: medication compliance Pt Strengths/Limitations Ability for Braxton: Poor Cognitive Functioning/Ability: Fair Communication Skills/Ability: Fair Financial Resources: Poor Insight/Judgement: Poor Intellectual Ability: Fair Physical Health: Poor Social Skills: Fair Stability in Family: Poor Stability in School/Work: Poor Verbal Skills: Fair Discharge Criteria Discharge Criteria: Adequate arrangements @DC, Improved behavior, Improved mood/thought Preliminary Discharge Plan Preliminary DC Plan: Current Living Arrange. Special Precautions Fall Risk: Low Initial D/C Plan Pt to discharge back to [facility] Identified Discharge Needs: Follow up with PCP and Psychiatrist Currently Utilized Resources Currently Utilized Resources/P: Primary Care Physician Psychiatrist Identified Problems/Hx/Goals Objectives/Short-Term Goals Short Term Goals: Dec. Hallucination/Delus, Dec. Outbursts, Prevent Deterioration, Promote Coping Skill Short Term Goals in Patient's: N/A Interventions/Frequency Staff Interventions/Frequency&: Psychiatrist to assess pt at least 3x per week for medication management. Social Work to assess pt at least 2x per week for identification of barriers to care and final discharge planning. Nursing to assess medication effects, behavior management and completion of 15 minute checks daily. Encourage participation in group activities (if applicable) or 1:1 engagement based off Activity Dept goals. 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 Couldn't hold a job for more than 2-2.5 years and would have a breakdown. Education: Pt graduated from high school and "tried college" but failed because she was "too mentally sick". 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 Pt is highly attention seeking, at times hyperverbal and for the last few days refusing medications. Pt did take medication for the nurse his morning; however, reports that she thinks the increase in her medications are making her see things. Pt reported seeing a dog in her room yesterday. Pt has attended two groups this week with moderate participation. Otherwise, pt is withdrawn to her room. Pt will receive her Risperdal in one dose instead of BID. Potential ELOS is for the end of next week; beginning of the week after. JARED CAO Oct 28, 2020 10:42
--- NOTE | 2020-10-28 11:26 | NUR ---
Pt continues with behaviors that appear to be high maintenance, staff splitting, and attention seeking. After a shower she c/o feeling like she had a fever, to which YANCY Marley checked her temperature (97.8 F with the forehead thermometer). 5 minutes later pt asked that this nurse check her temperature because "That YANCY is not my nurse and she did not touch my forehead with the thermometer." Temperature rechecked by this nurse (98.1 F with forehead thermometer). Pt then requested that this nurse raise her bed because "it's too low." As pt was c/o of this she sat on her bed with ease and little to no difficulty and feet remained flat on the floor with her knees bent at a 90 degree angle and level with her hips. When this nurse pointed this out, she began to complain it was "too low for me to get up" and began to imitate struggling to get out of bed from a seated position. This nurse began to raise the bed and asked her to tell me when to stop. Pt said the height was just right for her when the bed was raised approx 1 inch. After leaving YANCY Marley confirmed that she checked pt's temperature appropriately with the forehead thermometer (touched it directly to her forehead) and that YANCY Herrera had already adjusted pt's bed height not even 10 minutes prior to me.
[2020-10-28 15:36] VITALS: BP 174/75
[2020-10-28] MEDS: rOPINIRole 2 MG TABLET. PO SCH (19:41)
--- NOTE | 2020-10-28 21:50 | PDOC ---
Exam Note: Keith Note: Please also refer to the separate dictated note~for this date of service dictated separately.~Patient seen individually. Discussed the patient with Nursing staff reviewed the chart.~Reviewed interim history and current functioning. Reviewed vital signs,~Labs/ Radiology~and current medications noted below. Continue current treatment with the changes noted in the dictated addendum note Assessment: Vital Signs/I&O: Vital Signs Date Time Temp Pulse Resp B/P (MAP) Pulse Ox O2 Delivery O2 Flow Rate FiO2 10/28/20 15:36 98.9 83 16 174/75 (108) 92 10/26/20 17:10 Room Air I & O 10/27/20 10/27/20 10/28/20 15:00 23:00 07:00 Intake Total 480 ml 720 ml Balance 480 ml 720 ml Current Medications: Meds: Current Medications Medications (Trade) Dose Ordered Sig/Jade Route PRN Reason Start Time Stop Time Status Last Admin Dose Admin Multi-Ingredient Ointment (Analgesic [place]) 1 taj PRN QID PRN TP MUSCLE PAIN 10/19/20 18:45 Nicotine (Nicoderm Cq 7mg Patch) 1 patch DAILY TD 10/20/20 09:00 10/27/20 07:42 DC 10/24/20 08:07 Acetaminophen (Tylenol) 650 mg PRN Q6HRS PRN PO PAIN 10/19/20 19:15 10/24/20 06:40 Diphenhydramine HCl (Benadryl) 25 mg PRN Q6HRS PRN PO itching 10/19/20 19:15 10/25/20 13:57 Loperamide HCl (Imodium) 2 mg PRN Q6HRS PRN PO DIARRHEA 10/19/20 19:15 Al Hydroxide/Mg Hydroxide (Mylanta Plus Xs) 15 ml PRN DAILY PRN PO DYSPEPSIA 10/19/20 19:15 10/26/20 14:00 Naproxen (Naprosyn) 500 mg BID PO 10/19/20 21:00 10/28/20 19:42 Pantoprazole Sodium (Protonix) 40 mg DAILY PO 10/20/20 09:00 10/28/20 07:58 Ropinirole HCl (Requip) 2 mg HS PO 10/19/20 21:00 10/28/20 19:41 Diltiazem HCl (Cardizem 24hr Cd) 240 mg DAILY PO 10/20/20 09:00 10/28/20 07:57 Gabapentin (Neurontin) 600 mg TID PO 10/19/20 21:00 10/28/20 19:41 Lactobacillus Rhamnosus (Culturelle) 1 cap BID PO 10/19/20 21:00 10/28/20 19:41 Lisinopril (Prinivil) 40 mg DAILY PO 10/20/20 09:00 10/28/20 07:58 Magnesium Hydroxide (Milk Of Magnesia) 2,400 mg PRN DAILY PRN PO CONSTIPATION 10/19/20 20:00 10/27/20 10:38 Polyethylene Glycol (miraLAX) 17 gm DAILY PO 10/20/20 09:00 10/28/20 07:59 Prednisolone Acetate (Pred Forte) 1 drop PRN QID PRN OU eye irritation 10/19/20 20:00 10/20/20 09:08 Benztropine Mesylate (Cogentin) 0.5 mg HS PO 10/19/20 21:00 10/24/20 18:24 DC 10/23/20 20:21 Bupropion HCl (Wellbutrin Xl) 150 mg DAILY PO 10/20/20 09:00 10/28/20 07:58 Olanzapine (ZyPREXA ZYDIS) 2.5 mg PRN Q2HRS PRN PO anxiety/psychosis 10/19/20 20:00 10/27/20 10:39 Oxcarbazepine (Trileptal) 300 mg BID PO 10/19/20 21:00 10/21/20 19:19 DC 10/21/20 08:15 Risperidone (RisperDAL) 1 mg BID PO 10/19/20 21:00 10/26/20 17:51 DC 10/26/20 08:24 Trazodone HCl (Desyrel) 100 mg PRN QHS PRN PO INSOMNIA 10/19/20 19:30 Melatonin (Melatonin) 3 mg PRN QHS PRN PO INSOMNIA 10/19/20 20:00 Aripiprazole (Abilify) 10 mg DAILY PO 10/20/20 09:00 10/20/20 19:13 DC Oxcarbazepine (Trileptal) 300 mg DAILY PO 10/22/20 09:00 10/25/20 19:10 DC 10/25/20 08:29 Oxcarbazepine (Trileptal) 600 mg QHS PO 10/21/20 21:00 10/25/20 19:10 DC 10/24/20 20:27 Multi-Ingredient Mouthwash/Gargle (Gi Cocktail) 20 ml 1X ONCE PO 10/22/20 20:00 10/22/20 20:08 DC 10/22/20 20:22 Magnesium Citrate (Citroma) 296 ml 1X ONCE PO 10/23/20 12:30 10/23/20 12:48 DC 10/23/20 16:35 Levofloxacin (Levaquin) 250 mg DAILY06 PO 10/23/20 13:45 10/28/20 13:44 DC 10/28/20 05:16 Tramadol HCl (Ultram) 100 mg PRN Q8HRS PRN PO PAIN 10/24/20 14:00 10/26/20 15:48 Simethicone (Gas-X) 80 mg PRN TID PRN PO GAS / BLOATING 10/24/20 14:00 10/26/20 15:46 Phenyleph/Shark Oil/Min Oil/Petrol (Preparation H) 1 taj PRN QID PRN RC RECTAL PAIN 10/24/20 21:45 Oxcarbazepine (Trileptal) 600 mg BID PO 10/25/20 21:00 10/28/20 19:41 Ondansetron HCl (Zofran Odt) 4 mg PRN Q4HRS PRN PO NAUSEA/VOMITING 10/25/20 23:00 10/26/20 14:16 Risperidone (RisperDAL) 1 mg DAILY PO 10/27/20 09:00 10/28/20 15:02 DC 10/28/20 07:58 Risperidone (RisperDAL) 1 mg DAILY PO 10/27/20 09:00 10/26/20 17:54 DC Risperidone (RisperDAL) 1.5 mg QHS PO 10/26/20 21:00 10/28/20 23:55 10/28/20 19:41 Nicotine (Nicoderm Cq 7mg Patch) 1 patch PRN DAILY PRN TD nicotine dependence 10/27/20 07:45 Risperidone (RisperDAL) 2.5 mg DAILY PO 10/29/20 09:00 I have reviewed the current psychotropics carefully including drug interactions. Risk benefit ratio favors no change other than as noted in my dictated progress note. Diagnosis: Problems: (1) Anxiety disorder (2) Bipolar affective, mixed, sev w/ psych (3) Impulse control disorder (4) Schizoaffective disorder, chronic condition with acute exacerbation JONA ANN MD Oct 28, 2020 21:50
--- NOTE | 2020-10-28 21:50 | PDOC ---
Exam Note: Keith Note: This note is a late entry for 10/27/2020 covers elements not covered in my initial note. Subjective: The patient was seen individually in the evening of 10/27/2020 with Misael BARBOSA, discussed and reviewed the chart. The patient slept 3-3/4 hours previous night. She was quite drowsy last night. Her h.s. meds were held as her O2 sats and arterial blood gases were abnormal with elevated PCO2. She was on 2 L oxygen and she took it off this morning. She has been refusing her meds in the morning. She did receive Zyprexa at 10 a.m. She remains quite psychotic, paranoid, telling the nursing staff that she is having a baby. She has been needy and attention seeking. Paranoia persisted during the day and she was telling the staff that her family was downstairs waiting for her and this was the same theme she was sharing with me as I met with her in her room this evening. Review of Systems: She does still complain of some abdominal pain, less than before. No CV, pulmonary, eye, ENT system symptoms on review. Mental Status Exam: The patient is oriented to herself and situation. Speech coherent, somewhat pressured. Abstraction is fair. Computation is impaired. Language function is intact. Attention span is short. Mood and affect somewhat labile. Laboratory Data: Reviewed. Impression: Schizoaffective disorder, bipolar type mixed with psychotic features. Anxiety disorder unspecified. Impulse control disorder unspecified. Plan: Continue current psychotropics but we may need to increase Risperdal once she is medically stable to tolerate this. Rest unchanged for now. Assessment: Vital Signs/I&O: Vital Signs Date Time Temp Pulse Resp B/P (MAP) Pulse Ox O2 Delivery O2 Flow Rate FiO2 10/28/20 15:36 98.9 83 16 174/75 (108) 92 10/26/20 17:10 Room Air I & O 10/27/20 10/27/20 10/28/20 15:00 23:00 07:00 Intake Total 480 ml 720 ml Balance 480 ml 720 ml Current Medications: Meds: Current Medications Medications (Trade) Dose Ordered Sig/Jade Route PRN Reason Start Time Stop Time Status Last Admin Dose Admin Multi-Ingredient Ointment (Analgesic [place]) 1 taj PRN QID PRN TP MUSCLE PAIN 10/19/20 18:45 Nicotine (Nicoderm Cq 7mg Patch) 1 patch DAILY TD 10/20/20 09:00 10/27/20 07:42 DC 10/24/20 08:07 Acetaminophen (Tylenol) 650 mg PRN Q6HRS PRN PO PAIN 10/19/20 19:15 10/24/20 06:40 Diphenhydramine HCl (Benadryl) 25 mg PRN Q6HRS PRN PO itching 10/19/20 19:15 10/25/20 13:57 Loperamide HCl (Imodium) 2 mg PRN Q6HRS PRN PO DIARRHEA 10/19/20 19:15 Al Hydroxide/Mg Hydroxide (Mylanta Plus Xs) 15 ml PRN DAILY PRN PO DYSPEPSIA 10/19/20 19:15 10/26/20 14:00 Naproxen (Naprosyn) 500 mg BID PO 10/19/20 21:00 10/28/20 19:42 Pantoprazole Sodium (Protonix) 40 mg DAILY PO 10/20/20 09:00 10/28/20 07:58 Ropinirole HCl (Requip) 2 mg HS PO 10/19/20 21:00 10/28/20 19:41 Diltiazem HCl (Cardizem 24hr Cd) 240 mg DAILY PO 10/20/20 09:00 10/28/20 07:57 Gabapentin (Neurontin) 600 mg TID PO 10/19/20 21:00 10/28/20 19:41 Lactobacillus Rhamnosus (Culturelle) 1 cap BID PO 10/19/20 21:00 10/28/20 19:41 Lisinopril (Prinivil) 40 mg DAILY PO 10/20/20 09:00 10/28/20 07:58 Magnesium Hydroxide (Milk Of Magnesia) 2,400 mg PRN DAILY PRN PO CONSTIPATION 10/19/20 20:00 10/27/20 10:38 Polyethylene Glycol (miraLAX) 17 gm DAILY PO 10/20/20 09:00 10/28/20 07:59 Prednisolone Acetate (Pred Forte) 1 drop PRN QID PRN OU eye irritation 10/19/20 20:00 10/20/20 09:08 Benztropine Mesylate (Cogentin) 0.5 mg HS PO 10/19/20 21:00 10/24/20 18:24 DC 10/23/20 20:21 Bupropion HCl (Wellbutrin Xl) 150 mg DAILY PO 10/20/20 09:00 10/28/20 07:58 Olanzapine (ZyPREXA ZYDIS) 2.5 mg PRN Q2HRS PRN PO anxiety/psychosis 10/19/20 20:00 10/27/20 10:39 Oxcarbazepine (Trileptal) 300 mg BID PO 10/19/20 21:00 10/21/20 19:19 DC 10/21/20 08:15 Risperidone (RisperDAL) 1 mg BID PO 10/19/20 21:00 10/26/20 17:51 DC 10/26/20 08:24 Trazodone HCl (Desyrel) 100 mg PRN QHS PRN PO INSOMNIA 10/19/20 19:30 Melatonin (Melatonin) 3 mg PRN QHS PRN PO INSOMNIA 10/19/20 20:00 Aripiprazole (Abilify) 10 mg DAILY PO 10/20/20 09:00 10/20/20 19:13 DC Oxcarbazepine (Trileptal) 300 mg DAILY PO 10/22/20 09:00 10/25/20 19:10 DC 10/25/20 08:29 Oxcarbazepine (Trileptal) 600 mg QHS PO 10/21/20 21:00 10/25/20 19:10 DC 10/24/20 20:27 Multi-Ingredient Mouthwash/Gargle (Gi Cocktail) 20 ml 1X ONCE PO 10/22/20 20:00 10/22/20 20:08 DC 10/22/20 20:22 Magnesium Citrate (Citroma) 296 ml 1X ONCE PO 10/23/20 12:30 10/23/20 12:48 DC 10/23/20 16:35 Levofloxacin (Levaquin) 250 mg DAILY06 PO 10/23/20 13:45 10/28/20 13:44 DC 10/28/20 05:16 Tramadol HCl (Ultram) 100 mg PRN Q8HRS PRN PO PAIN 10/24/20 14:00 10/26/20 15:48 Simethicone (Gas-X) 80 mg PRN TID PRN PO GAS / BLOATING 10/24/20 14:00 10/26/20 15:46 Phenyleph/Shark Oil/Min Oil/Petrol (Preparation H) 1 taj PRN QID PRN RC RECTAL PAIN 10/24/20 21:45 Oxcarbazepine (Trileptal) 600 mg BID PO 10/25/20 21:00 10/28/20 19:41 Ondansetron HCl (Zofran Odt) 4 mg PRN Q4HRS PRN PO NAUSEA/VOMITING 10/25/20 23:00 10/26/20 14:16 Risperidone (RisperDAL) 1 mg DAILY PO 10/27/20 09:00 10/28/20 15:02 DC 10/28/20 07:58 Risperidone (RisperDAL) 1 mg DAILY PO 10/27/20 09:00 10/26/20 17:54 DC Risperidone (RisperDAL) 1.5 mg QHS PO 10/26/20 21:00 10/28/20 23:55 10/28/20 19:41 Nicotine (Nicoderm Cq 7mg Patch) 1 patch PRN DAILY PRN TD nicotine dependence 10/27/20 07:45 Risperidone (RisperDAL) 2.5 mg DAILY PO 10/29/20 09:00 I have reviewed the current psychotropics carefully including drug interactions. Risk benefit ratio favors no change other than as noted in my dictated progress note. Diagnosis: Problems: (1) Anxiety disorder (2) Bipolar affective, mixed, sev w/ psych (3) Impulse control disorder (4) Schizoaffective disorder, chronic condition with acute exacerbation JONA ANN MD Oct 28, 2020 21:50
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
[2020-10-29 06:00] VITALS: BP 145/80
[2020-10-29] MEDS: ACETAMINOPHEN 325 MG TABLET PO PRN (06:26)
--- NOTE | 2020-10-29 06:27 | NUR ---
PRN tylenol given, pt says she feels hung over and complained of headache.
[2020-10-29] MEDS: buPROPion XL 150 MG TAB.ER.24H PO SCH (08:18)
[2020-10-29] MEDS: GABAPENTIN 300 MG CAPSULE. PO SCH ×3 (08:18→19:56)
[2020-10-29] MEDS: LACTOBACILLUS RHAMNOSUS GG 1 CAPSULE. PO SCH ×2 (08:18→19:53)
[2020-10-29] MEDS: POLYETHYLENE GLYCOL 3350 17 GM PACKET. PO SCH (08:18)
[2020-10-29] MEDS: risperiDONE 1 MG TABLET. PO SCH (08:19)
[2020-10-29] MEDS: LISINOPRIL 20 MG TABLET PO SCH (08:20)
[2020-10-29] MEDS: NAPROXEN 500 MG TABLET PO SCH ×2 (08:21→19:54)
[2020-10-29] MEDS: PANTOPRAZOLE 40 MG TABLET. PO SCH (08:21)
--- NOTE | 2020-10-29 10:30 | NUR ---
Pt has been visible on the unit this morning. She has been social and appropriate in her interactions with others. She has been a bit attention seeking with multiple random requests, however the level of these behaviors is less when compared to the previous day thus far. She is med compliant after medication education concerning each individual medication by MERLE Sifuentes was performed. Pt is slightly manic in her presentation, however she is absent of delusions/VH/AH at this time. She is absent of SI/HI behaviors and has no complaints at this time aside from wanting the orange tablet as opposed to the other colored tablets to listen to music on. Plan of care continues, will pass on to next shift.
[2020-10-29 15:46] VITALS: BP 168/81
[2020-10-29] MEDS: rOPINIRole 2 MG TABLET. PO SCH (19:53)
--- NOTE | 2020-10-29 21:35 | PDOC ---
Exam Note: Keith Note: Please also refer to the separate dictated note~for this date of service dictated separately.~Patient seen individually. Discussed the patient with Nursing staff reviewed the chart.~Reviewed interim history and current functioning. Reviewed vital signs,~Labs/ Radiology~and current medications noted below. Continue current treatment with the changes noted in the dictated addendum note Assessment: Vital Signs/I&O: Vital Signs Date Time Temp Pulse Resp B/P (MAP) Pulse Ox O2 Delivery O2 Flow Rate FiO2 10/29/20 15:46 98.3 81 20 168/81 (110) 95 Room Air I & O 10/28/20 10/28/20 10/29/20 15:00 23:00 07:00 Intake Total 720 ml 760 ml Balance 720 ml 760 ml Current Medications: Meds: Current Medications Medications (Trade) Dose Ordered Sig/Jade Route PRN Reason Start Time Stop Time Status Last Admin Dose Admin Multi-Ingredient Ointment (Analgesic [place]) 1 taj PRN QID PRN TP MUSCLE PAIN 10/19/20 18:45 Nicotine (Nicoderm Cq 7mg Patch) 1 patch DAILY TD 10/20/20 09:00 10/27/20 07:42 DC 10/24/20 08:07 Acetaminophen (Tylenol) 650 mg PRN Q6HRS PRN PO PAIN 10/19/20 19:15 10/29/20 06:26 Diphenhydramine HCl (Benadryl) 25 mg PRN Q6HRS PRN PO itching 10/19/20 19:15 10/25/20 13:57 Loperamide HCl (Imodium) 2 mg PRN Q6HRS PRN PO DIARRHEA 10/19/20 19:15 Al Hydroxide/Mg Hydroxide (Mylanta Plus Xs) 15 ml PRN DAILY PRN PO DYSPEPSIA 10/19/20 19:15 10/26/20 14:00 Naproxen (Naprosyn) 500 mg BID PO 10/19/20 21:00 10/29/20 19:54 Pantoprazole Sodium (Protonix) 40 mg DAILY PO 10/20/20 09:00 10/29/20 08:21 Ropinirole HCl (Requip) 2 mg HS PO 10/19/20 21:00 10/29/20 19:53 Diltiazem HCl (Cardizem 24hr Cd) 240 mg DAILY PO 10/20/20 09:00 10/29/20 08:20 Gabapentin (Neurontin) 600 mg TID PO 10/19/20 21:00 10/29/20 19:56 Lactobacillus Rhamnosus (Culturelle) 1 cap BID PO 10/19/20 21:00 10/29/20 19:53 Lisinopril (Prinivil) 40 mg DAILY PO 10/20/20 09:00 10/29/20 08:20 Magnesium Hydroxide (Milk Of Magnesia) 2,400 mg PRN DAILY PRN PO CONSTIPATION 10/19/20 20:00 10/27/20 10:38 Polyethylene Glycol (miraLAX) 17 gm DAILY PO 10/20/20 09:00 10/29/20 08:18 Prednisolone Acetate (Pred Forte) 1 drop PRN QID PRN OU eye irritation 10/19/20 20:00 10/20/20 09:08 Benztropine Mesylate (Cogentin) 0.5 mg HS PO 10/19/20 21:00 10/24/20 18:24 DC 10/23/20 20:21 Bupropion HCl (Wellbutrin Xl) 150 mg DAILY PO 10/20/20 09:00 10/29/20 08:18 Olanzapine (ZyPREXA ZYDIS) 2.5 mg PRN Q2HRS PRN PO anxiety/psychosis 10/19/20 20:00 10/27/20 10:39 Oxcarbazepine (Trileptal) 300 mg BID PO 10/19/20 21:00 10/21/20 19:19 DC 10/21/20 08:15 Risperidone (RisperDAL) 1 mg BID PO 10/19/20 21:00 10/26/20 17:51 DC 10/26/20 08:24 Trazodone HCl (Desyrel) 100 mg PRN QHS PRN PO INSOMNIA 10/19/20 19:30 Melatonin (Melatonin) 3 mg PRN QHS PRN PO INSOMNIA 10/19/20 20:00 Aripiprazole (Abilify) 10 mg DAILY PO 10/20/20 09:00 10/20/20 19:13 DC Oxcarbazepine (Trileptal) 300 mg DAILY PO 10/22/20 09:00 10/25/20 19:10 DC 10/25/20 08:29 Oxcarbazepine (Trileptal) 600 mg QHS PO 10/21/20 21:00 10/25/20 19:10 DC 10/24/20 20:27 Multi-Ingredient Mouthwash/Gargle (Gi Cocktail) 20 ml 1X ONCE PO 10/22/20 20:00 10/22/20 20:08 DC 10/22/20 20:22 Magnesium Citrate (Citroma) 296 ml 1X ONCE PO 10/23/20 12:30 10/23/20 12:48 DC 10/23/20 16:35 Levofloxacin (Levaquin) 250 mg DAILY06 PO 10/23/20 13:45 10/28/20 13:44 DC 10/28/20 05:16 Tramadol HCl (Ultram) 100 mg PRN Q8HRS PRN PO PAIN 10/24/20 14:00 10/26/20 15:48 Simethicone (Gas-X) 80 mg PRN TID PRN PO GAS / BLOATING 10/24/20 14:00 10/26/20 15:46 Phenyleph/Shark Oil/Min Oil/Petrol (Preparation H) 1 taj PRN QID PRN RC RECTAL PAIN 10/24/20 21:45 Oxcarbazepine (Trileptal) 600 mg BID PO 10/25/20 21:00 10/29/20 19:53 Ondansetron HCl (Zofran Odt) 4 mg PRN Q4HRS PRN PO NAUSEA/VOMITING 10/25/20 23:00 10/26/20 14:16 Risperidone (RisperDAL) 1 mg DAILY PO 10/27/20 09:00 10/28/20 15:02 DC 10/28/20 07:58 Risperidone (RisperDAL) 1 mg DAILY PO 10/27/20 09:00 10/26/20 17:54 DC Risperidone (RisperDAL) 1.5 mg QHS PO 10/26/20 21:00 10/28/20 23:55 DC 10/28/20 19:41 Nicotine (Nicoderm Cq 7mg Patch) 1 patch PRN DAILY PRN TD nicotine dependence 10/27/20 07:45 Risperidone (RisperDAL) 2.5 mg DAILY PO 10/29/20 09:00 10/29/20 08:19 Current Medications Medications (Trade) Dose Ordered Sig/Jade Route PRN Reason Start Time Stop Time Status Last Admin Dose Admin Risperidone (RisperDAL) 2.5 mg DAILY PO 10/29/20 09:00 10/29/20 08:19 I have reviewed the current psychotropics carefully including drug interactions. Risk benefit ratio favors no change other than as noted in my dictated progress note. Diagnosis: Problems: (1) Anxiety disorder (2) Impulse control disorder (3) Schizoaffective disorder, chronic condition with acute exacerbation (4) Bipolar affective, mixed, sev w/ psych JONA ANN MD Oct 29, 2020 21:35
--- NOTE | 2020-10-29 23:17 | NUR ---
Pt was sleeping in her bed at shift change [facility]. When she awoke she took all of her meds whole without difficulty. She has been at the nurses station many times with random requests and has been cooperative and social with staff.
[2020-10-30 06:38] VITALS: BP 165/74
--- NOTE | 2020-10-30 08:33 | PDOC ---
Exam Note: Keith Note: This note is a late entry for 10/29/2020 covers elements not covered in my initial note. Subjective: The patient was seen individually in the evening of 10/29/2020 with Maria Isabel BARBOSA, discussed and reviewed the chart. The patient slept 5-1/4 hours previous night. She has been compliant with medications, somewhat attention seeking. She is often refusing her psychotropics at the nursing facility and the power of city attorney called the nursing staff requesting if the patient could be started on long-acting intramuscular antipsychotic. Review of Systems: Positive for some tiredness. No CV, pulmonary, eye, ENT system symptoms on review. Mental Status Exam: The patient is reasonably oriented. Speech is per nursing report coherent, somewhat hyperverbal at times. Abstraction is fair. Computation is impaired. Language function is intact. Attention span is short. She remains somewhat grandiose, minimizes this. Laboratory Data: Reviewed. Impression: Schizoaffective disorder, bipolar type mixed with psychotic features. Anxiety disorder unspecified. Impulse control disorder unspecified. Plan: Continue current psychotropics. Start Risperdal Consta 25 mg IM q. 2 weeks. Maintain rest unchanged. Dr. Resendiz will be covering for me from Sunday through November 13, 2020. Assessment: Vital Signs/I&O: Vital Signs Date Time Temp Pulse Resp B/P (MAP) Pulse Ox O2 Delivery O2 Flow Rate FiO2 10/30/20 06:38 97.6 96 20 165/74 (104) 96 10/29/20 15:46 Room Air I & O 10/29/20 10/29/20 10/30/20 15:00 23:00 07:00 Intake Total 720 ml 720 ml Balance 720 ml 720 ml Current Medications: Meds: Current Medications Medications (Trade) Dose Ordered Sig/Jade Route PRN Reason Start Time Stop Time Status Last Admin Dose Admin Multi-Ingredient Ointment (Analgesic [place]) 1 taj PRN QID PRN TP MUSCLE PAIN 10/19/20 18:45 Nicotine (Nicoderm Cq 7mg Patch) 1 patch DAILY TD 10/20/20 09:00 10/27/20 07:42 DC 10/24/20 08:07 Acetaminophen (Tylenol) 650 mg PRN Q6HRS PRN PO PAIN 10/19/20 19:15 10/29/20 06:26 Diphenhydramine HCl (Benadryl) 25 mg PRN Q6HRS PRN PO itching 10/19/20 19:15 10/25/20 13:57 Loperamide HCl (Imodium) 2 mg PRN Q6HRS PRN PO DIARRHEA 10/19/20 19:15 Al Hydroxide/Mg Hydroxide (Mylanta Plus Xs) 15 ml PRN DAILY PRN PO DYSPEPSIA 10/19/20 19:15 10/26/20 14:00 Naproxen (Naprosyn) 500 mg BID PO 10/19/20 21:00 10/29/20 19:54 Pantoprazole Sodium (Protonix) 40 mg DAILY PO 10/20/20 09:00 10/29/20 08:21 Ropinirole HCl (Requip) 2 mg HS PO 10/19/20 21:00 10/29/20 19:53 Diltiazem HCl (Cardizem 24hr Cd) 240 mg DAILY PO 10/20/20 09:00 10/29/20 08:20 Gabapentin (Neurontin) 600 mg TID PO 10/19/20 21:00 10/29/20 19:56 Lactobacillus Rhamnosus (Culturelle) 1 cap BID PO 10/19/20 21:00 10/29/20 19:53 Lisinopril (Prinivil) 40 mg DAILY PO 10/20/20 09:00 10/29/20 08:20 Magnesium Hydroxide (Milk Of Magnesia) 2,400 mg PRN DAILY PRN PO CONSTIPATION 10/19/20 20:00 10/27/20 10:38 Polyethylene Glycol (miraLAX) 17 gm DAILY PO 10/20/20 09:00 10/29/20 08:18 Prednisolone Acetate (Pred Forte) 1 drop PRN QID PRN OU eye irritation 10/19/20 20:00 10/20/20 09:08 Benztropine Mesylate (Cogentin) 0.5 mg HS PO 10/19/20 21:00 10/24/20 18:24 DC 10/23/20 20:21 Bupropion HCl (Wellbutrin Xl) 150 mg DAILY PO 10/20/20 09:00 10/29/20 08:18 Olanzapine (ZyPREXA ZYDIS) 2.5 mg PRN Q2HRS PRN PO anxiety/psychosis 10/19/20 20:00 10/27/20 10:39 Oxcarbazepine (Trileptal) 300 mg BID PO 10/19/20 21:00 10/21/20 19:19 DC 10/21/20 08:15 Risperidone (RisperDAL) 1 mg BID PO 10/19/20 21:00 10/26/20 17:51 DC 10/26/20 08:24 Trazodone HCl (Desyrel) 100 mg PRN QHS PRN PO INSOMNIA 10/19/20 19:30 Melatonin (Melatonin) 3 mg PRN QHS PRN PO INSOMNIA 10/19/20 20:00 Aripiprazole (Abilify) 10 mg DAILY PO 10/20/20 09:00 10/20/20 19:13 DC Oxcarbazepine (Trileptal) 300 mg DAILY PO 10/22/20 09:00 10/25/20 19:10 DC 10/25/20 08:29 Oxcarbazepine (Trileptal) 600 mg QHS PO 10/21/20 21:00 10/25/20 19:10 DC 10/24/20 20:27 Multi-Ingredient Mouthwash/Gargle (Gi Cocktail) 20 ml 1X ONCE PO 10/22/20 20:00 10/22/20 20:08 DC 10/22/20 20:22 Magnesium Citrate (Citroma) 296 ml 1X ONCE PO 10/23/20 12:30 10/23/20 12:48 DC 10/23/20 16:35 Levofloxacin (Levaquin) 250 mg DAILY06 PO 10/23/20 13:45 10/28/20 13:44 DC 10/28/20 05:16 Tramadol HCl (Ultram) 100 mg PRN Q8HRS PRN PO PAIN 10/24/20 14:00 10/26/20 15:48 Simethicone (Gas-X) 80 mg PRN TID PRN PO GAS / BLOATING 10/24/20 14:00 10/26/20 15:46 Phenyleph/Shark Oil/Min Oil/Petrol (Preparation H) 1 taj PRN QID PRN RC RECTAL PAIN 10/24/20 21:45 Oxcarbazepine (Trileptal) 600 mg BID PO 10/25/20 21:00 10/29/20 19:53 Ondansetron HCl (Zofran Odt) 4 mg PRN Q4HRS PRN PO NAUSEA/VOMITING 10/25/20 23:00 10/26/20 14:16 Risperidone (RisperDAL) 1 mg DAILY PO 10/27/20 09:00 10/28/20 15:02 DC 10/28/20 07:58 Risperidone (RisperDAL) 1 mg DAILY PO 10/27/20 09:00 10/26/20 17:54 DC Risperidone (RisperDAL) 1.5 mg QHS PO 10/26/20 21:00 10/28/20 23:55 DC 10/28/20 19:41 Nicotine (Nicoderm Cq 7mg Patch) 1 patch PRN DAILY PRN TD nicotine dependence 10/27/20 07:45 Risperidone (RisperDAL) 2.5 mg DAILY PO 10/29/20 09:00 10/29/20 08:19 Risperidone (RisperDAL [place]STA) 25 mg Q2WKS IM 11/01/20 09:00 Current Medications Medications (Trade) Dose Ordered Sig/Jade Route PRN Reason Start Time Stop Time Status Last Admin Dose Admin Risperidone (RisperDAL) 2.5 mg DAILY PO 10/29/20 09:00 10/29/20 08:19 I have reviewed the current psychotropics carefully including drug interactions. Risk benefit ratio favors no change other than as noted in my dictated progress note. Diagnosis: Problems: (1) Anxiety disorder (2) Bipolar affective, mixed, sev w/ psych (3) Impulse control disorder (4) Schizoaffective disorder, chronic condition with acute exacerbation JONA ANN MD Oct 30, 2020 08:33
[2020-10-30] MEDS: POLYETHYLENE GLYCOL 3350 17 GM PACKET. PO SCH (09:00)
[2020-10-30] MEDS: buPROPion XL 150 MG TAB.ER.24H PO SCH (09:31)
[2020-10-30] MEDS: GABAPENTIN 300 MG CAPSULE. PO SCH ×3 (09:31→19:50)
[2020-10-30] MEDS: LISINOPRIL 20 MG TABLET PO SCH (09:32)
[2020-10-30] MEDS: risperiDONE 1 MG TABLET. PO SCH (09:32)
[2020-10-30] MEDS: ACETAMINOPHEN 325 MG TABLET PO PRN (09:32)
[2020-10-30] MEDS: LACTOBACILLUS RHAMNOSUS GG 1 CAPSULE. PO SCH ×2 (09:32→19:50)
[2020-10-30] MEDS: PANTOPRAZOLE 40 MG TABLET. PO SCH (09:32)
[2020-10-30] MEDS: NAPROXEN 500 MG TABLET PO SCH ×2 (09:32→19:50)
[2020-10-30 16:35] VITALS: BP 138/87
[2020-10-30] MEDS: rOPINIRole 2 MG TABLET. PO SCH (19:49)
--- NOTE | 2020-10-30 23:42 | PN ---
DATE: 10/30/2020 SUBJECTIVE: The patient was seen today, met with the staff, chart reviewed and also covering for Dr. Paula. Staff reports continued obsessive behaviors, fixated on certain events, difficult to change her line of thinking, gets highly anxious and nervous. She is alert and oriented. No evidence of any psychotic symptoms. The patient has a guardian. The patient is also very talkative and exhibiting poor impulse control and low frustration tolerance. OBSERVATION: VITAL SIGNS: Temperature 97.6, blood pressure 165/74, pulse 81, respirations 20, O2 sat 96%. GENERAL: Slept about 6 hours last night. MEDICATIONS: Reviewed. Currently on Risperdal 25 mg q. 2 weeks IM, Risperdal 2.5 mg daily, Trileptal 600 mg twice a day, bupropion 150 mg daily, gabapentin 600 mg t.i.d., melatonin 3 mg at night p.r.n., also olanzapine 2.5 mg q. ____ hours p.r.n. The patient is not exhibiting any side effects to the medications. LABORATORY DATA: The patient's lab reviewed. ASSESSMENT: Schizoaffective disorder with bipolar symptoms, generalized anxiety disorder. PLAN: Continue with the current treatment plan. Currently no change in her medications. LENGTH OF STAY: 7 days. CODY SCRUGGS MD DR: MIKE/papo JOB#: [id number] / [id number] NITIN
--- NOTE | 2020-10-31 02:19 | NUR ---
Last evening pt was active in her room or hallway and has been pleasant and cooperative. She reported some abdominal discomfort and said she has gall bladder problems and needs to see a surgeon. She took HS meds but would only take 300mg of her Trileptal. She has not been to nurses station as often for minor requests as on prior nights.
[2020-10-31 05:44] VITALS: BP 173/86
[2020-10-31] MEDS: POLYETHYLENE GLYCOL 3350 17 GM PACKET. PO SCH (09:00)
[2020-10-31] MEDS: PANTOPRAZOLE 40 MG TABLET. PO SCH (09:04)
[2020-10-31] MEDS: GABAPENTIN 300 MG CAPSULE. PO SCH ×3 (09:04→20:13)
[2020-10-31] MEDS: LACTOBACILLUS RHAMNOSUS GG 1 CAPSULE. PO SCH ×2 (09:04→20:13)
[2020-10-31] MEDS: buPROPion XL 150 MG TAB.ER.24H PO SCH (09:05)
[2020-10-31] MEDS: risperiDONE 1 MG TABLET. PO SCH (09:05)
[2020-10-31] MEDS: NAPROXEN 500 MG TABLET PO SCH ×2 (09:06→20:14)
[2020-10-31] MEDS: LISINOPRIL 20 MG TABLET PO SCH (09:06)
[2020-10-31] MEDS: ACETAMINOPHEN 325 MG TABLET PO PRN (09:06)
[2020-10-31 16:19] VITALS: BP 156/90
[2020-10-31] MEDS: rOPINIRole 2 MG TABLET. PO SCH (20:13)
[2020-10-31] MEDS: traZODone 100 MG TABLET. PO PRN (20:14)
--- NOTE | 2020-10-31 20:21 | PN ---
DATE: 10/31/2020 SUBJECTIVE: The patient was seen today, met with the staff, chart reviewed and also covering for Dr. Paula. Staff reports continued behavior problems, mostly obsessive compulsive behaviors, very rigid with her thinking, high level of anxiety. OBSERVATION: VITAL SIGNS: Temperature 98.1, blood pressure 173/86, pulse 81, respiration 18, O2 sat 93%. GENERAL: Slept about 5 hours last night. Staff reports no falls, no other major behavior problems. MEDICATIONS: The patient's current medications include Risperdal Consta 25 mg IM q. 2 weeks, Risperdal 2.5 mg daily, Trileptal 600 mg twice a day, bupropion 150 mg daily, gabapentin 600 mg t.i.d. and melatonin 3 mg at night p.r.n. She is also on olanzapine 25 mg q. 12 hours p.r.n. LABORATORY DATA: The patient's lab reviewed. ASSESSMENT: 1. Schizoaffective disorder with bipolar symptoms. 2. Generalized anxiety disorder. PLAN: To continue with the current treatment plan. The patient has planned to return to [facility] [place] once stable. CODY SCRUGGS MD DR: MIKE/papo JOB#: [id number] / [id number] NITIN
--- NOTE | 2020-10-31 22:20 | NUR ---
PT in day room at time of assessment. PT was compliant with medications, whole.
[2020-11-01 06:38] VITALS: BP 155/77
[2020-11-01] MEDS: POLYETHYLENE GLYCOL 3350 17 GM PACKET. PO SCH (08:11)
[2020-11-01] MEDS: buPROPion XL 150 MG TAB.ER.24H PO SCH (08:11)
[2020-11-01] MEDS: LISINOPRIL 20 MG TABLET PO SCH (08:12)
[2020-11-01] MEDS: GABAPENTIN 300 MG CAPSULE. PO SCH ×3 (08:12→19:47)
[2020-11-01] MEDS: risperiDONE 1 MG TABLET. PO SCH (08:13)
[2020-11-01] MEDS: NAPROXEN 500 MG TABLET PO SCH ×2 (08:13→19:46)
[2020-11-01] MEDS: PANTOPRAZOLE 40 MG TABLET. PO SCH (08:14)
[2020-11-01] MEDS: LACTOBACILLUS RHAMNOSUS GG 1 CAPSULE. PO SCH ×2 (08:15→19:46)
[2020-11-01] MEDS ORDERED: risperiDONE MICROSPHERES 25 MG/2 ML DISP.SYRIN. IM SCH (09:00)
--- NOTE | 2020-11-01 14:02 | NUR ---
PATIENT WAS IN A DINING ROOM UPON ASSESSMENT, CALM AND COMPLIANT WITH MEDICATIONS, MULTIPLE COMPLAINTS ABOUT PAIN, STATED SHE SUPPOSE TO HAVE A SURGERY. PATIENT BECAME UPSET WITH HAVING RISPERDAL SHOT THAT ORDERED ONCE A WEEK, BECAME TEARFUL AFTER IM INJECTION, REQUESTED TO MAKE A PHONE CALL TO THE LEGAL GUARDIAN, REQUESTED TO SEE THE DOCTOR. PATIENT IS CURRENTLY IN A DAY ROOM CALM AND WATCHING TV.
[2020-11-01 15:10] VITALS: BP 170/83
[2020-11-01] MEDS: rOPINIRole 2 MG TABLET. PO SCH (19:46)
[2020-11-01] MEDS: diphenhydrAMINE HCL 25 MG CAPSULE PO PRN (19:46)
[2020-11-01] MEDS: MELATONIN 3 MG TABLET PO PRN (19:47)
[2020-11-01] MEDS: traZODone 100 MG TABLET. PO PRN (19:47)
[2020-11-01] MEDS: ACETAMINOPHEN 325 MG TABLET PO PRN (21:43)
--- NOTE | 2020-11-01 23:41 | PN ---
DATE: 11/01/2020 SUBJECTIVE: The patient was seen today, met with the staff, chart reviewed and also covering for Dr. Paula. The patient continues to have behavior problems including OC behaviors, rigid with her thinking and also experiencing high level of anxiety. OBSERVATION: VITAL SIGNS: Temperature 97.3, blood pressure 155/77, pulse 82, respirations 14, O2 sat 94%. Slept about 5 hours last night. The patient has had no falls recently. The patient is compliant with the treatment. MEDICATIONS: The patient's current medications include Risperdal Consta 25 mg IM q. 2 weeks, Risperdal 2.5 mg daily, Trileptal 600 mg twice a day, bupropion 150 mg daily, gabapentin 600 mg t.i.d. and melatonin 3 mg at night p.r.n. for sleep. The patient is also on olanzapine 25 mg q. 12 hours p.r.n. LABORATORY DATA: Reviewed. ASSESSMENT: 1. Schizoaffective disorder with bipolar symptoms. 2. Generalized anxiety disorder. PLAN: Continue with the current treatment. The patient is planned to return to [facility] once stable. CODY SCRUGGS MD DR: MIKE/papo JOB#: [id number] / [id number]
--- NOTE | 2020-11-02 00:47 | NUR ---
Nurses Note: Pt sitting on side of bed during assessment and med pass. Pt angry and agitated with lots of questions regarding the medications being administered and what each was for but agreed to take her medications as prescribed. Pt did request tylenol for her head ache.
[2020-11-02 05:44] VITALS: BP 156/69
[2020-11-02] MEDS: risperiDONE 1 MG TABLET. PO SCH (07:41)
[2020-11-02] MEDS: LACTOBACILLUS RHAMNOSUS GG 1 CAPSULE. PO SCH ×2 (07:41→19:27)
[2020-11-02] MEDS: buPROPion XL 150 MG TAB.ER.24H PO SCH (07:41)
[2020-11-02] MEDS: GABAPENTIN 300 MG CAPSULE. PO SCH ×3 (07:42→19:31)
[2020-11-02] MEDS: NAPROXEN 500 MG TABLET PO SCH ×2 (07:43→19:28)
[2020-11-02] MEDS: PANTOPRAZOLE 40 MG TABLET. PO SCH (07:43)
[2020-11-02] MEDS: LISINOPRIL 20 MG TABLET PO SCH (07:44)
[2020-11-02] MEDS: POLYETHYLENE GLYCOL 3350 17 GM PACKET. PO SCH (07:44)
[2020-11-02] MEDS: traMADol 50 MG TABLET PO PRN (14:33)
[2020-11-02] MEDS: MAGNESIUM HYDROXIDE 2,400 MG/30 ML ORAL.SUSP. PO PRN (14:49)
[2020-11-02 16:03] VITALS: BP 162/76
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
[2020-11-02] MEDS: MELATONIN 3 MG TABLET PO PRN (19:30)
[2020-11-02] MEDS: rOPINIRole 2 MG TABLET. PO SCH (19:30)
[2020-11-02] MEDS: traZODone 100 MG TABLET. PO PRN (19:30)
--- NOTE | 2020-11-02 22:46 | PN ---
DATE: 11/02/2020 SUBJECTIVE: The patient was seen today, met with the staff, chart reviewed, and covering for Dr. Paula. The patient continues to present with obsessive compulsive behaviors, constantly focusing on certain things, difficulty change her line of thinking. She is also rigid, also experiencing high level of anxiety. OBSERVATION: VITAL SIGNS: Temperature 97.3, blood pressure 155/77, pulse is 73, respirations 18, O2 sat 98%. GENERAL: Slept about 6 hours last night. Staff reports no falls. The patient is compliant with the treatment. MEDICATIONS: The patient's current medications include Risperdal Consta 25 mg IM q. 2 weeks, Risperdal 2.5 mg daily, Trileptal 600 mg b.i.d., Wellbutrin 150 mg daily, gabapentin 600 mg t.i.d., melatonin 3 mg at night and also olanzapine 2.5 mg q. 2 hours p.r.n. The patient is not exhibiting any major side effects. LABORATORY DATA: Reviewed. ASSESSMENT: 1. Schizoaffective disorder with bipolar symptoms. 2. Generalized anxiety disorder. PLAN: To continue with the current treatment, length of stay 7 days. CODY SCRUGGS MD DR: MIKE/papo JOB#: [id number] / [id number]
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
[2020-11-03 05:50] VITALS: BP 161/84
[2020-11-03] MEDS: POLYETHYLENE GLYCOL 3350 17 GM PACKET. PO SCH (08:21)
[2020-11-03] MEDS: risperiDONE 1 MG TABLET. PO SCH (08:22)
[2020-11-03] MEDS: LISINOPRIL 20 MG TABLET PO SCH (08:22)
[2020-11-03] MEDS: NAPROXEN 500 MG TABLET PO SCH ×2 (08:22→19:57)
[2020-11-03] MEDS: PANTOPRAZOLE 40 MG TABLET. PO SCH (08:23)
[2020-11-03] MEDS: LACTOBACILLUS RHAMNOSUS GG 1 CAPSULE. PO SCH ×2 (08:23→19:57)
[2020-11-03] MEDS: buPROPion XL 150 MG TAB.ER.24H PO SCH (08:23)
[2020-11-03] MEDS: GABAPENTIN 300 MG CAPSULE. PO SCH ×3 (08:23→19:57)
[2020-11-03 15:22] VITALS: BP 179/102
--- NOTE | 2020-11-03 16:33 | NUR ---
Patient has been anxious, preoccupied with changing her sheets, restless, and compliant with medications through this shift. She has had less complaints of pain today. Patient had elevated blood pressure during afternoon vital signs, BP rechecked and was elevated at 176/102, left arm , seated, manual. paged, new orders received. Will continue to monitor and report to oncoming shift.
[2020-11-03] MEDS ORDERED: cloNIDine TTS-3 1 PATCH PATCH TD SCH (16:45)
[2020-11-03] MEDS: rOPINIRole 2 MG TABLET. PO SCH (19:57)
--- NOTE | 2020-11-04 00:27 | PN ---
DATE: 11/03/2020 SUBJECTIVE: The patient was seen today, met with the staff, chart reviewed and also covering for Dr. Paula. Staff reports increased behavior problems, resistive to medications, attention seeking, upsetting the roommate because she was sleeping in her bed. The patient apparently did not sleep well last night, yelling out wandering the halls and frequently approaching a nurse's station to report on other patient's behaviors. OBSERVATION: VITAL SIGNS: Temperature 99.0, blood pressure 162/76, pulse 75, respirations 20, O2 sat 93%. MEDICATIONS: The patient's current medications include Risperdal Consta 25 mg IM q. 2 weeks, Risperdal 2 mg daily, Trileptal 600 mg b.i.d., Wellbutrin 150 mg daily, gabapentin 600 mg t.i.d. and melatonin 3 mg at night. She is also on olanzapine 2.5 mg q. 2 hours p.r.n.: LABORATORY DATA: Reviewed. ASSESSMENT: 1. Schizoaffective disorder with bipolar symptoms. 2. Generalized anxiety disorder. PLAN: To continue with the treatment. LENGTH OF STAY: 7 days. CODY SCRUGGS MD DR: MIKE/papo JOB#: [id number] / [id number]
[2020-11-04 06:00] VITALS: BP 184/78
[2020-11-04] MEDS: PANTOPRAZOLE 40 MG TABLET. PO SCH (09:00)
[2020-11-04] MEDS: GABAPENTIN 300 MG CAPSULE. PO SCH ×3 (09:00→20:50)
[2020-11-04] MEDS: buPROPion XL 150 MG TAB.ER.24H PO SCH (09:00)
[2020-11-04] MEDS: risperiDONE 1 MG TABLET. PO SCH (09:01)
[2020-11-04] MEDS: LACTOBACILLUS RHAMNOSUS GG 1 CAPSULE. PO SCH ×2 (09:01→20:40)
[2020-11-04] MEDS: LISINOPRIL 20 MG TABLET PO SCH (09:02)
[2020-11-04] MEDS: POLYETHYLENE GLYCOL 3350 17 GM PACKET. PO SCH (09:02)
[2020-11-04] MEDS: NAPROXEN 500 MG TABLET PO SCH ×2 (09:02→20:40)
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
--- NOTE | 2020-11-04 11:25 | NUR ---
SW met with pt who wanted to discuss when she was going to be able to leave. SW explained that the psychiatrist mentioned discharge for Sunday. SW would have to let [facility] know and make transport arrangements. Pt has requested to speak to her guardian as she has questions about her stimulus and making sure that no one else receives that money. SW will plan to attempt to contact pt guardian so that pt can speak to her. SW will also attempt to contact [facility] to make discharge arrangements.
--- NOTE | 2020-11-04 11:57 | TX PLAN ---
Interdisciplinary Tx Plan Admission Information Oct 19, 2020 at 15:00 Legal Status (on Admission): Voluntary DPOA/Guardian Name: Nerissa Correa (Public Box Truck Owner Operator) Contact Other Contact Name: [facility] Other Contact Verified Code Status: Full Code Allergies: Coded Allergies: chocolate flavor (Verified Allergy, Unknown, Swelling of eyes, Itching, and Diarrhea, 05/25/20) codeine (Verified Allergy, Unknown, 08/20/19) haloperidol (Verified Allergy, Unknown, 08/20/19) Uncoded Allergies: PENODENE (Allergy, Unknown, 05/24/20) Diagnoses Primary Diagnosis: Schizoaffective D/O, Bipolar type mixed with psychotic features Reasons for Admission: Delusions, Agitated, Hallucinations, Suspicious/paranoid, Poor impulse control, Other Problem in Patient's Words: N/A Additional Admission Comments: According to the intake, pt was calling the police to report things stolen, calling the state, depressed, having visual/auditory hallucinations, conversations with God, being told by God what is going on at the facility, agitated, believes shampoo is tainted to make her hair fall out. Problems Active Problems: attention seeking depressed somatic complaints Inactive Problems: medication compliance Pt Strengths/Limitations Ability for [place]: Poor Cognitive Functioning/Ability: Fair Communication Skills/Ability: Fair Financial Resources: Poor Insight/Judgement: Poor Intellectual Ability: Fair Physical Health: Poor Social Skills: Fair Stability in Family: Poor Stability in School/Work: Poor Verbal Skills: Fair Discharge Criteria Discharge Criteria: Adequate arrangements @DC, Improved behavior, Improved mood/thought Preliminary Discharge Plan Preliminary DC Plan: Current Living Arrange. Special Precautions Fall Risk: Low Initial D/C Plan Pt to discharge back to [facility] Identified Discharge Needs: Follow up with PCP and Psychiatrist Currently Utilized Resources Currently Utilized Resources/P: Primary Care Physician Psychiatrist Identified Problems/Hx/Goals Objectives/Short-Term Goals Short Term Goals: Dec. Hallucination/Delus, Dec. Outbursts, Prevent Deterioration, Promote Coping Skill Short Term Goals in Patient's: N/A Interventions/Frequency Staff Interventions/Frequency&: Psychiatrist to assess pt at least 3x per week for medication management. Social Work to assess pt at least 2x per week for identification of barriers to care and final discharge planning. Nursing to assess medication effects, behavior management and completion of 15 minute checks daily. Encourage participation in group activities (if applicable) or 1:1 engagement based off Activity Dept goals. 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 Couldn't hold a job for more than 2-2.5 years and would have a breakdown. Education: Pt graduated from high school and "tried college" but failed because she was "too mentally sick". Community Follow-up Primary Care Physician Psychiatry Treatment Plan Explained Patient/Magnet Placer had this treatment plan explained to him/her as indicated by the signature below and has been given the opportunity to ask questions and make suggestions: Date: Patient/Magnet Placer Signature: Status Update Update Pt is eating 75-100% of meals and sleeping on average 5.5 hours at night. Pt did sleep almost 8.5 hours last night. Pt continues to be attention-seeking, compliant with medications and tends to have complaints about physical ailments or her roommate. Pt is having higher readings for her blood pressure, so pt was placed on a Clonidine patch to aid in regulation. Pt has been compliant with all medications within the last 3 days and concerns of potential medication seeking has been noted. At this time, pt will discharge back to [facility] on Sunday. SW will inform pt facility and guardian about discharge plans. JARED CAO Nov 04, 2020 11:57
--- NOTE | 2020-11-04 15:38 | NUR ---
RADHA attempted to return call to RADHA Rosenbaum at [facility] and ended up leaving a message asking for a returned call. Robi was out on a transport and would not be back until later tonight. RADHA sent over updates on pt and will follow up with Robi tomorrow.
[2020-11-04 16:07] VITALS: BP 168/64
--- NOTE | 2020-11-04 18:38 | NUR ---
Patient has been anxious, attention seeking, restless, and compliant with medications through this shift. She has had a few complaints of feeling dizzy at times, VSS when checked. Will continue to monitor and report to oncoming shift.
[2020-11-04] MEDS: rOPINIRole 2 MG TABLET. PO SCH (20:40)
--- NOTE | 2020-11-04 21:32 | NUR ---
Patient making somatic complaints and attention seeking about BP and swelling in feet. She complained about her roommate "see what I have to deal with" in the presence of her roommate. Patient compliant with medications (after asking questions about each pill) and then cooperative with assessment. Stated that she is upset that her roommate keeps "getting in her bed and messing the sheets up".
--- NOTE | 2020-11-04 22:22 | PN ---
DATE: 11/04/2020 SUBJECTIVE: The patient was seen today, met with the staff, chart reviewed and also covering for Dr. Paula. The patient continues to show behavior problems, resistive to medications, attention seeking and also upset with her roommate because she was sleeping in her bed. The patient also irritable, matute and also feeling angry, but not aggressive. The patient also constantly seeking attention, coming to the nurse's station to report on other patient's behaviors. OBSERVATION: VITAL SIGNS: The patient's temperature 97.6, blood pressure 184/78, pulse 78, respirations 20, O2 sat 90%. GENERAL: The patient slept about 7 hours last night. CURRENT MEDICATIONS: The patient's current medications include Risperdal Consta 25 mg IM q. 2 weeks and also Risperdal 2 mg daily, Trileptal 600 mg b.i.d., Wellbutrin 150 mg daily, gabapentin 600 mg t.i.d. and melatonin 3 mg at night. The patient is also on olanzapine 2.5 mg q. 2 hours p.r.n. LABORATORY DATA: Reviewed. ASSESSMENT: 1. Schizoaffective disorder with bipolar symptoms. 2. Generalized anxiety disorder. PLAN: To continue with the treatment. LENGTH OF STAY: 7 days. CODY SCRUGGS MD DR: MIKE/papo JOB#: [id number] / [id number]
--- NOTE | 2020-11-05 05:31 | NUR ---
Patient is delusional this am. She is stating that "Giovani the nurse" gave her medications last week that made her BP elevated and caused her to "roll on the floor". She stated that is the reason she has HTN and is short of breath requiring oxygen this morning. Nurse assured patient that nurses only give medications that the Dr's prescribe, that the doctors are aware of potential side effects of medications and that the benefits outweigh potential side effects.
[2020-11-05 06:07] LABS: BASO % 1 % (0-3); EOS # 0.1 x10^3/uL (0.0-0.7); EOS % 3 % (0-3); HEMATOCRIT 41.1 % (36.0-47.0); HEMOGLOBIN 13.5 g/dL (12.0-15.5); LYMPH # 1.3 x10^3/uL (1.0-4.8); LYMPH % 35 % (24-48); MEAN CORPUSCULAR HEMOGLOBIN 30 pg (25-35); MEAN CORPUSCULAR HGB CONC 33 g/dL (31-37); MEAN CORPUSCULAR VOLUME 90 fL (79-100); MONO # 0.4 x10^3/uL (0.0-1.1); MONO % 11 % (0-9); NEUT # 1.8 x10^3uL (1.8-7.7); NEUT % 50 % (31-73); PLATELET COUNT 201 x10^3/uL (140-400); RED BLOOD COUNT 4.55 x10^6/uL (3.50-5.40); RED CELL DISTRIBUTION WIDTH 12.8 % (11.5-14.5); WHITE BLOOD COUNT 3.6 x10^3/uL (4.0-11.0)
[2020-11-05 06:22] VITALS: BP 187/99
[2020-11-05 06:22] LABS: ALBUMIN 4.1 g/dL (3.4-5.0); ALBUMIN/GLOBULIN RATIO 1.4 (1.0-1.7); CREATININE 0.7 mg/dL (0.6-1.0); GFR 84.5; POTASSIUM 3.9 mmol/L (3.5-5.1); TOTAL BILIRUBIN 0.4 mg/dL (0.2-1.0); TOTAL PROTEIN 7.1 g/dL (6.4-8.2)
[2020-11-05] MEDS: PANTOPRAZOLE 40 MG TABLET. PO SCH (08:01)
[2020-11-05] MEDS: NAPROXEN 500 MG TABLET PO SCH ×2 (08:01→20:22)
[2020-11-05] MEDS: LISINOPRIL 20 MG TABLET PO SCH (08:01)
[2020-11-05] MEDS: LACTOBACILLUS RHAMNOSUS GG 1 CAPSULE. PO SCH ×2 (08:02→20:22)
[2020-11-05] MEDS: risperiDONE 1 MG TABLET. PO SCH (08:02)
[2020-11-05] MEDS: buPROPion XL 150 MG TAB.ER.24H PO SCH (08:03)
[2020-11-05] MEDS: POLYETHYLENE GLYCOL 3350 17 GM PACKET. PO SCH (08:03)
[2020-11-05] MEDS: GABAPENTIN 300 MG CAPSULE. PO SCH ×3 (08:05→20:23)
--- NOTE | 2020-11-05 08:53 | NUR ---
RADHA received a call from Robi at [facility], re: an update on pt. RADHA sent notes last night; however, Robi believes that nursing took them off the fax and looked them over. Robi is requesting that pt discharges on Sunday instead of Sunday. RADHA agreed that was fine, as they are the transportation and would not be able to get pt until later in the evening. RADHA will notify the team and prepare for Sunday. It was noted that pt still appears to be somewhat manic and can see if pt needs an increase in medications to have her calmer prior to Sunday. RADHA and Robi also discussed understanding that some of this is pt behaviors, but needing to find a middle ground for pt behaviors if at all possible.
--- NOTE | 2020-11-05 15:11 | NUR ---
RADHA received a call from pt guardian, Mari, who wanted to get an update on pt. RADHA explained that at times, pt appeared to be manic; however, has been taking medications. It takes awhile for this to happen, as she does question everything she takes but essentially is getting them. RADHA informed Mari that pt does want to talk to her about her stimulus money and making sure that no one privy to it. RADHA also let Mari know that pt was originally scheduled to discharge on Sunday; however, with the transportation concern for [facility], they requested a Sunday transport. All parties will re-convene on Sunday to finalize discharge plans and transport time.
[2020-11-05 15:44] VITALS: BP 164/88
[2020-11-05] MEDS: traMADol 50 MG TABLET PO PRN (16:18)
--- NOTE | 2020-11-05 17:15 | NUR ---
Pt up for meals and groups. Has not been somatic today but has accused several aides of being mean to her. Has been compliant with meds and cares. Dr Resendiz told pt if she did well this weekend she could possibly return to her facility early next week.
[2020-11-05] MEDS: rOPINIRole 2 MG TABLET. PO SCH (20:22)
[2020-11-05] MEDS: SIMETHICONE 80 MG TAB.CHEW PO PRN (20:38)
[2020-11-05] MEDS: ACETAMINOPHEN 325 MG TABLET PO PRN (20:38)
--- NOTE | 2020-11-05 20:38 | NUR ---
Patient reports that he is having lower abdominal pain. She has hypoactive bowel signs and her abdomen appears distended and is hard. PRN gas ex and tylenol given for pain. Will continue to monitor.
[2020-11-05] MEDS: MAG HYDROX/AL HYDROX/SIMETH 30 ML ORAL.SUSP PO PRN (22:29)
--- NOTE | 2020-11-05 23:22 | PN ---
DATE: 11/05/2020 SUBJECTIVE: The patient was seen today, met with the staff, chart reviewed and also covering for Dr. Paula. Staff reports no major behavior problems except getting agitated easily, difficult to redirect and exhibiting significant mood swings and also aggressive behaviors. OBSERVATION: VITAL SIGNS: Temperature 97.5, blood pressure 181/99, pulse 65, respirations 16, O2 sat 96%. GENERAL: Slept about 7 hours last night. CURRENT MEDICATIONS: The patient's current medications include Risperdal Consta 25 mg q. 2 weeks and also Risperdal 2 mg daily, Trileptal 600 mg b.i.d., Wellbutrin 150 mg daily, gabapentin 600 mg t.i.d. and melatonin 3 mg at night. The patient is also on olanzapine 2.5 mg q. 2 hours p.r.n. LABORATORY DATA: The patient's lab reviewed. ASSESSMENT: 1. Schizoaffective disorder with bipolar symptoms. 2. Generalized anxiety disorder. PLAN: To continue with the treatment. LENGTH OF STAY: 7 days. CODY SCRUGGS MD DR: MIKE/papo JOB#: [id number] / [id number]
--- NOTE | 2020-11-05 23:27 | NUR ---
Patient has eaten multiple snacks tonight, she has had ice cream, crackers and a few other things. She continues to report abdominal pain. She requested mylanta and was given PRN mylanta for dyspepsia. Patient has requested to consult medical dr regarding the pain. She had a full medical work up for abdominal pain 10-14 days ago. Will pass on in report that patient wishes to see dr. Will continue to monitor.
[2020-11-06 06:08] VITALS: BP 158/80
[2020-11-06] MEDS: POLYETHYLENE GLYCOL 3350 17 GM PACKET. PO SCH (08:01)
[2020-11-06] MEDS: LISINOPRIL 20 MG TABLET PO SCH (08:02)
[2020-11-06] MEDS: NAPROXEN 500 MG TABLET PO SCH ×2 (08:03→20:05)
[2020-11-06] MEDS: risperiDONE 1 MG TABLET. PO SCH (08:03)
[2020-11-06] MEDS: PANTOPRAZOLE 40 MG TABLET. PO SCH (08:04)
[2020-11-06] MEDS: GABAPENTIN 300 MG CAPSULE. PO SCH ×3 (08:04→20:05)
[2020-11-06] MEDS: buPROPion XL 150 MG TAB.ER.24H PO SCH (08:04)
[2020-11-06] MEDS: LACTOBACILLUS RHAMNOSUS GG 1 CAPSULE. PO SCH ×2 (08:04→20:05)
[2020-11-06] MEDS: SIMETHICONE 80 MG TAB.CHEW PO SCH ×2 (13:00→18:00)
--- NOTE | 2020-11-06 15:46 | NUR ---
Pt has had multiple c/o today. C/O dizziness and upset stomach. Abd distended. Dr Blank seen pt. New orders noted. Still feels staff are targeting her. Pt encouraged to worry about what she could do to get better so she can take care of her stomach issue after she gets back home. Has been compliant with meds and cares.
[2020-11-06 16:35] VITALS: BP 162/62
[2020-11-06] MEDS: rOPINIRole 2 MG TABLET. PO SCH (20:05)
[2020-11-06] MEDS: traZODone 100 MG TABLET. PO PRN (20:05)
--- NOTE | 2020-11-06 20:18 | NUR ---
Patient has made multiple complaints about her roommate. She is demanding to be moved to a new room. Patient is also making many complaints about her stomach pain, etc, etc. Medications taken whole, patient compliant and cooperative with assessment.
--- NOTE | 2020-11-06 22:15 | NUR ---
Patient tearful and spoke to this nurse and then to the superintendent house regarding getting a different room. Nurse told patient we would talk about that in the morning. Nurse then spoke with patients roommate about taking her things, wearing her clothes, discarding her toothbrush, getting into her bed and just being mean in general. Roommate did not seem to care. Patient thanked nurse for speaking to roommate. Nurse got patient a new toothbrush, toothpaste and denture brush. Patient and nurse put all patient belongings into the closet and locked it. Will continue to monitor and re-evaluate the situation in the morning.
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
[2020-11-07 05:59] VITALS: BP 164/98
[2020-11-07] MEDS: POLYETHYLENE GLYCOL 3350 17 GM PACKET. PO SCH (08:16)
[2020-11-07] MEDS: LACTOBACILLUS RHAMNOSUS GG 1 CAPSULE. PO SCH ×2 (08:16→20:24)
[2020-11-07] MEDS: SIMETHICONE 80 MG TAB.CHEW PO SCH ×3 (08:17→18:00)
[2020-11-07] MEDS: buPROPion XL 150 MG TAB.ER.24H PO SCH (08:17)
[2020-11-07] MEDS: PANTOPRAZOLE 40 MG TABLET. PO SCH (08:17)
[2020-11-07] MEDS: GABAPENTIN 300 MG CAPSULE. PO SCH ×3 (08:18→20:23)
[2020-11-07] MEDS: risperiDONE 1 MG TABLET. PO SCH (08:19)
[2020-11-07] MEDS: NAPROXEN 500 MG TABLET PO SCH ×2 (08:19→20:24)
[2020-11-07] MEDS: LISINOPRIL 20 MG TABLET PO SCH (08:20)
[2020-11-07 16:19] VITALS: BP 132/80
--- NOTE | 2020-11-07 18:30 | NUR ---
Pt less somatic today. Has been compliant with meds.
[2020-11-07] MEDS: traZODone 100 MG TABLET. PO PRN (20:23)
[2020-11-07] MEDS: rOPINIRole 2 MG TABLET. PO SCH (20:24)
--- NOTE | 2020-11-07 22:37 | NUR ---
Pt has been attention seeking this evening, up at the nurses station window requesting various things. Less somatic this evening, no complaints of abdominal pain. Compliant with whole medications. No issues with roommate this evening.
--- NOTE | 2020-11-07 23:20 | PN ---
DATE: 11/07/2020 SUBJECTIVE: The patient was seen today, met with the staff, chart reviewed, and covering for Dr. Paula. Staff reports the patient's behavior fluctuates. She is upset with her roommate because she is accusing roommate taking all her belongings. The patient also is having multiple somatic complaints, wanting to change her room. OBSERVATION: VITAL SIGNS: Temperature 97.4, blood pressure 164/98, pulse 68, respirations 14, O2 sat 94%. GENERAL: Slept about 7 hours last night. The patient's appetite is fair. MEDICATIONS: The patient's current medications include Risperdal Consta 25 mg q. 2 weeks, Risperdal 2 mg daily, Trileptal 600 mg b.i.d. and Wellbutrin 150 mg daily. The patient is also on melatonin 3 mg at night and gabapentin 600 mg t.i.d. LABORATORY DATA: Reviewed. ASSESSMENT: 1. Schizoaffective disorder with bipolar symptoms. 2. Generalized anxiety disorder. PLAN: To continue with the treatment. LENGTH OF STAY: 7 days. CODY SCRUGGS MD DR: MIKE/papo JOB#: [id number] / [id number]
[2020-11-08 06:10] VITALS: BP 168/94
[2020-11-08] MEDS: NAPROXEN 500 MG TABLET PO SCH ×2 (07:28→21:05)
[2020-11-08] MEDS: GABAPENTIN 300 MG CAPSULE. PO SCH ×3 (07:28→21:08)
[2020-11-08] MEDS: PANTOPRAZOLE 40 MG TABLET. PO SCH (07:29)
[2020-11-08] MEDS: LISINOPRIL 20 MG TABLET PO SCH (07:29)
[2020-11-08] MEDS: LACTOBACILLUS RHAMNOSUS GG 1 CAPSULE. PO SCH ×2 (07:29→21:05)
[2020-11-08] MEDS: buPROPion XL 150 MG TAB.ER.24H PO SCH (07:29)
[2020-11-08] MEDS: risperiDONE 1 MG TABLET. PO SCH (07:30)
[2020-11-08] MEDS: POLYETHYLENE GLYCOL 3350 17 GM PACKET. PO SCH (07:30)
[2020-11-08] MEDS: SIMETHICONE 80 MG TAB.CHEW PO SCH ×3 (07:30→18:08)
[2020-11-08] MEDS: MAG HYDROX/AL HYDROX/SIMETH 30 ML ORAL.SUSP PO PRN (10:59)
--- NOTE | 2020-11-08 13:31 | NUR ---
[facility] Social Work Discharge Planning Form Patient Name JOHN MOBLEY Admit Date: 19 October 2020 DISCHARGE PLAN Discharge Destination: Pt to return to [facility] Care Assessment: NA Level II Assessment: NA Transportation: Pt to be picked up by [facility] staff. Special Instructions/Notes: Please fax discharge orders, discharge medications and discharge summary to the fax number listed below. DISCHARGE TO FACILITY Facility: [facility] Address: [address]; [place] [address] Contact Name: Yuan SW: Contact Name: Ask for the nurse caring for pt upon admission. PCP: Sees facility physician for care.
--- NOTE | 2020-11-08 13:38 | NUR ---
RADHA left a message for Robi at [facility] to contact RADHA when possible re: pt transport time tomorrow.
[2020-11-08 15:40] VITALS: BP 159/77
--- NOTE | 2020-11-08 15:50 | NUR ---
RADHA received call from Deputy Mari at the Public Administration office. RADHA confirmed that [facility] will plan to discharge pt tomorrow; however, RADHA has not heard back from [facility] yet on a transport time. Mari will also try to contact Robi to see if she can find anything out. Mari also asked that RADHA send over a letter that would dictate pt medication changes, what has worked, and the discharge summary once that has been completed.
--- NOTE | 2020-11-08 16:06 | NUR ---
NSG NOTE; DELUSION PT CAME TO ME THIS AFTERNOON AND STATED HER SON HAD COME TO THIS HOSPITAL ON SUNDAY WITH HIS WORK CREW THEY WERE DOING CONSTRUCTION OUTSIDE. SHE TOLD ME THAT HE IS STILL HERE TODAY AND HIDING IN THE LARGE REFUSE BIN OUTSIDE AND PLANS TO SNEAK IN HERE AND TAKE HER HOME WITH HIM. I REASSURED HER THAT HE IS NOT HERE AND SAFE AT HOME. SHE THEN BECAME EMBARRASSED AND SAID SHE SHOULDN'T HAVE SAID ANYTHING BECAUSE NOW SHE LOOKS LIKE A "CRAZY OLD LADY"
--- NOTE | 2020-11-08 20:31 | PN ---
DATE: 11/08/2020 SUBJECTIVE: The patient was seen today, met with the staff, chart reviewed and also covering for Dr. Paula. Staff reports that she is getting upset with the roommate, attention seeking, and also needy. OBSERVATION: VITAL SIGNS: Temperature 97.6, blood pressure 168/94, pulse 75, respirations 20, O2 sat 96%. GENERAL: Slept about 8 hours last night. The patient's appetite is fair. MEDICATIONS: The patient's current medications include Risperdal Consta 25 mg q.2 weeks, Risperdal 2 mg daily, Trileptal 600 mg b.i.d. and Wellbutrin 150 mg daily. The patient is also on gabapentin 600 mg 3 times a day. The patient is not exhibiting any side effects. LABORATORY DATA: Reviewed. ASSESSMENT: 1. Schizoaffective disorder with bipolar symptoms. 2. Generalized anxiety disorder. PLAN: To continue with the treatment. LENGTH OF STAY: 7 days. CODY SCRUGGS MD DR: MIKE/papo JOB#: [id number] / [id number]
[2020-11-08] MEDS: rOPINIRole 2 MG TABLET. PO SCH (21:05)
[2020-11-08] MEDS: MAGNESIUM HYDROXIDE 2,400 MG/30 ML ORAL.SUSP. PO PRN (21:08)
--- NOTE | 2020-11-08 23:09 | NUR ---
Patient has been at the nursing station window multiple times this evening. She is less somatic than on previous shifts that this nurse worked. Patient expressed happiness that she is leaving tomorrow to return to her facility. Patient seems to be getting along better with her room mate.
[2020-11-09] MEDS ORDERED: METH28OI2 TP (02:54)
[2020-11-09] MEDS ORDERED: NICO1PAT27 TD (02:55)
[2020-11-09] MEDS ORDERED: ONDA4TAB12 PO (02:56)
[2020-11-09] MEDS ORDERED: PHEN28OI8 RC (02:57)
[2020-11-09] MEDS ORDERED: SIME80TA14 PO (02:58)
[2020-11-09] MEDS ORDERED: CLON1PAT11 TD (02:59)
[2020-11-09] MEDS ORDERED: RISP25DI IM (03:01)
[2020-11-09] MEDS ORDERED: RISP1TAB88 PO (03:01)
[2020-11-09] MEDS ORDERED: TRAM100T2 PO (03:02)
[2020-11-09 05:58] VITALS: BP 158/79
[2020-11-09] MEDS: NAPROXEN 500 MG TABLET PO SCH (08:07)
[2020-11-09] MEDS: buPROPion XL 150 MG TAB.ER.24H PO SCH (08:07)
[2020-11-09] MEDS: PANTOPRAZOLE 40 MG TABLET. PO SCH (08:07)
[2020-11-09] MEDS: SIMETHICONE 80 MG TAB.CHEW PO SCH ×2 (08:07→13:03)
[2020-11-09] MEDS: LACTOBACILLUS RHAMNOSUS GG 1 CAPSULE. PO SCH (08:07)
[2020-11-09] MEDS: risperiDONE 1 MG TABLET. PO SCH (08:07)
[2020-11-09 08:08] VITALS: BP 158/79
[2020-11-09] MEDS: LISINOPRIL 20 MG TABLET PO SCH (08:08)
[2020-11-09] MEDS: GABAPENTIN 300 MG CAPSULE. PO SCH ×2 (08:08→13:03)
[2020-11-09] MEDS: POLYETHYLENE GLYCOL 3350 17 GM PACKET. PO SCH (08:08)
--- NOTE | 2020-11-09 08:40 | NUR ---
Pt cooperative and appropriate this shift. She is compliant with medications only after each individual pill is identified to her. She is aware that she is d/c today. Plan of care continues, preparing for d/c.
--- NOTE | 2020-11-09 09:15 | NUR ---
Talked with pt about calling the [place] [employer] Hotline, pt politely declined and stated she doesn't feel as if she needs to call them.
--- NOTE | 2020-11-09 10:47 | NUR ---
RADHA received call from Robi, who wanted to set up transport for pt. As it stands they should be able to be here at 1330 and 1400. RADHA went over medications and let Robi know that pt is less manic but still very needy and wanting things from staff. RADHA will ensure that nursing sends over all the required discharge paperwork.
--- NOTE | 2020-11-09 11:53 | DS ---
DATE OF DISCHARGE: 11/09/2020 DISCHARGE DIAGNOSES: AXIS I: 1. Schizoaffective disorder, bipolar type; manic with psychotic features. 2. Anxiety disorder, unspecified. 3. Impulse control disorder, unspecified. AXIS II: None. AXIS III: Restless legs syndrome, chronic pain. REASON FOR ADMISSION: This 65-year-old female was read[facility] because of acute exacerbation of her schizoaffective disorder, bipolar type, with psychotic symptoms. The patient apparently has been calling the police to report things are stolen from her and also she called to state on the skilled nursing. She also had periods of depression, having visual and auditory hallucinations, having conversation with God and apparently she stated the God told her about what was going on at that facility and making her hair fall. She failed outpatient treatment. HISTORY OF PRESENT ILLNESS: She has a long history of schizoaffective disorder, bipolar type, with mood swings including psychotic symptoms. The patient also has been getting increasingly agitated lately, not able to follow directions, also noncompliant with the treatment. HOSPITAL COURSE: The patient had a physical exam, routine lab work including CBC, chem profile, urinalysis. Most of her lab work were within normal range. The patient's alkaline phosphatase was 123. The patient also showed abnormal lipid profile. The patient was continued on her medications including clonidine patch daily, Risperdal 25 mg IM q.2 weeks, Risperdal ____ mg daily, Trileptal 600 mg b.i.d., tramadol 100 mg q.8 hours p.r.n., bupropion 150 mg daily, lisinopril 40 mg daily, Cardizem 24-hour CD 240 mg daily, Protonix 40 mg daily, gabapentin 600 mg t.i.d. and also ropinirole 2 mg at night, melatonin 3 mg at night p.r.n. and also olanzapine 2.5 mg q.2 hours p.r.n. The patient was also on trazodone 100 mg at night p.r.n. The patient did not have any side effects. The patient's behavior improved gradually. The patient had problems with her roommates. The patient at the time of discharge was not exhibiting any psychotic symptoms. AFTERCARE PLAN: The patient at the time of discharge medically stable. The patient is not exhibiting any psychotic symptoms, not expressing any suicidal or homicidal thoughts. The patient is accepting of her discharge, she will be returning to [facility] and continue to see her psychiatrist and the primary care doctor and continue with the medications. CODY SCRUGGS MD DR: MIKE/papo JOB#: [id number] / [id number]
--- NOTE | 2020-11-09 12:43 | NUR ---
Called [facility] ([phone]) and spoke with CHELSEY Jessica for nurse to nurse report. Report covered labs, radiology/imaging, medications, orders, pt behaviors, information being sent back with pt. CHELSEY Jessica verbalized understanding.
--- NOTE | 2020-11-09 13:18 | NUR ---
Pt presents to the nurse station to request use of the phone. When asked who she was wanting to call she replied "My friend Giovani." This nurse reminded her that she is only allowed to call her guardian/DPOA. Pt then replied that she wanted to call her daughter instead. When this nurse replied, "Your daughter isn't your DPOA" pt stated "Okay I want to call my guardian Mari." This is a situation which has occurred more than once at [facility] where pt will attempt to contact individuals other than DPOA even though she has been informed multiple times that she cannot. Pt left a message with guardian requesting she call back because she wants the phone number and address to [facility] (pt's facility). Pt got off the phone and requested from this nurse the address/phone number to her facility so she could provide it to a male pt (who is ) since she is about to d/c. Pt appeared very pushy about the topic and continued to press for the information despite my telling her that I need to clarify with SW d/t me not being presented with this question before. SW contacted by this nurse who advised me to decline providing the requested information. Pt then walked away.
--- NOTE | 2020-11-09 14:18 | NUR ---
Tobacco Discharge Note [facility] Tobacco Hotline called with patient prior to discharge, PT REFUSED Tobacco cessation medication listed with current medications for discharge. YES Transition Record was faxed to follow-up provider with the following elements: Reason for admission, procedures, tests, principal diagnosis, pending studies, patient instructions, 26/02 contact information for unit, phone number to obtain pending test results, plan for follow-up care, physician follow-up, advanced directive information, and medication list with dose, duration and instructions. This information was included in the following documents: History and physical, lab results, study results, progress notes, social work planning form, DC instruction form, patient visit summary, and medication reconciliation form. Date & time record faxed: 11/09/20 1030 Record faxed to: [facility] (p [phone], f [phone]) Record discussed with/ report given to: Aracely BARBOSA at [facility]
== END 2020-11-09 14:20 | DRG 885 ==
LOC: GEROPSY 15:00
PROVIDERS: ADMIT Psychiatry & Neurology Psychiatry; ATTEND Psychiatry & Neurology Psychiatry
DX: F25.0 Schizoaffective disorder, bipolar type (principal); N39.0 Urinary tract infection, site not specified; F17.200 Nicotine dependence, unspecified, uncomplicated; J44.9 Chronic obstructive pulmonary disease, unspecified; E66.9 Obesity, unspecified; M19.90 Unspecified osteoarthritis, unspecified site; F63.9 Impulse disorder, unspecified; G25.81 Restless legs syndrome; G89.4 Chronic pain syndrome; F41.1 Generalized anxiety disorder; Z88.0 Allergy status to penicillin; Z79.899 Other long term (current) drug therapy; Z88.2 Allergy status to sulfonamides; Z88.8 Allergy status to other drugs, medicaments and biological substances; Z68.31 Body mass index [BMI] 31.0-31.9, adult
CPT/HCPCS: 36415; 71045; 74176; 76700; 80053; 80061; 81001; 82306; 82607; 82803; 83036; 83540; 83550; 83735; 84436; 84443; 84480; 85025; 85379; 86592; 87077; 87086; 87186; 93005; 99407; J2794; Q0162; Q0163